=== PATIENT | male | born 1965 | race Caucasian/White ===

== ENCOUNTER → 2023-07-31 14:12 | Outpatient (REF) | payer OTHER, SELFPAY | LOC: RAD 14:12 | PROVIDERS: FAMILY PHYSICIAN General Practice | DX: N41.2 Abscess of prostate (principal) | CPT/HCPCS: 72194; Q9967 ==

== ENCOUNTER 2024-02-29 18:03 | Inpatient (IN) | payer SELFPAY ==
[2024-02-29] VITALS (47 sets, daily range): BP systolic 64–198; BP diastolic 33–128; BMI 29.8
[2024-02-29] MEDS: TYLENOL 1000 MG PO (15:15)
--- NOTE | 2024-02-29 15:15 | ED.GENMED ---
History of Present Illness
<Maribel Martinez NP - Last Filed: 03/02/24 15:33>
General
Chief Complaint: Fainting/Passed Out
Source: patient
Exam Limitations: none
Time Seen by Provider: 02/29/24 15:03
Nursing documentation reviewed up to this point in time: agreed with
History of Present Illness
History of Present Illness:
Patient to ED after syncopal event in group home. Found on floor of cell. He states he has had right ear pain and sorethroat x 2 days. Temp of 102 on arrival to ED. Hypotensive. Denies n/v/d. No abdominal pain, urinary symptoms, chest pain, cough,
SOB. Abrasion to right posterior scalp, upper back. Brought to ED accompanied by group home guards. Alert and cooperative.
Past History
<Maribel Martinez NP - Last Filed: 03/02/24 15:33>
Past History
ED Past Medical History: CAD, HTN, Hypercholesterolemia and NIDDM
Review of Systems
<Maribel Martinez NP - Last Filed: 03/02/24 15:33>
Review of Systems
Allergies reviewed?: Yes
All Other Systems: ROS reviewed and negative except as documented in HPI and ROS
Constitutional: Reports fever, fatigue and chills
EENT: Reports sore throat and other (right ear pain)
Respiratory: Reports no symptoms
Cardiac: Reports no symptoms
ABD/GI: Reports no symptoms
: Reports no symptoms
Musculoskeletal: Reports no symptoms
Skin: Reports other (abrasion right posterior scalp, upper back.)
Neurological: Reports weakness
Psychiatric: Reports no symptoms
Phy Exam
<Maribel Martinez NP - Last Filed: 03/02/24 15:33>
General Physical Exam
General Presentation: severe distress
General age: appears stated age and appears older than age
General Skin: warm and dry
General Habitus: normal
General Mental: alert
General Hydration: dry mucous membranes and poor skin turgor
ENT Exam
ENT Exam: EOMI, TM's normal, pharyngeal erythema, swallowing well and tonsillar exudate
Cardiovascular Exam
Cardiovascular Exam: regular rate/rhythm and no edema
Pulmonary Exam
Pulmonary Exam: lungs clear and no respiratory distress
Gastrointestinal Exam
Gastrointestinal Exam: normal bowel sounds, non tender, soft, no organomegaly, non distended and no cva tenderness
Neurological Exam
Neurological Exam: alert, oriented x3, CN II-XII intact, no motor deficits, no sensory deficits and speech normal
Musculoskeletal Exam
Musculoskeletal Exam: full ROM and neuro vasc intact
Skin Exam
Skin Exam: normal color, warm/dry, no rash and other (superficial abrasion right posterior scalp, upper back)
Psychiatric Exam
Psychiatric Exam: normal mood/affect
Course
<Maribel Martinez NP - Last Filed: 03/02/24 15:33>
Orders/Labs/Results
Orders:
Orders
02/29/24 14:47
Electrocardiogram (*1) Urgent
Reason for Study: Chest Pain
Cardiac Monitoring- Treatment ONCE
EKG- Treatment ONCE
IV Insert/Care/Rem.- Treatment PRN
02/29/24 15:06
Alcohol Urgent
COVID-19 Antigen Urgent
Source: Nasal Swab
Complete Blood Count/With Diff Urgent
Comprehensive Metabolic Panel Urgent
Lactic Acid Urgent
Magnesium Urgent
Comment: ADD ON
Manual Differential Urgent
Phosphorus Urgent
Comment: ADD ON
Serum Osmolality Urgent
Comment: ADD ON
TSH Reflex To Free T4 Urgent
Comment: ADD ON
Triglycerides Urgent
Comment: ADD ON
Troponin I Urgent
Blood Culture Urgent
PAM Source: Blood/Venous
Specimen Description:
Influenza A+B Rapid Molecular Urgent
PAM Source: Nasal Swab
Specimen Description:
02/29/24 15:10
Acetaminophen [Tylenol] 1,000 mg PO NOW STA
02/29/24 15:13
Acetaminophen [Tylenol] 1,000 mg .ROUTE .STK-MED ONE
02/29/24 15:15
0.9% Sodium Chloride 1000 ml [Nss] 1,000 ml IV BOLUS
Acetaminophen [Tylenol] 1,000 mg PO NOW STA
02/29/24 15:21
Blood Culture Urgent
PAM Source: Blood/Venous
Specimen Description:
Rapid Strep Group A Urgent
PAM Source: Throat/Pharynx
Specimen Description:
Date Specimen was Collected: 02/29/24
Time Specimen was Collected: 15:20
02/29/24 15:24
0.9% Sodium Chloride 1000 ml [Nss] 1,000 ml IV BOLUS
02/29/24 15:34
Piperacillin/Tazo 4.5 Gram [Zosyn] 4.5 gram in 100 ml IV NOW
02/29/24 15:47
Chest X-ray Portable [CR Chest Portable - 1 View] Urgent
Comment:
Reason For Exam: sepsis
Reason Study Needs to be Portable: Patient Unstable
02/29/24 15:56
Vancomycin [Vancocin] 1,500 mg 0.9% Sodium Chloride [Nss] 20 ml 0.9% Sodium Chloride 250 ml [Nss] 250 ml IV NOW
02/29/24 16:05
0.9% Sodium Chloride 500 ml [Nss] 1,000 ml IV BOLUS
02/29/24 16:15
Add On- LAB Urgent
Tests Added?: tsh with free t4, mag, phos
02/29/24 16:20
Lorazepam [Ativan] 2 mg .ROUTE .STK-MED ONE
02/29/24 16:42
NORepinephrine 4 MG/250 ML [Levophed] 4 mg in 250 ml .ROUTE .STK-MED
02/29/24 16:54
Magnesium Sulfate 4 Gram/100Ml [Magnesium Sulfate] 4 gram in 100 ml IV NOW
02/29/24 17:00
3% Sodium Chloride 250 ml [Sodium Chloride 3%] 250 ml IV ONCE
02/29/24 17:24
Old Records Request [Obtain Records] As Directed
Dates of Information to be Released: 2017 -
Type of Information Requested: Consults
Lab Results
H&P
Radiology Results
Entire Record
02/29/24 17:25
ABG [Arterial Blood Gas] Urgent
%Oxygen/Room Air: 6 liters
02/29/24 17:26
Levetiracetam Injectable [Keppra] 1,000 mg IV NOW STA
02/29/24 17:32
Levetiracetam Injectable [Keppra] 1,500 mg IV NOW STA
02/29/24 17:33
INFECTIOUS DISEASE CONSULT Routine
Consulting Provider: Leanna Lew
Was physician already notified: Yes
Reason for consult: septic shock , seziures , hypotensnion, marcial throat earpain
Lidocaine 2% [Lidocaine Uro-Jet 2%] 1 syringe .ROUTE .STK-MED ONE
02/29/24 17:37
NEPHROLOGY CONSULT Routine
Consulting Provider: Vikas Baird
Was physician already notified: Yes
Reason for consult: marcial, hyponatremia with seizure septic shock
02/29/24 17:38
Admit/Transfer Patient As Directed
Co-Sign Provider:
Level of Care: Inpatient admission
Assign to:: ICU
Physician / Group: roshni connor
Diagnosis: septic shock,seizure , hypoNa, marcial,nonmitrop robby
Reason for Hospitalization: septic shock,seizure , hypoNa, marcial,nonmitrop robby
Expected length of stay greater than two midnights?: Yes
ELOS- Estimated Length of Stay in days: 5
I certify the patient meets the requirements for IP care: Yes
02/29/24 17:40
Code Status As Directed
Resuscitation Status: Full Code
02/29/24 17:42
Urinalysis Reflex To Culture Urgent
Date Specimen was Collected: 02/29/24
Time Specimen was Collected: 16:51
Urine Drug Abuse Screen Urgent
Date Specimen was Collected: 02/29/24
Time Specimen was Collected: 17:41
Urine Microscopic Reflex Cult Urgent
Urine Osmolality Random [Osmolality, Random Urine] Routine
Date Specimen was Collected: 02/29/24
Time Specimen was Collected: 16:51
Urine Sodium Routine
Date Specimen was Collected: 02/29/24
Time Specimen was Collected: 16:51
Urine Culture Urgent
PAM Source: U
Specimen Description:
Date Specimen was Collected: 02/29/24
Time Specimen was Collected: 16:51
02/29/24 17:44
PRN Pain Medication Management As Directed
May give lesser potent ordered pain med per pt: Yes
preference::
Protocol:: Medication orders for pain may be administered in a
manner that supports deferring to patient preference
when the pt is:
- Requesting an ordered lesser potent pain medication.
Least to most potent pain medications are defined
as: acetaminophen < NSAID < tramadol < opioids
(morphine, oxycodone, hydromorphone).
- Requesting a lesser dose of the same medication IF
ORDERED.
- Requesting a less intrusive route of administration
if both routes are prescribed by the provider (PO <
IV).
02/29/24 17:49
Friedman Catheter [Catheter- Indwelling] As Directed
Reason for insertion: Acute Retention
Discontinue Date/Time: 03/03/24 0600
02/29/24 18:00
EKG [Electrocardiogram (*1)] Urgent
Reason for Study: Syncope
Dexamethasone Sod Phosphate [Decadron] 14 mg IV NOW STA
VANCOMYCIN Pharmacy to Dose [VANCOCIN Pharmacy to Dose] 1 each Pharmacy To Prepare [Call Pharmacy To Prepare] 0 ml IV PER PROTOCOL
02/29/24 18:01
Dextrose 50%-Water [Dextrose 50% Syringe] 12.5 grams IV [id number] PRN
Glucagon [GlucaGen] 1 mg IM PRN PRN
Bedside Glucose Monitoring As Directed
Frequency: AC&HS
Additional Instructions:: Change to q6h if pt on TPN, tube feeding or not eating
02/29/24 19:00
Acetaminophen [Tylenol/Feverall] 650 mg RECTAL Q4HPRN PRN
Acetaminophen [Tylenol] 650 mg TUBE Q4HPRN PRN
02/29/24 19:00
Activity As Directed
Activity Level: With Assistance
Intake/ Output As Directed
Frequency: Per unit guidelines
Pneumatic Compression Sleeves As Directed
Type: Knee high
Precautions As Directed
Type of Precautions: Seizure
Vital Signs As Directed
Frequency: Per unit guidelines
Weight As Directed
Frequency: Daily
Pulse Ox/spot Check [RESP] Routine
Quantity: 1
Pt Eval And Treat Routine
Activity Level: As Tolerated
DX Deep Vein Thrombosis Video Routine
02/29/24 20:00
CefTRIAXone [Rocephin] 2,000 mg IV Q12H
02/29/24 22:00
Ampicillin 2,000 mg 0.9% Sodium Chloride 100 ml [Nss] 100 ml IV Q6H
03/01/24 00:00
EKG [Electrocardiogram (*1)] Urgent
Reason for Study: Syncope
Dexamethasone Sod Phosphate [Decadron] 14 mg IV Q6H
Insulin Aspart Corrective Mod [Novolog Flexpen-Moderate Resistance] See Protocol SC Q6
09/17/24 02:36
Cardiovascular Evaluation IN AM
Complete Blood Count/With Diff IN AM
Comprehensive Metabolic Panel IN AM
Glycohemoglobin (HgbA1c) IN AM
Troponin I Q6H
03/01/24 08:00
Levetiracetam Injectable [Keppra] 500 mg IV Q12
03/02/24 04:23
Complete Blood Count/With Diff IN AM
Comprehensive Metabolic Panel IN AM
03/03/24 06:00
Complete Blood Count/With Diff IN AM
Comprehensive Metabolic Panel IN AM
03/04/24 06:00
Complete Blood Count/With Diff IN AM
Comprehensive Metabolic Panel IN AM
03/05/24 06:00
Complete Blood Count/With Diff IN AM
Comprehensive Metabolic Panel IN AM
03/06/24 06:00
Complete Blood Count/With Diff IN AM
Comprehensive Metabolic Panel IN AM
Abnormal Lab Results
02/29/24 02/29/24 02/29/24
15:06 16:27 17:25
WBC 23.1 H 10^3/uL
(4.8-10.8)
RBC 3.66 L 10^6/uL
(4.70-6.10)
Hgb 11.5 L g/dL
(13.0-18.0)
Hct 31.7 L %
(39.0-52.0)
MCH 31.4 H pg
(27.0-31.0)
MPV 10.8 H fL
(7.4-10.4)
Abs Neuts (Manual) 20.5 H 10^3/uL
(1.4-6.5)
Band Neutrophils 22 H %
(0-3)
Lymphocytes (Manual) 1 L %
(20-51)
Monocytes (Manual) 1 L %
(2-9)
pCO2 21 L mmHg
(35-48)
HCO3 11.9 L* mmol/L
(21-28)
Sodium 121 L mmol/L
(135-145)
Chloride 80 L mmol/L
(98-107)
Carbon Dioxide 14 L* mmol/L
(22-30)
BUN 33 H mg/dl
(9-20)
Creatinine 2.2 H mg/dL
(0.7-1.3)
Glucose 275 H mg/dl
(70-99)
Serum Osmolality 264 L mOsm/kg
(275-300)
Lactic Acid 10.3 H* mmol/L
(0.7-2.0)
Calcium 8.1 L mg/dl
(8.4-10.2)
Magnesium 0.9 L* mg/dl
(1.6-2.3)
AST 119 H U/L
(17-59)
ALT 81 H U/L
(0-50)
Troponin I 0.131 H* ng/ml
Urine Ketones
Ur Occult Blood Reflex
Urine Bilirubin
Urine Urobilinogen
Leukocyte Esterase Rfl
Urine RBC
Urine Bacteria (Reflex)
Urine Glucose
Urine Albumin (Reflex)
POC Glucose 246 H mg/dl
(70-99)
02/29/24
17:42
WBC
RBC
Hgb
Hct
MCH
MPV
Abs Neuts (Manual)
Band Neutrophils
Lymphocytes (Manual)
Monocytes (Manual)
pCO2
HCO3
Sodium
Chloride
Carbon Dioxide
BUN
Creatinine
Glucose
Serum Osmolality
Lactic Acid
Calcium
Magnesium
AST
ALT
Troponin I
Urine Ketones Trace A
(Negative)
Ur Occult Blood Reflex 4+ A
(Negative)
Urine Bilirubin 2+ A
(Negative)
Urine Urobilinogen 3+ A
(Neg - 1+)
Leukocyte Esterase Rfl Trace A
(Negative)
Urine RBC 3-6 A /HPF
(0-2)
Urine Bacteria (Reflex) Many A
(Negative)
Urine Glucose Trace A
(Negative)
Urine Albumin (Reflex) 1+ A
(Neg - Trace)
POC Glucose
02/29/24 15:06
02/29/24 15:06
Vital Signs
Initial and Last Documented VS:
Initial Vital Signs
Temp Pulse Resp BP Pulse Ox
102.1 F H 93 24 90/63 94
02/29/24 14:39 02/29/24 14:39 02/29/24 14:39 02/29/24 14:39 02/29/24 14:39
Last Documented Vital Signs
Temp Pulse Resp BP Pulse Ox
99.6 F 75 17 84/65 93
03/02/24 11:00 03/02/24 13:45 03/02/24 13:45 03/02/24 12:00 03/02/24 13:45
<Aldo Harris, DO - Last Filed: 02/29/24 19:07>
Orders/Labs/Results
Orders:
Orders
02/29/24 14:47
Electrocardiogram (*1) Urgent
Reason for Study: Chest Pain
Cardiac Monitoring- Treatment ONCE
EKG- Treatment ONCE
IV Insert/Care/Rem.- Treatment PRN
02/29/24 15:06
Alcohol Urgent
COVID-19 Antigen Urgent
Source: Nasal Swab
Complete Blood Count/With Diff Urgent
Comprehensive Metabolic Panel Urgent
Lactic Acid Urgent
Magnesium Urgent
Comment: ADD ON
Manual Differential Urgent
Phosphorus Urgent
Comment: ADD ON
Serum Osmolality Urgent
Comment: ADD ON
TSH Reflex To Free T4 Urgent
Comment: ADD ON
Triglycerides Urgent
Comment: ADD ON
Troponin I Urgent
Blood Culture Urgent
PAM Source: Blood/Venous
Specimen Description:
Influenza A+B Rapid Molecular Urgent
PAM Source: Nasal Swab
Specimen Description:
02/29/24 15:10
Acetaminophen [Tylenol] 1,000 mg PO NOW STA
02/29/24 15:13
Acetaminophen [Tylenol] 1,000 mg .ROUTE .STK-MED ONE
02/29/24 15:15
0.9% Sodium Chloride 1000 ml [Nss] 1,000 ml IV BOLUS
Acetaminophen [Tylenol] 1,000 mg PO NOW STA
02/29/24 15:21
Blood Culture Urgent
PAM Source: Blood/Venous
Specimen Description:
Rapid Strep Group A Urgent
PAM Source: Throat/Pharynx
Specimen Description:
Date Specimen was Collected: 02/29/24
Time Specimen was Collected: 15:20
02/29/24 15:24
0.9% Sodium Chloride 1000 ml [Nss] 1,000 ml IV BOLUS
02/29/24 15:34
Piperacillin/Tazo 4.5 Gram [Zosyn] 4.5 gram in 100 ml IV NOW
02/29/24 15:47
Chest X-ray Portable [CR Chest Portable - 1 View] Urgent
Comment:
Reason For Exam: sepsis
Reason Study Needs to be Portable: Patient Unstable
02/29/24 15:56
Vancomycin [Vancocin] 1,500 mg 0.9% Sodium Chloride [Nss] 20 ml 0.9% Sodium Chloride 250 ml [Nss] 250 ml IV NOW
02/29/24 16:05
0.9% Sodium Chloride 500 ml [Nss] 1,000 ml IV BOLUS
02/29/24 16:15
Add On- LAB Urgent
Tests Added?: tsh with free t4, mag, phos
02/29/24 16:20
Lorazepam [Ativan] 2 mg .ROUTE .STK-MED ONE
02/29/24 16:42
NORepinephrine 4 MG/250 ML [Levophed] 4 mg in 250 ml .ROUTE .STK-MED
02/29/24 16:54
Magnesium Sulfate 4 Gram/100Ml [Magnesium Sulfate] 4 gram in 100 ml IV NOW
02/29/24 17:00
3% Sodium Chloride 250 ml [Sodium Chloride 3%] 250 ml IV ONCE
02/29/24 17:24
Old Records Request [Obtain Records] As Directed
Dates of Information to be Released: 2017 - present
Type of Information Requested: Consults
Lab Results
H&P
Radiology Results
Entire Record
02/29/24 17:25
ABG [Arterial Blood Gas] Urgent
%Oxygen/Room Air: 6 liters
02/29/24 17:26
Levetiracetam Injectable [Keppra] 1,000 mg IV NOW STA
02/29/24 17:32
Levetiracetam Injectable [Keppra] 1,500 mg IV NOW STA
02/29/24 17:33
INFECTIOUS DISEASE CONSULT Routine
Consulting Provider: Leanna Lew
Was physician already notified: Yes
Reason for consult: septic shock , seziures , hypotensnion, marcial throat earpain
Lidocaine 2% [Lidocaine Uro-Jet 2%] 1 syringe .ROUTE .STK-MED ONE
02/29/24 17:37
NEPHROLOGY CONSULT Routine
Consulting Provider: Vikas Baird
Was physician already notified: Yes
Reason for consult: marcial, hyponatremia with seizure septic shock
02/29/24 17:38
Admit/Transfer Patient As Directed
Co-Sign Provider:
Level of Care: Inpatient admission
Assign to:: ICU
Physician / Group: roshni connor
Diagnosis: septic shock,seizure , hypoNa, marcial,nonmitrop robby
Reason for Hospitalization: septic shock,seizure , hypoNa, marcial,nonmitrop robby
Expected length of stay greater than two midnights?: Yes
ELOS- Estimated Length of Stay in days: 5
I certify the patient meets the requirements for IP care: Yes
02/29/24 17:40
Code Status As Directed
Resuscitation Status: Full Code
02/29/24 17:42
Urinalysis Reflex To Culture Urgent
Date Specimen was Collected: 02/29/24
Time Specimen was Collected: 16:51
Urine Drug Abuse Screen Urgent
Date Specimen was Collected: 02/29/24
Time Specimen was Collected: 17:41
Urine Microscopic Reflex Cult Urgent
Urine Osmolality Random [Osmolality, Random Urine] Routine
Date Specimen was Collected: 02/29/24
Time Specimen was Collected: 16:51
Urine Sodium Routine
Date Specimen was Collected: 02/29/24
Time Specimen was Collected: 16:51
Urine Culture Urgent
PAM Source: U
Specimen Description:
Date Specimen was Collected: 02/29/24
Time Specimen was Collected: 16:51
02/29/24 17:44
PRN Pain Medication Management As Directed
May give lesser potent ordered pain med per pt: Yes
preference::
Protocol:: Medication orders for pain may be administered in a
manner that supports deferring to patient preference
when the pt is:
- Requesting an ordered lesser potent pain medication.
Least to most potent pain medications are defined
as: acetaminophen < NSAID < tramadol < opioids
(morphine, oxycodone, hydromorphone).
- Requesting a lesser dose of the same medication IF
ORDERED.
- Requesting a less intrusive route of administration
if both routes are prescribed by the provider (PO <
IV).
02/29/24 17:49
Friedman Catheter [Catheter- Indwelling] As Directed
Reason for insertion: Acute Retention
Discontinue Date/Time: 03/03/24 0600
02/29/24 18:00
EKG [Electrocardiogram (*1)] Urgent
Reason for Study: Syncope
Dexamethasone Sod Phosphate [Decadron] 14 mg IV NOW STA
VANCOMYCIN Pharmacy to Dose [VANCOCIN Pharmacy to Dose] 1 each Pharmacy To Prepare [Call Pharmacy To Prepare] 0 ml IV PER PROTOCOL
02/29/24 18:01
Dextrose 50%-Water [Dextrose 50% Syringe] 12.5 grams IV [id number] PRN
Glucagon [GlucaGen] 1 mg IM PRN PRN
Bedside Glucose Monitoring As Directed
Frequency: AC&HS
Additional Instructions:: Change to q6h if pt on TPN, tube feeding or not eating
02/29/24 19:00
Acetaminophen [Tylenol/Feverall] 650 mg RECTAL Q4HPRN PRN
Acetaminophen [Tylenol] 650 mg TUBE Q4HPRN PRN
02/29/24 19:00
Activity As Directed
Activity Level: With Assistance
Intake/ Output As Directed
Frequency: Per unit guidelines
Pneumatic Compression Sleeves As Directed
Type: Knee high
Precautions As Directed
Type of Precautions: Seizure
Vital Signs As Directed
Frequency: Per unit guidelines
Weight As Directed
Frequency: Daily
Pulse Ox/spot Check [RESP] Routine
Quantity: 1
Pt Eval And Treat Routine
Activity Level: As Tolerated
DX Deep Vein Thrombosis Video Routine
02/29/24 20:00
CefTRIAXone [Rocephin] 2,000 mg IV Q12H
02/29/24 22:00
Ampicillin 2,000 mg 0.9% Sodium Chloride 100 ml [Nss] 100 ml IV Q6H
03/01/24 00:00
EKG [Electrocardiogram (*1)] Urgent
Reason for Study: Syncope
Dexamethasone Sod Phosphate [Decadron] 14 mg IV Q6H
Insulin Aspart Corrective Mod [Novolog Flexpen-Moderate Resistance] See Protocol SC Q6
03/01/24 02:36
Cardiovascular Evaluation IN AM
Complete Blood Count/With Diff IN AM
Comprehensive Metabolic Panel IN AM
Glycohemoglobin (HgbA1c) IN AM
Troponin I Q6H
03/01/24 08:00
Levetiracetam Injectable [Keppra] 500 mg IV Q12
03/02/24 04:23
Complete Blood Count/With Diff IN AM
Comprehensive Metabolic Panel IN AM
03/03/24 06:00
Complete Blood Count/With Diff IN AM
Comprehensive Metabolic Panel IN AM
03/04/24 06:00
Complete Blood Count/With Diff IN AM
Comprehensive Metabolic Panel IN AM
03/05/24 06:00
Complete Blood Count/With Diff IN AM
Comprehensive Metabolic Panel IN AM
03/06/24 06:00
Complete Blood Count/With Diff IN AM
Comprehensive Metabolic Panel IN AM
Abnormal Lab Results
02/29/24 02/29/24 02/29/24
15:06 16:27 17:25
WBC 23.1 H 10^3/uL
(4.8-10.8)
RBC 3.66 L 10^6/uL
(4.70-6.10)
Hgb 11.5 L g/dL
(13.0-18.0)
Hct 31.7 L %
(39.0-52.0)
MCH 31.4 H pg
(27.0-31.0)
MPV 10.8 H fL
(7.4-10.4)
Abs Neuts (Manual) 20.5 H 10^3/uL
(1.4-6.5)
Band Neutrophils 22 H %
(0-3)
Lymphocytes (Manual) 1 L %
(20-51)
Monocytes (Manual) 1 L %
(2-9)
pCO2 21 L mmHg
(35-48)
HCO3 11.9 L* mmol/L
(21-28)
Sodium 121 L mmol/L
(135-145)
Chloride 80 L mmol/L
(98-107)
Carbon Dioxide 14 L* mmol/L
(22-30)
BUN 33 H mg/dl
(9-20)
Creatinine 2.2 H mg/dL
(0.7-1.3)
Glucose 275 H mg/dl
(70-99)
Serum Osmolality 264 L mOsm/kg
(275-300)
Lactic Acid 10.3 H* mmol/L
(0.7-2.0)
Calcium 8.1 L mg/dl
(8.4-10.2)
Magnesium 0.9 L* mg/dl
(1.6-2.3)
AST 119 H U/L
(17-59)
ALT 81 H U/L
(0-50)
Troponin I 0.131 H* ng/ml
Urine Ketones
Ur Occult Blood Reflex
Urine Bilirubin
Urine Urobilinogen
Leukocyte Esterase Rfl
Urine RBC
Urine Bacteria (Reflex)
Urine Glucose
Urine Albumin (Reflex)
POC Glucose 246 H mg/dl
(70-99)
02/29/24
17:42
WBC
RBC
Hgb
Hct
MCH
MPV
Abs Neuts (Manual)
Band Neutrophils
Lymphocytes (Manual)
Monocytes (Manual)
pCO2
HCO3
Sodium
Chloride
Carbon Dioxide
BUN
Creatinine
Glucose
Serum Osmolality
Lactic Acid
Calcium
Magnesium
AST
ALT
Troponin I
Urine Ketones Trace A
(Negative)
Ur Occult Blood Reflex 4+ A
(Negative)
Urine Bilirubin 2+ A
(Negative)
Urine Urobilinogen 3+ A
(Neg - 1+)
Leukocyte Esterase Rfl Trace A
(Negative)
Urine RBC 3-6 A /HPF
(0-2)
Urine Bacteria (Reflex) Many A
(Negative)
Urine Glucose Trace A
(Negative)
Urine Albumin (Reflex) 1+ A
(Neg - Trace)
POC Glucose
02/29/24 15:06
02/29/24 15:06
Vital Signs
Initial and Last Documented VS:
Initial Vital Signs
Temp Pulse Resp BP Pulse Ox
102.1 F H 93 24 90/63 94
02/29/24 14:39 02/29/24 14:39 02/29/24 14:39 02/29/24 14:39 02/29/24 14:39
Last Documented Vital Signs
Temp Pulse Resp BP Pulse Ox
99.6 F 75 17 84/65 93
03/02/24 11:00 03/02/24 13:45 03/02/24 13:45 03/02/24 12:00 03/02/24 13:45
Procedures
<Aldo Harris DO - Last Filed: 02/29/24 19:07>
Intubations
Procedure completed by: yusuf
Method of Intubation: curved blade, orotracheal and glidescope
Tube size (cm): 8.0
Placement confirmed by: auscutation, CXR, capnography, placement corrected and direct visualization
Breath sounds after intubation: equal
Intubation complications: no complications
Central Line
Right Femoral:
Indication for procedure:: vascular assess
Procedure completed by: yusuf
Consent form signed: No
If no, reason: Emergency procedure
Central line lumen: triple
Number of attempts: 1
Central line complications: none
Sterile dressing applied?: Yes
<Maribel Martinez NP - Last Filed: 03/02/24 15:33>
*Radiology
Radiology exam reviewed: radiology read reviewed
*Pulse Oximetry
Patient hypoxic: yes
<Aldo Harris DO - Last Filed: 02/29/24 19:07>
*Critical Care Note
Total Time (30-74mins, 75-104mins- exclusive of procedures): 75 minutes
<Maribel Martinez NP - Last Filed: 03/02/24 15:33>
Update Note
Update Note:
Seizure while in CT. No prior history. Rn reportsO2 dropped suddenly and then patient started to seize. Lasted approx 1-2 minutes. Brought back to ED.Dr. Harris with pt. Fluid resuscitation continued. Levaphed started with gradually
tiration up. BP holding at low 80's/50's. Friedman catheter placed by RN. ENDER, UDS pending. Dr. Cavazos, Dr Diaz into evaluate patient. Intubation to proceed and then return to CT head imaging.
UA neg. Thick green secretions noted on intubation. Culture ordered. tTripple lumen femoral line placed by Dr. Harris.. Patient moved to CT and then ICU.
ED Attending Note
<Maribel Martinez YARD DRIVER - Last Filed: 03/02/24 15:33>
-
Portions of this chart may have been created with voice recognition software.� Occasional wrong word or��sound alike� substitutions may have occurred due to the inherent limitations of voice recognition software.
<Alod Harris DO - Last Filed: 02/29/24 19:07>
ED Attending Note
Patient seen and examined by attending physician: Yes
I performed the substantive portion of visit, reviewed & personally made and approve the management plan that is documented in note by myself or DERRICK.: Yes
ED Attending Note:
Patient is a 58-year-old diabetic male from the group home who has syncopal episode and was found to have a fever of 102. Patient is extremely dehydrated on physical exam. Patient is coherent and appropriate. Patient denies any headache, neck pain,
shortness of breath or cough. Patient did complain of right ear pain and sore throat. Patient denies any GI or symptoms. Patient's been present since February 04. Patient admits to drinking 2 beers a day. Patient denies any drug use. Patient
denies any history of seizures. Patient did pass out and strike the right side of his head. Patient on physical exam is normocephalic with small bruising on the right with abrasions on top. Ears show TMs to be intact and clear. No tenderness
with traction. No signs of otitis externa or media. Oral exam shows mild halitosis with extremely dry mucous membranes. On intubation there was green pus coming through the trachea. Patient's lungs were clear. Heart is regular with mild
tachycardia. Abdomen soft nontender. Neurologically without focality. Patient's liver enzymes are elevated with AST greater than ALT, sodium is 121, CO2 is 14, QT interval is prolonged suggesting hypomagnesemia. Certainly the sodium, head strike
and low magnesium and possible alcohol withdrawal could all contribute to seizure. Patient was given 3% sodium along with normal saline fluid resuscitation in addition to antibiotics and magnesium being infused. Patient is septic with hypotension,
tachycardia but adequate mentation. Patient was fluid resuscitated and after 4-1/2 L was switched to Levophed which was titrated upward. Patient was sent to CT and promptly ceased. Patient was brought back before CT could be done. Patient was
postictal but eventually became oriented. After discussion it was decided to intubate the patient due to his unstable critical nature. Patient was intubated with an 8.0 tube by me. Also a right femoral vein line was placed. Patient had
difficulty maintaining adequate oxygenation on the ventilator. Patient's airway pressures are actually low. PEEP was increased. Looking at the chest x-ray the ET tube was approximately 1 to 1-1/2 cm above the lucas. Decision was made to pull
back the tube which seemed to improve oxygenation. Patient's PEEP was turned back down to 5. Patient had a Friedman catheter placed. Urine looked concentrated but not infected. Patient critically ill. Critical care time 75 minutes.
Discharge Plan
Departure
Patient Disposition: Admit
Date of Disposition: 02/29/24
Time of Disposition: 15:40
Presentation/result/management discussed w/ accepting MD/DO: Hospitalist
Condition: Fair
Discharge Problem:
Sepsis
Interventions
Interventions:
*Risk Screen - Suicide Last Done: 02/29/24 14:39
*General Assessment Last Done: 02/29/24 14:39
*Neglect/Abuse Screening Last Done: 02/29/24 14:39
ED- Fall Risk Assessment Last Done: 02/29/24 14:53
*ED COVID-19 Vaccine History Last Done: 02/29/24 20:12
*Nursing Disposition Last Done: 02/29/24 20:12
ED- Cardiac Assessment Last Done: 02/29/24 15:30
ED- Neurological Assessment Last Done: 02/29/24 15:30
Discharge Date and Time
Discharge Date/Time: 02/29/24 20:13
[2024-02-29] MEDS: NSS 1000 IV ×3 (15:17→16:06)
[2024-02-29 15:33] LABS: COVID-19 Antigen Negative (Negative)
--- NOTE | 2024-02-29 15:33 | EDRN ---
Pt placed on oxygen at 2lpm for POX 86% on RA.
[2024-02-29 15:34] LABS: Albumin 3.6 g/dl (3.5-5.0); Alkaline Phosphatase 83 U/L (38-126); Blood Urea Nitrogen 33 mg/dl (9-20); Calcium 8.1 mg/dl (8.4-10.2); Carbon Dioxide 14 mmol/L (22-30); Estimated Creatinine Clearance 38 ml/min; Glucose 275 mg/dl (70-99); Lactic Acid 10.3 mmol/L (0.7-2.0); Total Bilirubin 1.3 mg/dl (0.2-1.3); Total Protein 6.3 g/dl (6.3-8.2); eGFR 34.08
[2024-02-29 15:36] LABS: AST (SGOT) 119 U/L (17-59)
[2024-02-29 15:38] LABS: ALT (SGPT) 81 U/L (0-50)
[2024-02-29 15:45] LABS: Troponin I 0.131 ng/ml
[2024-02-29] MEDS: ZOSYN 100 IV (15:46)
[2024-02-29 15:47] LABS: Chloride 80 mmol/L (98-107); Potassium 3.8 mmol/L (3.5-5.1); Sodium 121 mmol/L (135-145)
[2024-02-29 15:52] LABS: Hematocrit 31.7 % (39.0-52.0); Hemoglobin 11.5 g/dL (13.0-18.0); Mean Corp Hgb Conc. 36.3 g/dL (33.0-37.0); Mean Corpuscular Hgb 31.4 pg (27.0-31.0); Mean Corpuscular Volume 86.6 fL (80.0-94.0); Mean Platelet Volume 10.8 fL (7.4-10.4); Platelet Count 148 10^3/uL (130-400); Red Blood Cell Count 3.66 10^6/uL (4.70-6.10); White Blood Cell Count 23.1 10^3/uL (4.8-10.8)
--- NOTE | 2024-02-29 16:07 | EDRN ---
Portable CXR done at stretcher side at this time.
--- NOTE | 2024-02-29 16:17 | HPS.HSE ---
Family Physician
-
Family Physician: Facility [facility]
Chief Complaint
-
Syncope, hypotension, febrile, right ear pain, sore throat x 2 days [facility]
History of Present Illness
58-year-old male from [facility] when examined by ER physician was complaining of right ear pain with sore throat x 2 days. He had a syncopal event while in [place] [facility]. He arrived to the ER with a 102F temp hypotensive 80s over
60s. He was noted to have abrasion to right posterior scalp and upper back on arrival per emergency room record. While in CAT scan he had seizure and is postictal. He will turn your direction for name Bill but unable to answer any questions. He
mumbles. He appears to have past medical history of hypertension, HLD, CAD with 1 stent, defibrillator ,depression.
Medical History
Past Medical History
Past Medical History: Reports Other
Additional Past Medical History:
hypertension
HLD
CAD
permanent pacemaker
depression
Past Surgical History: Reports Other
Additional Past Surgical History:
Defibrillator
CAD with 1 stent greater than 4 years at [facility]
Social History
Tobacco: Non-smoker
Alcohol: Daily (Beers daily up until his arrest 02/05/2024)
Living: Detention ([facility])
Employment: Other (Currently incarcerated)
Family History
Family History: Unable to Obtain
Allergies / Home Medications
Allergies reflects when Allergies were last updated in enavu.
Home Medications with original date entered in enavu
Allergy/Medication List:
Allergies
Allergy/AdvReac Type Severity Reaction Status Date / Time
No Known Allergies Allergy Unverified 02/29/24 14:38
Home Medications
aspirin 81 mg tablet,delayed release 81 mg PO DAILY 02/29/24
atorvastatin 40 mg tablet 40 mg PO HS 02/29/24
buspirone 10 mg tablet 10 mg PO BID 02/29/24
carvedilol 3.125 mg tablet (Coreg) 3.125 mg PO DAILY 02/29/24
folic acid 1 mg tablet 1 mg PO DAILY 02/29/24
glipizide 5 mg tablet 5 mg PO DAILY 02/29/24
ibuprofen 200 mg tablet 400 mg PO BIDPRN PRN mild pain 02/29/24
lisinopril 5 mg tablet 5 mg PO DAILY 02/29/24
metformin 1,000 mg tablet 1,000 mg PO BID 02/29/24
sertraline 100 mg tablet 100 mg PO DAILY 02/29/24
therapeutic multivitamin 1 tab PO DAILY 02/29/24
thiamine HCl (vitamin B1) 100 mg tablet 100 mg PO DAILY 02/29/24
Review of Systems
-
History Source: Patient and Physician (Emergency room record)
A 12 point ROS was completed and negative except as noted: Yes
Constitutional: Reports Fever and Other (Postictal)
EENT: Reports Sore Throat and Other (Right inner ear canal pain)
Respiratory: Denies Cough or Trouble Breathing
Cardiac: Reports Syncope; Denies Chest Pain, Diaphoresis or Palpitations
Abdomen/GI: Denies Abdominal Pain, Nausea, Vomiting, Diarrhea, Constipated or Bloody Stools
: Denies Dysuria, Frequency, Flank Pain, Incontinence or Difficulty Voiding
Musculoskeletal: Denies Joint Pain or Edema
Skin: Denies Itching or Rash
Neurological: Denies Dizzy or Headache
Endocrine: Reports No Symptoms
Hematologic/Lymphatic: Reports No Symptoms
Psych: Reports Calm
Physical Exam
Vital Signs
Vital Signs
Temp Pulse Resp BP Pulse Ox
102.1 F H 89 25 80/52 83
02/29/24 14:39 02/29/24 16:00 02/29/24 16:00 02/29/24 16:00 02/29/24 15:52
Physical Exam
General: Comfortable, Conversant, Fever and Other (Witnessed seizure in CAT scan by myself at 1420 then post ictal state. Exam again at 1730 oriented to first name, Bogue but not year or some of history)
HEENT: NormoCephalic, Anicteric, PERRLA, Leota Conjunctivae, No Ptosis, Pharyngeal Erythema (No exudate, enlarged uvula), Neck Nontender and Other (Right ear appears to have otitis externa, although negative pain on tug test, no posterior mastoid
tenderness or swelling)
Respiratory: Clear; No Wheezes, Rales or Rhonchi
Cardiac: S1/S2 and Regular Rhythm; No Murmur, Rub, Gallop or Peripheral Edema
Breast: Deferred by me
GI: Soft, Non Tender, Non Distended, Normal Bowel Sounds and No Hepatosplenomegaly
Rectal: Deferred by Provider
Genito-urinary: Deferred by me
Musculoskeletal: No Clubbing, No Cyanosis and No Edema
Skin: Warm and Dry; No Rash
Neuro: Awake, Alert (45 minutes post seizure is oriented to name, Bogue but not year or most of history), No Motor Deficits (Moving all extremities in bed) and No Sensory Deficits; No Slurred Speech, Facial Droop or Tremors
Psych: Agitated
Laboratory Results
-
02/29/24 15:06
02/29/24 15:06
Laboratory Results
Lactic Acid 10.3 mmol/L (0.7-2.0) H* 02/29/24 15:06
Total Bilirubin 1.3 mg/dl (0.2-1.3) 02/29/24 15:06
AST 119 U/L (17-59) H 02/29/24 15:06
ALT 81 U/L (0-50) H 02/29/24 15:06
Alkaline Phosphatase 83 U/L (38-126) 02/29/24 15:06
Troponin I 0.131 ng/ml H* 02/29/24 15:06
Data Reviewed
-
Diagnostic Radiology: Report Reviewed by me
Lab Data: Labs Reviewed by me
Impression/Plan
-
Impression/plan:
Admit to ICU
#Seizure likely secondary to hyponatremia
NA 121
Witnessed seizure at 1620 and CAT scan
3% NA 35 mL an hour x 250
-Consult Neurology
-Consult Nephrology
-IV Keppra 1500 mg now, then 500 mg Keppra every 12 hours
-Check CT head before patient proceeds to ICU(patient was removed from CT table during active seizure in ER)
-Check urine NA, urine Osmo, serum Osmo, TSH with free T4 reflex
-Check UDS
-Patient intubated in the ER to protect airway
#Septic shock unclear etiology concern for possible Meningitis
COVID/FLU -negative
WBC 23.1 with left shift, temp 102.1, lactic acid 10.3
Anion gap 28
90/63> 80/58 post 2 L NC
-Patient given 5 L NSS in emergency department still required Levophed drip
- start Levophed gtt
Hold Coreg 3.125 mg daily, lisinopril 5 mg daily
-Tylenol 1000 mg p.o. was given at 3 PM prior to patient seizure, will continue Tylenol per rectum for fever
-IV Vancomycin, IV piperacillin given in the ER
-Continue IV vancomycin, IV Rocephin 2 g every 12 hours, IV acyclovir 10mg/kg q8h x 14 days , IV Decadron 14 mg every 6 hours x 4 days, IV ampicillin
--Consult ID
-Consult chimney sweeper
-Patient will require lumbar puncture will need to wait for CT head results
-UA WILDLIFE OFFICER, blood cultures x 2
-Follow CBC, CMP
#PIO poss meds with volume depletion vs Ckd
Creat 2.2/bun 33
-5 L NSS given above for hypotension
-Insert Friedman catheter
-Renal bladder ultrasound
follow bmp
-Consult nephrology
#Nonischemic myocardial injury
Troponin 0.131, will trend
EKG: NSR 89 bpm, QTc 513 MS
#Subjective sore throat with right ear pain x 2 days
-Group A strep negative
# Defibrillator hx
had placed at [place] greater than 4 years ago unclear reason
#Prolonged QTc
-Follow on repeat EKG
#Transaminitis likely reactive secondary to sepsis
follow cmp
#DM 2
Accu-Cheks with SSI
BS 275
-Hold metformin at 1000 mg twice daily, glipizide 5 mg daily
DVT prophylaxis
scd's
Full code
[2024-02-29 16:30] LABS: Glucose - Point of Care 246 mg/dl (70-99)
[2024-02-29] MEDS: VANCOCIN 300 MG IV (16:37)
[2024-02-29] MEDS: VANCOCIN 300 ML IV (16:37)
[2024-02-29 16:46] LABS: Absolute Neutrophils -Man Diff 20.5 10^3/uL (1.4-6.5); Band Neutrophils 22 % (0-3); Lymphocytes 1 % (20-51); Metamyelocytes 7 % (-); Monocytes 1 % (2-9); Myelocytes 2 % (-); Normal RBC Morphology Yes; Platelets Checked Yes; Segmented Neutrophils 67 % (42-75); Total Cells Counted 100
[2024-02-29 16:55] LABS: Osmolality Serum 264 mOsm/kg (275-300)
--- NOTE | 2024-02-29 17:02 | CON.INTV ---
Consultation
Consultation Request
Date/Time Consultation Requested: 02/29/2024-5 PM
Date/Time Consultation Performed: 02/29/2024-5 PM
Requesting Provider: Hospitalist
Performing Provider: Dr. Cavazos
Reason for Consultation: Seizures/ventilator dependence/critical care management
Medical History
-
Chief Complaint: Seizures/respiratory failure
History of Present Illness:
58-year-old male with a history of hypertension, hyperlipidemia, CAD who presented from [facility] complaining of right ear pain and sore throat for 2 days had a syncopal episode and arrived with temperatures, had seizure and
CAT scan requiring potential intubation-corral boss consulted for poss ventilator/sepsis/critical care management 02/29/2024. Review of systems unobtainable as patient is lethargic.
Past Medical History
Past Medical History: None (Hypertension. Hyperlipidemia. CAD. Permanent pacemaker. Depression. Diabetes)
Social History
Tobacco: Smoker (40 py)
Alcohol: Other ( unknown)
Living: [facility]
Family History
Family History: Unable to Obtain
Allergies / Home Medications
Allergies
Allergy/AdvReac Type Severity Reaction Status Date / Time
No Known Allergies Allergy Unverified 02/29/24 14:38
Home Medications
�Medication �Instructions �Recorded �Confirmed �Last Taken �Type
aspirin 81 mg tablet,delayed 81 mg PO DAILY 02/29/24 02/29/24 Unknown History
release
atorvastatin 40 mg tablet 40 mg PO HS 02/29/24 02/29/24 Unknown History
buspirone 10 mg tablet 10 mg PO BID 02/29/24 02/29/24 Unknown History
carvedilol 3.125 mg tablet (Coreg) 3.125 mg PO DAILY 02/29/24 02/29/24 Unknown History
folic acid 1 mg tablet 1 mg PO DAILY 02/29/24 02/29/24 Unknown History
glipizide 5 mg tablet 5 mg PO DAILY 02/29/24 02/29/24 Unknown History
ibuprofen 200 mg tablet 400 mg PO BIDPRN PRN mild pain 02/29/24 02/29/24 Unknown History
lisinopril 5 mg tablet 5 mg PO DAILY 02/29/24 02/29/24 Unknown History
metformin 1,000 mg tablet 1,000 mg PO BID 02/29/24 02/29/24 Unknown History
sertraline 100 mg tablet 100 mg PO DAILY 02/29/24 02/29/24 Unknown History
therapeutic multivitamin 1 tab PO DAILY 02/29/24 02/29/24 Unknown History
thiamine HCl (vitamin B1) 100 mg 100 mg PO DAILY 02/29/24 02/29/24 Unknown History
tablet
Review of Systems
-
Unable to Obtain full review of systems at this time due to: Patient Intubation
Vitals / Labs / Diagnostic Testing
Vital Signs
Temp Pulse Resp BP Pulse Ox
102.1 F H 90 20 73/57 83
02/29/24 14:39 02/29/24 16:46 02/29/24 16:46 02/29/24 16:46 02/29/24 15:52
Lab Data
02/29/24 15:06
02/29/24 15:06
Microbiology
02/29/24 15:21 Throat/Pharynx Streptococcus Rapid Screen - Final
Rapid Strep Screen (Group A) Negative
02/29/24 15:06 Nasal Swab Influenza Types A & B (CHARLENE) - Final
Negative for Influenza A & B, NAAT
Negative results must be combined with clinical observations
and patient history.
Nucleic Acid Amplification test (NAAT)performed on the
Cue platform.
Diagnostic Testing:
Physical Exam
-
Exam:
Well-nourished and well-developed in no apparent distress
HEENT-atraumatic, normocephalic,
Neck-supple, no JVD, no bruit
Heart-regular rate and rhythm-no murmurs, rubs or gallops
Chest-clear to auscultation, no wheezes, crackles
Abdomen-soft, nontender, nondistended, no hepatosplenomegaly
Extremities-no cyanosis, clubbing, edema and good peripheral pulses
Integument-intact, no rashes, lesions or ecchymosis
Neurology-not alert, not oriented moving extremities
Assessment
-
58-year-old male with a history of hypertension, hyperlipidemia, CAD who presented from [facility] complaining of right ear pain and sore throat for 2 days had a syncopal episode and arrived with temperatures, had seizure and
CAT scan requiring intubation-corral boss consulted for ventilator/sepsis/critical care management 02/29/2024.
Sepsis with shock unresponsive to fluids requiring pressors
VDRF
Seizure
Hyponatremia-serum sodium 121
PIO
Elevated troponin
Leukocytosis
Mild [id number] 11.5
Metabolic acidosis
Lactic acidosis
Hyperglycemia
Conditions present prior to admission:
Hypertension.
Hyperlipidemia.
CAD.
Permanent pacemaker.
Depression.
Diabetes
Tobacco addiction
Plan
Admit patient to medical intensive care unit for persistent hypotension despite fluid resuscitation requiring pressors
Intubate and mechanically ventilate if necessary
Follow ABG
Follow chest x-ray
Aspiration precautions
Nebulizers if needed
Obtain cultures
Empiric antibiotics
Recommend infectious disease consultation
Monitor leukocytosis
Consider lumbar puncture
Fluid resuscitation with 30 mL/kg crystalloid-preferably lactated ringer-(less PIO) with subsequent boluses as needed
Monitor lactate
Follow CVP if possible
Attempt noninvasive bedside tissue perfusion evaluation to see if fluid bolus responsive
Measure pulse pressure and stroke volume variation if patient on ventilator, passively breathing without arrhythmia and with temporary large tidal volume ventilation and if > 13% then likely fluid bolus responsive
If patient active then consider measuring bedside leg lift for 3 minutes and if cardiac output increases or if there is a rise of 2-4 on end-tidal CO2 then fluid bolus
If bedside ultrasound available then measure IVC diameter variation to evaluate for fluid bolus responsiveness
Begin pressors as needed for MAP goal of 65-Norepinephrine first, then Vasopressin and consider Angiotensin II if continues to be hypotensive
Consider methylene blue if available-specific inhibitor of induced nitric oxide synthase iNOS and its downstream enzyme soluble guanylate cyclase-noninferiority study shown to reduce time to vasopressor discontinuation, decreased ICU length of stay,
hospital stay but no change in mortality-published Critical Care 08/25/2022
If persistently hypotensive then consider checking random cortisol-hydrocortisone if random less than 3, if 3-15 then consider ACTH stimulation test
If persistently hyperthermic then correcting hyperthermia can decrease pressor requirements, increased chances of reversal of shock and decrease mortality
Monitor renal function
Nephrology evaluation
Bicarb if needed
Seizure precautions
Neurology evaluation
Consider lumbar puncture
Trend troponin
Check echocardiogram
Consider cardiology evaluation
Monitor hemoglobin
Transfuse as needed
Monitor blood sugar
Insulin supplementation as needed
Smoking cessation counseling
DVT prophylaxis
Early nutrition if possible
Early mobilization/bedside range of motion
Critical care statement: A total of 55 minutes of critical care time was provided for this patient today. This includes management of unstable vital signs, evaluation of the patient at bedside, reviewing the patient's pertinent medical records
including radiographs, ventilator management, pressor management, microbiology, laboratory evaluations, and discussion with primary team, ED doc, pharmacy, charge nurse, critical care nursing, and respiratory therapy.
Diagnostic data:
Chest x-ray 02/29/2024-NAD
Data Reviewed
-
EKG: Report reviewed by me
Radiology: Report reviewed by me
Medical Tests (Nuc Med, Echo etc): Report reviewed by me
Labs: Labs reviewed by me
Old Records: Reviewed
Critical Care Time (in minutes): 55
[2024-02-29 17:07] LABS: Magnesium 0.9 mg/dl (1.6-2.3); Phosphorus 4.1 mg/dl (2.5-4.5)
[2024-02-29] MEDS: SODIUM CHLORIDE 3% 250 IV ×2 (17:15→23:54)
--- NOTE | 2024-02-29 17:23 | CON.NEURO4 ---
Consultation - Neurology 4
-
CONSULTING PHYSICIAN: Demar Diaz MD
REFERRING PHYSICIAN: Hospitalist
DICTATED BY: Demar Diaz
DATE/TIME OF REQUEST: 02/29/2024
DATE/TIME OF CONSULTATION: 02/29/2024
Reason for Consultation: Seizure and Sepsis
History of Present Illness:
This is a 58 year old right handed male who has presented to the hospital with (chief complaint) of AMS. He gives a history of hypertension, hyperlipidemia,CAD, stent, AICD, HTN, Hypercholesterolemia and NIDDM , HX ETOH CAD who presented from
[facility] complaining of right ear pain and sore throat for 2 days who had a syncopal episode at the local correction facility. On arrival he had a temperatures of 102. He was taken to CAT scan and had a generalized tonic
clonic seizure for 30 seconds. No tongue bite-He was Hypotensive.
He was given Keppra 1500mg. He woke up within 10 minutes.
Past Medical History: As above
Surgical History: AICD
Family History: NC
Social History: Alcoholism
Allergies: NKA
Home Medications: Addendum
Review of Symptoms:
'Per the HPI. I am unable to obtain a complete review of systems�because of patient's inability to provide history.'
Vital Signs:
The patient has a .Temp 38.8 C H [id number] Resp 16 BP194/122Pulse Ox 98
Physical Exam:
The patient is afebrile, heart sounds S1 and S2 are (regular , and chest is clear to auscultation bilaterally. No neck rigidity or tenderness.
Neurologic Examination:
The patient is arousable, confused and oriented x person. He is able to follow commands and answer questions appropriately. There is no aphasia or dysarthria.
On cranial nerve assessment, pupils are 3 mm bilateral, round and reactive to light and accommodation. Visual watts are full. Extraocular movements are intact. Facial sensations are intact and bilaterally symmetrical, there is no facial asymmetry.
Hearing is intact bilaterally to normal conversation volume. Tongue palate and uvula are midline. Sternocleidomastoid strengths are full bilaterally.
Motor strengths are 4/5 bilateral upper and lower extremities. There is no drift or involuntary movement noted.
Deep tendon reflexes are 2+ bilateral upper and lower extremities and Babinski is absent bilaterally.
Sensations of pain, touch, temperature and vibration are intact and bilaterally symmetrical.. Coordination cannot be tested bilaterally. Bedbound
Lab Results: Addendum
Neuro Imaging:
There is a 12 mm low-density lesion at the right temporoparietal junction lateral to the atrium of the right lateral ventricle. This lesion is most likely ischemic in origin, however, given the patient's clinical history, follow-up imaging with
contrast-enhanced MRI is recommended to exclude more aggressive pathology/neoplasm.
Impression:
Mr. CALUDIO JONAS is a 58 year old M who has presented to the hospital with (symptoms/chief complaint) fever confusion and seizure
Differentials for the patient's presentation include:
1. Sepsis
2. Meningoencephalitis
Recommendations:
1. Serial CT head
2. MRI head with contrast
3. Keppra 1500x 1 with Keppra 500 mg BID maintenance
4. Lumbar puncture when stable
5. EEG
6. IV antibiotics
7. Consider IV steroids prior to Lumbar puncture
8. IV thiamin
Discussed patient care with:
Allergies
-
Allergies
Allergy/AdvReac Type Severity Reaction Status Date / Time
No Known Allergies Allergy Unverified 02/29/24 14:38
Vital Signs and Labs
-
Vital Signs and Labs:
Vital Signs
Temp Pulse Resp BP Pulse Ox
38.8 C H 141 16 194/122 98
02/29/24 19:00 02/29/24 18:56 02/29/24 18:56 02/29/24 18:56 02/29/24 18:31
Lab Results
02/29/24 20:33
Sodium 121 mmol/L (135-145) L 02/29/24 15:06
Potassium 3.8 mmol/L (3.5-5.1) 02/29/24 15:06
BUN 33 mg/dl (9-20) H 02/29/24 15:06
Glucose 275 mg/dl (70-99) H 02/29/24 15:06
Calcium 8.1 mg/dl (8.4-10.2) L 02/29/24 15:06
Phosphorus 4.1 mg/dl (2.5-4.5) 02/29/24 15:06
Ur Buprenorphine Negative (Negative) 02/29/24 17:42
Medications
-
Active Medications
Generic Name Dose Route Start Last Admin
Trade Name Freq PRN Reason Stop Dose Admin
Acetaminophen 650 mg 02/29/24 19:00
Acetaminophen 650 Mg Rectal Suppository RECTAL 03/28/24 18:59
Q4HPRN PRN
mild pain/HUMPHREY/temp> 100.4F
Acetaminophen 650 mg 02/29/24 19:00
Acetaminophen 325 Mg Tablet TUBE 03/28/24 18:59
Q4HPRN PRN
mild pain/HUMPHREY/temp> 100.4F
Artificial Tears 1 drops 02/29/24 18:53 02/29/24 18:55
Artificial Tears Pf (Refresh) 10 Drop Droperette OPHTH 03/28/24 18:52 1 drops
QIDPRN PRN Administration
dry eyes
Protocol
Ceftriaxone Sodium 2,000 mg 02/29/24 20:00
Ceftriaxone 2,000 Mg/20 Ml Vial IV
Q12H DELFIN
Dexamethasone Sodium Phosphate 10 mg 03/01/24 04:00
Dexamethasone 4 Mg/Ml 1 Ml Vial IV 03/05/24 03:59
Q6H DELFIN
Dextrose 12.5 grams 02/29/24 18:01
Dextrose 50% (0.5 Grams/Ml) 50 Ml Syringe IV 03/28/24 18:00
[id number] PRN
hypoglycemia
Protocol
Fentanyl Citrate 50 mcg 02/29/24 19:19
Fentanyl (50 Mcg/Ml) 100 Mcg/2 Ml Ampul IV 03/14/24 19:18
[id number] PRN
see protocol
Protocol
Glucagon 1 mg 02/29/24 18:01
Glucagon 1 Mg Vial IM 03/28/24 18:00
PRN PRN
hypoglycemia
Protocol
Sodium Chloride 250 mls @ 35 mls/hr 02/29/24 17:00 02/29/24 17:15
Sodium Chloride 3% IV 03/01/24 00:08 250 mls
ONCE ONE Administration
Vancomycin HCl 1 each/ Device 0 mls @ 0 mls/hr 02/29/24 18:00
IV
PER PROTOCOL DELFIN
As Directed
Ampicillin Sodium 2,000 mg/ 108 mls @ 108 mls/hr 02/29/24 22:00
Sodium Chloride IV
Q4H DELFIN
Norepinephrine Bitartrate 4 mg in 250 mls @ 0 mls/hr 02/29/24 18:15
Levophed IV
PER PROTOCOL DELFIN
Protocol
Per Protocol
Acyclovir Sodium 940 mg/ 268.8 mls @ 250 mls/hr 02/29/24 19:00
Sodium Chloride IV 03/14/24 18:59
Q8H DELFIN
Propofol 1,000,000 mcg in 100 mls @ 0 mls/hr 02/29/24 19:30
Diprivan IV
PER PROTOCOL DELFIN
Protocol
Per Protocol
Fentanyl Citrate 1,000 mcg in 100 mls @ 0 mls/hr 02/29/24 19:30
Sublimaze IV
PER PROTOCOL DELFIN
Protocol
Per Protocol
Acetaminophen 1,000 mg in 100 mls @ 400 mls/hr 02/29/24 20:00
Ofirmev IV 03/01/24 19:59
Q6H DELFIN
Protocol
Vancomycin HCl 100 mls @ 100 mls/hr 02/29/24 20:08
Vancocin Hcl 500 Mg IV 02/29/24 21:07
NOW STA
Protocol
Calcium Chloride 1,000 mg/ 60 mls @ 60 mls/hr 02/29/24 20:31
Sodium Chloride IV 02/29/24 21:30
NOW STA
Insulin Aspart 0 units 03/01/24 00:00
Insulin Aspart Moderate Resistance 300 Units/3 Ml Pen.Injctr SC 03/29/24 00:00
Q6 DELFIN
Protocol
Levetiracetam 500 mg 03/01/24 08:00
Levetiracetam (100 Mg/Ml) 500 Mg/5 Ml Vial IV 03/29/24 07:59
Q12 DELFIN
Polyethylene Glycol 17 grams 03/01/24 08:00
Polyethylene Glycol Powder 17 Grams Packet TUBE 03/29/24 07:59
DAILY DELFIN
Sodium Chloride 0 flush 02/29/24 20:00
Sodium Chloride 0.9% (Flush) Syringe IV 03/28/24 19:59
PER PROTOCOL DELFIN
Home Medications
�Medication �Instructions �Recorded
aspirin 81 mg tablet,delayed 81 mg PO DAILY 02/29/24
release
atorvastatin 40 mg tablet 40 mg PO HS 02/29/24
buspirone 10 mg tablet 10 mg PO BID 02/29/24
carvedilol 3.125 mg tablet (Coreg) 3.125 mg PO DAILY 02/29/24
folic acid 1 mg tablet 1 mg PO DAILY 02/29/24
glipizide 5 mg tablet 5 mg PO DAILY 02/29/24
ibuprofen 200 mg tablet 400 mg PO BIDPRN PRN mild pain 02/29/24
lisinopril 5 mg tablet 5 mg PO DAILY 02/29/24
metformin 1,000 mg tablet 1,000 mg PO BID 02/29/24
sertraline 100 mg tablet 100 mg PO DAILY 02/29/24
therapeutic multivitamin 1 tab PO DAILY 02/29/24
thiamine HCl (vitamin B1) 100 mg 100 mg PO DAILY 02/29/24
tablet
[2024-02-29] MEDS: MAGNESIUM SULFATE 100 IV (17:29)
[2024-02-29 17:30] LABS: B.E. -11.9 mmol/L; O2 Saturation % 96.4 % (94-98); PCO2 21 mmHg (35-48); PO2 104 mmHg (83-108); pH 7.36 (7.35-7.45)
[2024-02-29 17:37] LABS: HCO3 11.9 mmol/L (21-28)
--- NOTE | 2024-02-29 17:41 | W.PN.UPDATE ---
Addendum entered and electronically signed by Remigio Kumar MD 02/29/24 23:05:
Laboratory Tests
02/29/24 02/29/24 02/29/24
15:06 17:25 17:42
WBC 23.1 H
Hgb 11.5 L
Plt Count 148
pH 7.36
pCO2 21 L
HCO3 11.9 L*
Sodium 121 L
Chloride 80 L
Carbon Dioxide 14 L*
BUN 33 H
Creatinine 2.2 H
eGFR 34.08
Glucose 275 H
Lactic Acid 10.3 H*
Calcium 8.1 L
AST 119 H
ALT 81 H
Troponin I 0.131 H*
Urine Nitrite (Reflex) Negative
Leukocyte Esterase Rfl Trace A
Urine WBC (Reflex) 0-2
Urine Bacteria (Reflex) Many A
SARS-CoV-2 Antigen Negative
CXR: No active cardiopulmonary disease.
HCT
There is a 12 mm low-density lesion at the right temporoparietal junction lateral to the atrium of the right lateral ventricle. This lesion is most likely ischemic in origin, however, given the patient's clinical history, follow-up imaging with
contrast-enhanced MRI is recommended to exclude more aggressive pathology/neoplasm.
Addendum entered and electronically signed by Remigio Kumar MD 02/29/24 20:37:
Correction of typo
3% HYPERTONIC <del>hypotonic</del> saline.
Addendum entered and electronically signed by Remigio Kumar MD 02/29/24 20:19:
Summary addendum:
58M�[facility]�under police custody HX AICD, ETOH use�HX, DM, HTN,�hemodynamically unstable� and�critcally ill�a/w�septic shock�require Pressor support with�NE�gtts.�No definitive�source is able to established��upon admission due to acuity and complexity.
��Reports sore throat and Rt Ear� pain concern for Rt OM complicate� with�Meningitis and encephalitis.�Empirc Broad spectrum�ABx for meningitis protocol ( Vanco + high dose IV CFTX & IV Ampicillin including acyclovir for HSV.��Blood cultures
sent.��Pending HCT due to unstable hemodynamics state�without central line.�Finally Triple lumen Rt femoral central line placed at ER. HCT was doen and pending final report. Complex early clinical course at ER with�new onset Seizure�other
active�issues include severe�PIO,�hi gap MA,��severe hyponatremia.�Loaded��Keppra and on maintenance dose. Initiated� 3% hypotonic saline. Then he is�intubated due to unable to protect AW.�Per ER attd , colored pus poring out fron�trachea�while ET
intubation.�Pending CXR. BCx and hold off LP for now. ICU. It Service Continuity Supervisor, ID, Renal , Neuro consulted.��
Original Note:
Update Note
Progress Note Update
I could not get any information from the patient as AMS, post ictal and acuity
Information gathered by chart review and speaking with the ER staff.
This note serves as an addendum to the H&P by procurement engineer DERRICK Edilia FISCHER,
HPI
58M from [facility] HX CAD, stent, AICD, HTN, Hypercholesterolemia and NIDDM , HX ETOH use disorder , no prior HX Sz seen at ER for evalaution of syncope , found on the floor. He was complaining of right ear pain and sore throat x 2 days. Temp
of 102 on arrival to ED. Hypotensive.
ROS;
Rt ear ? OM
@ ER
patient was Sz ay HCT
T 102
Hypotensive despite 3 L NS , NE gtt
WCC 23
Na 121
Cr 2.2
LA 10
NEG Covid
NEG Flu
ROS:
Denies n/v/d. No abdominal pain, urinary symptoms, chest pain, cough, SOB. Abrasion to right posterior scalp, upper back. Brought to ED accompanied by group home guards. Alert and cooperative.
PHX as above
Allergies
Allergy/AdvReac Type Severity Reaction Status Date / Time
adhesive tape Allergy Rash Verified 02/29/24 15:50
metoprolol Allergy dizziness Verified 02/29/24 15:50
Home Medications
amlodipine 5 mg tablet 5 mg PO BID 02/29/24
cholecalciferol (vitamin D3) 50 mcg (2,000 unit) tablet (Vitamin D3) 50 mcg PO DAILY PRN PRN supplement 02/29/24
conjugated estrogens 0.625 mg/gram vaginal cream (Premarin) 0.625 mg vaginal Q WEEK 02/29/24
flecainide 100 mg tablet 150 mg PO Q12H 02/29/24
hydralazine 10 mg tablet 10 mg PO BID 02/29/24
hydralazine 10 mg tablet 10 mg PO DAILY PRN PRN hypertension 02/29/24
ibrutinib 420 mg tablet (Imbruvica) 420 mg PO DAILY@1500 02/29/24
ranibizumab-eqrn 0.5 mg/0.05 mL intravitreal solution for injection (Cimerli) 0.5 mg intravitreal Q4W 02/29/24
Vital Signs
Temp Pulse Resp BP Pulse Ox
98.5 F 70 18 183/76 97
02/29/24 15:47 02/29/24 16:45 02/29/24 16:45 02/29/24 16:09 02/29/24 16:45
PE
Gen: awake and communicative s/p post ictal
HEENT: anicteric , erythematous paharynx
Neck: supple
Lungs: CTS
Cor: ST, hypotensive
Abdomen:
HUNTER TRAPPER: disoriented
MS: no edema
Psych: limited due to acuity
Data
Abnormal Lab Results
02/29/24 02/29/24
15:58 16:01
RDW 14.8 H
MPV 12.2 H
BUN 20 H
Glucose 191 H
POC Glucose 169 H
Pending UA, Ur Osm, Ur Na
BCx sent
NEG Rapid Strep
EKG:
NORMAL SINUS RHYTHM
LOW VOLTAGE QRS
POSSIBLE INFERIOR INFARCT , AGE UNDETERMINED
CANNOT RULE OUT ANTEROSEPTAL INFARCT , AGE UNDETERMINED
PROLONGED QT
ABNORMAL ECG
NO PREVIOUS ECGS AVAILABLE
HCT ; pending
No prior hospitalist admission:
ASSESSMENT & PLAN
Septic shock
Severe sepsis unclear origin
DDX : Meningitis due to Rt ear OM ?
- Pending UA
- Need Central line
- Urgent HCT before LP
- need CSF studies
- So far 3 L IV NS septic bolus - switch to LR IVF
- Bcx sent
- Empiric ABX for presumed meningitis protocol : IV vanco and Zosyn
- Pressor: currently on NE gtt
- Held amlodipine
- Urgent consult: ICU, ID
New onset Sz at HCT
- Uregnt HCT to eval for Meningitis, Brain abscess
- IV Keppra 1500mg now ,then 500mg BID
- urgent Neuro consulted
Anuric PIO due to sepsis
Uncertain HX for CKD
Hi AG MA
- Bladder scan protocol
- s/p 3 L NS
- urgent Renal consulted
Severe hyponatremia suspect symptomatic and multifactorial origin
- 3% saline is running
- BMP q3h
- Renal evaluation
HX CAD wit stent
AICD
DVT Px: SCD
Code: Full code
ICU
Case dw It Service Continuity Supervisor, Neuro and ER practice business asst.
Total Critical Care Time___90__ minutes.
I was immediately available to the patient and staff. I personally examined, reviewed labs, diagnostic images/reports, interpretations, treatment plans, discussed patient care with other providers and family or caregivers (if patient is unable to
make decisions), entered orders as appropriate and documented the medical record.
[2024-02-29 17:50] LABS: Urine Albumin 1+ (Neg - Trace); Urine Bilirubin 2+ (Negative); Urine Character Clear (Clear); Urine Color Yellow; Urine Glucose Trace (Negative); Urine Ketone Trace (Negative); Urine Leukocyte Trace (Negative); Urine Nitrite Negative (Negative); Urine Occult Blood 4+ (Negative); Urine Urobilinogen 3+ (Neg - 1+)
[2024-02-29 17:55] LABS: Osmolality Urine 367 mOsm/kg (300-900)
[2024-02-29 18:02] LABS: Urine Squamous Cell 0-2 /LPF (Few)
[2024-02-29 18:04] LABS: Amphetamines Negative (Negative); Barbiturates Negative (Negative); Benzodiazepines Negative (Negative); Buprenorphine Negative (Negative); Cocaine Negative (Negative); Marijuana Negative (Negative); Methadone Negative (Negative); Methamphetamines Negative (Negative); Opiates Negative (Negative); Phencyclidine Negative (Negative); Tricyclic Antidepressants Negative (Negative)
[2024-02-29 18:07] LABS: Urine Bacteria Many (Negative); Urine Sperm Seen; Urine White Cell 0-2 /HPF (0-5)
[2024-02-29] MEDS: KEPPRA 1500 MG IV (18:09)
[2024-02-29 18:11] LABS: Urine Sodium 33 mmol/L (30-90)
--- NOTE | 2024-02-29 18:20 | EDRN ---
Pt was intubated w/size 8 ET orally at 22 at this time.
--- NOTE | 2024-02-29 18:25 | EDRN ---
At this time during intubation Dr. Harris assisting Brooks RAOMS w/ intubation noted large amount of green purulent thick secretions around epiglottis.
[2024-02-29] MEDS: SUBLIMAZE 75 MCG IV (18:28)
--- NOTE | 2024-02-29 18:30 | EDRN ---
Fentanyl infusion started at 10 mcg per hour via IV pump at this time, verified w/Shireen RODRIGUEZ.
--- NOTE | 2024-02-29 18:44 | EDRN ---
Pt is being assisted w/manual ambu at this time r/t not able to get adequate oxygenation post intubation though w/ ambu up to 100%. Dr. Harris is attempting a triple lumen in R groin at this time. Troponin was hemolyzed will get from R femoral
vein triple lumen.
[2024-02-29] MEDS: REFRESH EYE DROPS (PF) 1 DROPS OPHTH (18:55)
--- NOTE | 2024-02-29 18:59 | EDRN ---
Pt went to CT for CT of head and had a seizure.
--- NOTE | 2024-02-29 19:05 | EDRN ---
Pt found incontinent of stool at this time when took temp
--- NOTE | 2024-02-29 19:05 | W.PN.SEPSIS ---
Sepsis
Vital Signs
Temp Pulse Resp BP Pulse Ox
102.1 F H 141 16 194/122 98
02/29/24 14:39 02/29/24 18:56 02/29/24 18:56 02/29/24 18:56 02/29/24 18:31
Physical Exam
Physical Exam:
A focused exam was performed after fluid resuscitation.
--- NOTE | 2024-02-29 19:12 | EDRN ---
BP up to 176-198 so levophed stopped at 19:02. Pt diaphoretic, pale w/ mottling. HR 140's, POX down to 63% on vent at 100% FiO2.
[2024-02-29 19:14] LABS: Glucose - Point of Care 224 mg/dl (70-99)
--- NOTE | 2024-02-29 19:21 | W.CON.NEPH ---
Consultation
-
Date/Time Consultation Requested: 02/29/24 1800
Date/Time Consultation Performed: 02/29/240
Requesting Provider:
Performing Provider: Dr. Baird
Reason for Consultation: PIO
Medical History
-
Chief Complaint: LOC
History of Present Illness:
58-year-old male from [facility]. He reportedly had right ear pain 2 days prior to admission. He had an apparent syncopal event while in custodial and was found on the floor of his cell. He arrived to the ER febrile with a
102F temp and also hypotensive with systolic in the 80s. He was noted to have abrasion to right posterior scalp and upper back on arrival per emergency room record. While in CT scan he had seizure and is postictal. Initial CT was not completed.
Pressors were initiated and being titrated given variable blood pressures. Blood work disclosed hyponatremia, metabolic acidosis with anion gap as well as lactic acidosis, acute kidney injury with creatinine of 2.2, hypomagnesemia, elevated LFTs,
elevated troponin. He is currently critically ill and going to the ICU.
Past Medical History
Hypertension, hyperlipidemia, diabetes mellitus type 2, CAD, PCI, ICD, depression
Social History
Tobacco: Non-Smoker
Alcohol: Daily (Until arrest 02/05/2024)
Family History
Family History: Not Pertinent
Allergies / Home Medications
Allergy/AdvReac Type Severity Reaction Status Date / Time
No Known Allergies Allergy Unverified 02/29/24 14:38
�Medication �Instructions �Recorded �Confirmed �Type
aspirin 81 mg tablet,delayed 81 mg PO DAILY 02/29/24 02/29/24 History
release
atorvastatin 40 mg tablet 40 mg PO HS 02/29/24 02/29/24 History
buspirone 10 mg tablet 10 mg PO BID 02/29/24 02/29/24 History
carvedilol 3.125 mg tablet (Coreg) 3.125 mg PO DAILY 02/29/24 02/29/24 History
folic acid 1 mg tablet 1 mg PO DAILY 02/29/24 02/29/24 History
glipizide 5 mg tablet 5 mg PO DAILY 02/29/24 02/29/24 History
ibuprofen 200 mg tablet 400 mg PO BIDPRN PRN mild pain 02/29/24 02/29/24 History
lisinopril 5 mg tablet 5 mg PO DAILY 02/29/24 02/29/24 History
metformin 1,000 mg tablet 1,000 mg PO BID 02/29/24 02/29/24 History
sertraline 100 mg tablet 100 mg PO DAILY 02/29/24 02/29/24 History
therapeutic multivitamin 1 tab PO DAILY 02/29/24 02/29/24 History
thiamine HCl (vitamin B1) 100 mg 100 mg PO DAILY 02/29/24 02/29/24 History
tablet
Physical Exam
Vital Signs
Vital Signs
Temp Pulse Resp BP Pulse Ox
102.1 F H 141 16 194/122 98
02/29/24 14:39 02/29/24 18:56 02/29/24 18:56 02/29/24 18:56 02/29/24 18:31
Lab Results
WBC 23.1 10^3/uL (4.8-10.8) H 02/29/24 15:06
RBC 3.66 10^6/uL (4.70-6.10) L 02/29/24 15:06
Hgb 11.5 g/dL (13.0-18.0) L 02/29/24 15:06
Hct 31.7 % (39.0-52.0) L 02/29/24 15:06
Plt Count 148 10^3/uL (130-400) 02/29/24 15:06
eGFR 34.08 02/29/24 15:06
Phosphorus 4.1 mg/dl (2.5-4.5) 02/29/24 15:06
Albumin 3.6 g/dl (3.5-5.0) 02/29/24 15:06
Laboratory Tests
02/29/24
15:06
Serum Osmolality 264 L
Lactic Acid 10.3 H*
AST 119 H
ALT 81 H
Albumin 3.6
TSH (Reflex) 2.40
Physical Exam
Patient is sedated on the vent in no distress. Mood and affect could not be assessed, insight and judgment could not be assessed. Pupils are equal round, extraocular movements could not be assessed, sclera were anicteric. Hearing could not be
assessed, ears and nose are intact. Oropharynx was clear. Neck was supple with trachea midline and no thyromegaly. Heart was regular rate and rhythm without rubs. Lower extremities without edema. Lungs were clear to auscultation bilaterally and
with normal excursion. Abdomen was soft, nontender, with normal active bowel sounds, and no hepatosplenomegaly. Skin was without rash and with normal turgor.
Data Reviewed
-
Radiology: Image Personally Visualized and interpreted (CXR 02/29/24 by my reading shows no acute disease)
Medical Tests (Nuc Med, Echo etc): Image Personally Visualized and interpreted (EKG 02/29/24 by my reading with NSR, prolong QT, inferior Q)
Labs: Labs Reviewed by me
Assessment/Plan
-
Assessment
hypotension
PIO
hypomagnesemia
metabolic acidosis, gap
lactic acidosis
seizure
CAD
DM2
fever
Plan
all OP meds on hold
IVF volume resuscitation
follow lactate
keep MAP > 65 with pressors
empiric abx
Keppra for seizures
check EtOH level
replete Mag
follow LFTs
hold 3% until 10pm labs (after 5L NSS)
critical care time 45 minutes
[2024-02-29 19:39] LABS: Lactic Acid 4.4 mmol/L (0.7-2.0)
[2024-02-29 19:49] LABS: Troponin I 0.128 ng/ml
[2024-02-29 19:59] LABS: Alcohol None Detected; Triglycerides 132 mg/dl (10-149)
[2024-02-29] MEDS: DIPRIVAN 100 IV (20:00)
[2024-02-29 20:19] LABS: B.E. -10.8 mmol/L; HCO3 17.5 mmol/L (21-28); Ionized Calcium 0.99 mMOL/L (1.15-1.33); O2 Saturation % 95.6 % (94-98); PCO2 48 mmHg (35-48); PO2 106 mmHg (83-108); Potassium 3.7 mMOL/L (3.5-5.1)
[2024-02-29 20:23] LABS: Sodium 118 mMOL/L (136-145); pH 7.17 (7.35-7.45)
--- NOTE | 2024-02-29 20:54 | PTCARENOTE ---
Pt unstable in CT, ED staff requested ICU staff to help assist w/ pt. transfer.
This RN, ICU SHIP JOINER, and an additional ICU nurse arrived at CT to help facilitate pt. transfer up to ICU.
Arrived in CT Pt. on 10 mcg Fentanyl, 3%, 2 1000L 0.9 fluid boluses, and receiving 4g mag rider.
Pt. asynch w/ ventilator, agitated, Verbal order from ICU SHIP JOINER to increase fent to 50mcg, and start Diprivan gtt.
-Pt. now tolerating vent settings, CT complete, transfer facilitated up to ICU.
Upon arrival to ICU went into PEA on bedside monitor, Carotid pulse absent upon palpation, CPR started.
CODE NOTES
CPR immediately initiated by this RN, upon arrival of team CPR board placed.
After one round of CPR ROSC achieved w/ organized rhythm of sinus tach weak pulse on Doppler.
Bedside Arterial line placed.
Pt. Diaphoretic, Sinus tach, Febrile 102.1, weak pulses upon palpation, normotensive off norepi.
No purposeful movements on minimal sedation, Pupils 3mm sluggish, Weak corneal response, Diminished cough and gag.
Minimal urine output, see I/O flowsheet for details.
Meningitis workup to follow, started on acyclovir, steroids.
Nephrology rounded, due to pt. receiving 5L of IV fluids in ED hold 3% gtt, until 2200 labs result.
Following Gtt:
-Fentanyl 50 mcg
-Prop 20 mcg
[2024-02-29 21:00] LABS: Hemoglobin 11.2 g/dL (13.0-18.0); Mean Corp Hgb Conc. 36.1 g/dL (33.0-37.0); Mean Corpuscular Hgb 30.3 pg (27.0-31.0); Mean Corpuscular Volume 83.8 fL (80.0-94.0); Mean Platelet Volume 11.4 fL (7.4-10.4); Platelet Count 158 10^3/uL (130-400); Red Cell Dist. Width 12.2 % (11.5-14.5); White Blood Cell Count 29.2 10^3/uL (4.8-10.8)
[2024-02-29 21:05] LABS: APTT 38.8 Sec (23.4-35.0)
[2024-02-29 21:10] LABS: Blood Urea Nitrogen 38 mg/dl (9-20); Calcium 7.2 mg/dl (8.4-10.2); Carbon Dioxide 16 mmol/L (22-30); Chloride 88 mmol/L (98-107); Estimated Creatinine Clearance 40 ml/min; Glucose 255 mg/dl (70-99); Potassium 4.2 mmol/L (3.5-5.1); Sodium 123 mmol/L (135-145); eGFR 36.04
[2024-02-29 21:11] LABS: Blood Urea Nitrogen 38 mg/dl (9-20); Calcium 7.2 mg/dl (8.4-10.2); Carbon Dioxide 16 mmol/L (22-30); Chloride 87 mmol/L (98-107); Estimated Creatinine Clearance 40 ml/min; Glucose 257 mg/dl (70-99); Potassium 4.1 mmol/L (3.5-5.1); Sodium 124 mmol/L (135-145); eGFR 36.04
[2024-02-29 21:19] LABS: Troponin I 0.139 ng/ml
[2024-02-29] MEDS: OFIRMEV 100 IV (21:34)
[2024-02-29] MEDS: CALCIUM CHLORIDE 10% SYRINGE 60 MG IV (21:37)
[2024-02-29] MEDS: ZOVIRAX INJECTION 268.8 MG IV (21:38)
[2024-02-29] MEDS: ROCEPHIN 2000 MG IV (21:40)
--- NOTE | 2024-02-29 21:46 | W.PN.UPDATE ---
Update Note
Progress Note Update
Procedure Note: Arterial Line�
� Right Wrist Arrow 20 (08/16)�
Diagnosis:��Sepsis
IV Line Comments: Uneventful Procedure�
Rito's test completed pre-procedure: Yes�
A-Line Comments: Sterile technique as per standard protocol, Ultrasound guided insertion�
Functioning A-line in situ: Yes�
A-line Insertion Start Time:��2114
A-line in at:��2119
[2024-02-29] MEDS: DECADRON 14 MG IV (21:48)
--- NOTE | 2024-02-29 21:48 | W.PN.UPDATE ---
Update Note
Progress Note Update
2020 Code called. Nurse reported heart rate monitor went to 0 and was unable to feel a pulse. (PEA arrest) CPR started for 2 minutes. ROSC regained. No meds or shocks delivered.
[2024-02-29] MEDS: VANCOCIN HCL 500 MG 100 IV (21:50)
[2024-02-29] MEDS: LEVOPHED 250 IV (22:17)
[2024-02-29 22:57] LABS: Blood Urea Nitrogen 39 mg/dl (9-20); Calcium 7.7 mg/dl (8.4-10.2); Carbon Dioxide 14 mmol/L (22-30); Chloride 90 mmol/L (98-107); Estimated Creatinine Clearance 47 ml/min; Glucose 264 mg/dl (70-99); Potassium 3.9 mmol/L (3.5-5.1); Sodium 122 mmol/L (135-145); eGFR 43.36
--- NOTE | 2024-02-29 23:02 | PTCARENOTE ---
PT. now hypothermic via bladder temp of 95.4 F, Joe ruiz ordered.
[address] Baird from nephro notified, of Na 122, restart 3% gtt at 30mL/hr, recheck labs in AM.
[2024-02-29] MEDS: AMPICILLIN 108 MG IV (23:16)
[2024-02-29 23:30] LABS: B.E. -9.9 mmol/L; PCO2 29 mmHg (35-48); PO2 221 mmHg (83-108); pH 7.32 (7.35-7.45)
[2024-02-29 23:37] LABS: O2 Therapy 100
[2024-02-29 23:38] LABS: HCO3 14.9 mmol/L (21-28)
[2024-03-01 01:12] LABS: Glucose - Point of Care 281 mg/dl (70-99)
[2024-03-01] MEDS: NOVOLOG FLEXPEN-MODERATE RESISTANCE 5 UNITS SC (01:35)
[2024-03-01] MEDS: LEVOPHED 250 IV ×6 (01:37→17:17)
[2024-03-01] MEDS: PITRESSIN 100 IV ×2 (01:43→08:46)
[2024-03-01] MEDS: DIPRIVAN 100 IV ×5 (01:57→23:17)
--- NOTE | 2024-03-01 02:03 | PTCARENOTE ---
Reached max dose of Norepi, ICU DEAN OF MEN notified, orders placed to start vasopressin.
Daren ruiz remains on, see flow sheet for further details.
Pt starting to become arousable, movements towards tube, does not follow simple commands.
--- NOTE | 2024-03-01 02:29 | PTCARENOTE ---
Luis Fernando maxed, vaso running. Pt MAP still low 60s.
ICU ETCHED CIRCUIT PROCESSOR notified, new orders as follows,
-250 fluid bolus
-Send AM Labs now w/ mag and ABG.
Daren hugger on, reaching target temp of 98.9. Per provider do not give scheduled offirmiv.
[2024-03-01] MEDS: OFIRMEV IV (02:30)
[2024-03-01] MEDS: SUBLIMAZE 100 IV ×3 (02:46→23:17)
--- NOTE | 2024-03-01 02:54 | PTCARENOTE ---
Target temp. reached Daren ruiz removed.
Pt. remains very diaphoretic.
Neuro status remains unchanged refer to neuro flowsheet.
[2024-03-01 02:57] LABS: Hematocrit 30.3 % (39.0-52.0); Hemoglobin 11.2 g/dL (13.0-18.0); Mean Corpuscular Volume 81.2 fL (80.0-94.0); Mean Platelet Volume 11.3 fL (7.4-10.4); Platelet Count 192 10^3/uL (130-400); Red Blood Cell Count 3.73 10^6/uL (4.70-6.10); Red Cell Dist. Width 12.4 % (11.5-14.5); White Blood Cell Count 35.8 10^3/uL (4.8-10.8)
[2024-03-01 02:58] LABS: B.E. -10.3 mmol/L; Ionized Calcium 1.05 mMOL/L (1.15-1.33); O2 Saturation % 97.3 % (94-98); PCO2 28 mmHg (35-48); PO2 265 mmHg (83-108); Potassium 4.5 mMOL/L (3.5-5.1); pH 7.32 (7.35-7.45)
[2024-03-01 03:00] LABS: HCO3 14.4 mmol/L (21-28); O2 Therapy 100; Sodium 118 mMOL/L (136-145)
[2024-03-01 03:09] LABS: Magnesium 2.2 mg/dl (1.6-2.3)
[2024-03-01 03:15] LABS: ALT (SGPT) 71 U/L (0-50); AST (SGOT) 101 U/L (17-59); Albumin 3.2 g/dl (3.5-5.0); Alkaline Phosphatase 82 U/L (38-126); Blood Urea Nitrogen 43 mg/dl (9-20); Calcium 7.9 mg/dl (8.4-10.2); Carbon Dioxide 11 mmol/L (22-30); Chloride 92 mmol/L (98-107); Estimated Creatinine Clearance 42 ml/min; Glucose 271 mg/dl (70-99); HDL Cholesterol 22 mg/dl; LDL Cholesterol, Calculated 2 mg/dl; Potassium 4.6 mmol/L (3.5-5.1); Sodium 123 mmol/L (135-145); Total Bilirubin 1.3 mg/dl (0.2-1.3); Total Cholesterol 89 mg/dl (50-199); Triglyceride 325 mg/dl (10-149); Troponin I 0.228 ng/ml; Very Low Density Lipoprotein 65 mg/dl (0-30); eGFR 38.21
--- NOTE | 2024-03-01 03:39 | W.PN.SEPSIS ---
Sepsis
Vital Signs
Temp Pulse Resp BP Pulse Ox
99.2 F 73 0 106/86 100
03/01/24 03:23 03/01/24 01:45 03/01/24 01:30 02/29/24 21:15 03/01/24 01:45
Physical Exam
Physical Exam:
A focused exam was performed after fluid resuscitation.
Capillary Refill
Lower Extremity:
Ricardo Time: Less than 3 sec
Pulse Evaluation
Bilateral:
Pulse Evaluation: Present
[2024-03-01] MEDS: DECADRON 10 MG IV (03:46)
[2024-03-01] MEDS: AMPICILLIN 108 MG IV (03:46)
[2024-03-01] MEDS: SODIUM BICARBONATE 50 MEQ IV ×2 (03:48→07:12)
[2024-03-01] MEDS: NSS 250 IV (03:48)
--- NOTE | 2024-03-01 04:13 | PTCARENOTE ---
Critical care glycemic protocol added,
Insulin bolus 5U
Gtt started @ 4.
Bicarb push given for ABG results, Calcium repleted.
Pt. remains GCS 6T, protective reflexes intact, of note gag is weak.
Remains normal sinus, ectopy noted focal PVCs. Remains on Norepi and vaso.
[2024-03-01 04:18] LABS: Glucose - Point of Care 259 mg/dl (70-99)
[2024-03-01 04:20] LABS: Absolute Neutrophils -Man Diff 31.5 10^3/uL (1.4-6.5); Band Neutrophils 20 % (0-3); Lymphocytes 4 % (20-51); Metamyelocytes 3 % (-); Monocytes 5 % (2-9); Normal RBC Morphology Yes; Platelets Checked Yes; Segmented Neutrophils 68 % (42-75); Total Cells Counted 100
[2024-03-01] MEDS: NOVOLIN R 5 UNITS IV (04:21)
[2024-03-01] MEDS: NOVOLIN R INSULIN INFUSION 100 IV ×2 (04:22→23:39)
[2024-03-01] MEDS: CALCIUM CHLORIDE 10% SYRINGE 60 MG IV (04:29)
--- NOTE | 2024-03-01 04:38 | PTCARENOTE ---
FIO2 decreased due to P02 on gas.
[2024-03-01 05:14] LABS: Glucose - Point of Care 235 mg/dl (70-99)
[2024-03-01 05:57] VITALS: BMI 31.1
[2024-03-01 06:03] LABS: Vancomycin Random 15.6 ug/ml
[2024-03-01 06:16] LABS: Glucose - Point of Care 227 mg/dl (70-99)
--- NOTE | 2024-03-01 06:37 | PTCARENOTE ---
Lab results TT to Dr. Baird,
Order via TT as follows:
-give 2nd amp of bicarb.
Dr. Baird will be in to adjust fluids in AM.
[2024-03-01] MEDS: SODIUM CHLORIDE 3% 250 IV (06:45)
[2024-03-01 07:15] LABS: Glucose - Point of Care 211 mg/dl (70-99)
[2024-03-01 07:26] VITALS: BP 124/84
[2024-03-01] MEDS: SUBLIMAZE 50 MCG IV ×9 (07:26→22:32)
[2024-03-01] MEDS: KEPPRA 500 MG IV ×2 (07:27→19:24)
[2024-03-01] MEDS: OFIRMEV 100 IV (07:27)
[2024-03-01 07:42] VITALS: BP 127/90
--- NOTE | 2024-03-01 08:00 | PTCARENOTE ---
Received pt via handoff. Pt sedated and diaphoretic. Stimulated verbal and tactile. NSR, UE pulses present on palpation, LE pulses present with doppler. Temp 99.5, bare hugger not on. Intubated #8, 22@Lip, vent settings: AC 20/500/60%/5. Lung sounds
diminished throughout. Hypoactive bowel sounds in the lower quadrants, absent in uppers. Thermistor Friedman in place draining mariaa urine. Skin diaphoretic with scattered cuts and ecchymosis. Laceration on head from fall. Heel and elbow foams placed.
[place] zeroed and correlates with BP cuff. GTTs running through Triple Lumen see flowsheet. Patient restrained (soft limb L&R wrist/4 Rail) and also shackled with handcuff on the left ankle. 2 guards at bedside.
[2024-03-01 08:13] LABS: Glucose - Point of Care 170 mg/dl (70-99)
[2024-03-01] MEDS: ROCEPHIN 2000 MG IV ×2 (08:14→19:24)
[2024-03-01] MEDS: STERILE WATER FOR INJECTION 20 ML IV ×2 (08:14→19:24)
--- NOTE | 2024-03-01 08:40 | PHA.VAN.IN ---
Assessment
- Assessment
Renal Function: Unknown baseline
Concomitant Antimicrobials: acyclovir, ampicillin, ceftriaxone
Therapeutic Drug Monitoring
03/01/24
05:18
Random Vancomycin 15.6
Level drawn about 7H after divided 2g loading dose
Plan
- Plan
Initial / Loading Dose: 2000mg - (1500mg 02/28 16:37 PLUS 500mg 21:50)
Maintenance Regimen: dosing by level - re-dose with 1500mg (~15mg/kg)
Monitoring: random 03/02 06
Pharmacokinetics Vancomycin I
- -
Patient Age: 58
Patient Sex: Male
Vancomycin Day #: 1
Indication: Other
Requesting Provider: Nini Shultz
Pertinent Antimicrobial Allergies:
NKDA
Height / Weight:
Height 5 ft 10 in
Actual Weight 98.2 kg
Pertinent Past Medical History: BMI ~31
- Vital Signs / Lab Results
Temp Pulse Resp BP Pulse Ox
99.6 F 67 13 127/90 100
03/01/24 07:27 03/01/24 08:15 03/01/24 08:15 03/01/24 07:42 03/01/24 08:00
Lab Results - Hematology
02/29/24 02/29/24 03/01/24
15:06 20:33 02:36
WBC 23.1 H 29.2 H 35.8 H
Band Neutrophils 22 H 20 H
Lab Results - Chemistry
02/29/24 02/29/24 02/29/24
15:06 20:33 20:33
BUN 33 H 38 H 38 H
Creatinine 2.2 H 2.1 H
Estimated Creat Clear 38
Albumin 3.6
02/29/24 02/29/24 02/29/24
20:33 20:33 22:24
BUN 39 H
Creatinine 2.1 H 1.8 H
Estimated Creat Clear 40 40 47
Albumin
03/01/24
02:36
BUN 43 H
Creatinine 2.0 H
Estimated Creat Clear 42
Albumin 3.2 L
02/29/24 02/29/24 02/29/24
15:06 19:14 20:33
Lactic Acid 10.3 H* 4.4 H* 3.0 H
03/01/24
02:36
Lactic Acid 2.0
Lab Results - Urine
02/29/24
17:42
Urine Nitrite (Reflex) Negative
Leukocyte Esterase Rfl Trace A
Urine WBC (Reflex) 0-2
Ur Squamous Epith Cells 0-2
Urine Bacteria (Reflex) Many A
Microbiology Results
02/29/24 15:06 Blood Culture - Preliminary
Blood/Venous Positive culture in progress
Gram Stain - Final
02/29/24 15:21 Blood Culture - Preliminary
Blood/Venous Positive culture in progress
Gram Stain - Final
02/29/24 15:21 Streptococcus Rapid Screen - Final
Throat/Pharynx Rapid Strep Screen (Group A) Negative
02/29/24 15:06 Influenza Types A & B (CHARLENE) - Final
Nasal Swab Negative for Influenza A & B, NAAT
Negative results must be combined with clinical observations
and patient history.
Nucleic Acid Amplification test (NAAT)performed on the
[employer] platform.
--- NOTE | 2024-03-01 08:47 | W.PN.NEPH.PH ---
Today's Communication / Plan
-
follow BMP
Assessment/Plan
-
Assessment
hypotension
PIO
hypomagnesemia
metabolic acidosis, gap
lactic acidosis
seizure
CAD
DM2
fever
right temporoparietal lesion
GPC bacteremia/sepsis
Plan
net IVF currently ~150ml/hr
hold 3% and follow labs
keep MAP > 65 with pressors
empiric abx still
Keppra for seizures
follow LFTs
repeat urine studies
insulin protocol (on decadron for possibly neuro inflammation/sepsis)
will require further neuro eval (LP/MRI) but may not be stable for them at this time
critical care time 45 minutes
-
-
Date of Service: March 01, 2024
CC / HPI / ROS
-
Chief Complaint:
PIO
History of Present Illness:
critically ill in ICU on vent/pressors
PEA arrest overnight
FiO2 lower at 50%
PIO/Cr stable 2.0
Mag better
Na stable 123 on 3%
lactic acid normalized
metabolic acidosis persists
Review of Systems:
sedated
Labs
-
Labs:
WBC 35.8 10^3/uL (4.8-10.8) H 03/01/24 02:36
RBC 3.73 10^6/uL (4.70-6.10) L 03/01/24 02:36
Hgb 11.2 g/dL (13.0-18.0) L 03/01/24 02:36
Hct 30.3 % (39.0-52.0) L 03/01/24 02:36
Plt Count 192 10^3/uL (130-400) D 03/01/24 02:36
Sodium 123 mmol/L (135-145) L 03/01/24 02:36
Potassium 4.6 mmol/L (3.5-5.1) 03/01/24 02:36
Chloride 92 mmol/L (98-107) L 03/01/24 02:36
Carbon Dioxide 11 mmol/L (22-30) L* 03/01/24 02:36
BUN 43 mg/dl (9-20) H 03/01/24 02:36
Creatinine 2.0 mg/dL (0.7-1.3) H 03/01/24 02:36
eGFR 38.21 03/01/24 02:36
Glucose 271 mg/dl (70-99) H 03/01/24 02:36
Calcium 7.9 mg/dl (8.4-10.2) L 03/01/24 02:36
Phosphorus 4.1 mg/dl (2.5-4.5) 02/29/24 15:06
Albumin 3.2 g/dl (3.5-5.0) L 03/01/24 02:36
Physical Exam
-
Vital Signs:
Vital Signs
Temp Pulse Resp BP Pulse Ox
99.6 F 67 13 127/90 100
03/01/24 07:27 03/01/24 08:15 03/01/24 08:15 03/01/24 07:42 03/01/24 08:00
Cardiovascular:: Regular rate and rhythm
Respiratory:: Bilateral: Coarse
Lung Excursion:: Normal
Abdomen:: Nontender and Soft
Bowel Sounds:: Normal
Extremity Edema:: None: Bilateral:
--- NOTE | 2024-03-01 08:49 | CON.ID ---
Consultation
-
Date/Time Consultation Requested: February 29, 2024 [id number]
Date/Time Consultation Performed: March 01, 2024 0850
Requesting Provider: Dr. Pradeep Mcknight
Performing Provider: Dr. Leanna Lew
Reason for Consultation: Fever, sorethroat, ear pain, seizure
Chief Complaint / Past History
Chief Complaint
Ear pain and sore throat
History of Present Illness
History obtained from review medical records since patient is currently intubated and sedated unable to provide any history. He is a 58 year old male, currently incarcerated, with history of CAD status post stent, pacemaker/ICD placement,
hypertension who reportedly developed right ear pain and sore throat about 2 days prior to presentation. He then had a syncopal episode been present and sent to the ED February 28. Patient noted to have abrasion right posterior scalp and right
upper back. He was febrile 102.1, white count 23.1, lactic acid 10.1, hypotensive 66/44, hyponatremic, PIO. While in CAT scan, patient had seizure. Pt intubated for airway protection. He was started on
Vanco/ceftriaxone/ampicillin/acyclovir/dexamethasone for meningitidis. CAT scan showed 12 mm low-density lesion at the right temporoparietal junction most likely ischemic in origin. Admission blood cx's + GPC chains.
Past History
Additional Past Medical History:
HTN
HLD
PPM/ICD
CAD s/p stent
Depression
Allergy History:
No Known Allergies Allergy (Unverified 02/29/24 14:38)
Medications Reviewed: Yes
Current Antibiotics:
Vancomycin
ceftriaxone 2g q12
ampicillin
Acyclovir
dexamethasone
Social History
Tobacco: Former Smoker
Alcohol: Daily (beer)
Drug: None
Living: Shelter
Family History
Family History: Not Pertinent
Review of Systems
Review of Systems
Unable to obtain as patient currently intubated.
Vital Signs
Temp Pulse Resp BP Pulse Ox
99.6 F 67 13 127/90 100
03/01/24 07:27 03/01/24 08:15 03/01/24 08:15 03/01/24 07:42 03/01/24 08:00
Selected Entries
02/29/24
14:39
Temp 102.1 F H
Physical Exam
Physical Exam
Constitutional: Acutely Ill
Head: Other (Right otoscopic exam: tympanic membrane perforation with yellow exudate )
Eyes: No Conjunctival Hemorrhage and Sclera Anicteric
Pharynx: Other (unable to examine)
Cardiovascular: Regular Rate and S1/S2
Pulmonary: Clear
Gastrointestinal: Soft, Non Tender, Non Distended and Normal Bowel Sounds
Genito-Urinary: Friedman and Clear Urine; Negative CVA Tenderness
Extremities: Other (digits mottling); Negative Edema
Lab / Diagnostic Study Results
03/01/24 02:36
Total Counted 100 03/01/24 02:36
Abs Neuts (Manual) 31.5 10^3/uL (1.4-6.5) H 03/01/24 02:36
Segmented Neutrophils 68 % (42-75) 03/01/24 02:36
Band Neutrophils 20 % (0-3) H 03/01/24 02:36
Lymphocytes (Manual) 4 % (20-51) L 03/01/24 02:36
Lactic Acid 2.0 mmol/L (0.7-2.0) 03/01/24 02:36
Ur Squamous Epith Cells 0-2 /LPF (Few) 02/29/24 17:42
Microbiology Results
Micro:
02/29/24 15:06 Blood Culture - Preliminary
Blood/Venous Positive culture in progress
Gram Stain - Final
02/29/24 15:21 Blood Culture - Preliminary
Blood/Venous Positive culture in progress
Gram Stain - Final
03/01/24 05:18 MRSA Screen - Pending
Nose
02/29/24 17:42 Urine Culture - Pending
Urine
02/29/24 15:21 Streptococcus Screen (PAM) - Pending
Throat/Pharynx Streptococcus Rapid Screen - Final
Rapid Strep Screen (Group A) Negative
02/29/24 15:06 Influenza Types A & B (CHARLENE) - Final
Nasal Swab Negative for Influenza A & B, NAAT
Negative results must be combined with clinical observations
and patient history.
Nucleic Acid Amplification test (NAAT)performed on the
[employer] platform.
02/29/24 CT head: There is a 12 mm low-density lesion at the right temporoparietal junction lateral to the atrium of the right lateral ventricle. This lesion is most likely ischemic in origin, however, given the patient's clinical history, follow-up
imaging with contrast-enhanced MRI is recommended to exclude more aggressive pathology/neoplasm.
02/29/24 CXR: No active cardiopulmonary disease.
Assessment / Plan
# Septic meningitis/encephalitis - suspect Strep Pneumo
# Right otitis media with perforated TM as source
# GPC in chains bacteremia x 2sets -suspect Strep pneumo
# Septic shock due to above
# Acute seizure. Syncope
# Hyponatremia due to central etiology
# PIO due to septic shock
# Incarcerated
# hx 40 year tobacco
-CT head: 12mm lesion right tempo-parietal lobe
-For brain MRI
- Continue Vancomycin, ceftriaxone 2g IV q12, and steroid.
- DC IV acyclovir and ampicillin.
- Repeat blood cx's in am.
- No need for LP as blood cx's positive.
- Renally dose antibiotics.
- Trend temps, wbc, bandemia, vitals.
-Monitor closely
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
HTN
HLD
PPM/ICD
CAD s/p stent
Depression
Care Review
Plan reviewed with: Physician (Dr. Neha Mcknight, Dr. Cavazos)
Total Time Spent with Patient (in minutes): 60 min critical care time
[2024-03-01 09:13] LABS: Glucose - Point of Care 131 mg/dl (70-99)
[2024-03-01] MEDS: MIRALAX TUBE (09:25)
[2024-03-01 09:28] LABS: Blood Urea Nitrogen 43 mg/dl (9-20); Calcium 8.5 mg/dl (8.4-10.2); Carbon Dioxide 14 mmol/L (22-30); Chloride 94 mmol/L (98-107); Estimated Creatinine Clearance 56 ml/min; Glucose 130 mg/dl (70-99); Potassium 3.9 mmol/L (3.5-5.1); Sodium 126 mmol/L (135-145); eGFR 46.44
[2024-03-01 09:29] LABS: Glycohemoglobin (HgbA1c) 7.3 % (4.0-5.6)
--- NOTE | 2024-03-01 09:49 | W.PN.HOSP.TC ---
Today's Communication/Plan
-
see note
Assessment / Plan
Assessment / Plan
CT head
There is a 12 mm low-density lesion at the right temporoparietal junction lateral to the atrium of the right lateral ventricle. This lesion is most likely ischemic in origin, however, given the patient's clinical history, follow-up imaging with
contrast-enhanced MRI is recommended to exclude more aggressive pathology/neoplasm.

1. Septic Shock
Gram-positive bacteremia
Likely 2/2 suppurative otitis media with perforated eardrum
Rule out bacterial meningitis/encephalitis
-Patient found to be in septic shock in ER, not improved with IV hydration
-Patient was complaining right ear pain for few day and on otoscope exam have dried up purulent drainage in right ear with likely perforated eardrum
-Chest x-ray/UA is clear. Respiratory culture collected. Throat culture negative for rapid strep.
-Blood culture growing gram-positive cocci in chains, further identification and susceptibility pending
-Patient currently on vasopressors, Levophed/vasopressin, wean off as possible
-WBC has been increasing and partially due to getting high-dose of IV Decadron yesterday. Continue monitor
-Patient currently on vancomycin and Rocephin, ID help appreciated for antibiotic management
2. Ventilator dependent respiratory failure
-Patient had seizure episode in radiology department and required to be intubated for airway protection
-Discussed with laboratory asst and patient may undergo SBT
3. Seizure episode
-Unclear if patient have previous history of any seizures/epilepsy. Not on any meds
-CT head finding as above, patient will benefit with MRI brain without contrast to rule out any septic emboli(clinical less likely as solitary lesion) versus ischemic stroke vs malignancy
-EEG did not show any underlying seizure activity
-Maintaining patient on empiric IV steroids if patient have any malignancy/abscess related edema causing seizure, will discontinue based on MRI report
- Patient has been continued on IV Keppra for time being, neurology following.
4. Hyponatremia
-Presumed euvolemic in nature
-Urine sodium of 58 and urine respiratory 390
-Patient got 3% normal saline by nephro
-Further dosing of 3% NS based on nephrology recommendation
5. Cardiac arrest
-Brief PEA arrest after patient was moved in ICU
-Required 2 minutes of CPR with ROSC achieved
5. Troponin elevation
-Presumed nonischemic cardiomyopathy with ongoing septic shock
-Will get routine echocardiogram once patient clinically improved from above-mentioned problem
6. PIO
-Likely prerenal in nature with ongoing shock
-Indwelling Friedman catheter in place
-Continue monitoring renal function
7. Lactic acidosis
Metabolic acidosis
-Patient had significant lactic acidosis with LA 10, now resolved
-Have some persistent metabolic acidosis likely from PIO/need of hyperchloremic fluid
8. Type II DM
-Uncontrolled blood glucose due to need of IV steroids and levophed
-maintain on Insulin infusion
9. Hypocalcemia
-Low ionized calcium, got calcium chloride in night
-Further dosing per nephro recommendation
Full code
Heparin subq
Care plan discussed with ID/laboratory asst
Total critical care time 52 mins. Total critical care time documented does not include time spent on separately billed procedures or the services of residents, students, nurses or physician assistants. I personally saw and examined the patient. I
have reviewed all diagnostic interpretations and treatment plans as written. I was present for the navarro portions of any procedures performed and the inclusive time noted in any critical care statement. Critical care time includes patient management
by me, time spent at the patients bedside, time to review lab and imaging results, discussing patient care, documentation in the medical record, and time spent with the family or caregiver.
Anticipated Discharge: > 48 hours
Subjective/Interval History
-
Date of Service: March 01, 2024
Patient remains intubated
On Levophed/vasopressin
Febrile
Patient had brief PEA arrest requiring 2 minutes of CPR last evening
No further reported seizures episode
Objective Data
-
Labs:
Laboratory Results
02/29/24 02/29/24 03/01/24
22:24 23:21 02:36
WBC 35.8 H
Hgb 11.2 L
Hct 30.3 L
Plt Count 192 D
HCO3 14.9 L* 14.4 L*
Sodium 122 L 123 L
Potassium 3.9 4.6
Chloride 90 L 92 L
Carbon Dioxide 14 L* 11 L*
BUN 39 H 43 H
Creatinine 1.8 H 2.0 H
Glucose 264 H 271 H
Calcium 7.7 L 7.9 L
Total Bilirubin 1.3
AST 101 H
ALT 71 H
Alkaline Phosphatase 82
03/01/24 03/01/24
09:00 13:00
WBC
Hgb
Hct
Plt Count
HCO3
Sodium 126 L Pending
Potassium 3.9 Pending
Chloride 94 L Pending
Carbon Dioxide 14 L* Pending
BUN 43 H Pending
Creatinine 1.7 H Pending
Glucose 130 H Pending
Calcium 8.5 Pending
Total Bilirubin
AST
ALT
Alkaline Phosphatase
Vital Signs:
Vital Signs
Temp Pulse Resp BP Pulse Ox
99.6 F 67 0 127/90 100
03/01/24 07:27 03/01/24 09:15 03/01/24 09:15 03/01/24 07:42 03/01/24 08:00
I&O
02/29/24 03/01/24 03/02/24
06:59 06:59 06:59
Intake Total 1674.0 / 1823.0 489.0 / 489.0
Output Total 1490 / 1490 300 / 300
Balance 184.0 / 333.0 189.0 / 189.0
Review of Systems
-
Unable to obtain full review of systems at this time due to: Acuity
Physical Exam
-
General: Negative No Apparent Distress
HEENT: Oxygen (on Ventilator) and Other (Right ear - purulent drainage with possible perforated ear drum)
Respiratory: Clear to Auscultation
Cardiac: Regular Rhythm and S1/S2; Negative Murmur
GI: Soft, Nontender and Nondistended
Neuro: Negative Sedated
--- NOTE | 2024-03-01 10:07 | EEG.RPT ---
Electroencephalogram Report
Recording
Date of EE03/01/24
Type of EEG: Routine
Length of EEG recordin minutes
Done with Video Recording: Yes
Patient Status: Inpatient
Recording Conditions: Awake, Drowsy and Asleep
Hyperventilation Performed: No
Photic Stimulation Performed: Yes
Report
LESS THAN 1 HOUR REPORT
LESS THAN 1 HOUR EEG INTERPRETATION:
Mildly abnormal EEG for age due to mild diffuse bihemispheric slowing
CLINICAL CORRELATION:
This study was suggestive of mild diffuse cortical dysfunction without focal abnormality. The presence of normal sleep was suggestive of possible medication effect.
No seizures were recorded.
Clinical correlation is advised.
METHODS:
A 21 channel digitized electroencephalogram (EEG) was performed at the bedside in the ICU. The 10/20 international system of electrode placement was used with ECG and lateral/vertical eye movements recorded. Persyst quantitative EEG review was
performed.
QUALITY OF STUDY:
Good
ELECTROENCEPHALOGRAPHER IMPRESSION(S):
Background
Medium amplitude poorly organized anterior-posterior voltage gradient of beta activity
There were no significant asymmetries of background activity noted.
Sleep
Stage 1 and 2 sleep recorded
Photic Stimulation
Failed to activate the record
ECG
Normal sinus rhythm
Abnormal EEG Activity
None
[2024-03-01 10:11] LABS: Glucose - Point of Care 110 mg/dl (70-99)
[2024-03-01] MEDS: PROTONIX IV 40 MG IV (10:40)
[2024-03-01] MEDS: NSS (PRESERVATIVE FREE) 10 ML IV (10:40)
--- NOTE | 2024-03-01 10:45 | PTCARENOTE ---
Pt breath sounds and gurgling were heard coming through mouth and patient was attempting to talk so stat chest x ray was ordered which revealed ETT placement to be too high so respiratory was contacted and the tube was inserted 4 inches farther down
and placement was confirmed after and tube was secured. Will continue to monitor.
[2024-03-01 10:59] LABS: Osmolality Urine 397 mOsm/kg (300-900)
--- NOTE | 2024-03-01 11:06 | W.PN.INTV ---
Today's Communication / Plan
Recommendations
Intravenous fluids
Continue pressors-attempt to wean vasopressin and then norepinephrine
Spontaneous breathing trial once neurologically and hemodynamically stabilized
Neurology and nephrology evaluation
Antibiotics per infectious disease
Assessment
-
58-year-old male with a history of hypertension, hyperlipidemia, CAD who presented from [facility] complaining of right ear pain and sore throat for 2 days had a syncopal episode and arrived with temperatures, had seizure and
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
Sepsis with shock unresponsive to fluids requiring pressors
VDRF
Seizure
Hyponatremia-serum sodium 121
PIO
Elevated troponin
Transaminitis
Leukocytosis
Mild gaqxoc-awoxciapwn-fpfthwmxbo 11.5
Metabolic acidosis
Lactic acidosis
Hyperglycemia
Conditions present prior to admission:
Hypertension.
Hyperlipidemia.
CAD.
Permanent pacemaker.
Depression.
Diabetes
Tobacco addiction
Plan
Patient critically ill on pressors and on the ventilator sedated
Ventilator settings reviewed
Airway pressures reviewed
Adjust ventilator accordingly
ABG 03/01/2024--28/265/7 0.32
Follow chest x-ray
Aspiration precautions per protocol
VAP prevention protocol
Nebulizers if needed-currently not bronchospastic
Urine drug screen 02/29/2024-negative, no alcohol detected
Cultures reviewed
MRSA screen pending
Urine culture-pending
Blood culture 2/2 positive gram-positive cocci in chains-s Streptococcus suspected
Throat culture-rapid strep screen group A negative
Influenza AMB negative
Empiric antibiotics-vancomycin and ceftriaxone
Infectious disease following-reviewed case with them
Monitor leukocytosis-increasing to 35.8
Consider lumbar puncture
Decrease IV fluids
LR boluses if needed
Norepinephrine and vasopressin-wean vasopressin and then norepinephrine-reviewed with critical care nursing
Monitor lactate
Monitor renal function
Nephrology evaluation ongoing-correspondence reviewed
Bicarb as needed
Seizure precautions
Neurology evaluation
EEG 03/01/2024-mild diffuse bihemispheric slowing, no seizures were recorded
CT head 02/29/24-12 mm low-density lesion right temporoparietal junction lateral to the atrium of the right lateral ventricle likely ischemic in origin, however MRI contrast-enhanced recommended to exclude more aggressive pathology such as neoplasm
Eventual MRI
Consider lumbar puncture-difficult and infectious disease currently not recommending
Steroids initiated-decrease dosing
Continue to trend troponin
Check echocardiogram
Consider cardiology evaluation
Monitor hemoglobin-currently 11.2
Transfuse as needed
Monitor blood sugar
Insulin supplementation as needed
Smoking cessation counseling
DVT prophylaxis
Early nutrition if possible
Early mobilization/bedside range of motion
Critical care statement: A total of 55 minutes of critical care time was provided for this patient today. This includes management of unstable vital signs, evaluation of the patient at bedside, reviewing the patient's pertinent medical records
including radiographs, ventilator management, pressor management, microbiology, laboratory evaluations, and discussion with primary team, ED doc, pharmacy, charge nurse, critical care nursing, and respiratory therapy.
Diagnostic data:
Chest x-ray 02/29/2024-NAD
CT head 02/29/24-12 mm low-density lesion right temporoparietal junction lateral to the atrium of the right lateral ventricle likely ischemic in origin, however MRI contrast-enhanced recommended to exclude more aggressive pathology such as neoplasm
Subjective Dataa
Subjective Data
Date of Service:
Date of Service: March 01, 2024
Chief Complaint: Rn Security Follow Up, Pulmonary Follow Up and Vent Management Follow Up
Subjective:
Episode of PEA-brief, resolved without epinephrine, some chest compressions provided, moderate amount secretions, sedated on a ventilator and review of systems unobtainable
Review of Systems
General: Other (Per HPI)
Objective Data
Data Reviewed
Vital Signs / I&O / Oxygen:
Vital Signs
Temp Pulse Resp BP Pulse Ox
99.6 F 69 0 127/90 100
03/01/24 07:27 03/01/24 10:00 03/01/24 09:15 03/01/24 07:42 03/01/24 08:00
Intake and Output
02/29/24 03/01/24 03/02/24
06:59 06:59 06:59
Intake Total 1674.0 / 1823.0 680.0 / 680.0
Output Total 1490 / 1490 475 / 475
Balance 184.0 / 333.0 205.0 / 205.0
SaO2 [A/C] 100
SaO2 98
Nasal Cannula flow liters per 2
minute
Physical Exam
General: Respiratory Distress (n), Comfortable and Other (Orotracheal intubation)
HEENT: Normocephalic, Anicteric and Moist Mucous Membranes
Cardiovascular: Regular Rhythm, Murmur (n), JVD (n) and Peripheral Edema (n)
Respiratory: Clear (Diminished breath sounds), Crackles (n), Rhonchi (n), Non-Labored Respirations, Accessory Resp Muscle Use (n) and Stridor (n)
GI: Soft, Non Distended and Non Tender
Neurology: Awake, Alert and No Motor Deficits
Skin: Warm, Good Color, Cyanosis (n), Jaundice (n) and Rash (n)
Labs/Micro/Reports
Lab Data
03/01/24 02:36
Laboratory Results
02/29/24 02/29/24 02/29/24
17:25 20:11 20:37
APTT 38.8 H
pH 7.36 7.17 L*
pCO2 21 L 48
pO2 104 106
HCO3 11.9 L* 17.5 L
O2 Delivery Level
02/29/24 03/01/24
23:21 02:36
APTT
pH 7.32 L 7.32 L
pCO2 29 L 28 L
pO2 221 H 265 H
HCO3 14.9 L* 14.4 L*
O2 Delivery Level 100 100
Microbiology
02/29/24 15:21 Throat/Pharynx Streptococcus Screen (PAM) - Preliminary
Culture in Progress
02/29/24 15:21 Throat/Pharynx Streptococcus Rapid Screen - Final
Rapid Strep Screen (Group A) Negative
02/29/24 15:06 Blood/Venous Blood Culture - Preliminary
Positive culture in progress
02/29/24 15:06 Blood/Venous Gram Stain - Final
02/29/24 15:21 Blood/Venous Blood Culture - Preliminary
Positive culture in progress
02/29/24 15:21 Blood/Venous Gram Stain - Final
02/29/24 15:06 Nasal Swab Influenza Types A & B (CHARLENE) - Final
Negative for Influenza A & B, NAAT
Negative results must be combined with clinical observations
and patient history.
Nucleic Acid Amplification test (NAAT)performed on the
[employer] platform.
[2024-03-01 11:13] LABS: Glucose - Point of Care 89 mg/dl (70-99)
[2024-03-01 11:18] LABS: Troponin I 0.198 ng/ml
--- NOTE | 2024-03-01 11:29 | CM ---
CM reviewed medical records. Patient is critically ill at this time. Patient is currently incarceration. CM will continue to watch clinical outcome for discharge planning.
PLAN: [facility]
[2024-03-01 11:39] LABS: Urine Sodium 58 mmol/L (30-90)
[2024-03-01] MEDS: SODIUM BICARBONATE 1150 MEQ IV (11:54)
[2024-03-01 12:00] VITALS: BP 130/93
[2024-03-01 12:18] LABS: Glucose - Point of Care 87 mg/dl (70-99)
[2024-03-01] MEDS: DECADRON 4 MG IV ×3 (12:31→23:18)
[2024-03-01] MEDS: VANCOCIN 300 ML IV (12:45)
[2024-03-01] MEDS: VANCOCIN 300 MG IV (12:45)
[2024-03-01 14:00] LABS: Blood Urea Nitrogen 46 mg/dl (9-20); Calcium 8.1 mg/dl (8.4-10.2); Carbon Dioxide 16 mmol/L (22-30); Chloride 94 mmol/L (98-107); Estimated Creatinine Clearance 53 ml/min; Glucose 129 mg/dl (70-99); Potassium 4.1 mmol/L (3.5-5.1); Sodium 126 mmol/L (135-145); eGFR 43.36
[2024-03-01 14:14] LABS: Glucose - Point of Care 118 mg/dl (70-99)
[2024-03-01 15:44] VITALS: BMI 31.1
[2024-03-01] MEDS: NICODERM TRANSDERMAL 14 MG TRANSDERM (16:06)
[2024-03-01] MEDS: HEPARIN 5000 UNITS SC ×2 (16:07→23:18)
[2024-03-01 16:15] LABS: Glucose - Point of Care 113 mg/dl (70-99)
--- NOTE | 2024-03-01 16:18 | W.PN.NEURO.1 ---
Today's Communication / Plan
-
IV Keppra 500mg BID
IV antibiotics
EEG
Serial CT head
Neuro Assessment/Plan
Assessment
58 yr. old male with h/o sepsis hyponatremia and seizures who was intubated
Plan
Continue Ventilator support
IV fluids
IV antibiotics
IV Keppra 500 q 12
EEG
ID consult
Subjective/Objective
Subjective Data
Date of Service: March 01, 2024
Pat remains sedated intubated. Had an episode of PEA. Placed on
Objective Data
Vital Signs
Temp Pulse Resp BP Pulse Ox
38.1 C H 74 23 130/93 99
03/01/24 15:09 03/01/24 16:15 03/01/24 16:15 03/01/24 12:00 03/01/24 16:15
Lab Results
03/01/24 02:36
03/01/24 13:00
APTT 38.8 Sec (23.4-35.0) H 02/29/24 20:37
Sodium 126 mmol/L (135-145) L 03/01/24 13:00
Potassium 4.1 mmol/L (3.5-5.1) 03/01/24 13:00
BUN 46 mg/dl (9-20) H 03/01/24 13:00
Glucose 129 mg/dl (70-99) H 03/01/24 13:00
Calcium 8.1 mg/dl (8.4-10.2) L 03/01/24 13:00
Phosphorus 4.1 mg/dl (2.5-4.5) 02/29/24 15:06
LDL Cholesterol, Calc 2 mg/dl 03/01/24 02:36
Ur Buprenorphine Negative (Negative) 02/29/24 17:42
Patient Allergies
No Known Allergies Allergy (Unverified 02/29/24 14:38)
Physical Exam
-
General: Appears Chronically Ill
Eyes: Able to visualize OU
HEENT: Normocephalic, Atraumatic and Other (Intubated)
Neck: Other
Respiratory: Other (Vent dependent)
Cardiac: Regular Rhythm
GI: Normal Bowel Sounds
Extended Neurological Exam
Mood & Affect: Other (Sedated, intubated)
Attention Span & Concentration: Other (Sedated intubated)
Memory: Unable to Assess
Tremor: Hand Tremor Absent and Head Tremor Absent
Involuntary Movement: None
Speech: Other (Intubated)
Cranial Nerve II: Left Eye: Pupillary Reactivity Unremarkable, Pupillary Size Unremarkable and Unable to Assess Visual Meneses
Cranial Nerve II: Right Eye: Unable to Assess Visual Meneses
Cranial Nerves III, IV, : Extraocular Movement: Unable to Assess
Cranial Nerve V: Facial Sensation: Unable to Assess
Cranial Nerve VII: Facial Symmetry: Normal Facial Symmetry
Cranial Nerve VIII: Hearing: Unable to Assess
Cranial Nerves IX, X: Palate Movement: Unable to Assess
Cranial Nerve XI: Shoulder Shrug: Unable to Assess
Cranial Nerve XII: Tongue Protusion: Unable to Assess
Muscle Strength, Overall: Unable to Assess
Muscle Bulk & Tone: Unable to Assess
Pronator Drift: Unable to Assess
Deep Tendon Reflexes: Unable to Assess
Cold Sensation: Unable to Assess
Vibration Sensation: Unable to Assess
Touch Sensation: Unable to Assess
Coordination: Unable to Assess
Babinski Sign: Present Bilaterally
Gait & Station: Unable to Assess
[2024-03-01 16:23] LABS: Anti Streptolysin Positive (Negative)
[2024-03-01 16:24] LABS: ASO Quantitative 400 IU/ml (<200)
[2024-03-01] MEDS: MYCOSTATIN ORAL SUSPENSION 5 ML PO ×2 (17:22→17:47)
--- NOTE | 2024-03-01 17:50 | PTCARENOTE ---
Pt tube feeding started with Jevity 1.5. Holding the water flush per order of Dr. Baird. Pt prop gtt increased due to patient trying to self extubate, agitation and dyssynchrony. Guards at bedside, restraints and shackles remain in use, will continue
to monitor.
[2024-03-01 18:07] LABS: Glucose - Point of Care 100 mg/dl (70-99)
[2024-03-01 18:18] VITALS: BP 94/53
[2024-03-01 18:28] VITALS: BP 83/57
[2024-03-01 20:03] LABS: Glucose - Point of Care 85 mg/dl (70-99)
--- NOTE | 2024-03-01 20:22 | PTCARENOTE ---
pt rec'd. assessment as documented. pt becomes restless with care. prop/fent gtts infusing. b/l soft wrist restraints in place. L ankle shackled and guards x2 in room. NSR on monitor, levo gtt infusing to maintain MAP >65. #8 ETT, 24 at lip,
adjusted to center. AC 20/500/5/40%. lungs diminished. oral care and suction provided. L nare DHT with tube feeds infusing. garcia w/ thermister intact draining mariaa urine. garcia care done. arterial line leveled and zeroed. critical care glycemic
protocol continues, see flowsheet. care ongoing.
[2024-03-01 22:05] LABS: Glucose - Point of Care 152 mg/dl (70-99)
--- NOTE | 2024-03-01 23:46 | PTCARENOTE ---
pt reassessed. pt attempting to reach for tube, restless in bed, requiring increased doses of sedation. prop/fent/levo/insulin/bicarb gtts continue. pt repositioned, oral care provided. ETT salgado changed. care ongoing.
[2024-03-01 23:53] LABS: Glucose - Point of Care 153 mg/dl (70-99)
[2024-03-02] VITALS (18 sets, daily range): BP systolic 84–119; BP diastolic 57–70; BMI 30.2
[2024-03-02] MEDS: SUBLIMAZE 50 MCG IV (00:36)
[2024-03-02] MEDS: LEVOPHED 250 IV (02:20)
--- NOTE | 2024-03-02 03:04 | DOWNTIME ---
There was a [employer] [facility] Representative Downtime on 03/02/2024 from 0100 to 03/02/2024 at 0300. Downtime documentation of patient's care, including medication administrations, has been reconciled in the electronic record per guidelines. Refer to the
patient's paper chart under the miscellaneous tab to see printed paper medication records and downtime forms.
[2024-03-02 04:24] LABS: Glucose - Point of Care 137 mg/dl (70-99)
[2024-03-02 04:50] LABS: Mean Corpuscular Hgb 30.1 pg (27.0-31.0); Mean Corpuscular Volume 81.3 fL (80.0-94.0); Mean Platelet Volume 11.5 fL (7.4-10.4); Platelet Count 166 10^3/uL (130-400); Red Blood Cell Count 3.32 10^6/uL (4.70-6.10); Red Cell Dist. Width 12.4 % (11.5-14.5); White Blood Cell Count 28.8 10^3/uL (4.8-10.8)
[2024-03-02 04:51] LABS: Vancomycin Random 17.9 ug/ml
[2024-03-02 04:56] LABS: ALT (SGPT) 92 U/L (0-50); AST (SGOT) 97 U/L (17-59); Alkaline Phosphatase 86 U/L (38-126); Blood Urea Nitrogen 41 mg/dl (9-20); Calcium 7.8 mg/dl (8.4-10.2); Carbon Dioxide 20 mmol/L (22-30); Chloride 98 mmol/L (98-107); Estimated Creatinine Clearance 59 ml/min; Glucose 157 mg/dl (70-99); Potassium 3.3 mmol/L (3.5-5.1); Sodium 133 mmol/L (135-145); Total Bilirubin 0.7 mg/dl (0.2-1.3); Total Protein 5.8 g/dl (6.3-8.2); eGFR 49.94
[2024-03-02 05:03] LABS: % Basophils 0.5 % (0-2); % Immature Granulocytes 4.3 % (0-0.5); % Lymphocytes 2.5 % (20.5-51.1); % Monocytes 5.1 % (1.7-9.3); % Neutrophils 87.6 % (42.2-75.2); Absolute Basophils 0.1 10^3/uL (0-0.2); Absolute Immature Granulocytes 1.2 10^3/uL (0-0.05); Absolute Lymphocytes 0.7 10^3/uL (1.2-3.4); Absolute Monocytes 1.5 10^3/uL (0.1-0.6); Absolute Neutrophils 25.2 10^3/uL (1.4-6.5); Nucleated Red Blood Cells % 0.1 % (-)
[2024-03-02 05:10] LABS: Troponin I 0.099 ng/ml
[2024-03-02] MEDS: DECADRON 4 MG IV ×3 (05:27→17:38)
[2024-03-02] MEDS: SUBLIMAZE 100 IV (05:43)
[2024-03-02] MEDS: KCL 100 IV (05:45)
[2024-03-02 06:03] LABS: Glucose - Point of Care 183 mg/dl (70-99)
--- NOTE | 2024-03-02 06:30 | PTCARENOTE ---
AM labs sent, K repleted. weaning sedation per protocol, see flowsheets. oral care provided, ETT adjusted. TF rate increased per order. pt repositioned. care ongoing.
[2024-03-02 06:54] LABS: Glucose - Point of Care 161 mg/dl (70-99)
--- NOTE | 2024-03-02 07:35 | PTCARENOTE ---
Received intubated and sedated with bilateral soft wrist restraints intact. 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 He easily awakens to verbal and tactile stimuli. Nodding his head appropriately to simple
questions, following commands. Right femoral TL CVC with Propofol, fentanyl, and Norepinephrine via proximal port. Distal port with insulin drip per the critical care glycemic protocol. Medial port with bicarb drip. Right AC#20g IV access flushed
and patent. Right radial arterial line transduced, calibrated and monitored, all ports patent and secured. Feet and hands mottled but improved from yesterday. Doppler pedal pulses intact. Protective foam dressing to his heels and elbows intact.
Knee-hi SCD's intact. 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 Abrasion on his right upper head FISH HATCHERY LABORER, abrasion to his back FISH HATCHERY LABORER, cleansed with CHG cloth. Lungs CTA. Suctioned copious oral secretions, via ETT secretions small and
white. Oral thrush improved. +Hypoactive BSX4. Left nare DHT with Jevity 1.5@30ml/hr, no water flush. Temperature sensing Friedman catheter secured, draining yellow urine. He was informed of the plan of care to to a SBT and hopefully extubated. He
emphatically nodded his head in understanding. Safe environment maintained. Will continue to monitor.
--- NOTE | 2024-03-02 07:38 | W.PN.INTV ---
Today's Communication / Plan
Recommendations
Decrease steroids
Antibiotics
Spontaneous breathing trial-Hope to extubate
Wean pressors
Assessment
-
58-year-old male with a history of hypertension, hyperlipidemia, CAD who presented from [facility] complaining of right ear pain and sore throat for 2 days had a syncopal episode and arrived with temperatures, had seizure and
CAT scan requiring intubation-choral director consulted for ventilator/sepsis/critical care management 02/29/2024.
Sepsis with shock unresponsive to fluids requiring pressors
VDRF
Intubated 02/29/2024
Extubated 03/02/2024
Seizure
Hyponatremia-serum sodium 121
PIO
Elevated troponin
Transaminitis
Leukocytosis
Mild dwatkm-guwxqoqpxw-mjhjhyuiis 11.5
Metabolic acidosis
Lactic acidosis
Hyperglycemia
Conditions present prior to admission:
Hypertension.
Hyperlipidemia.
CAD.
Permanent pacemaker.
Depression.
Diabetes
Tobacco addiction
Plan
Patient critically ill on pressors and on the ventilator sedated
Ventilator settings reviewed
Airway pressures reviewed
Note: ABG 03/01/2024--28/265/7.32
Follow chest x-ray
Aspiration precautions per protocol
VAP prevention protocol
Nebulizers if needed-currently not bronchospastic
Spontaneous breathing trial this a.m.-Hope to extubate
Urine drug screen 02/29/2024-negative, no alcohol detected
Cultures reviewed
MRSA screen-negative
Urine culture-no growth
Sputum culture 03/01/20246110-jxfr-dcawxjjs bacilli
Blood culture 2/2 positive gram-positive cocci in chains-s Streptococcus pyogenes
Throat culture-rapid strep screen group A negative
Influenza AMB negative
Empiric antibiotics-vancomycin and ceftriaxone
Infectious disease following-reviewed case with them
Monitor leukocytosis-increasing to 35.8
Consider lumbar puncture
Decrease IV fluids
LR boluses if needed
Norepinephrine and vasopressin-vasopressin weaned-attempt to wean norepinephrine-reviewed with critical care nursing
Monitor lactate
Monitor renal function
Nephrology evaluation ongoing-correspondence reviewed
Bicarb drip per nephrology
Seizure precautions
Neurology evaluation ongoing-reviewed with them
EEG 03/01/2024-mild diffuse bihemispheric slowing, no seizures were recorded
CT head 02/29/24-12 mm low-density lesion right temporoparietal junction lateral to the atrium of the right lateral ventricle likely ischemic in origin, however MRI contrast-enhanced recommended to exclude more aggressive pathology such as neoplasm
Eventual MRI
Infectious disease not recommending lumbar puncture
Steroids initiated-decrease dosing-reviewed the need with neurology-they do recommend Solu-Medrol 80 mg IV every 12 hours
Troponin trended
Eventual echocardiogram
Monitor hemoglobin-currently 10.0
Transfuse as needed
Monitor blood sugar
Insulin supplementation as needed
Smoking cessation counseling once extubated
DVT prophylaxis
Early nutrition if possible
Early mobilization/bedside range of motion
Critical care statement: A total of 45 minutes of critical care time was provided for this patient today. This includes management of unstable vital signs, evaluation of the patient at bedside, reviewing the patient's pertinent medical records
including radiographs, ventilator management, pressor management, microbiology, laboratory evaluations, and discussion with primary team, ED doc, pharmacy, charge nurse, critical care nursing, and respiratory therapy.
Diagnostic data:
Chest x-ray 02/29/2024-NAD
CT head 02/29/24-12 mm low-density lesion right temporoparietal junction lateral to the atrium of the right lateral ventricle likely ischemic in origin, however MRI contrast-enhanced recommended to exclude more aggressive pathology such as neoplasm
Subjective Dataa
Subjective Data
Date of Service:
Date of Service: March 02, 2024
Chief Complaint: Credit Collections Manager Follow Up, Pulmonary Follow Up and Vent Management Follow Up
Subjective:
Opens eyes, no increase secretions, stable on the ventilator, hemodynamically improved, still on pressors, review of systems unobtainable
Review of Systems
General: Unobtainable - Sedation
Objective Data
Data Reviewed
Vital Signs / I&O / Oxygen:
Vital Signs
Temp Pulse Resp BP Pulse Ox
100.2 F 69 16 105/68 98
03/02/24 03:01 03/02/24 07:00 03/02/24 07:00 03/02/24 00:00 03/02/24 07:00
Intake and Output
03/01/24 03/02/24 03/03/24
06:59 06:59 06:59
Intake Total 1674.0 / 1823.0 3392.9 / 3392.9
Output Total 1490 / 1490 4300 / 4300
Balance 184.0 / 333.0 -907.1 / -907.1
SaO2 [A/C] 100
SaO2 98
Nasal Cannula flow liters per 2
minute
Physical Exam
General: Respiratory Distress (n), Comfortable and Other (Orotracheal intubation)
HEENT: Normocephalic, Anicteric and Moist Mucous Membranes
Cardiovascular: Regular Rhythm, Murmur (n), JVD (n) and Peripheral Edema (n)
Respiratory: Clear (Diminished breath sounds), Crackles (n), Rhonchi (n), Non-Labored Respirations, Accessory Resp Muscle Use (n) and Stridor (n)
GI: Soft, Non Distended and Non Tender
Neurology: Awake, Alert and No Motor Deficits
Skin: Warm, Good Color, Cyanosis (n), Jaundice (n) and Rash (n)
Labs/Micro/Reports
Lab Data
03/02/24 04:23
03/02/24 04:23
Microbiology
03/01/24 10:28 Tracheal Aspirate Gram Stain - Preliminary
02/29/24 17:42 Urine Urine Culture - Final
NO GROWTH
02/29/24 15:21 Throat/Pharynx Streptococcus Screen (PAM) - Preliminary
Culture in Progress
02/29/24 15:21 Throat/Pharynx Streptococcus Rapid Screen - Final
Rapid Strep Screen (Group A) Negative
02/29/24 15:06 Blood/Venous Blood Culture - Preliminary
Positive culture in progress
02/29/24 15:06 Blood/Venous Gram Stain - Final
02/29/24 15:21 Blood/Venous Blood Culture - Preliminary
Positive culture in progress
02/29/24 15:21 Blood/Venous Gram Stain - Final
02/29/24 15:06 Nasal Swab Influenza Types A & B (CHARLENE) - Final
Negative for Influenza A & B, NAAT
Negative results must be combined with clinical observations
and patient history.
Nucleic Acid Amplification test (NAAT)performed on the
[employer] platform.
[2024-03-02 07:48] LABS: Glucose - Point of Care 129 mg/dl (70-99)
[2024-03-02] MEDS: DIPRIVAN 100 IV (08:00)
[2024-03-02] MEDS: NSS (PRESERVATIVE FREE) 10 ML IV (08:15)
[2024-03-02] MEDS: HEPARIN 5000 UNITS SC ×2 (08:15→17:38)
[2024-03-02] MEDS: NICODERM TRANSDERMAL 14 MG TRANSDERM (08:15)
[2024-03-02] MEDS: MYCOSTATIN ORAL SUSPENSION 5 ML PO ×4 (08:15→20:38)
[2024-03-02] MEDS: PROTONIX IV 40 MG IV (08:15)
[2024-03-02 08:16] LABS: Glucose - Point of Care 153 mg/dl (70-99)
[2024-03-02] MEDS: KEPPRA 500 MG IV ×2 (08:16→20:38)
[2024-03-02] MEDS: STERILE WATER FOR INJECTION 20 ML IV ×2 (08:16→20:38)
[2024-03-02] MEDS: ROCEPHIN 2000 MG IV ×2 (08:16→20:38)
--- NOTE | 2024-03-02 09:02 | W.PN.HOSP.TC ---
Addendum entered and electronically signed by Pradeep Mcknight MD 03/02/24 17:11:
Patient pacemaker is not compatible with MRI, orders canceled
Ordered for LP/cell count/Gram stain to rule out any bacterial meningitis.
Will discuss with radiology if CT brain with IV contrast may help in this situation to better delineate lesion seen on CT head.
Original Note:
Today's Communication/Plan
-
see note
Assessment / Plan
Assessment / Plan
CT head
There is a 12 mm low-density lesion at the right temporoparietal junction lateral to the atrium of the right lateral ventricle. This lesion is most likely ischemic in origin, however, given the patient's clinical history, follow-up imaging with
contrast-enhanced MRI is recommended to exclude more aggressive pathology/neoplasm.

1. Septic Shock
Gram-positive bacteremia
Likely 2/2 suppurative otitis media with perforated eardrum
Rule out bacterial meningitis/encephalitis
-Patient found to be in septic shock in ER, not improved with IV hydration
-Patient was complaining right ear pain for few day and on otoscope exam have dried up purulent drainage in right ear with likely perforated eardrum
-Chest x-ray/UA is clear. Respiratory culture collected. Throat culture negative for rapid strep.
-Blood culture growing gram-positive cocci in chains, further identification and susceptibility pending
-Serum test positive for antistreptolysin O antibody/titer of 400 (Upper normal 200)
-Patient continues to remain febrile, WBC trending down.
-Vasopressor requirement coming down, patient off of vasopressor. Levophed on 7 mics per minute
-Patient currently on vancomycin and Rocephin, ID help appreciated for antibiotic management
2. Ventilator dependent respiratory failure
-Patient had seizure episode in radiology department and required to be intubated for airway protection
-Patient undergoing spontaneous breathing trial and may possibly be extubated today
3. Seizure episode
-Unclear if patient have previous history of any seizures/epilepsy. Not on any meds
-CT head finding as above, patient will benefit with MRI brain without contrast to rule out any septic emboli(clinical less likely as solitary lesion) versus ischemic stroke vs malignancy
-EEG did not show any underlying seizure activity
-If patient gets extubated and clinically stable > MRI brain without contrast ordered as cannot order contrast with ongoing renal dysfunction
-Maintaining patient on empiric IV steroids if patient have any malignancy/abscess related edema causing seizure, will discontinue based on MRI report
-Patient has been continued on IV Keppra for time being, neurology following.
4. Hyponatremia - resolved
-Presumed euvolemic in nature
-Urine sodium of 58 and urine respiratory 390
-Patient got 3% normal saline by nephro
-Further dosing of 3% NS based on nephrology recommendation
5. Cardiac arrest
-Brief PEA arrest after patient was moved in ICU
-Required 2 minutes of CPR with ROSC achieved
5. Troponin elevation
-Presumed nonischemic cardiomyopathy with ongoing septic shock
-Will get routine echocardiogram once patient clinically improved from above-mentioned problem
6. PIO
-Likely prerenal in nature with ongoing shock
-Indwelling Friedman catheter in place
-Cr slowly improving, 1.6 today
7. Lactic acidosis - resolved
Metabolic acidosis - resolved
-Patient had significant lactic acidosis with LA 10, now resolved
-Have some persistent metabolic acidosis likely from PIO/need of hyperchloremic fluid
8. Type II DM
-Uncontrolled blood glucose due to need of IV steroids and levophed
-maintain on Insulin infusion
9. Hypocalcemia
-Low ionized calcium, got calcium chloride in night
-Further dosing per nephro recommendation
Full code
Heparin subq
Care plan discussed with social media content manager
Total critical care time 40 mins. Total critical care time documented does not include time spent on separately billed procedures or the services of residents, students, nurses or physician assistants. I personally saw and examined the patient. I
have reviewed all diagnostic interpretations and treatment plans as written. I was present for the navarro portions of any procedures performed and the inclusive time noted in any critical care statement. Critical care time includes patient management
by me, time spent at the patients bedside, time to review lab and imaging results, discussing patient care, documentation in the medical record, and time spent with the family or caregiver.
Anticipated Discharge: > 48 hours
Subjective/Interval History
-
Date of Service: March 02, 2024
Patient remains febrile
Remains intubated
Continues to remain on Levophed,
Patient undergoing spontaneous breathing trial, waking up off sedation
No other acute issues reported
Objective Data
-
Labs:
Laboratory Results
03/02/24 03/02/24
04:23 09:00
WBC 28.8 H
Hgb 10.0 L
Hct 27.0 L
Plt Count 166
HCO3 Pending
Sodium 133 L
Potassium 3.3 L
Chloride 98
Carbon Dioxide 20 L
BUN 41 H
Creatinine 1.6 H
Glucose 157 H
Calcium 7.8 L
Total Bilirubin 0.7
AST 97 H
ALT 92 H
Alkaline Phosphatase 86
Vital Signs:
Vital Signs
Temp Pulse Resp BP Pulse Ox
100.5 F H 75 22 105/68 99
03/02/24 07:45 03/02/24 08:42 03/02/24 08:42 03/02/24 00:00 03/02/24 08:42
I&O
03/01/24 03/02/24 03/03/24
06:59 06:59 06:59
Intake Total 1674.0 / 1823.0 3392.9 / 3565.4 306.5 / 306.5
Output Total 1490 / 1490 4300 / 4425 250 / 250
Balance 184.0 / 333.0 -907.1 / -859.6 56.5 / 56.5
Review of Systems
-
Unable to obtain full review of systems at this time due to: Acuity and Patient Intubation
Physical Exam
-
General: Negative No Apparent Distress
HEENT: Oxygen (on Ventilator) and Other (Right ear - purulent drainage with possible perforated ear drum)
Respiratory: Clear to Auscultation
Cardiac: Regular Rhythm and S1/S2; Negative Murmur
GI: Soft, Nontender and Nondistended
Neuro: Awake (Currently undergoing sedation vacation, opening eyes to physical touch)
--- NOTE | 2024-03-02 09:06 | PHA.VAN.FU ---
Vancomycin Assessment / Plan
- Assessment
Renal Function: SCR Decreasing
WBC's are: Trending Down
Concomitant Antimicrobials: ceftriaxone
- Assessment - Therapeutic Drug Monitoring
Random Level: 17.9 - drawn ~15.5H after previous dose of 1500mg
- Dosing Plan
Dosing by Level: Re-dose today (Vanc 1250mg x1)
Dosing Comments: reduced dosing slightly from yesterday based on random level
- Monitoring Plan
Random Level: 03/03 600
- Follow Up
Pharmacy will continue to follow.
Vancomycin Follow UP
- -
Patient Age: 58
Patient Sex: Male
Vancomycin Day #: 2
Indication: Other
Requesting Provider: Nini Shultz
Pertinent Antimicrobial Allergies:
NKDA
Height / Weight:
Height 5 ft 10 in
Actual Weight 95.4 kg
Pertinent Past Medical History: BMI ~31
- Vital Signs / Lab Results
Temp Pulse Resp BP Pulse Ox
100.5 F H 75 22 105/68 99
03/02/24 07:45 03/02/24 08:42 03/02/24 08:42 03/02/24 00:00 03/02/24 08:42
Lab Results - Hematology
02/29/24 02/29/24 03/01/24
15:06 20:33 02:36
WBC 23.1 H 29.2 H 35.8 H
Band Neutrophils 22 H 20 H
03/02/24
04:23
WBC 28.8 H
Band Neutrophils
Lab Results - Chemistry
02/29/24 02/29/24 02/29/24
15:06 20:33 20:33
BUN 33 H 38 H 38 H
Creatinine 2.2 H 2.1 H
Estimated Creat Clear 38
Albumin 3.6
02/29/24 02/29/24 02/29/24
20:33 20:33 22:24
BUN 39 H
Creatinine 2.1 H 1.8 H
Estimated Creat Clear 40 40 47
Albumin
03/01/24 03/01/24 03/01/24
02:36 09:00 13:00
BUN 43 H 43 H 46 H
Creatinine 2.0 H 1.7 H 1.8 H
Estimated Creat Clear 42 56 53
Albumin 3.2 L
03/02/24
04:23
BUN 41 H
Creatinine 1.6 H
Estimated Creat Clear 59
Albumin 3.0 L
02/29/24 02/29/24 02/29/24
15:06 19:14 20:33
Lactic Acid 10.3 H* 4.4 H* 3.0 H
03/01/24
02:36
Lactic Acid 2.0
Microbiology Results
03/01/24 05:18 MRSA Screen - Final
Nose No Methicillin Resistant Staphylococcus aureus isolated.
03/01/24 10:28 Gram Stain - Preliminary
Tracheal Aspirate
02/29/24 17:42 Urine Culture - Final
Urine NO GROWTH
02/29/24 15:21 Streptococcus Screen (PAM) - Preliminary
Throat/Pharynx Culture in Progress
Streptococcus Rapid Screen - Final
Rapid Strep Screen (Group A) Negative
02/29/24 15:06 Blood Culture - Preliminary
Blood/Venous Positive culture in progress
Gram Stain - Final
02/29/24 15:21 Blood Culture - Preliminary
Blood/Venous Positive culture in progress
Gram Stain - Final
02/29/24 15:06 Influenza Types A & B (CHARLENE) - Final
Nasal Swab Negative for Influenza A & B, NAAT
Negative results must be combined with clinical observations
and patient history.
Nucleic Acid Amplification test (NAAT)performed on the
[employer] platform.
Therapeutic Drug Monitoring
Random Vancomycin 17.9 ug/ml 03/02/24 04:23
[2024-03-02 09:27] LABS: Glucose - Point of Care 219 mg/dl (70-99)
[2024-03-02 09:32] LABS: B.E. -0.1 mmol/L; HCO3 23.8 mmol/L (21-28); O2 Saturation % 97.3 % (94-98); PCO2 35 mmHg (35-48); PO2 166 mmHg (83-108); pH 7.44 (7.35-7.45)
--- NOTE | 2024-03-02 10:08 | W.PN.NEPH.PH ---
Addendum entered and electronically signed by Tena Collazo MD 03/02/24 10:18:
bld cx strep pyogenes, ASO titer is high, pending complements to r/o ICGN
Original Note:
Today's Communication / Plan
-
change iVF to 1/2ns with bicarb
reaplce k
Assessment/Plan
-
Assessment
hypotension
PIO
hypomagnesemia
metabolic acidosis, gap
lactic acidosis
seizure
CAD
DM2
fever
right temporoparietal lesion
GPC bacteremia/sepsis
Plan:
PIO-cr improving likely has auto diuresis
hyponatremia improved at 133
seem to have appropriate correction
met acidosis is improving too , change IVF to 12NS with bicarb
for extubation now
wean pressors as able to keep MAP>65
adjust meds for changing GFR
empiric abx per ID
Keppra for seizures
follow LFTs
CC time spent 31min
labs in am
-
-
Date of Service: March 02, 2024
CC / HPI / ROS
-
Chief Complaint:
PIO
History of Present Illness:
critically ill in ICU on vent/pressors
PEA arrest 02/28
PIO/Cr better at 1.6
na better at 133
metabolic acidosis improving, k low 3.3
wbc improving
low grade fever 100.5
Review of Systems:
awake, intubated
for extubation now
Labs
-
Labs:
WBC 28.8 10^3/uL (4.8-10.8) H 03/02/24 04:23
RBC 3.32 10^6/uL (4.70-6.10) L 03/02/24 04:23
Hgb 10.0 g/dL (13.0-18.0) L 03/02/24 04:23
Hct 27.0 % (39.0-52.0) L 03/02/24 04:23
Plt Count 166 10^3/uL (130-400) 03/02/24 04:23
Sodium 133 mmol/L (135-145) L 03/02/24 04:23
Potassium 3.3 mmol/L (3.5-5.1) L 03/02/24 04:23
Chloride 98 mmol/L (98-107) 03/02/24 04:23
Carbon Dioxide 20 mmol/L (22-30) L 03/02/24 04:23
BUN 41 mg/dl (9-20) H 03/02/24 04:23
Creatinine 1.6 mg/dL (0.7-1.3) H 03/02/24 04:23
eGFR 49.94 03/02/24 04:23
Glucose 157 mg/dl (70-99) H 03/02/24 04:23
Calcium 7.8 mg/dl (8.4-10.2) L 03/02/24 04:23
Phosphorus 4.1 mg/dl (2.5-4.5) 02/29/24 15:06
Albumin 3.0 g/dl (3.5-5.0) L 03/02/24 04:23
Physical Exam
-
Vital Signs:
Vital Signs
Temp Pulse Resp BP Pulse Ox
100.5 F H 75 22 119/70 95
03/02/24 07:45 03/02/24 09:15 03/02/24 09:15 03/02/24 08:16 03/02/24 09:52
Cardiovascular:: Regular rate and rhythm
Respiratory:: Bilateral: CTA
Lung Excursion:: Abnormal
Abdomen:: Nontender and Soft
Extremity Edema:: None: Bilateral:
Friedman Catheter: Yes
[2024-03-02 10:20] LABS: Glucose - Point of Care 168 mg/dl (70-99)
--- NOTE | 2024-03-02 10:52 | W.PN.ID1 ---
Date of Service
Date of Service: March 02, 2024
Today's Communication
- Continue ceftriaxone 2g IV q12 (d2), and steroid (to complete 4d)
-DC Vancomycin
- MRI brain when able.
Assessment / Plan
# Group A strep bacteremia x 2sets
# Septic meningitis/encephalitis - Group A strep
# Right otitis media with perforated TM and pharyngitis as source
# Septic shock due to above, improving
# Acute seizure. Syncope
# Hyponatremia
# PIO - improving
# Incarcerated
# hx 40 year tobacco
-CT head: 12mm lesion right tempo-parietal lobe
-For brain MRI
- Continue ceftriaxone 2g IV q12 (d2), and steroid (to complete 4d)
-DC Vancomycin
- Follow repeat blood cx's.
- No need for LP as blood cx's positive.
- Trend temps, wbc.
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
HTN
HLD
PPM/ICD
CAD s/p stent
Depression
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
Chief Complaint
-: Clinical Sepsis and Bacteremia
Subjective / Review of Systems
Extubated, awake. + HUMPHREY. Right ear pain better.
Vital Signs / Physical Exam
Vital Signs
Vital Signs
Temp Pulse Resp BP Pulse Ox
100.5 F H 75 22 119/70 97
03/02/24 07:45 03/02/24 09:15 03/02/24 09:15 03/02/24 08:16 03/02/24 10:08
Physical Exam
Constitutional: No Acute Distress
Head: Other
Eyes: No Conjunctival Hemorrhage and Sclera Anicteric
Cardiovascular: Regular Rate and S1/S2
Pulmonary: Clear
Gastrointestinal: Soft, Non Tender and Non Distended
Genito-Urinary: Friedman and Clear Urine
Extremities: Negative Edema
Neurological: Awake and Alert; Negative Meningeal Signs (neck supple)
Objective Data
Lab Data
Lab Results
03/02/24 04:23
APTT 38.8 Sec (23.4-35.0) H 02/29/24 20:37
Estimated Creat Clear 59 ml/min 03/02/24 04:23
Lactic Acid 2.0 mmol/L (0.7-2.0) 03/01/24 02:36
Total Bilirubin 0.7 mg/dl (0.2-1.3) 03/02/24 04:23
AST 97 U/L (17-59) H 03/02/24 04:23
ALT 92 U/L (0-50) H 03/02/24 04:23
Alkaline Phosphatase 86 U/L (38-126) 03/02/24 04:23
Most recent labs reviewed.
Micro Results:
03/01/24 10:28 Respiratory Culture - Preliminary
Tracheal Aspirate Gram negative bacilli
Gram Stain - Preliminary
02/29/24 15:21 Blood Culture - Preliminary
Blood/Venous Streptococcus pyogenes
Gram Stain - Final
02/29/24 15:06 Blood Culture - Preliminary
Blood/Venous Streptococcus pyogenes
Gram Stain - Final
03/01/24 05:18 MRSA Screen - Final
Nose No Methicillin Resistant Staphylococcus aureus isolated.
03/02/24 04:41 Blood Culture - Pending
Blood/Venous
03/02/24 04:43 Blood Culture - Pending
Blood/Venous
02/29/24 17:42 Urine Culture - Final
Urine NO GROWTH
02/29/24 15:21 Streptococcus Screen (PAM) - Preliminary
Throat/Pharynx Culture in Progress
Streptococcus Rapid Screen - Final
Rapid Strep Screen (Group A) Negative
02/29/24 15:06 Influenza Types A & B (CHARLENE) - Final
Nasal Swab Negative for Influenza A & B, NAAT
Negative results must be combined with clinical observations
and patient history.
Nucleic Acid Amplification test (NAAT)performed on the
[employer] platform.
02/29/24 CT head: There is a 12 mm low-density lesion at the right temporoparietal junction lateral to the atrium of the right lateral ventricle. This lesion is most likely ischemic in origin, however, given the patient's clinical history, follow-up
imaging with contrast-enhanced MRI is recommended to exclude more aggressive pathology/neoplasm.
02/29/24 CXR: No active cardiopulmonary disease.
Care Review
Plan reviewed with: Physician (Dr. Neha Mcknight)
[2024-03-02] MEDS: SODIUM BICARBONATE IV (10:56)
[2024-03-02] MEDS: MIRALAX TUBE (10:57)
[2024-03-02 11:13] LABS: Glucose - Point of Care 142 mg/dl (70-99)
--- NOTE | 2024-03-02 11:39 | PTCARENOTE ---
Verified with Dr. Collazo to hold potassium replacement. He already received a bag earlier.
[2024-03-02] MEDS: SODIUM BICARBONATE 1075 MEQ IV (11:42)
--- NOTE | 2024-03-02 12:15 | PTCARENOTE ---
Reviewed the plan of care with Dr. Mcknight and Dr. Cavazos regarding advancing his diet, discontinuing the Insulin drip, removing his arterial line and garcia catheter. Also clarified with neurology Dr. Diaz if he would want the pt's head MRI with
contrast. Will keep the Garcia catheter as ordered by Dr. Mcknight, but removed the arterial line, stop insulin drip, advance diet and administered long acting insulin as ordered. Pt was able to answer screening questions for MRI. Pt is aware of the
plan of care. Tolerating ice chips and clears thus far. He has no teeth but is able to select foods that are appropriate.
[2024-03-02 12:31] LABS: Glucose - Point of Care 148 mg/dl (70-99)
[2024-03-02] MEDS: LANTUS 0.15 UNITS SC (12:43)
--- NOTE | 2024-03-02 14:07 | W.PN.NEURO.1 ---
Today's Communication / Plan
-
58-year-old male with history of streptococcal sepsis.
Continue IV antibiotics
Patient may be transferred to the floor
Neuro Assessment/Plan
Assessment
58 yr. old male with h/o sepsis hyponatremia and seizures, secondary to otitis media secondary to group A streptococcal bacteremia with meningoencephalitis with CT finding of right temporoparietal ischemic focus
Plan
IV antibiotics
IV Keppra 500 q 12
IV Solu-Medrol 80 daily
Subjective/Objective
Subjective Data
Date of Service: March 02, 2024
Mr Durham is doing well. Following extubation he is awake alert and oriented. Speech is fluent with intact comprehension
Objective Data
Vital Signs
Temp Pulse Resp BP Pulse Ox
38.1 C H 75 17 84/65 93
03/02/24 07:45 03/02/24 13:45 03/02/24 13:45 03/02/24 12:00 03/02/24 13:45
Lab Results
03/02/24 04:23
APTT 38.8 Sec (23.4-35.0) H 02/29/24 20:37
Sodium 133 mmol/L (135-145) L 03/02/24 04:23
Potassium 3.3 mmol/L (3.5-5.1) L 03/02/24 04:23
BUN 41 mg/dl (9-20) H 03/02/24 04:23
Glucose 157 mg/dl (70-99) H 03/02/24 04:23
Calcium 7.8 mg/dl (8.4-10.2) L 03/02/24 04:23
Phosphorus 4.1 mg/dl (2.5-4.5) 02/29/24 15:06
LDL Cholesterol, Calc 2 mg/dl 03/01/24 02:36
Ur Buprenorphine Negative (Negative) 02/29/24 17:42
Patient Allergies
No Known Allergies Allergy (Unverified 02/29/24 14:38)
Physical Exam
-
General: Well Developed, Well Nourished, No Apparent Distress and Comfortable
Eyes: Able to visualize OU, Round OU, No Ptosis and PERRLA
HEENT: Normocephalic, Atraumatic, Anicteric and Poor Dentition
Neck: No Bruits Bilaterally and Full Range of Motion
Respiratory: Clear to Auscultation
Cardiac: Regular Rhythm
GI: Normal Bowel Sounds
Skin: Unremarkable
Extremities: No Clubbing, No Cyanosis and No Edema
Psych: Unremarkable
Extended Neurological Exam
Mood & Affect: Mood Unremarkable
Attention Span & Concentration: Awake, Alert, Interactive and No Difficulty with 2 Step Request
Memory: Able to Recall
Tremor: Hand Tremor Absent and Head Tremor Absent
Involuntary Movement: None
Speech: Quantity Unremarkable and Rate of Production Unremarkable
Cranial Nerve II: Left Eye: Pupillary Reactivity Unremarkable, Pupillary Size Unremarkable and Visual Meneses Grossly Intact
Cranial Nerve II: Right Eye: Pupillary Reactivity Unremarkable, Pupillary Size Unremarkable and Visual Meneses Grossly Intact
Cranial Nerves III, IV, : Extraocular Movement: Extraocular Movement Full in all Directions
Cranial Nerve V: Facial Sensation: Facial Sensation Unremarkable to Cold
Cranial Nerve VII: Facial Symmetry: Normal Facial Symmetry
Cranial Nerve VIII: Hearing: Unremarkable Hearing to Normal Conversational Volume
Cranial Nerves IX, X: Palate Movement: Palate Elevation Symmetric
Cranial Nerve XI: Shoulder Shrug: Unremarkable
Cranial Nerve XII: Tongue Protusion: Midline
Muscle Strength, Overall: Full Throughout
Muscle Bulk & Tone: Bulk Unremarkable and Tone Unremarkable
Pronator Drift: No Drift in Upper Extremities and No Drift in Lower Extremities
Deep Tendon Reflexes: Unremarkable Throughout
Cold Sensation: Unremarkable
Vibration Sensation: Unremarkable
Touch Sensation: Unremarkable
Coordination: Ytrcdl-leot-zjcbhr Testing Unremarkable and Reaches for Objects without Difficulty
Babinski Sign: Absent Bilaterally
Gait & Station: Unable to Assess
--- NOTE | 2024-03-02 15:45 | PTCARENOTE ---
Right femoral dressing with bloody drainage. Gauze dressing changed, vaseline gauze unchanged. Safe environment maintained.
[2024-03-02 16:18] LABS: Blood Urea Nitrogen 42 mg/dl (9-20); Calcium 7.5 mg/dl (8.4-10.2); Carbon Dioxide 22 mmol/L (22-30); Chloride 96 mmol/L (98-107); Estimated Creatinine Clearance 63 ml/min; Glucose 285 mg/dl (70-99); Potassium 4.5 mmol/L (3.5-5.1); Sodium 134 mmol/L (135-145); eGFR 53.96
[2024-03-02] MEDS: NOVOLOG FLEXPEN-LOW RESISTANCE 5 UNITS SC (17:33)
[2024-03-02] MEDS: NOVOLOG FLEXPEN 3 UNITS SC (17:33)
[2024-03-02 17:44] LABS: Glucose - Point of Care 359 mg/dl (70-99)
[2024-03-02 20:52] LABS: Glucose - Point of Care 375 mg/dl (70-99)
[2024-03-02] MEDS: NOVOLIN R INSULIN INFUSION 100 IV (21:21)
[2024-03-02] MEDS: NOVOLIN R 8 UNITS IV (21:21)
--- NOTE | 2024-03-02 21:30 | PTCARENOTE ---
rec'd patient. oriented x3. IVF infusing. SR on monitor. on RA, denies SOB. using sxn for secretions. lungs diminished. BGM upon check 275, critical care glycemic protocol ordered and initiated. garcia intact draining yellow urine. pt repositioning
self, denies pain. call ochoa within reach. care ongoing.
[2024-03-02 22:13] LABS: Glucose - Point of Care 302 mg/dl (70-99)
--- NOTE | 2024-03-02 22:28 | PTCARENOTE ---
pt with increasing amt of PVCs on monitor, in and out of vent bigeminy, ICU SPOUTER notified, BMP/mag ordered.
[2024-03-02 23:01] LABS: Glucose - Point of Care 193 mg/dl (70-99)
[2024-03-02 23:12] LABS: Blood Urea Nitrogen 45 mg/dl (9-20); Calcium 7.9 mg/dl (8.4-10.2); Carbon Dioxide 21 mmol/L (22-30); Chloride 95 mmol/L (98-107); Estimated Creatinine Clearance 63 ml/min; Glucose 166 mg/dl (70-99); Magnesium 2.3 mg/dl (1.6-2.3); Potassium 3.5 mmol/L (3.5-5.1); Sodium 133 mmol/L (135-145); eGFR 53.96
[2024-03-02 23:26] LABS: Complement C3 111 mg/dl (88-165)
[2024-03-03] VITALS (18 sets, daily range): BP systolic 94–121; BP diastolic 62–90; BMI 30.4
[2024-03-03] MEDS: DECADRON 4 MG IV ×2 (00:01→05:13)
[2024-03-03] MEDS: HEPARIN 5000 UNITS SC ×4 (00:01→23:04)
[2024-03-03 00:10] LABS: Glucose - Point of Care 98 mg/dl (70-99)
[2024-03-03] MEDS: KCL 20 MEQ PO (00:25)
[2024-03-03] MEDS: SODIUM BICARBONATE 1075 MEQ IV (00:25)
[2024-03-03 01:26] LABS: Glucose - Point of Care 84 mg/dl (70-99)
[2024-03-03 02:57] LABS: Glucose - Point of Care 148 mg/dl (70-99)
[2024-03-03 05:23] LABS: Glucose - Point of Care 103 mg/dl (70-99)
--- NOTE | 2024-03-03 05:44 | PTCARENOTE ---
AM labs sent. glycemic protocol continues. garcia removed at 0530. pt assist x2 OOB to bedside commode this morning. remains on 2L NC, SR on monitor. call ochoa within reach, care ongoing.
[2024-03-03 05:52] LABS: Hematocrit 26.3 % (39.0-52.0); Hemoglobin 9.4 g/dL (13.0-18.0); Mean Corp Hgb Conc. 35.7 g/dL (33.0-37.0); Mean Corpuscular Hgb 30.9 pg (27.0-31.0); Mean Corpuscular Volume 86.5 fL (80.0-94.0); Mean Platelet Volume 11.9 fL (7.4-10.4); Platelet Count 142 10^3/uL (130-400); Red Blood Cell Count 3.04 10^6/uL (4.70-6.10); Red Cell Dist. Width 12.4 % (11.5-14.5); White Blood Cell Count 19.5 10^3/uL (4.8-10.8)
[2024-03-03 06:11] LABS: ALT (SGPT) 86 U/L (0-50); AST (SGOT) 84 U/L (17-59); Alkaline Phosphatase 96 U/L (38-126); Blood Urea Nitrogen 47 mg/dl (9-20); Calcium 7.8 mg/dl (8.4-10.2); Carbon Dioxide 26 mmol/L (22-30); Chloride 96 mmol/L (98-107); Estimated Creatinine Clearance 68 ml/min; Glucose 90 mg/dl (70-99); Potassium 4.1 mmol/L (3.5-5.1); Sodium 137 mmol/L (135-145); Total Bilirubin 0.5 mg/dl (0.2-1.3); Triglycerides 165 mg/dl (10-149); eGFR 58.62
[2024-03-03 07:14] LABS: Glucose - Point of Care 154 mg/dl (70-99)
--- NOTE | 2024-03-03 07:35 | W.PN.INTV ---
Today's Communication / Plan
Recommendations
Insulin drip
Diabetic nurse practitioner consultation
Wean oxygen
Increase activity
Advance diet
Antibiotics
If able to be weaned off insulin drip and transfer to telemetry-call pulmonary if respiratory issues arise
Assessment
-
58-year-old male with a history of hypertension, hyperlipidemia, CAD who presented from [facility] complaining of right ear pain and sore throat for 2 days had a syncopal episode and arrived with temperatures, had seizure and
CAT scan requiring intubation-intermediate project manager consulted for ventilator/sepsis/critical care management 02/29/2024.
Sepsis with shock unresponsive to fluids requiring pressors
VDRF
Intubated 02/29/2024
Extubated 03/02/2024
Seizure
Hyponatremia-serum sodium 121
PIO
Elevated troponin
Transaminitis
Leukocytosis
Mild vtyoyr-yjywvmgfdz-uxrdxyrpmt 11.5
Metabolic acidosis
Lactic acidosis
Hyperglycemia
Conditions present prior to admission:
Hypertension.
Hyperlipidemia.
CAD.
Permanent pacemaker.
Depression.
Diabetes
Tobacco addiction
Plan
Tolerated extubation but critically ill on an insulin drip
Tolerated extubation
Supplemental oxygen as needed
Nebulizers if needed-currently not bronchospastic
Aspiration precautions
Incentive spirometry
Urine drug screen 02/29/2024-negative, no alcohol detected
Cultures reviewed
MRSA screen-negative
Urine culture-no growth
Sputum culture 03/01/20241581-qdyd-dfcrdbgl bacilli
Blood culture 2/2 positive gram-positive cocci in chains-s Streptococcus pyogenes
Repeat blood cultures 03/02/2024-no growth
Throat culture-rapid strep screen group A negative
Influenza AMB negative
Empiric antibiotics-vancomycin and ceftriaxone
Infectious disease following-correspondence reviewed
Infectious disease does not feel patient needs lumbar puncture
Monitor btgvymfjmxfa-zlmyvbkgzr-fek 19.5
Decrease IV fluids
LR boluses if needed
Pressors weaned
Lactate normalized
Monitor renal function
Nephrology evaluation ongoing-correspondence reviewed
Patient auto diuresing
Seizure precautions
Neurology evaluation ongoing-reviewed with them
EEG 03/01/2024-mild diffuse bihemispheric slowing, no seizures were recorded
CT head 02/29/24-12 mm low-density lesion right temporoparietal junction lateral to the atrium of the right lateral ventricle likely ischemic in origin, however MRI contrast-enhanced recommended to exclude more aggressive pathology such as neoplasm
Eventual MRI
Infectious disease not recommending lumbar puncture
Steroids initiated-decrease dosing-reviewed the need with neurology-they do recommend Solu-Medrol 80 mg IV every 12 hours
Monitor hemoglobin-currently 9.4
Transfuse as needed
Monitor blood sugar
Insulin supplementation as needed
Diabetic nurse practitioner consultation
Smoking cessation counseling ongoing
DVT prophylaxis
Early nutrition if possible
Early mobilization/bedside range of motion
If able to be weaned off insulin drip and transferred out of ICU-call pulmonary if respiratory issues arise
Critical care statement: A total of 40 minutes of critical care time was provided for this patient today. This includes management of unstable vital signs, evaluation of the patient at bedside, reviewing the patient's pertinent medical records
including radiographs, insulin drip management, pressor management, microbiology, laboratory evaluations, and discussion with primary team, ED doc, pharmacy, charge nurse, critical care nursing, and respiratory therapy.
Diagnostic data:
Chest x-ray 02/29/2024-NAD
CT head 02/29/24-12 mm low-density lesion right temporoparietal junction lateral to the atrium of the right lateral ventricle likely ischemic in origin, however MRI contrast-enhanced recommended to exclude more aggressive pathology such as neoplasm
Subjective Dataa
Subjective Data
Date of Service:
Date of Service: March 03, 2024
Chief Complaint: Viscosity Inspector Follow Up, Pulmonary Follow Up and Vent Management Follow Up
Subjective:
Tolerated extubation, no complaints of shortness of breath, chest congestion, productive cough, abdominal pain,
Review of Systems
General: Other (Per HPI)
Objective Data
Data Reviewed
Vital Signs / I&O / Oxygen:
Vital Signs
Temp Pulse Resp BP Pulse Ox
98.6 F 68 21 105/73 95
03/03/24 07:11 03/03/24 06:00 03/03/24 06:00 03/03/24 06:00 03/03/24 06:00
Intake and Output
03/02/24 03/03/24 03/04/24
06:59 06:59 06:59
Intake Total 3392.9 / 3565.4 4628.7 / 4712.2 83.5 / 83.5
Output Total 4300 / 4425 2700 / 2700
Balance -907.1 / -859.6 1928.7 / 2012.2 83.5 / 83.5
SaO2 [CPAP/PSV] 99
SaO2 [A/C] 100
SaO2 95
Nasal Cannula flow liters per 2
minute
Physical Exam
General: Respiratory Distress (n), Comfortable and Other (Orotracheal intubation)
HEENT: Normocephalic, Anicteric and Moist Mucous Membranes
Cardiovascular: Regular Rhythm, Murmur (n), JVD (n) and Peripheral Edema (n)
Respiratory: Clear (Diminished breath sounds), Crackles (n), Rhonchi (n), Non-Labored Respirations, Accessory Resp Muscle Use (n) and Stridor (n)
GI: Soft, Non Distended and Non Tender
Neurology: Awake, Alert and No Motor Deficits
Skin: Warm, Good Color, Cyanosis (n), Jaundice (n) and Rash (n)
Labs/Micro/Reports
Lab Data
03/03/24 05:25
03/03/24 05:25
Laboratory Results
03/02/24 03/02/24
09:13 23:51
pH 7.44 Cancelled
pCO2 35 Cancelled
pO2 166 H Cancelled
HCO3 23.8 Cancelled
O2 Delivery Level Cancelled
Microbiology
03/02/24 04:41 Blood/Venous Blood Culture - Preliminary
No Growth in 24 hours- Final report to follow
03/02/24 04:43 Blood/Venous Blood Culture - Preliminary
No Growth in 24 hours- Final report to follow
02/29/24 15:21 Throat/Pharynx Streptococcus Screen (PAM) - Final
Streptococcus pyogenes
02/29/24 15:21 Throat/Pharynx Streptococcus Rapid Screen - Final
Rapid Strep Screen (Group A) Negative
03/01/24 10:28 Tracheal Aspirate Respiratory Culture - Preliminary
Gram negative bacilli
03/01/24 10:28 Tracheal Aspirate Gram Stain - Preliminary
02/29/24 15:21 Blood/Venous Blood Culture - Preliminary
Streptococcus pyogenes
02/29/24 15:21 Blood/Venous Gram Stain - Final
02/29/24 15:06 Blood/Venous Blood Culture - Preliminary
Streptococcus pyogenes
02/29/24 15:06 Blood/Venous Gram Stain - Final
03/01/24 05:18 Nose MRSA Screen - Final
No Methicillin Resistant Staphylococcus aureus isolated.
02/29/24 17:42 Urine Urine Culture - Final
NO GROWTH
02/29/24 15:06 Nasal Swab Influenza Types A & B (CHARLENE) - Final
Negative for Influenza A & B, NAAT
Negative results must be combined with clinical observations
and patient history.
Nucleic Acid Amplification test (NAAT)performed on the
[employer] platform.
[2024-03-03] MEDS: MYCOSTATIN ORAL SUSPENSION 5 ML PO ×4 (07:58→21:26)
[2024-03-03] MEDS: MIRALAX 17 GRAMS TUBE (07:58)
[2024-03-03] MEDS: KEPPRA 500 MG IV (07:59)
[2024-03-03] MEDS: PROTONIX IV 40 MG IV (07:59)
[2024-03-03] MEDS: ROCEPHIN 2000 MG IV ×2 (07:59→20:13)
[2024-03-03] MEDS: STERILE WATER FOR INJECTION 20 ML IV ×2 (07:59→20:13)
[2024-03-03] MEDS: NSS (PRESERVATIVE FREE) 10 ML IV (07:59)
[2024-03-03] MEDS: NICODERM TRANSDERMAL 14 MG TRANSDERM (08:00)
[2024-03-03 08:12] LABS: % Basophils 0.4 % (0-2); % Eosinophils 0.1 % (0-6); % Immature Granulocytes 0.6 % (0-0.5); % Lymphocytes 4.9 % (20.5-51.1); % Monocytes 4.7 % (1.7-9.3); % Neutrophils 89.3 % (42.2-75.2); Absolute Basophils 0.1 10^3/uL (0-0.2); Absolute Immature Granulocytes 0.1 10^3/uL (0-0.05); Absolute Monocytes 0.9 10^3/uL (0.1-0.6); Absolute Neutrophils 17.5 10^3/uL (1.4-6.5); Nucleated Red Blood Cells % 0 % (-)
[2024-03-03 08:41] LABS: INR 1.08
--- NOTE | 2024-03-03 08:52 | PTCARENOTE ---
Received pt @ change of shift. Drowsy, awakens to verbal stim; oriented x3, forgetful @ x's. SB/SR w PVC's on monitor. Weaned to RA, SpO2 93% on RA; no s/s of resp distress. Excessive throat clearing; self performed mouth care and anchor in
place. Hyperactive BS, abd soft/nt. Friedman d/c'd on nightshift, awaiting void; BS/SC prn. Insulin gtt infusing via #20 MATTI- see glycemic flow sheet. #20 L FA w bicarb gtt infusing. Assisted pt. OOB to chair; gen weakness/unsteady gait. Chair alarm
active; tolerating position. NPO while on glycemic protocol. Instructed on how to report care concerns and call ochoa in reach.
[2024-03-03 09:15] LABS: Glucose - Point of Care 184 mg/dl (70-99)
[2024-03-03 10:12] LABS: Glucose - Point of Care 149 mg/dl (70-99)
--- NOTE | 2024-03-03 10:42 | PN.DE.MGMTRT ---
Insulin Management
- -
03/03/2024 Diabetes Management Consult
Patient admitted 02/28 from [facility], septic shock, questionable seizure, hyponatremia, PIO. PMHCAD, HTN, HCL, diabetes. Prior to admission since 09/05 has been receiving glipizide 5 mg daily with metformin 1000 mg BID. Prior to [facility] was taking no
medications or managing diabetes. A1C 7.3%, cr 1.4, eGFR 58.62.
Patient is awake alert and oriented able to discuss diabetes management.
Currently on glycemic protocol receiving up to 6 units of insulin per hour. Will transition from insulin infusion with 20 units lantus now then drip off in 2 hours. Will start 4 units novolog ac with moderate corrective and resume glipizide and
metformin.
Will follow glucose and reduce/eliminate insulin as able. Patient was receiving IV steroids, last dose this AM now discontinued. Expect insulin requirements to decrease.
Discussed with patient and patients nurse.
Diabetes History
- -
Type of Diabetes: 2
Pre-Admission Diabetes Regimen
03/02/24 03/02/24 03/03/24
15:22 22:43 05:25
Creatinine 1.5 H 1.5 H 1.4 H
Lab Results
Hemoglobin A1c 7.3 % (4.0-5.6) H 03/01/24 02:36
Insulin Pump Settings
IP Diabetes Regimen
03/02/24 03/02/24 03/02/24
11:02 12:20 15:22
Glucose 285 H
POC Glucose 142 H 148 H
03/02/24 03/02/24 03/02/24
17:31 20:40 22:02
Glucose
POC Glucose 359 H 375 H 302 H
03/02/24 03/02/24 03/02/24
22:43 22:49 23:59
Glucose 166 H
POC Glucose 193 H 98
03/03/24 03/03/24 03/03/24
01:15 02:46 05:11
Glucose
POC Glucose 84 148 H 103 H
03/03/24 03/03/24 03/03/24
05:25 06:59 09:02
Glucose 90
POC Glucose 154 H 184 H
03/03/24
10:01
Glucose
POC Glucose 149 H
Meal type: Dinner
Meal type: Lunch
Amount consumed: 100%
Amount consumed: 100%
Patient Education
[2024-03-03] MEDS: LANTUS 0.2 UNITS SC (11:23)
[2024-03-03] MEDS: GLUCOTROL 5 MG PO (11:31)
[2024-03-03] MEDS: LR 1000 IV ×2 (11:31→23:06)
--- NOTE | 2024-03-03 11:34 | W.PN.NEPH.PH ---
Today's Communication / Plan
-
IVF likely d/c iin next day, monitor labs
Assessment/Plan
-
Assessment
hypotension
PIO
hypomagnesemia
metabolic acidosis, gap
lactic acidosis
seizure
CAD
DM2
fever
right temporoparietal lesion
GPC bacteremia/sepsis
Plan:
PIO-cr improving slowly , non oliguric
VT in process, follow bladder scan
hyponatremia improved at 137
met acidosis resolved, changed to LR per ICU
BP stable off pressors
adjust meds for changing GFR
empiric abx per ID
Keppra for seizures
labs in am
-
-
Date of Service: March 03, 2024
CC / HPI / ROS
-
Chief Complaint:
PIO
History of Present Illness:
critically ill in ICU on vent/pressors
PEA arrest 02/28
PIO/Cr better at 1.4
na better at 137
metabolic acidosis resolved, k normal
wbc improving
no fever
Review of Systems:
awake, no cp or sob
unable to urinate off garcia, bladder scan in checking
ear pain still
Labs
-
Labs:
WBC 19.5 10^3/uL (4.8-10.8) H 03/03/24 05:25
RBC 3.04 10^6/uL (4.70-6.10) L 03/03/24 05:25
Hgb 9.4 g/dL (13.0-18.0) L 03/03/24 05:25
Hct 26.3 % (39.0-52.0) L 03/03/24 05:25
Plt Count 142 10^3/uL (130-400) 03/03/24 05:25
BUN 47 mg/dl (9-20) H 03/03/24 05:25
Creatinine 1.4 mg/dL (0.7-1.3) H 03/03/24 05:25
eGFR 58.62 03/03/24 05:25
Glucose 90 mg/dl (70-99) 03/03/24 05:25
Calcium 7.8 mg/dl (8.4-10.2) L 03/03/24 05:25
Phosphorus 4.1 mg/dl (2.5-4.5) 02/29/24 15:06
Albumin 3.0 g/dl (3.5-5.0) L 03/03/24 05:25
Physical Exam
-
Vital Signs:
Vital Signs
Temp Pulse Resp BP Pulse Ox
98.6 F 68 21 105/73 93
03/03/24 07:11 03/03/24 06:00 03/03/24 06:00 03/03/24 06:00 03/03/24 08:41
Cardiovascular:: Regular rate and rhythm
Respiratory:: Bilateral: CTA
Lung Excursion:: Normal
Abdomen:: Nontender and Soft
Extremity Edema:: None: Bilateral:
Garcia Catheter: No
--- NOTE | 2024-03-03 11:48 | W.PN.ID1 ---
Date of Service
Date of Service: March 03, 2024
Today's Communication
Continue ceftriaxone 2g IV q12 (d3 of 10) through 03/10/24.
Assessment / Plan
# Group A strep bacteremia x 2sets
# Treating as Group A strep meningitis - presented with HUMPHREY, syncope, seizure
# Right otitis media with perforated TM and pharyngitis as source
# s/p Septic shock due to above
# Hyponatremia -resolved
# PIO - improving
# Urinary retention
# Incarcerated
# hx 40 year tobacco
-CT head: 12mm lesion right tempo-parietal lobe - suspect ischemic
Unable to get brain MRI due to PPM
- Repeat blood cx's. neg
- No need for LP as blood cx's positive.
- Continue ceftriaxone 2g IV q12 (d3 of 10) through 03/10/24.
- s/p dexamethasone.
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
HTN
HLD
sinus bradycardia s/p PPM
Cardiomyopathy s/p ICD
CAD s/p stent
Depression
BPH
h/o MSSA prostate abscess s/p perc drainage (12/2022)
Chief Complaint
-: Clinical Sepsis and Bacteremia
Subjective / Review of Systems
c/o unable to void.
HUMPHREY resolved.
Vital Signs / Physical Exam
Vital Signs
Vital Signs
Temp Pulse Resp BP Pulse Ox
98.6 F 68 21 105/73 93
03/03/24 07:11 03/03/24 06:00 03/03/24 06:00 03/03/24 06:00 03/03/24 08:41
Physical Exam
Constitutional: No Acute Distress and Comfortable
Pulmonary: Clear
Gastrointestinal: Soft, Non Tender, Non Distended and Normal Bowel Sounds
Genito-Urinary: Negative CVA Tenderness
Extremities: Negative Edema
Neurological: AO x 3; Negative Meningeal Signs
Objective Data
Lab Data
Lab Results
03/03/24 05:25
PT 14.0 Sec (11.4-14.6) 03/03/24 08:15
INR 1.08 03/03/24 08:15
APTT 38.8 Sec (23.4-35.0) H 02/29/24 20:37
Estimated Creat Clear 68 ml/min 03/03/24 05:25
Lactic Acid 2.0 mmol/L (0.7-2.0) 03/01/24 02:36
Total Bilirubin 0.5 mg/dl (0.2-1.3) 03/03/24 05:25
AST 84 U/L (17-59) H 03/03/24 05:25
ALT 86 U/L (0-50) H 03/03/24 05:25
Alkaline Phosphatase 96 U/L (38-126) 03/03/24 05:25
Most recent labs reviewed.
Micro Results:
02/29/24 15:06 Blood Culture - Final
Blood/Venous Streptococcus pyogenes
Gram Stain - Final
02/29/24 15:21 Blood Culture - Final
Blood/Venous Streptococcus pyogenes
Gram Stain - Final
03/02/24 04:41 Blood Culture - Preliminary
Blood/Venous No Growth in 24 hours- Final report to follow
03/02/24 04:43 Blood Culture - Preliminary
Blood/Venous No Growth in 24 hours- Final report to follow
02/29/24 15:21 Streptococcus Screen (PAM) - Final
Throat/Pharynx Streptococcus pyogenes
Streptococcus Rapid Screen - Final
Rapid Strep Screen (Group A) Negative
03/01/24 10:28 Respiratory Culture - Preliminary
Tracheal Aspirate Gram negative bacilli
Gram Stain - Preliminary
03/01/24 05:18 MRSA Screen - Final
Nose No Methicillin Resistant Staphylococcus aureus isolated.
02/29/24 17:42 Urine Culture - Final
Urine NO GROWTH
02/29/24 15:06 Influenza Types A & B (CHARLENE) - Final
Nasal Swab Negative for Influenza A & B, NAAT
Negative results must be combined with clinical observations
and patient history.
Nucleic Acid Amplification test (NAAT)performed on the
[employer] platform.
02/29/24 CT head: There is a 12 mm low-density lesion at the right temporoparietal junction lateral to the atrium of the right lateral ventricle. This lesion is most likely ischemic in origin, however, given the patient's clinical history, follow-up
imaging with contrast-enhanced MRI is recommended to exclude more aggressive pathology/neoplasm.
02/29/24 CXR: No active cardiopulmonary disease.
Care Review
Plan reviewed with: Physician (Dr. Neha Mcknight)
--- NOTE | 2024-03-03 12:09 | PTCARENOTE ---
DM SAT TUTOR to bedside this AM and plan to transition pt. off insulin gtt. Admin Lantus- see MAR; plan to turn insulin infusion off 2H s/p Lantus admin. Pt. reported difficulty urinating; bladder scanned for 921mL and straight cath's for 900mL of
yellow urine. Pt. assisted x 1 w RW back to bed @ this time. Bed alarm active. Call ochoa in reach.
[2024-03-03 12:10] LABS: Glucose - Point of Care 139 mg/dl (70-99)
[2024-03-03] MEDS: NOVOLOG FLEXPEN-MODERATE RESISTANCE SC (13:35)
--- NOTE | 2024-03-03 13:38 | PTCARENOTE ---
Glycemic protocol d/c'd and insulin infusion off per orders @ 1330- see flow sheet/AUG.
[2024-03-03 13:45] LABS: Glucose - Point of Care 131 mg/dl (70-99)
--- NOTE | 2024-03-03 14:26 | W.PN.HOSP.TC ---
Today's Communication/Plan
-
see note
Assessment / Plan
Assessment / Plan
CT head
There is a 12 mm low-density lesion at the right temporoparietal junction lateral to the atrium of the right lateral ventricle. This lesion is most likely ischemic in origin, however, given the patient's clinical history, follow-up imaging with
contrast-enhanced MRI is recommended to exclude more aggressive pathology/neoplasm.

1. Septic Shock
Strep pyogenes bacteremia
Likely 2/2 suppurative otitis media with perforated eardrum
Rule out bacterial meningitis/encephalitis
-Patient found to be in septic shock in ER, not improved with IV hydration
-Patient was complaining right ear pain for few day and on otoscope exam have dried up purulent drainage in right ear with likely perforated eardrum
-Chest x-ray/UA is clear. Respiratory culture collected. Throat culture negative for rapid strep.
-Blood culture growing Strep pyogenes both sets.
-Serum test positive for antistreptolysin O antibody/titer of 400 (Upper normal 200)
-WBCs trended down. Patient is off of vasopressors
-Patient on Rocephin 2 g every 12 hours, ID help appreciate
2. Ventilator dependent respiratory failure - Resolved
-Patient had seizure episode in radiology department and required to be intubated for airway protection
-Patient having extubated and on room air
3. Seizure episode
-Unclear if patient have previous history of any seizures/epilepsy. Not on any meds
-CT head finding as above, patient will benefit with MRI brain without contrast to rule out any septic emboli(clinical less likely as solitary lesion) versus ischemic stroke vs malignancy
-EEG did not show any underlying seizure activity
-Patient has been continued on IV Keppra for time being, neurology following.
-Patient cannot get MRI brain as patient increasing comfortable
-Patient got 4 days of steroids, will discontinue further steroids at this point
-Discussed with radiology and will get CT head with and without IV contrast to better delineate questionable lesion identified on initial CT head.
4. Hyponatremia - resolved
-Presumed euvolemic in nature
-Urine sodium of 58 and urine respiratory 390
-Patient got 3% normal saline by nephro
-Further dosing of 3% NS based on nephrology recommendation
5. Cardiac arrest
-Brief PEA arrest after patient was moved in ICU
-Required 2 minutes of CPR with ROSC achieved
5. Troponin elevation
-Presumed nonischemic cardiomyopathy with ongoing septic shock
-Will get routine echocardiogram once patient clinically improved from above-mentioned problem
6. PIO
-Likely prerenal in nature with ongoing shock
-Indwelling Friedman catheter in place
-Cr slowly improving, 1.4 today
7. Lactic acidosis - resolved
Metabolic acidosis - resolved
-Patient had significant lactic acidosis with LA 10, now resolved
-Have some persistent metabolic acidosis likely from PIO/need of hyperchloremic fluid
8. Type II DM
-Hbga1c 7.3
-Insulin drip has been discontinued.
-Discussed with diabetic nurse practitioner and patient will be given insulin Lantus 20 units with NovoLog 5 minutes Premeal and sliding scale
-Taken off steroids today and should help better control blood glucose as well
9. Hypocalcemia
-Low ionized calcium, got calcium chloride in night
-Further dosing per nephro recommendation
Full code
Heparin subq
Care plan discussed with ID/RN
Total critical care time 38 mins. Total critical care time documented does not include time spent on separately billed procedures or the services of residents, students, nurses or physician assistants. I personally saw and examined the patient. I
have reviewed all diagnostic interpretations and treatment plans as written. I was present for the navarro portions of any procedures performed and the inclusive time noted in any critical care statement. Critical care time includes patient management
by me, time spent at the patients bedside, time to review lab and imaging results, discussing patient care, documentation in the medical record, and time spent with the family or caregiver.
Anticipated Discharge: > 48 hours
Subjective/Interval History
-
Date of Service: March 03, 2024
Patient awake and communicative
Afebrile overnight
Off of vasopressors
Blood glucose uncontrolled and required to be put back on insulin drip again
Objective Data
-
Labs:
Laboratory Results
03/03/24 03/03/24 03/03/24
05:25 08:15 15:00
WBC 19.5 H
Hgb 9.4 L
Hct 26.3 L
Plt Count 142
PT 14.0
INR 1.08
Sodium 137 Pending
Potassium 4.1 Pending
Chloride 96 L Pending
Carbon Dioxide 26 Pending
BUN 47 H
Creatinine 1.4 H
Glucose 90
Calcium 7.8 L
Total Bilirubin 0.5
AST 84 H
ALT 86 H
Alkaline Phosphatase 96
Vital Signs:
Vital Signs
Temp Pulse Resp BP Pulse Ox
98.7 F 64 22 103/81 96
03/03/24 11:53 03/03/24 11:00 03/03/24 11:00 03/03/24 11:00 03/03/24 11:00
I&O
03/02/24 03/03/24 03/04/24
06:59 06:59 06:59
Intake Total 3392.9 / 3565.4 4628.7 / 4712.2 586.0 / 586.0
Output Total 4300 / 4425 2700 / 2700 900 / 900
Balance -907.1 / -859.6 1928.7 / 2012.2 -314.0 / -314.0
Review of Systems
-
Respiratory: Reports No Symptoms
Cardiac: Reports No Symptoms
Abdomen/GI: Reports No Symptoms
Physical Exam
-
General: Negative No Apparent Distress
HEENT: Oxygen (on Ventilator) and Other (Right ear - purulent drainage with possible perforated ear drum)
Respiratory: Clear to Auscultation
Cardiac: Regular Rhythm and S1/S2; Negative Murmur
GI: Soft, Nontender and Nondistended
Neuro: Awake (Currently undergoing sedation vacation, opening eyes to physical touch)
[2024-03-03] MEDS: NOVOLOG FLEXPEN 5 UNITS SC ×2 (14:41→17:25)
[2024-03-03 15:26] LABS: Carbon Dioxide 23 mmol/L (22-30); Chloride 99 mmol/L (98-107); Potassium 3.9 mmol/L (3.5-5.1); Sodium 137 mmol/L (135-145)
--- NOTE | 2024-03-03 15:38 | PN.CDI ---
CDI
- -
CDI:
Physician Documentation Request
Admit Date: 02/29/24 18:03
Dear Doctor Juan Luis,
Please review the following and provide your response in the progress notes.
Clinical Indicators:
Pt admitted with septic shock, meningitis/encephalitis.
03/02 RN Note: ' Oral thrush improved.'
03/01 Pt started on Nystatin oral suspension (swish and swallow) QID; medication still active.
Based on the above, could you clarify in the progress notes, the appropriate diagnosis, if significant, that supports the above abnormalities and additional evaluation, monitoring and/or treatment rendered:
Oral thrush
Other
Use of terms such as suspected, likely, concern for, or probable (associated with a specific diagnosis that is being evaluated, monitored, or treated as if it exists) are acceptable and can be coded in the inpatient setting, when documented at the
time of discharge.
Thank you,
Ratna Elliott RN, BSN
CDI Specialist
Available via [facility] [employer]
Please use your independent medical judgment in providing your response.
[2024-03-03] MEDS: GLUCOPHAGE 1000 MG PO (16:12)
--- NOTE | 2024-03-03 16:45 | PTCARENOTE ---
Report given to 4W RN and pt. transferred via wheelchair on conveyor monitor w belongings. No further needs from this RN.
[2024-03-03 17:44] LABS: Glucose - Point of Care 222 mg/dl (70-99)
[2024-03-03] MEDS: NOVOLOG FLEXPEN-MODERATE RESISTANCE 3 UNITS SC (17:47)
[2024-03-03] MEDS: FLUSH (NSS) 1 FLUSH IV ×2 (20:10→20:12)
[2024-03-03] MEDS: KEPPRA 500 MG PO (20:12)
[2024-03-03] MEDS: LIPITOR 40 MG PO (21:26)
[2024-03-03 21:30] LABS: Glucose - Point of Care 276 mg/dl (70-99)
[2024-03-04 03:20] VITALS: BP 124/72
[2024-03-04 07:00] VITALS: BP 134/84
--- NOTE | 2024-03-04 07:33 | PN.DE.MGMTRT ---
Insulin Management
- -
03/04/2024 Diabetes Management F/U:
Patient admitted 02/28 from [facility], septic shock, questionable seizure, hyponatremia, PIO. PMHCAD, HTN, HCL, diabetes. Prior to admission since 09/05 has been receiving glipizide 5 mg daily with metformin 1000 mg BID. Prior to [facility] was taking no
medications or managing diabetes. A1C 7.3%, cr 1.4, eGFR 58.62.
Patient is awake alert and oriented able to discuss diabetes management.
Transitioned off glycemic protocol with 20 units Lantus and AC NovoLog 4 units with moderate corrective and resumed glipizide and metformin.
Pt awake, A/O X3, walking around in his room, pleasant, offers no complaints, able to discuss diabetes mgt
Patient was receiving IV steroids, last dose 03/03 AM. Glucose range 131 to 222 since transition off drip and dc of steroids.
Fasting glucose pending, plan to cont Glipizide and Metformin now that he is off steroids.
Will follow glucose and resume insulin if necessary.
Expect insulin requirements to decrease as steroids have now been discontinued.
Discussed with patient and patients nurse.
Diabetes History
- -
Type of Diabetes: 2
Pre-Admission Diabetes Regimen
Lab Results
Hemoglobin A1c 7.3 % (4.0-5.6) H 03/01/24 02:36
Insulin Pump Settings
IP Diabetes Regimen
03/03/24 03/03/24 03/03/24
09:02 10:01 11:59
POC Glucose 184 H 149 H 139 H
03/03/24 03/03/24 03/03/24
13:34 17:42 21:29
POC Glucose 131 H 222 H 276 H
Patient Education
[2024-03-04 07:52] LABS: Glucose - Point of Care 255 mg/dl (70-99)
[2024-03-04 08:00] LABS: % Basophils 0.2 % (0-2); % Immature Granulocytes 2.9 % (0-0.5); % Lymphocytes 9.1 % (20.5-51.1); % Monocytes 5.7 % (1.7-9.3); % Neutrophils 82.1 % (42.2-75.2); Absolute Basophils 0.1 10^3/uL (0-0.2); Absolute Immature Granulocytes 0.6 10^3/uL (0-0.05); Absolute Lymphocytes 1.9 10^3/uL (1.2-3.4); Absolute Monocytes 1.2 10^3/uL (0.1-0.6); Absolute Neutrophils 17.5 10^3/uL (1.4-6.5); Hematocrit 26.8 % (39.0-52.0); Hemoglobin 9.5 g/dL (13.0-18.0); Mean Corp Hgb Conc. 35.4 g/dL (33.0-37.0); Mean Corpuscular Hgb 31.1 pg (27.0-31.0); Mean Corpuscular Volume 87.9 fL (80.0-94.0); Mean Platelet Volume 11.9 fL (7.4-10.4); Nucleated Red Blood Cells % 0 % (-); Platelet Count 172 10^3/uL (130-400); Red Blood Cell Count 3.05 10^6/uL (4.70-6.10); Red Cell Dist. Width 12.7 % (11.5-14.5); White Blood Cell Count 21.3 10^3/uL (4.8-10.8)
[2024-03-04 08:28] LABS: ALT (SGPT) 72 U/L (0-50); AST (SGOT) 49 U/L (17-59); Alkaline Phosphatase 115 U/L (38-126); Blood Urea Nitrogen 47 mg/dl (9-20); Calcium 8.2 mg/dl (8.4-10.2); Carbon Dioxide 24 mmol/L (22-30); Chloride 97 mmol/L (98-107); Estimated Creatinine Clearance 79 ml/min; Glucose 253 mg/dl (70-99); Sodium 134 mmol/L (135-145); Total Bilirubin 0.5 mg/dl (0.2-1.3); Total Protein 5.9 g/dl (6.3-8.2); eGFR > 60.00
[2024-03-04] MEDS: NOVOLOG FLEXPEN 5 UNITS SC (09:20)
[2024-03-04] MEDS: NOVOLOG FLEXPEN-MODERATE RESISTANCE 5 UNITS SC ×2 (09:20→13:02)
[2024-03-04] MEDS: GLUCOPHAGE 1000 MG PO ×2 (09:21→17:19)
[2024-03-04] MEDS: KEPPRA 500 MG PO ×2 (09:21→19:55)
[2024-03-04] MEDS: MYCOSTATIN ORAL SUSPENSION 5 ML PO ×4 (09:21→22:14)
[2024-03-04] MEDS: MIRALAX 17 GRAMS TUBE (09:21)
[2024-03-04] MEDS: ASPIR LOW (ENTERIC COATED) 81 MG PO (09:22)
[2024-03-04] MEDS: NICODERM TRANSDERMAL 14 MG TRANSDERM (09:22)
[2024-03-04] MEDS: GLUCOTROL 5 MG PO (09:22)
[2024-03-04] MEDS: ZOLOFT 100 MG PO (09:22)
[2024-03-04] MEDS: HEPARIN 5000 UNITS SC ×3 (09:22→23:26)
[2024-03-04] MEDS: ROCEPHIN 2000 MG IV ×2 (09:23→19:56)
[2024-03-04] MEDS: STERILE WATER FOR INJECTION 20 ML IV ×2 (09:23→19:56)
[2024-03-04] MEDS: FLUSH (NSS) 1 FLUSH IV ×4 (09:26→19:56)
[2024-03-04] MEDS: LANTUS 0.25 UNITS SC (10:41)
[2024-03-04] MEDS: LR 1000 IV (10:42)
--- NOTE | 2024-03-04 10:45 | W.PN.NEPH.PH ---
Today's Communication / Plan
-
follow BMP
Assessment/Plan
-
Assessment
hypotension
PIO
hypomagnesemia
metabolic acidosis, gap
lactic acidosis
seizure
CAD
DM2
fever
right temporoparietal lesion
GPC bacteremia/sepsis
Plan:
follow bladder scan
follow BMP
Keppra for seizures
-
-
Date of Service: March 04, 2024
CC / HPI / ROS
-
Chief Complaint:
PIO
History of Present Illness:
PEA arrest 02/28
PIO/Cr better at 1.2
Na low at 134
metabolic acidosis resolved, k normal
no fever
Review of Systems:
awake, no cp or sob
requiring straight cath
Labs
-
Labs:
WBC 21.3 10^3/uL (4.8-10.8) H 03/04/24 06:51
RBC 3.05 10^6/uL (4.70-6.10) L 03/04/24 06:51
Hgb 9.5 g/dL (13.0-18.0) L 03/04/24 06:51
Hct 26.8 % (39.0-52.0) L 03/04/24 06:51
Plt Count 172 10^3/uL (130-400) D 03/04/24 06:51
Sodium 134 mmol/L (135-145) L 03/04/24 06:51
Potassium 4.0 mmol/L (3.5-5.1) 03/04/24 06:51
Chloride 97 mmol/L (98-107) L 03/04/24 06:51
Carbon Dioxide 24 mmol/L (22-30) 03/04/24 06:51
BUN 47 mg/dl (9-20) H 03/04/24 06:51
Creatinine 1.2 mg/dL (0.7-1.3) 03/04/24 06:51
eGFR > 60.00 03/04/24 06:51
Glucose 253 mg/dl (70-99) H 03/04/24 06:51
Calcium 8.2 mg/dl (8.4-10.2) L 03/04/24 06:51
Phosphorus 4.1 mg/dl (2.5-4.5) 02/29/24 15:06
Albumin 3.0 g/dl (3.5-5.0) L 03/04/24 06:51
Physical Exam
-
Vital Signs:
Vital Signs
Temp Pulse Resp BP Pulse Ox
98.0 F 55 18 134/84 97
03/04/24 07:00 03/04/24 07:00 03/04/24 07:00 03/04/24 07:00 03/04/24 07:00
Cardiovascular:: Regular rate and rhythm
Respiratory:: Bilateral: Coarse
Lung Excursion:: Normal
Abdomen:: Nontender and Soft
Bowel Sounds:: Normal
Extremity Edema:: None: Bilateral:
--- NOTE | 2024-03-04 12:11 | W.PN.NEURO.1 ---
Today's Communication / Plan
-
Continue current Keppra IV 500 mg q 12 today. Consider switching to PO
Neuro Assessment/Plan
Assessment
58 yr. old male with h/o sepsis hyponatremia and seizures, secondary to otitis media secondary to group A streptococcal bacteremia with meningoencephalitis with CT finding of right temporoparietal ischemic focus
Plan
IV antibiotics
IV Keppra 500 q 12
IV Solu-Medrol 80 daily
Subjective/Objective
Subjective Data
Date of Service: March 04, 2024
Mr Durham is awake alert and has no new complaints. No seizures reported
Objective Data
Vital Signs
Temp Pulse Resp BP Pulse Ox
36.7 C 55 18 134/84 97
03/04/24 07:00 03/04/24 07:00 03/04/24 07:00 03/04/24 07:00 03/04/24 07:00
Lab Results
03/04/24 06:51
03/04/24 06:51
PT 14.0 Sec (11.4-14.6) 03/03/24 08:15
INR 1.08 03/03/24 08:15
APTT 38.8 Sec (23.4-35.0) H 02/29/24 20:37
Sodium 134 mmol/L (135-145) L 03/04/24 06:51
Potassium 4.0 mmol/L (3.5-5.1) 03/04/24 06:51
BUN 47 mg/dl (9-20) H 03/04/24 06:51
Glucose 253 mg/dl (70-99) H 03/04/24 06:51
Calcium 8.2 mg/dl (8.4-10.2) L 03/04/24 06:51
Phosphorus 4.1 mg/dl (2.5-4.5) 02/29/24 15:06
LDL Cholesterol, Calc 2 mg/dl 03/01/24 02:36
Ur Buprenorphine Negative (Negative) 02/29/24 17:42
Patient Allergies
No Known Allergies Allergy (Unverified 02/29/24 14:38)
Physical Exam
-
General: Appears Chronically Ill
Eyes: Able to visualize OU and Unremarkable
HEENT: Normocephalic and Anicteric
Neck: Full Range of Motion
Respiratory: Clear to Auscultation
Extended Neurological Exam
Mood & Affect: Other (Subdued)
Attention Span & Concentration: Awake, Interactive and No Difficulty with 2 Step Request
Memory: Reduced
Tremor: Hand Tremor Absent and Head Tremor Absent
Involuntary Movement: None
Speech: Mildly Reduced Output
Cranial Nerve II: Left Eye: Pupillary Reactivity Unremarkable, Pupillary Size Unremarkable and Visual Meneses Grossly Intact
Cranial Nerve II: Right Eye: Pupillary Reactivity Unremarkable, Pupillary Size Unremarkable and Visual Meneses Grossly Intact
Cranial Nerves III, IV, : Extraocular Movement: Extraocular Movement Full in all Directions
Cranial Nerve V: Facial Sensation: Intact to Light Touch
Cranial Nerve VII: Facial Symmetry: Normal Facial Symmetry
Cranial Nerve VIII: Hearing: Reduced on Right
Cranial Nerves IX, X: Palate Movement: Palate Elevation Symmetric
Cranial Nerve XI: Shoulder Shrug: Unremarkable
Cranial Nerve XII: Tongue Protusion: Midline
Muscle Strength, Overall: Full Throughout
Muscle Bulk & Tone: Bulk Unremarkable and Tone Unremarkable
Pronator Drift: No Drift in Upper Extremities and No Drift in Lower Extremities
Deep Tendon Reflexes: Trace Throughout
Cold Sensation: Reduced
Vibration Sensation: Reduced
Touch Sensation: Pin Prick Reduced
Coordination: Reaches for Objects without Difficulty
Babinski Sign: Absent Bilaterally
Gait & Station: Up from Seated Without Problem and Up from Lying with Difficulty
Modified Norman Score (MRS)
-
Modified Ronnell Scale (mRS): Moderate disability. Requires some help, able to walk unassisted.
Score: 3
[2024-03-04 12:41] LABS: Glucose - Point of Care 257 mg/dl (70-99)
[2024-03-04] MEDS: NOVOLOG FLEXPEN 7 UNITS SC (13:01)
--- NOTE | 2024-03-04 13:15 | W.PN.ID1 ---
Date of Service
Date of Service: March 04, 2024
Today's Communication
Continue ceftriaxone.
Assessment / Plan
# Group A strep bacteremia x 2sets
# Treating as Group A strep meningitis - presented with HUMPHREY, syncope, seizure
# Right otitis media with perforated TM and pharyngitis as source
# s/p Septic shock due to above
# Hyponatremia -resolved
# PIO - resolved
# Urinary retention
# Incarcerated -> now released
# hx 40 year tobacco
-CT head: 12mm lesion right tempo-parietal lobe - suspect ischemic
Unable to get brain MRI due to PPM
- Repeat blood cx's. neg
- Leukocytosis due to recent steroid
- Continue ceftriaxone 2g IV q12 (d4 of 10) through 03/10/24.
# Acinetobacter in sputum =colonization
-CXR neg
-No need to treat
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
HTN
HLD
sinus bradycardia s/p PPM
Cardiomyopathy s/p ICD
CAD s/p stent
Depression
BPH
h/o MSSA prostate abscess s/p perc drainage (12/2022)
Chief Complaint
-: Clinical Sepsis and Bacteremia
Subjective / Review of Systems
Feels better.
Vital Signs / Physical Exam
Vital Signs
Vital Signs
Temp Pulse Resp BP Pulse Ox
98.0 F 55 18 134/84 97
03/04/24 07:00 03/04/24 07:00 03/04/24 07:00 03/04/24 07:00 03/04/24 07:00
Physical Exam
Constitutional: No Acute Distress and Comfortable
Pulmonary: Clear
Gastrointestinal: Soft, Non Tender and Non Distended
Genito-Urinary: Negative CVA Tenderness
Extremities: Negative Edema
Neurological: AO x 3; Negative Meningeal Signs
Objective Data
Lab Data
Lab Results
03/04/24 06:51
03/04/24 06:51
PT 14.0 Sec (11.4-14.6) 03/03/24 08:15
INR 1.08 03/03/24 08:15
APTT 38.8 Sec (23.4-35.0) H 02/29/24 20:37
Estimated Creat Clear 79 ml/min 03/04/24 06:51
Lactic Acid 2.0 mmol/L (0.7-2.0) 03/01/24 02:36
Total Bilirubin 0.5 mg/dl (0.2-1.3) 03/04/24 06:51
AST 49 U/L (17-59) 03/04/24 06:51
ALT 72 U/L (0-50) H 03/04/24 06:51
Alkaline Phosphatase 115 U/L (38-126) 03/04/24 06:51
Most recent labs reviewed.
Micro Results:
03/01/24 10:28 Respiratory Culture - Final
Tracheal Aspirate Acinet. baumannii/haemolyticus
Gram Stain - Final
03/02/24 04:43 Blood Culture - Preliminary
Blood/Venous No Growth in 48 hours- Final report to follow
03/02/24 04:41 Blood Culture - Preliminary
Blood/Venous No Growth in 48 hours- Final report to follow
02/29/24 15:06 Blood Culture - Final
Blood/Venous Streptococcus pyogenes
Gram Stain - Final
02/29/24 15:21 Blood Culture - Final
Blood/Venous Streptococcus pyogenes
Gram Stain - Final
02/29/24 15:21 Streptococcus Screen (PAM) - Final
Throat/Pharynx Streptococcus pyogenes
Streptococcus Rapid Screen - Final
Rapid Strep Screen (Group A) Negative
03/01/24 05:18 MRSA Screen - Final
Nose No Methicillin Resistant Staphylococcus aureus isolated.
02/29/24 17:42 Urine Culture - Final
Urine NO GROWTH
02/29/24 15:06 Influenza Types A & B (CHARLENE) - Final
Nasal Swab Negative for Influenza A & B, NAAT
Negative results must be combined with clinical observations
and patient history.
Nucleic Acid Amplification test (NAAT)performed on the
[employer] platform.
02/29/24 CT head: There is a 12 mm low-density lesion at the right temporoparietal junction lateral to the atrium of the right lateral ventricle. This lesion is most likely ischemic in origin, however, given the patient's clinical history, follow-up
imaging with contrast-enhanced MRI is recommended to exclude more aggressive pathology/neoplasm.
02/29/24 CXR: No active cardiopulmonary disease.
Care Review
Plan reviewed with: Physician (Dr. Neha Mcknight)
--- NOTE | 2024-03-04 13:27 | CM ---
Chart reviewed and case management rn met with patient at bedside, guards are no longer present at bedside, case management rn reached out to [facility] and they stated that patient will not be returning to snf. cancer registry manager reached out to admissions and patient
has insurance with a mental health benefit no medical insurance, per ID recommendation is for IV abx BID. Patient states he lives alone in a house in [place].
Plan; Home when stable, patient has no medical insurance only mental health benefit per admissions.
--- NOTE | 2024-03-04 14:47 | W.PN.HOSP.TC ---
Today's Communication/Plan
-
continue abx
increase insulin dose
Assessment / Plan
Assessment / Plan
CT head
There is a 12 mm low-density lesion at the right temporoparietal junction lateral to the atrium of the right lateral ventricle. This lesion is most likely ischemic in origin, however, given the patient's clinical history, follow-up imaging with
contrast-enhanced MRI is recommended to exclude more aggressive pathology/neoplasm.

1. Septic Shock
Strep pyogenes bacteremia
Likely 2/2 suppurative otitis media with perforated eardrum
Rule out bacterial meningitis/encephalitis
-Patient found to be in septic shock in ER, not improved with IV hydration
-Patient was complaining right ear pain for few day and on otoscope exam have dried up purulent drainage in right ear with likely perforated eardrum
-Chest x-ray/UA is clear. Respiratory culture collected. Throat culture negative for rapid strep.
-Blood culture growing Strep pyogenes both sets.
-Serum test positive for antistreptolysin O antibody/titer of 400 (Upper normal 200)
-WBCs trended down. Patient is off of vasopressors
-Patient on Rocephin 2 g every 12 hours, ID help appreciate
2. Ventilator dependent respiratory failure - Resolved
-Patient had seizure episode in radiology department and required to be intubated for airway protection
-Patient having extubated and on room air
3. Seizure episode
-Unclear if patient have previous history of any seizures/epilepsy. Not on any meds
-CT head finding as above, patient will benefit with MRI brain without contrast to rule out any septic emboli(clinical less likely as solitary lesion) versus ischemic stroke vs malignancy
-EEG did not show any underlying seizure activity
-Patient has been continued on IV Keppra for time being, neurology following.
-Patient cannot get MRI brain as patient increasing comfortable
-Patient got 4 days of steroids, will discontinue further steroids at this point
-CT brain with and without IV contrast did not show any new findings.
4. Hyponatremia - resolved
-Presumed euvolemic in nature
-Urine sodium of 58 and urine respiratory 390
-Patient got 3% normal saline by nephro
-Further dosing of 3% NS based on nephrology recommendation
5. Cardiac arrest
-Brief PEA arrest after patient was moved in ICU
-Required 2 minutes of CPR with ROSC achieved
5. Troponin elevation
-Presumed nonischemic cardiomyopathy with ongoing septic shock
-Will get routine echocardiogram once patient clinically improved from above-mentioned problem
6. PIO - resolved
-Likely prerenal in nature with ongoing shock
-Indwelling Friedman catheter in place
7. Lactic acidosis - resolved
Metabolic acidosis - resolved
-Patient had significant lactic acidosis with LA 10, now resolved
-Have some persistent metabolic acidosis likely from PIO/need of hyperchloremic fluid
8. Type II DM
-Hbga1c 7.3
-Insulin drip has been discontinued.
-Blood glucose uncontrolled today, increasing NovoLog to 9 units AC and Lantus to 25 units daily
9. Hypocalcemia
-Low ionized calcium, got calcium chloride in night
-Further dosing per nephro recommendation
Full code
Heparin subq
Care plan discussed with ID
Anticipated Discharge: 24 - 48 hours
Subjective/Interval History
-
Date of Service: March 04, 2024
Resting comfortably in bed
No issues overnight
Objective Data
-
Labs:
Laboratory Results
03/04/24
06:51
WBC 21.3 H
Hgb 9.5 L
Hct 26.8 L
Plt Count 172 D
Sodium 134 L
Potassium 4.0
Chloride 97 L
Carbon Dioxide 24
BUN 47 H
Creatinine 1.2
Glucose 253 H
Calcium 8.2 L
Total Bilirubin 0.5
AST 49
ALT 72 H
Alkaline Phosphatase 115
Vital Signs:
Vital Signs
Temp Pulse Resp BP Pulse Ox
98.0 F 55 18 134/84 97
03/04/24 07:00 03/04/24 07:00 03/04/24 07:00 03/04/24 07:00 03/04/24 07:00
I&O
03/03/24 03/04/24 03/05/24
06:59 06:59 06:59
Intake Total 4628.7 / 4712.2 2626.0 / 2626.0
Output Total 2700 / 2700 192 / 1924
Balance 1928.7 / 2012.2 701.0 / 701.0
Review of Systems
-
Respiratory: Reports No Symptoms
Cardiac: Reports No Symptoms
Abdomen/GI: Reports No Symptoms
Physical Exam
-
General: Negative No Apparent Distress
HEENT: Oxygen (on Ventilator) and Other (Right ear - purulent drainage with possible perforated ear drum)
Respiratory: Clear to Auscultation
Cardiac: Regular Rhythm and S1/S2; Negative Murmur
GI: Soft, Nontender and Nondistended
Neuro: Awake (Currently undergoing sedation vacation, opening eyes to physical touch)
[2024-03-04 15:00] VITALS: BP 118/59
[2024-03-04 17:13] LABS: Glucose - Point of Care 225 mg/dl (70-99)
[2024-03-04] MEDS: NOVOLOG FLEXPEN 9 UNITS SC (17:20)
[2024-03-04] MEDS: NOVOLOG FLEXPEN-MODERATE RESISTANCE 3 UNITS SC (17:21)
[2024-03-04 19:47] VITALS: BP 117/65
[2024-03-04] MEDS: TYLENOL 650 MG TUBE (19:54)
[2024-03-04 21:45] LABS: Glucose - Point of Care 94 mg/dl (70-99)
[2024-03-04] MEDS: MOTRIN 400 MG PO (22:13)
[2024-03-04] MEDS: LIPITOR 40 MG PO (22:14)
[2024-03-04 23:33] VITALS: BP 127/74
[2024-03-05] VITALS (8 sets, daily range): BP systolic 113–156; BP diastolic 62–82; PULSE 51–54; O2SAT 99
[2024-03-05 05:43] LABS: Hematocrit 27.9 % (39.0-52.0); Hemoglobin 9.9 g/dL (13.0-18.0); Mean Corp Hgb Conc. 35.5 g/dL (33.0-37.0); Mean Corpuscular Volume 87.5 fL (80.0-94.0); Mean Platelet Volume 11.3 fL (7.4-10.4); Platelet Count 226 10^3/uL (130-400); Red Blood Cell Count 3.19 10^6/uL (4.70-6.10); Red Cell Dist. Width 12.4 % (11.5-14.5); White Blood Cell Count 13.7 10^3/uL (4.8-10.8)
[2024-03-05 05:55] LABS: ALT (SGPT) 57 U/L (0-50); AST (SGOT) 36 U/L (17-59); Albumin 2.7 g/dl (3.5-5.0); Alkaline Phosphatase 99 U/L (38-126); Blood Urea Nitrogen 39 mg/dl (9-20); Calcium 8.2 mg/dl (8.4-10.2); Carbon Dioxide 27 mmol/L (22-30); Chloride 101 mmol/L (98-107); Estimated Creatinine Clearance 86 ml/min; Glucose 98 mg/dl (70-99); Potassium 3.9 mmol/L (3.5-5.1); Sodium 138 mmol/L (135-145); Total Bilirubin 0.4 mg/dl (0.2-1.3); Total Protein 5.7 g/dl (6.3-8.2); eGFR > 60.00
[2024-03-05 07:42] LABS: Glucose - Point of Care 93 mg/dl (70-99)
[2024-03-05] MEDS: NOVOLOG FLEXPEN SC (08:10)
[2024-03-05] MEDS: NOVOLOG FLEXPEN-MODERATE RESISTANCE SC ×3 (08:12→16:57)
[2024-03-05] MEDS: NICODERM TRANSDERMAL 14 MG TRANSDERM (08:13)
[2024-03-05] MEDS: MIRALAX 17 GRAMS TUBE (08:13)
[2024-03-05] MEDS: ASPIR LOW (ENTERIC COATED) 81 MG PO (08:13)
[2024-03-05] MEDS: MYCOSTATIN ORAL SUSPENSION 5 ML PO ×4 (08:14→21:16)
[2024-03-05] MEDS: ZOLOFT 100 MG PO (08:14)
[2024-03-05] MEDS: KEPPRA 500 MG PO ×2 (08:14→19:45)
[2024-03-05] MEDS: HEPARIN 5000 UNITS SC ×3 (08:14→23:17)
[2024-03-05] MEDS: GLUCOTROL 5 MG PO (08:14)
[2024-03-05] MEDS: GLUCOPHAGE 1000 MG PO ×2 (08:14→17:01)
[2024-03-05] MEDS: STERILE WATER FOR INJECTION 20 ML IV ×2 (08:15→19:45)
[2024-03-05] MEDS: ROCEPHIN 2000 MG IV ×2 (08:15→19:44)
[2024-03-05] MEDS: FLUSH (NSS) IV ×2 (08:15→08:24)
[2024-03-05 08:44] LABS: % Basophils 0.3 % (0-2); % Eosinophils 1.7 % (0-6); % Immature Granulocytes 5.3 % (0-0.5); % Lymphocytes 22.4 % (20.5-51.1); % Monocytes 8.7 % (1.7-9.3); % Neutrophils 61.6 % (42.2-75.2); Absolute Eosinophils 0.2 10^3/uL (0-0.7); Absolute Immature Granulocytes 0.7 10^3/uL (0-0.05); Absolute Lymphocytes 3.1 10^3/uL (1.2-3.4); Absolute Monocytes 1.2 10^3/uL (0.1-0.6); Absolute Neutrophils 8.5 10^3/uL (1.4-6.5); Nucleated Red Blood Cells % 0.4 % (-)
--- NOTE | 2024-03-05 08:59 | W.PN.NEPH.PH ---
Today's Communication / Plan
-
check PVR
Assessment/Plan
-
Assessment
hypotension
PIO
hypomagnesemia
metabolic acidosis, gap
lactic acidosis
seizure
CAD
DM2
fever
right temporoparietal lesion
GPC bacteremia/sepsis
Plan:
follow bladder scan today
follow BMP
Keppra for seizures
-
-
Date of Service: March 05, 2024
CC / HPI / ROS
-
Chief Complaint:
PIO
History of Present Illness:
PEA arrest 02/28
PIO/Cr better at 1.1
Na normal
metabolic acidosis resolved, k normal
no fever
Review of Systems:
awake, no cp or sob
Labs
-
Labs:
WBC 13.7 10^3/uL (4.8-10.8) H 03/05/24 05:08
RBC 3.19 10^6/uL (4.70-6.10) L 03/05/24 05:08
Hgb 9.9 g/dL (13.0-18.0) L 03/05/24 05:08
Hct 27.9 % (39.0-52.0) L 03/05/24 05:08
Plt Count 226 10^3/uL (130-400) D 03/05/24 05:08
Sodium 138 mmol/L (135-145) 03/05/24 05:08
Potassium 3.9 mmol/L (3.5-5.1) 03/05/24 05:08
Chloride 101 mmol/L (98-107) 03/05/24 05:08
Carbon Dioxide 27 mmol/L (22-30) 03/05/24 05:08
BUN 39 mg/dl (9-20) H 03/05/24 05:08
Creatinine 1.1 mg/dL (0.7-1.3) 03/05/24 05:08
eGFR > 60.00 03/05/24 05:08
Glucose 98 mg/dl (70-99) 03/05/24 05:08
Calcium 8.2 mg/dl (8.4-10.2) L 03/05/24 05:08
Phosphorus 4.1 mg/dl (2.5-4.5) 02/29/24 15:06
Albumin 2.7 g/dl (3.5-5.0) L 03/05/24 05:08
Physical Exam
-
Vital Signs:
Vital Signs
Temp Pulse Resp BP Pulse Ox
98.0 F 52 16 113/62 95
03/05/24 07:00 03/05/24 07:00 03/05/24 07:00 03/05/24 07:00 03/05/24 07:00
Cardiovascular:: Regular rate and rhythm
Respiratory:: Bilateral: Coarse
Lung Excursion:: Normal
Abdomen:: Nontender and Soft
Bowel Sounds:: Normal
Extremity Edema:: None: Bilateral:
[2024-03-05] MEDS: MOTRIN 600 MG PO ×2 (10:56→20:25)
--- NOTE | 2024-03-05 11:41 | W.PN.ID1 ---
Date of Service
Date of Service: March 05, 2024
Today's Communication
- Continue ceftriaxone 2g IV q12 (d5 of 10) through 03/10/24.
Assessment / Plan
# Group A strep bacteremia x 2sets
# Treating as Group A strep meningitis - presented with HUMPHREY, syncope, seizure
# Right otitis media with perforated TM and pharyngitis as source
# s/p Septic shock due to above
# Hyponatremia -resolved
# PIO - resolved
# Urinary retention
# Incarcerated -> now released
# hx 40 year tobacco
-CT head: 12mm lesion right tempo-parietal lobe - suspect ischemic
Unable to get brain MRI due to PPM
- Repeat blood cx's. neg
- Leukocytosis due to recent steroid, trending down
- Continue ceftriaxone 2g IV q12 (d5 of 10) through 03/10/24.
- Pt without insurance.
# Acinetobacter in sputum =colonization
-CXR neg
-No need to treat
#Conditions [employer]
HTN
HLD
sinus bradycardia s/p PPM
Cardiomyopathy s/p ICD
CAD s/p stent
Depression
BPH
h/o MSSA prostate abscess s/p perc drainage (12/2022)
Chief Complaint
-: Bacteremia
Subjective / Review of Systems
No complaints
Vital Signs / Physical Exam
Vital Signs
Vital Signs
Temp Pulse Resp BP Pulse Ox
97.7 F 53 16 136/72 96
03/05/24 11:00 03/05/24 11:00 03/05/24 11:00 03/05/24 11:00 03/05/24 11:00
Physical Exam
Constitutional: No Acute Distress
Pulmonary: Clear
Gastrointestinal: Soft and Non Tender
Neurological: Negative Meningeal Signs
Objective Data
Lab Data
Lab Results
03/05/24 05:08
03/05/24 05:08
PT 14.0 Sec (11.4-14.6) 03/03/24 08:15
INR 1.08 03/03/24 08:15
APTT 38.8 Sec (23.4-35.0) H 02/29/24 20:37
Estimated Creat Clear 86 ml/min 03/05/24 05:08
Lactic Acid 2.0 mmol/L (0.7-2.0) 03/01/24 02:36
Total Bilirubin 0.4 mg/dl (0.2-1.3) 03/05/24 05:08
AST 36 U/L (17-59) 03/05/24 05:08
ALT 57 U/L (0-50) H 03/05/24 05:08
Alkaline Phosphatase 99 U/L (38-126) 03/05/24 05:08
Most recent labs reviewed.
Micro Results:
03/02/24 04:41 Blood Culture - Preliminary
Blood/Venous No Growth in 72 hours- Final report to follow
03/02/24 04:43 Blood Culture - Preliminary
Blood/Venous No Growth in 72 hours- Final report to follow
03/01/24 10:28 Respiratory Culture - Final
Tracheal Aspirate Acinet. baumannii/haemolyticus
Gram Stain - Final
02/29/24 15:06 Blood Culture - Final
Blood/Venous Streptococcus pyogenes
Gram Stain - Final
02/29/24 15:21 Blood Culture - Final
Blood/Venous Streptococcus pyogenes
Gram Stain - Final
02/29/24 15:21 Streptococcus Screen (PAM) - Final
Throat/Pharynx Streptococcus pyogenes
Streptococcus Rapid Screen - Final
Rapid Strep Screen (Group A) Negative
03/01/24 05:18 MRSA Screen - Final
Nose No Methicillin Resistant Staphylococcus aureus isolated.
09/16/24 17:42 Urine Culture - Final
Urine NO GROWTH
02/29/24 15:06 Influenza Types A & B (CHARLENE) - Final
Nasal Swab Negative for Influenza A & B, NAAT
Negative results must be combined with clinical observations
and patient history.
Nucleic Acid Amplification test (NAAT)performed on the
[employer] platform.
02/29/24 CT head: There is a 12 mm low-density lesion at the right temporoparietal junction lateral to the atrium of the right lateral ventricle. This lesion is most likely ischemic in origin, however, given the patient's clinical history, follow-up
imaging with contrast-enhanced MRI is recommended to exclude more aggressive pathology/neoplasm.
02/29/24 CXR: No active cardiopulmonary disease.
[2024-03-05 12:06] LABS: Glucose - Point of Care 100 mg/dl (70-99)
--- NOTE | 2024-03-05 14:30 | W.PN.HOSP.TC ---
Today's Communication/Plan
-
abx till 03/10 per ID
insulin
Assessment / Plan
Assessment / Plan
CT head
There is a 12 mm low-density lesion at the right temporoparietal junction lateral to the atrium of the right lateral ventricle. This lesion is most likely ischemic in origin, however, given the patient's clinical history, follow-up imaging with
contrast-enhanced MRI is recommended to exclude more aggressive pathology/neoplasm.

1. Septic Shock
Strep pyogenes bacteremia
Likely 2/2 suppurative otitis media with perforated eardrum
Rule out bacterial meningitis/encephalitis
-Patient found to be in septic shock in ER, not improved with IV hydration
-WBCs has trended down. Patient is off of vasopressors
-Patient was complaining right ear pain for few day and on otoscope exam have dried up purulent drainage in right ear with likely perforated eardrum
-Chest x-ray/UA is clear. Respiratory culture collected. Throat culture negative for rapid strep.
-Blood culture growing Strep pyogenes both sets.
-Serum test positive for antistreptolysin O antibody/titer of 400 (Upper normal 200)
-Patient on Rocephin 2 g every 12 hours, ID help appreciate
2. Ventilator dependent respiratory failure - Resolved
Acinetobacter in respiratory culture
-Patient had seizure episode in radiology department and required to be intubated for airway protection
-Patient having extubated and on room air
-Patient have known drug-resistant Acinetobacter in sputum, no treatment required.
3. Seizure episode
-Unclear if patient have previous history of any seizures/epilepsy. Not on any meds
-CT head finding as above, patient will benefit with MRI brain without contrast to rule out any septic emboli(clinical less likely as solitary lesion) versus ischemic stroke vs malignancy
-EEG did not show any underlying seizure activity
-Patient cannot get MRI brain as patient PPM not compatible
-Patient got 4 days of steroids, discontinued further steroids
-CT brain with and without IV contrast did not show any new findings.
-Currently on oral Keppra 500 mg twice daily. Maintain at discharge per neuro recommendation.
4. Hyponatremia - resolved
-Presumed euvolemic in nature
-Urine sodium of 58 and urine respiratory 390
-Patient got 3% normal saline by nephro
5. Cardiac arrest
-Brief PEA arrest after patient was moved in ICU
-Required 2 minutes of CPR with ROSC achieved
5. Troponin elevation
-Presumed nonischemic cardiomyopathy with ongoing septic shock
-Will get routine echocardiogram once patient clinically improved from above-mentioned problem
6. IPO - resolved
-Likely prerenal in nature with ongoing shock
-Indwelling Friedman catheter in place
7. Lactic acidosis - resolved
Metabolic acidosis - resolved
-Patient had significant lactic acidosis with LA 10, now resolved
-Have some persistent metabolic acidosis likely from PIO/need of hyperchloremic fluid
8. Type II DM
Hypoglycemia
-Hbga1c 7.3
-Insulin drip has been discontinued.
-Glucose in 90s in the morning today, hold NovoLog and Lantus. Maintain on sliding scale and oral antidiabetic medication only
9. Hypocalcemia
-Low ionized calcium, got calcium chloride in night
-Further dosing per nephro recommendation
Full code
Heparin subq
Anticipated Discharge: > 48 hours
Subjective/Interval History
-
Date of Service: March 05, 2024
Patient complaining some right retro-orbital/temporal headache
No other reported problem
Objective Data
-
Labs:
Laboratory Results
03/05/24
05:08
WBC 13.7 H
Hgb 9.9 L
Hct 27.9 L
Plt Count 226 D
Sodium 138
Potassium 3.9
Chloride 101
Carbon Dioxide 27
BUN 39 H
Creatinine 1.1
Glucose 98
Calcium 8.2 L
Total Bilirubin 0.4
AST 36
ALT 57 H
Alkaline Phosphatase 99
Vital Signs:
Vital Signs
Temp Pulse Resp BP Pulse Ox
97.7 F 53 16 136/72 96
03/05/24 11:00 03/05/24 11:00 03/05/24 11:00 03/05/24 11:00 03/05/24 11:00
I&O
03/04/24 03/05/24 03/06/24
06:59 06:59 06:59
Intake Total 2626.0 / 2626.0 840 / 840
Output Total 1925 / 1925 1500 / 1500
Balance 701.0 / 701.0 -660 / -660
Review of Systems
-
Respiratory: Reports No Symptoms
Cardiac: Reports No Symptoms
Abdomen/GI: Reports No Symptoms
Physical Exam
-
General: No Apparent Distress
HEENT: Negative Oxygen
Respiratory: Clear to Auscultation
Cardiac: Regular Rhythm and S1/S2; Negative Murmur
GI: Soft, Nontender and Nondistended
Neuro: Awake, Alert, Oriented and No Motor Deficits
[2024-03-05 16:52] LABS: Glucose - Point of Care 79 mg/dl (70-99)
[2024-03-05] MEDS: TYLENOL 650 MG TUBE ×2 (17:01→21:15)
[2024-03-05] MEDS: FLUSH (NSS) 1 FLUSH IV ×2 (19:52→19:53)
[2024-03-05] MEDS: LIPITOR 40 MG PO (21:16)
[2024-03-05 21:56] LABS: Glucose - Point of Care 112 mg/dl (70-99)
[2024-03-06] VITALS (7 sets, daily range): BP systolic 123–149; BP diastolic 65–83
[2024-03-06] MEDS: TYLENOL 650 MG TUBE ×4 (04:13→18:33)
[2024-03-06 07:08] LABS: Glucose - Point of Care 89 mg/dl (70-99)
[2024-03-06] MEDS: NOVOLOG FLEXPEN-MODERATE RESISTANCE SC ×3 (08:10→16:44)
[2024-03-06] MEDS: MYCOSTATIN ORAL SUSPENSION 5 ML PO ×4 (08:11→22:13)
[2024-03-06] MEDS: MIRALAX 17 GRAMS TUBE (08:11)
[2024-03-06] MEDS: KEPPRA 500 MG PO ×2 (08:11→20:25)
[2024-03-06] MEDS: NICODERM TRANSDERMAL 14 MG TRANSDERM (08:11)
[2024-03-06] MEDS: LANTUS 0.2 UNITS SC (08:11)
[2024-03-06] MEDS: ASPIR LOW (ENTERIC COATED) 81 MG PO (08:11)
[2024-03-06] MEDS: GLUCOTROL 5 MG PO (08:11)
[2024-03-06] MEDS: GLUCOPHAGE 1000 MG PO ×2 (08:11→18:27)
[2024-03-06] MEDS: ZOLOFT 100 MG PO (08:12)
[2024-03-06] MEDS: ROCEPHIN 2000 MG IV ×2 (08:12→20:25)
[2024-03-06] MEDS: HEPARIN 5000 UNITS SC ×2 (08:12→18:27)
[2024-03-06] MEDS: STERILE WATER FOR INJECTION 20 ML IV ×2 (08:12→20:25)
[2024-03-06] MEDS: FLUSH (NSS) 1 FLUSH IV ×2 (08:16→08:42)
[2024-03-06 08:30] LABS: Hematocrit 30.9 % (39.0-52.0); Hemoglobin 10.6 g/dL (13.0-18.0); Mean Corp Hgb Conc. 34.3 g/dL (33.0-37.0); Mean Corpuscular Volume 87.5 fL (80.0-94.0); Platelet Count 338 10^3/uL (130-400); Red Blood Cell Count 3.53 10^6/uL (4.70-6.10); Red Cell Dist. Width 12.9 % (11.5-14.5); White Blood Cell Count 15.4 10^3/uL (4.8-10.8)
[2024-03-06 09:05] LABS: ALT (SGPT) 43 U/L (0-50); AST (SGOT) 29 U/L (17-59); Albumin 2.8 g/dl (3.5-5.0); Alkaline Phosphatase 82 U/L (38-126); Blood Urea Nitrogen 29 mg/dl (9-20); Calcium 8.5 mg/dl (8.4-10.2); Carbon Dioxide 27 mmol/L (22-30); Chloride 99 mmol/L (98-107); Estimated Creatinine Clearance 86 ml/min; Glucose 96 mg/dl (70-99); Potassium 4.3 mmol/L (3.5-5.1); Sodium 136 mmol/L (135-145); Total Bilirubin 0.5 mg/dl (0.2-1.3); Total Protein 5.7 g/dl (6.3-8.2); eGFR > 60.00
[2024-03-06 09:35] LABS: % Basophils 0.5 % (0-2); % Eosinophils 2.6 % (0-6); % Lymphocytes 17.1 % (20.5-51.1); % Monocytes 7.8 % (1.7-9.3); Absolute Basophils 0.1 10^3/uL (0-0.2); Absolute Eosinophils 0.4 10^3/uL (0-0.7); Absolute Immature Granulocytes 1.2 10^3/uL (0-0.05); Absolute Lymphocytes 2.6 10^3/uL (1.2-3.4); Absolute Monocytes 1.2 10^3/uL (0.1-0.6); Absolute Neutrophils 9.9 10^3/uL (1.4-6.5); Nucleated Red Blood Cells % 0 % (-)
--- NOTE | 2024-03-06 09:51 | W.PN.NEPH.PH ---
Today's Communication / Plan
-
follow BMP
Assessment/Plan
-
Assessment
hypotension
PIO
hypomagnesemia
metabolic acidosis, gap
lactic acidosis
seizure
CAD
DM2
fever
right temporoparietal lesion
GPC bacteremia/sepsis
Plan:
follow bladder scan
follow BMP
Keppra for seizures
will sign off
-
-
Date of Service: March 06, 2024
CC / HPI / ROS
-
Chief Complaint:
PIO
History of Present Illness:
PEA arrest 02/28
PIO/Cr better at 1.1
Na normal
metabolic acidosis resolved, k normal
no fever
Review of Systems:
awake, no cp or sob
c/o right headache
Labs
-
Labs:
WBC 15.4 10^3/uL (4.8-10.8) H 03/06/24 07:34
RBC 3.53 10^6/uL (4.70-6.10) L 03/06/24 07:34
Hgb 10.6 g/dL (13.0-18.0) L 03/06/24 07:34
Hct 30.9 % (39.0-52.0) L 03/06/24 07:34
Plt Count 338 10^3/uL (130-400) D 03/06/24 07:34
Sodium 136 mmol/L (135-145) 03/06/24 07:34
Potassium 4.3 mmol/L (3.5-5.1) 03/06/24 07:34
Chloride 99 mmol/L (98-107) 03/06/24 07:34
Carbon Dioxide 27 mmol/L (22-30) 03/06/24 07:34
BUN 29 mg/dl (9-20) H 03/06/24 07:34
Creatinine 1.1 mg/dL (0.7-1.3) 03/06/24 07:34
eGFR > 60.00 03/06/24 07:34
Glucose 96 mg/dl (70-99) 03/06/24 07:34
Calcium 8.5 mg/dl (8.4-10.2) 03/06/24 07:34
Phosphorus 4.1 mg/dl (2.5-4.5) 02/29/24 15:06
Albumin 2.8 g/dl (3.5-5.0) L 03/06/24 07:34
Physical Exam
-
Vital Signs:
Vital Signs
Temp Pulse Resp BP Pulse Ox
97.7 F 49 18 145/79 95
03/06/24 07:51 03/06/24 07:51 03/06/24 07:51 03/06/24 07:51 03/06/24 07:51
Cardiovascular:: Regular rate and rhythm
Respiratory:: Bilateral: CTA
Lung Excursion:: Normal
Abdomen:: Nontender and Soft
Bowel Sounds:: Normal
Extremity Edema:: None: Bilateral:
[2024-03-06 12:19] LABS: Glucose - Point of Care 98 mg/dl (70-99)
[2024-03-06] MEDS: MOTRIN 600 MG PO ×2 (13:14→20:28)
--- NOTE | 2024-03-06 13:30 | PTCARENOTE ---
Tech answering call light, finding patient seated on floor next to bed. Patient reports 'slipping'. 'I stepped on that (pointing on rolling base of tray table) and slipped'. Patient denies hitting head or any new pain post fall. He does report
hitting chin on bedside tray table as he fell. Patient stating ' I'm sorry, I rang the ochoa but had to use the bathroom'. Vitals stable post event. Patient assisted back to bed, then in to bathroom by staff. Bed alarm now in place for patient
safety. Patient is agreeable with ringing call ochoa for assistance. notified. Order for CT of head placed.
--- NOTE | 2024-03-06 14:02 | W.PN.HOSP.TC ---
Addendum entered and electronically signed by Pradeep Mcknight MD 03/06/24 15:05:
Current diagnosis/
Oral thrush -maintain on oral nystatin swish and swallow for 14-day
Original Note:
Today's Communication/Plan
-
Finish course of IV antibiotic
Motrin for headache
Assessment / Plan
Assessment / Plan
CT head
There is a 12 mm low-density lesion at the right temporoparietal junction lateral to the atrium of the right lateral ventricle. This lesion is most likely ischemic in origin, however, given the patient's clinical history, follow-up imaging with
contrast-enhanced MRI is recommended to exclude more aggressive pathology/neoplasm.

1. Septic Shock
Strep pyogenes bacteremia
Likely 2/2 suppurative otitis media with perforated eardrum
Rule out bacterial meningitis/encephalitis
-Patient found to be in septic shock in ER, not improved with IV hydration
-WBCs has trended down. Patient is off of vasopressors
-Patient was complaining right ear pain for few day and on otoscope exam have dried up purulent drainage in right ear with likely perforated eardrum
-Chest x-ray/UA is clear. Respiratory culture collected. Throat culture negative for rapid strep.
-Blood culture growing Strep pyogenes both sets.
-Serum test positive for antistreptolysin O antibody/titer of 400 (Upper normal 200)
-Patient on Rocephin 2 g every 12 hours, last dose 03.10.24
2. Ventilator dependent respiratory failure - Resolved
Acinetobacter in respiratory culture
-Patient had seizure episode in radiology department and required to be intubated for airway protection
-Patient having extubated and on room air
-Patient have known drug-resistant Acinetobacter in sputum, no treatment required.
3. Seizure episode
-Unclear if patient have previous history of any seizures/epilepsy. Not on any meds
-CT head finding as above, patient will benefit with MRI brain without contrast to rule out any septic emboli(clinical less likely as solitary lesion) versus ischemic stroke vs malignancy
-EEG did not show any underlying seizure activity
-Patient cannot get MRI brain as patient PPM not compatible
-Patient got 4 days of steroids, discontinued further steroids
-CT brain with and without IV contrast did not show any new findings.
-Currently on oral Keppra 500 mg twice daily. Maintain at discharge per neuro recommendation.
4. Hyponatremia - resolved
-Presumed euvolemic in nature
-Urine sodium of 58 and urine respiratory 390
-Patient got 3% normal saline by nephro
5. Cardiac arrest
-Brief PEA arrest after patient was moved in ICU
-Required 2 minutes of CPR with ROSC achieved
5. Troponin elevation
-Presumed nonischemic cardiomyopathy with ongoing septic shock
-Will get routine echocardiogram once patient clinically improved from above-mentioned problem
6. PIO - resolved
-Likely prerenal in nature with ongoing shock
-Indwelling Friedman catheter in place
7. Lactic acidosis - resolved
Metabolic acidosis - resolved
-Patient had significant lactic acidosis with LA 10, now resolved
-Have some persistent metabolic acidosis likely from PIO/need of hyperchloremic fluid
8. Type II DM
Hypoglycemia
-Hbga1c 7.3
-Insulin drip has been discontinued.
-Glucose in 90s in the morning today, hold NovoLog and Lantus. Maintain on sliding scale and oral antidiabetic medication only
9. Hypocalcemia
-Low ionized calcium, got calcium chloride in night
-Further dosing per nephro recommendation
10. Fall
-patient had a mechanical fall in bathroom
-no reported head trauma
Full code
Heparin subq
Anticipated Discharge: > 48 hours
Subjective/Interval History
-
Date of Service: March 06, 2024
comfortable in bed
Complaining of some right sided retro-orbital pain/headache
Objective Data
-
Labs:
Laboratory Results
03/06/24
07:34
WBC 15.4 H
Hgb 10.6 L
Hct 30.9 L
Plt Count 338 D
Sodium 136
Potassium 4.3
Chloride 99
Carbon Dioxide 27
BUN 29 H
Creatinine 1.1
Glucose 96
Calcium 8.5
Total Bilirubin 0.5
AST 29
ALT 43
Alkaline Phosphatase 82
Vital Signs:
Vital Signs
Temp Pulse Resp BP Pulse Ox
97.5 F 53 18 149/79 98
03/06/24 12:40 03/06/24 12:40 03/06/24 12:40 03/06/24 12:40 03/06/24 12:40
I&O
03/05/24 03/06/24 03/07/24
06:59 06:59 06:59
Intake Total 840 / 840 1560 / 1560 240 / 240
Output Total 1500 / 1500 600 / 600
Balance -660 / -660 1560 / 1560 -360 / -360
Review of Systems
-
Respiratory: Reports No Symptoms
Cardiac: Reports No Symptoms
Abdomen/GI: Reports No Symptoms
Physical Exam
-
General: No Apparent Distress
HEENT: Negative Oxygen
Respiratory: Clear to Auscultation
Cardiac: Regular Rhythm and S1/S2; Negative Murmur
GI: Soft, Nontender and Nondistended
Neuro: Awake, Alert, Oriented and No Motor Deficits
[2024-03-06] MEDS: ZOFRAN 4 MG IV (14:34)
[2024-03-06 16:40] LABS: Glucose - Point of Care 107 mg/dl (70-99)
--- NOTE | 2024-03-06 17:00 | PTCARENOTE ---
Patient AAOx3, and drowsy throughout shift. Reports ongoing headache, see MAR.
[2024-03-06] MEDS: FLUSH (NSS) IV ×2 (19:23)
[2024-03-06] MEDS: LIPITOR 40 MG PO (20:25)
[2024-03-06 21:28] LABS: Glucose - Point of Care 132 mg/dl (70-99)
[2024-03-07] VITALS (7 sets, daily range): BP systolic 97–146; BP diastolic 47–79
[2024-03-07] MEDS: HEPARIN 5000 UNITS SC ×4 (00:10→23:30)
--- NOTE | 2024-03-07 06:59 | PN.DE.MGMTRT ---
Insulin Management
- -
03/07/2024 Diabetes Management F/U:
Patient admitted 02/28 from [facility], septic shock, questionable seizure, hyponatremia, PIO. PMHCAD, HTN, HCL, diabetes. Prior to admission since 09/05 has been receiving glipizide 5 mg daily with metformin 1000 mg BID. Prior to [facility] was taking no
medications or managing diabetes. A1C 7.3%, cr 1.4, eGFR 58.62.
Transitioned off glycemic protocol with 20 units Lantus and AC NovoLog 4 units with moderate corrective and resumed glipizide and metformin.
Pt awake, A/O X3, sitting up on bed, offers no complaints, able to discuss diabetes mgt
Weaned off IV steroids on 03/03. Glucose range 89 to 107, fasting 100 this AM.
Will STOP Lantus and cont his outpatient regimen; Glipizide 5mg daily and Metformin 1000 mg BID.
Will follow glucose and resume insulin if necessary.
Diabetes History
- -
Type of Diabetes: 2 requiring insulin
Pre-Admission Diabetes Regimen
03/06/24
07:34
Creatinine 1.1
Lab Results
Hemoglobin A1c 7.3 % (4.0-5.6) H 03/01/24 02:36
Insulin Pump Settings
IP Diabetes Regimen
03/06/24 03/06/24 03/06/24
07:06 07:34 12:19
Glucose 96
POC Glucose 89 98
03/06/24 03/06/24
16:39 21:27
Glucose
POC Glucose 107 H 132 H
Meal type: Lunch
Amount consumed: 80%
Patient Education
[2024-03-07 08:26] LABS: Glucose - Point of Care 100 mg/dl (70-99)
[2024-03-07] MEDS: NOVOLOG FLEXPEN-MODERATE RESISTANCE SC ×3 (08:37→17:14)
[2024-03-07] MEDS: FLUSH (NSS) 1 FLUSH IV ×2 (09:58→10:17)
[2024-03-07] MEDS: ASPIR LOW (ENTERIC COATED) 81 MG PO (09:59)
[2024-03-07] MEDS: GLUCOTROL 5 MG PO (09:59)
[2024-03-07] MEDS: NICODERM TRANSDERMAL 14 MG TRANSDERM (09:59)
[2024-03-07] MEDS: MOTRIN 600 MG PO ×2 (09:59→21:03)
[2024-03-07] MEDS: ZOLOFT 100 MG PO (09:59)
[2024-03-07] MEDS: MIRALAX 17 GRAMS TUBE (09:59)
[2024-03-07] MEDS: GLUCOPHAGE 1000 MG PO ×2 (10:00→18:43)
[2024-03-07] MEDS: MYCOSTATIN ORAL SUSPENSION 5 ML PO ×4 (10:00→21:12)
[2024-03-07] MEDS: KEPPRA 500 MG PO ×2 (10:00→20:41)
[2024-03-07] MEDS: ROCEPHIN 2000 MG IV ×2 (10:00→21:11)
[2024-03-07] MEDS: STERILE WATER FOR INJECTION 20 ML IV ×2 (10:00→21:11)
--- NOTE | 2024-03-07 10:06 | CM ---
Chart reviewed and casework specialist met with patient this am and plan is for patient to finish IV ABX here. Last dose per notes are 03/10/24. Patient lives in [place] and patient to return to home when stable
Plan; Home no needs.
[2024-03-07 10:24] LABS: Hematocrit 30.2 % (39.0-52.0); Hemoglobin 10.4 g/dL (13.0-18.0); Mean Corp Hgb Conc. 34.4 g/dL (33.0-37.0); Mean Platelet Volume 10.3 fL (7.4-10.4); Platelet Count 357 10^3/uL (130-400); Red Blood Cell Count 3.47 10^6/uL (4.70-6.10); Red Cell Dist. Width 13.1 % (11.5-14.5); White Blood Cell Count 12.7 10^3/uL (4.8-10.8)
[2024-03-07 10:35] LABS: Blood Urea Nitrogen 22 mg/dl (9-20); Calcium 8.2 mg/dl (8.4-10.2); Carbon Dioxide 24 mmol/L (22-30); Chloride 99 mmol/L (98-107); Estimated Creatinine Clearance 95 ml/min; Glucose 133 mg/dl (70-99); Potassium 4.3 mmol/L (3.5-5.1); Sodium 135 mmol/L (135-145); eGFR > 60.00
[2024-03-07 10:41] LABS: % Basophils 0.3 % (0-2); % Eosinophils 2.4 % (0-6); % Immature Granulocytes 6.2 % (0-0.5); % Lymphocytes 15.6 % (20.5-51.1); % Monocytes 7.3 % (1.7-9.3); % Neutrophils 68.2 % (42.2-75.2); Absolute Eosinophils 0.3 10^3/uL (0-0.7); Absolute Immature Granulocytes 0.8 10^3/uL (0-0.05); Absolute Monocytes 0.9 10^3/uL (0.1-0.6); Absolute Neutrophils 8.7 10^3/uL (1.4-6.5); Nucleated Red Blood Cells % 0 % (-)
[2024-03-07] MEDS: TYLENOL 650 MG TUBE ×3 (11:28→23:31)
[2024-03-07 11:44] LABS: Glucose - Point of Care 118 mg/dl (70-99)
[2024-03-07 12:40] LABS: Magnesium 1.5 mg/dl (1.6-2.3)
--- NOTE | 2024-03-07 13:53 | W.PN.HOSP.TC ---
Today's Communication/Plan
-
Monitor vital signs
see plan
Echo
Continue antibiotics
Continue Keppra
pain control
Assessment / Plan
Assessment / Plan
CT head
There is a 12 mm low-density lesion at the right temporoparietal junction lateral to the atrium of the right lateral ventricle. This lesion is most likely ischemic in origin, however, given the patient's clinical history, follow-up imaging with
contrast-enhanced MRI is recommended to exclude more aggressive pathology/neoplasm.

Septic Shock
Strep pyogenes bacteremia
Likely 2/2 suppurative otitis media with perforated eardrum
Rule out bacterial meningitis/encephalitis
-Patient found to be in septic shock in ER, not improved with IV hydration
-WBCs has trended down. Patient is off of vasopressors
-Patient was complaining right ear pain for few day and on otoscope exam have dried up purulent drainage in right ear with likely perforated eardrum
-Chest x-ray/UA is clear. Respiratory culture collected. Throat culture negative for rapid strep.
-Blood culture growing Strep pyogenes both sets.
-Serum test positive for antistreptolysin O antibody/titer of 400 (Upper normal 200)
-Patient on Rocephin 2 g every 12 hours, last dose 03.10.24
Ventilator dependent respiratory failure - Resolved
Acinetobacter in respiratory culture
-Patient had seizure episode in radiology department and required to be intubated for airway protection
-Patient having extubated and on room air
-Patient have known drug-resistant Acinetobacter in sputum, no treatment required.
Seizure episode
-Unclear if patient have previous history of any seizures/epilepsy. Not on any meds
-CT head finding as above, patient will benefit with MRI brain without contrast to rule out any septic emboli(clinical less likely as solitary lesion) versus ischemic stroke vs malignancy
-EEG did not show any underlying seizure activity
-Patient cannot get MRI brain as patient PPM not compatible
-Patient got 4 days of steroids, discontinued further steroids
-CT brain with and without IV contrast did not show any new findings.
-Currently on oral Keppra 500 mg twice daily. Maintain at discharge per neuro recommendation.
Hyponatremia - resolved
-Presumed euvolemic in nature
-Urine sodium of 58 and urine respiratory 390
-Patient got 3% normal saline by nephro
Cardiac arrest
-Brief PEA arrest after patient was moved in ICU
-Required 2 minutes of CPR with ROSC achieved
Troponin elevation
-Presumed nonischemic cardiomyopathy with ongoing septic shock
echo 03/07
couple small episodes of VT; hypomagnesemia, replete
PIO - resolved
-Likely prerenal in nature with ongoing shock
-Indwelling Friedman catheter in place
Lactic acidosis - resolved
Metabolic acidosis - resolved
-Patient had significant lactic acidosis with LA 10, now resolved
-Have some persistent metabolic acidosis likely from PIO/need of hyperchloremic fluid
Type II DM
Hypoglycemia
-Hbga1c 7.3
-Insulin drip has been discontinued.
holding insulin; cw PO meds
diabetes [employer] following
Hypocalcemia
monitor
nephro following
Fall
-patient had a mechanical fall in bathroom 03/06
-no reported head trauma
CT neg
Full code
Heparin subq
General: No Apparent Distress
HEENT: Negative Oxygen
Respiratory: Clear to Auscultation
Cardiac: Regular Rhythm and S1/S2; Negative Murmur
GI: Soft, Nontender and Nondistended
Neuro: Awake, Alert, Oriented and No Motor Deficit
I spent a total of 52 minutes with the patient or on the floor. More than 50% of this time involved counseling and coordination of care.
Anticipated Discharge: > 48 hours
Subjective/Interval History
-
Date of Service: March 07, 2024
has headache
Objective Data
-
Labs:
Laboratory Results
03/07/24
09:49
WBC 12.7 H
Hgb 10.4 L
Hct 30.2 L
Plt Count 357
Sodium 135
Potassium 4.3
Chloride 99
Carbon Dioxide 24
BUN 22 H
Creatinine 1.0
Glucose 133 H
Calcium 8.2 L
Vital Signs:
Vital Signs
Temp Pulse Resp BP Pulse Ox
98.4 F 49 20 135/77 97
03/07/24 11:27 03/07/24 11:27 03/07/24 11:27 03/07/24 11:27 03/07/24 11:27
I&O
03/06/24 03/07/24 03/08/24
06:59 06:59 06:59
Intake Total 1560 / 1560 1440 / 1440
Output Total 1000 / 1000
Balance 1560 / 1560 440 / 440
--- NOTE | 2024-03-07 14:00 | CARDSERVLU ---
Echocardiogram with [facility] completed after protocol screening completed. Allergies verified.
Patent IV site: _rt arm____
IV site flushed with 0.9% NaCl pre and post administration.
Diluted bolus method utilized to enhance visualization of ventricular rivero.
Total volume given: _3.0___ mL
Patient tolerated all procedures well without complications.
[2024-03-07] MEDS: MAGNESIUM SULFATE 50 IV (15:19)
--- NOTE | 2024-03-07 16:02 | CON.CAR ---
Addendum entered and electronically signed by Breezy De Leon MD 03/07/24 17:28:
I saw and examined the patient.
The TRUMPET TEACHER's note was reviewed and I agree with the note.
Comment: 58 y/o male with hypertension, dyslipidemia, diabetes, CAD with hx stent, and defibrillator per patient who is here for evaluation after he was found on the ground in [facility]. We are consulted for heart failure reduced ejection fraction.
He has known ischemic cardiomyopathy with previous EF approximately 30 to 35%. He follows with an outside flame cutting supervisor from [place]. He has no symptoms of ischemia, heart failure, or arrhythmia at this time. We will continue with goal-directed
medical therapy.
Original Note:
Consultation
Consultation Request
Date/Time Consultation Requested: 03/07/24 1536
Date/Time Consultation Performed: 03/07/24 1600
Requesting Provider: Dr. Sun
Performing Provider: Jacey ESPAÑA for Dr. De Leon
Reason for Consultation: cardiomyopathy
Medical History
-
Chief Complaint: found on floor
History of Present Illness:
58 y/o male with hypertension, dyslipidemia, diabetes, CAD with hx stent, and defibrillator per patient who is here for evaluation after he was found on the ground in [facility]. He had been having right ear pain. On arrival to ER, he was hypotensive
and febrile. He had a seizure. He required pressor support and intubation. He had PEA arrest in ICU. Blood cultures revealed group A strep bacteremia. He is being treated with IV abx for suspected Group A strep meningitis with source being right
otitis media with perforated TM and pharyngitis. We are consulted since echo revealed cardiomyopathy. This is not new based on an echo from [place] last year and also my discussion with patient. He does have a flame cutting supervisor- Dr. Bush. Patient
denies any CP or SOB.
Past Medical History
Past Medical History: CAD, HTN, Hypercholesterolemia and NIDDM
Social History
Living: Retirement (just released)
Allergies / Home Medications
Allergy/AdvReac Type Severity Reaction Status Date / Time
No Known Allergies Allergy Unverified 02/29/24 14:38
�Medication �Instructions �Recorded �Confirmed �Type
aspirin 81 mg tablet,delayed 81 mg PO DAILY Blood Clot 02/29/24 02/29/24 History
release Prevention/Tx
atorvastatin 40 mg tablet 40 mg PO HS High Cholesterol 02/29/24 02/29/24 History
buspirone 10 mg tablet 10 mg PO BID Mental Health/Anxiety 02/29/24 02/29/24 History
carvedilol 3.125 mg tablet (Coreg) 3.125 mg PO DAILY Blood Pressure 02/29/24 02/29/24 History
folic acid 1 mg tablet 1 mg PO DAILY Supplement 02/29/24 02/29/24 History
glipizide 5 mg tablet 5 mg PO DAILY Diabetes 02/29/24 02/29/24 History
ibuprofen 200 mg tablet 400 mg PO BIDPRN PRN mild pain 02/29/24 02/29/24 History
lisinopril 5 mg tablet 5 mg PO DAILY Blood Pressure 02/29/24 02/29/24 History
metformin 1,000 mg tablet 1,000 mg PO BID Diabetes 02/29/24 02/29/24 History
sertraline 100 mg tablet 100 mg PO DAILY Mental 02/29/24 02/29/24 History
Health/Anxiety
therapeutic multivitamin 1 tab PO DAILY Supplement 02/29/24 02/29/24 History
thiamine HCl (vitamin B1) 100 mg 100 mg PO DAILY Supplement 02/29/24 02/29/24 History
tablet
Review of Systems
-
History Source: Patient
Constitutional: Fever and Other (ear pain, LOC)
Physical Exam
Vital Signs
Temp Pulse Resp BP Pulse Ox
98.8 F 51 19 127/70 99
03/07/24 15:46 03/07/24 15:46 03/07/24 15:46 03/07/24 15:46 03/07/24 15:46
Lab Results
03/07/24 09:49
03/07/24 09:49
Troponin I 0.099 ng/ml H* 03/02/24 04:23
Physical Exam
General: Well Developed, Well Nourished and No Apparent Distress
HEENT: Normocephalic and Anicteric
Respiratory: Clear and Non Labored Respirations
Cardiac: Regular Rhythm
Skin: Warm and Dry
Neuro: AO x 3
Psych: Calm
Impression / Plan
-
Strep bacteremia, strep meningitis:
-ID following, on abx
ICM: not new
-Echo this admit as below
-Echo from records in chart ([facility]) - Echo 12/31/2022: EF 30-35%, global hypokinesis with regional variation, moderately severe septal hypokinesis
-will add back on Coreg (but appropriate BID dosing), add low dose valsartan and adjust as able (rather than OP lisinopril). Browning SGLT2 and Entresto.
-per patient, defib in place. He thinks it is Medtronic. Can request records for more details (Dr. Bush).
-does not appear to be volume overloade
CAD with history of stenting:
-continue ASA, statin
-denies CP
Abnormal troponin: 0.228
-acute non-ischemic myocardial injury in setting of acute illness, septic shock, PIO
-no CP or SOB
DM:
-per primary
Data Reviewed
-
EKG: Tracing Personally Visualized and interpreted (SR with PVC's)
Medical Tests (Nuc Med, Echo etc): Report Reviewed by me (Echo 03/07/24: EF 35-40%, LAD territory hypokinesis, mild MR, TR, PAP 29 mmhg)
Labs: Labs Reviewed by me
[2024-03-07 16:52] LABS: Glucose - Point of Care 107 mg/dl (70-99)
[2024-03-07] MEDS: PROTONIX 40 MG PO (18:43)
[2024-03-07] MEDS: FLUSH (NSS) IV ×2 (20:41)
[2024-03-07] MEDS: DIOVAN 20 MG PO (20:41)
[2024-03-07] MEDS: LIPITOR 40 MG PO (20:42)
[2024-03-07] MEDS: COREG 3.125 MG PO (20:42)
[2024-03-07 22:08] LABS: Glucose - Point of Care 114 mg/dl (70-99)
[2024-03-08] VITALS (7 sets, daily range): BP systolic 123–150; BP diastolic 67–93
[2024-03-08 07:29] LABS: Glucose - Point of Care 105 mg/dl (70-99)
--- NOTE | 2024-03-08 07:46 | PN.DE.MGMTRT ---
Insulin Management
- -
03/08/2024 Diabetes Management Follow up:
Patient admitted 02/28 from [facility], septic shock, questionable seizure, hyponatremia, PIO. PMHCAD, HTN, HCL, diabetes. Prior to admission since 09/05 has been receiving glipizide 5 mg daily with metformin 1000 mg BID. Prior to [facility] was taking no
medications or managing diabetes. A1C 7.3%, cr 1.4, eGFR 58.62.
Transitioned off glycemic protocol with 20 units Lantus and AC NovoLog 4 units with moderate corrective and resumed glipizide and metformin.
Pt awake, A/O X3, sitting up on bed, offers no complaints, able to discuss diabetes mgt
Weaned off IV steroids on 03/03. Insulin stopped 03/07 Glucose range 107 to 118, fasting 105 this AM.
Will continue Glipizide 5mg daily and Metformin 1000 mg BID. Patient is NPO for procedure today.
Will follow for further needed adjustments.
Diabetes History
- -
Type of Diabetes: 2
Pre-Admission Diabetes Regimen
03/07/24
09:49
Creatinine 1.0
Lab Results
Hemoglobin A1c 7.3 % (4.0-5.6) H 03/01/24 02:36
Insulin Pump Settings
IP Diabetes Regimen
03/07/24 03/07/24 03/07/24
08:24 09:49 11:42
Glucose 133 H
POC Glucose 100 H 118 H
03/07/24 03/07/24 03/08/24
16:50 22:06 07:27
Glucose
POC Glucose 107 H 114 H 105 H
Meal type: Lunch
Meal type: Breakfast
Amount consumed: 100%
Amount consumed: 100%
Patient Education
[2024-03-08] MEDS: NOVOLOG FLEXPEN-MODERATE RESISTANCE SC ×3 (08:19→16:33)
[2024-03-08] MEDS: ZOLOFT 100 MG PO (08:28)
[2024-03-08] MEDS: NICODERM TRANSDERMAL 14 MG TRANSDERM (08:28)
[2024-03-08] MEDS: GLUCOPHAGE 1000 MG PO ×2 (08:28→16:59)
[2024-03-08] MEDS: KEPPRA 500 MG PO ×2 (08:28→19:17)
[2024-03-08] MEDS: MIRALAX 17 GRAMS TUBE (08:29)
[2024-03-08] MEDS: PROTONIX 40 MG PO (08:29)
[2024-03-08] MEDS: MYCOSTATIN ORAL SUSPENSION 5 ML PO ×3 (08:29→21:35)
[2024-03-08] MEDS: GLUCOTROL 5 MG PO (08:29)
[2024-03-08] MEDS: ROCEPHIN 2000 MG IV ×2 (08:30→19:18)
[2024-03-08] MEDS: ASPIR LOW (ENTERIC COATED) 81 MG PO (08:30)
[2024-03-08] MEDS: DIOVAN 20 MG PO ×2 (08:30→19:17)
[2024-03-08 08:31] LABS: Hematocrit 31.1 % (39.0-52.0); Hemoglobin 10.8 g/dL (13.0-18.0); Mean Corp Hgb Conc. 34.7 g/dL (33.0-37.0); Mean Corpuscular Volume 89.4 fL (80.0-94.0); Mean Platelet Volume 10.8 fL (7.4-10.4); Platelet Count 349 10^3/uL (130-400); Red Blood Cell Count 3.48 10^6/uL (4.70-6.10); White Blood Cell Count 9.9 10^3/uL (4.8-10.8)
[2024-03-08] MEDS: STERILE WATER FOR INJECTION 20 ML IV ×2 (08:31→19:18)
[2024-03-08] MEDS: HEPARIN 5000 UNITS SC ×3 (08:31→23:44)
[2024-03-08] MEDS: FLUSH (NSS) IV ×4 (08:42→19:18)
[2024-03-08] MEDS: COREG PO (08:57)
[2024-03-08 09:13] LABS: Blood Urea Nitrogen 19 mg/dl (9-20); Calcium 8.1 mg/dl (8.4-10.2); Carbon Dioxide 24 mmol/L (22-30); Chloride 100 mmol/L (98-107); Estimated Creatinine Clearance 95 ml/min; Glucose 100 mg/dl (70-99); Potassium 4.5 mmol/L (3.5-5.1); Sodium 138 mmol/L (135-145); eGFR > 60.00
--- NOTE | 2024-03-08 09:17 | CM ---
manager medical writing reviewed patient's chart and met with patient this morning to review coverage for medications, patient reports he uses [facility] pharmacy in [place] however when case advocate contacted they have a profile only. Patient does not have a medical
benefit through his insurance and he does not have prescription coverage. Patient needs to complete course of IV ABX at [facility].
Plan; Home when stable, patient does not have medical insurance or prescription plan.
--- NOTE | 2024-03-08 09:56 | W.PN.CD ---
Today's Communication / Plan
-
Continue treatment of bacteremia as directed by ID.
ICD interrogation today to assess ICD function and assess for arrhythmia and patient who was reported to be found on ground prior to admit
Bradycardia sinus bradycardia with heart rate of 46 patient appears to have a dual-chamber ICD based on chest x-ray. Will check ICD function and settings.
Impression / Plan
-
.
Strep bacteremia, treating as group A strep meningitis presented with headache syncope and seizures right otitis media with perforated TM and pharyngitis suspected source based on ID consult.
-ID following, on abx
-Note patient has ICD.
ICM: not new
-Echo from records in chart ([place]) - Echo 12/31/2022: EF 30-35%, global hypokinesis with regional variation, moderately severe septal hypokinesis
-will add back on Coreg (but appropriate BID dosing), add low dose valsartan and adjust as able (rather than OP lisinopril). Browning SGLT2 and Entresto.
-per patient, defib in place. He thinks it is Medtronic. Can request records for more details (Dr. Bush).
-does not appear to be volume overloade
CAD with history of stenting:
-continue ASA, statin
-denies CP
Bradycardia. Heart rate 46. Patient on low-dose Coreg. Patient has an ICD appears to be a biventricular device will interrogate and review function and settings.
.
ICD. Medtronic device. Interrogation later today
.
NSVT. 8 beats. Without symptoms. Continue low-dose beta-han.
Abnormal troponin: 0.228
-acute non-ischemic myocardial injury in setting of acute illness, septic shock, PIO
-no CP or SOB
DM:
-per primary
Physical Exam
Vital Signs/Labs
Vital Signs
Temp Pulse Resp BP Pulse Ox
98.6 F 47 19 150/93 100
09/24/24 08:04 03/08/24 08:57 03/08/24 08:04 03/08/24 08:04 03/08/24 08:04
03/08/24 07:13
03/08/24 07:13
PT 14.0 Sec (11.4-14.6) 03/03/24 08:15
INR 1.08 03/03/24 08:15
APTT 38.8 Sec (23.4-35.0) H 02/29/24 20:37
Magnesium 1.5 mg/dl (1.6-2.3) L 03/07/24 09:49
Triglycerides 165 mg/dl (10-149) H 03/03/24 05:25
LDL Cholesterol, Calc 2 mg/dl 03/01/24 02:36
VLDL Cholesterol, Calc 65 mg/dl (0-30) H 03/01/24 02:36
HDL Cholesterol 22 mg/dl 03/01/24 02:36
Physical Exam
Constitutional: No acute distress
Cardiovascular: Rhythm & rate is regular
Respiratory: Respiratory effort normal
GI: Soft, Non tender and Normal bowel sounds
Neuro/Psych: Alert
Data Reviewed
-
Date of Service: March 08, 2024
Medical Decision Making: Reviewed Test Results
Echo: Report Reviewed by me
Medical Tests (PFT, Pathology etc): Report Reviewed by me
Labs: Labs Reviewed by me
[2024-03-08 10:51] LABS: % Basophils 0.3 % (0-2); % Eosinophils 2.4 % (0-6); % Neutrophils 63.3 % (42.2-75.2); Absolute Eosinophils 0.2 10^3/uL (0-0.7); Absolute Immature Granulocytes 0.6 10^3/uL (0-0.05); Absolute Lymphocytes 2.1 10^3/uL (1.2-3.4); Absolute Monocytes 0.7 10^3/uL (0.1-0.6); Absolute Neutrophils 6.2 10^3/uL (1.4-6.5); Nucleated Red Blood Cells % 0 % (-)
--- NOTE | 2024-03-08 11:03 | W.PN.ID1 ---
Date of Service
Date of Service: March 08, 2024
Today's Communication
Continue ceftriaxone 2g IV q12 x 10 days through 03/10/24.
From ID standpoint, he is cleared for ICD battery change.
Assessment / Plan
# Group A strep bacteremia x 2sets
# Treating as Group A strep meningitis - presented with HUMPHREY, syncope, seizure
# Right otitis media with perforated TM and pharyngitis as source
# s/p Septic shock due to above
# Incarcerated -> now released
# hx 40 year tobacco
-CT head: 12mm lesion right tempo-parietal lobe - suspect ischemic
Unable to get brain MRI due to PPM
- Repeat blood cx's. neg
- Leukocytosis resolved
- Continue ceftriaxone 2g IV q12 x 10 days through 03/10/24.
- Pt without insurance.
# Bradycardia
- Cardiology recommend ICD battery change.
-From ID standpoint, he is cleared for procedure.
# Acinetobacter in sputum =colonization
-CXR neg
-No need to treat
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
HTN
HLD
sinus bradycardia s/p PPM
Cardiomyopathy s/p ICD
CAD s/p stent
Depression
BPH
h/o MSSA prostate abscess s/p perc drainage (12/2022)
Chief Complaint
-: Bacteremia
Subjective / Review of Systems
no acute change
Vital Signs / Physical Exam
Vital Signs
Vital Signs
Temp Pulse Resp BP Pulse Ox
98.6 F 47 19 150/93 100
03/08/24 08:04 03/08/24 08:57 03/08/24 08:04 03/08/24 08:04 03/08/24 08:04
Physical Exam
Constitutional: Comfortable
Cardiovascular: Other
Pulmonary: Clear (anteriorly)
Gastrointestinal: Soft, Non Tender and Non Distended
Extremities: Negative Edema
Wound: Other (right hand dorsum between 3rd/4th finger with ~1 cm wound granulating tissue without erythema)
Neurological: AO x 3
Objective Data
Lab Data
Lab Results
03/08/24 07:13
03/08/24 07:13
PT 14.0 Sec (11.4-14.6) 03/03/24 08:15
INR 1.08 03/03/24 08:15
APTT 38.8 Sec (23.4-35.0) H 02/29/24 20:37
Estimated Creat Clear 95 ml/min 03/08/24 07:13
Lactic Acid 2.0 mmol/L (0.7-2.0) 03/01/24 02:36
Total Bilirubin 0.5 mg/dl (0.2-1.3) 03/06/24 07:34
AST 29 U/L (17-59) 03/06/24 07:34
ALT 43 U/L (0-50) 03/06/24 07:34
Alkaline Phosphatase 82 U/L (38-126) 03/06/24 07:34
Most recent labs reviewed.
Micro Results:
03/02/24 04:41 Blood Culture - Final
Blood/Venous No Growth - Final Report
03/02/24 04:43 Blood Culture - Final
Blood/Venous No Growth - Final Report
03/01/24 10:28 Respiratory Culture - Final
Tracheal Aspirate Acinet. baumannii/haemolyticus
Gram Stain - Final
02/29/24 15:06 Blood Culture - Final
Blood/Venous Streptococcus pyogenes
Gram Stain - Final
02/29/24 15:21 Blood Culture - Final
Blood/Venous Streptococcus pyogenes
Gram Stain - Final
02/29/24 15:21 Streptococcus Screen (PAM) - Final
Throat/Pharynx Streptococcus pyogenes
Streptococcus Rapid Screen - Final
Rapid Strep Screen (Group A) Negative
03/01/24 05:18 MRSA Screen - Final
Nose No Methicillin Resistant Staphylococcus aureus isolated.
02/29/24 17:42 Urine Culture - Final
Urine NO GROWTH
02/29/24 15:06 Influenza Types A & B (CHARLENE) - Final
Nasal Swab Negative for Influenza A & B, NAAT
Negative results must be combined with clinical observations
and patient history.
Nucleic Acid Amplification test (NAAT)performed on the
[employer] platform.
02/29/24 CT head: There is a 12 mm low-density lesion at the right temporoparietal junction lateral to the atrium of the right lateral ventricle. This lesion is most likely ischemic in origin, however, given the patient's clinical history, follow-up
imaging with contrast-enhanced MRI is recommended to exclude more aggressive pathology/neoplasm.
02/29/24 CXR: No active cardiopulmonary disease.
Care Review
Plan reviewed with: Physician (Dr. Taylor)
--- NOTE | 2024-03-08 11:06 | W.ICD.CONTRA ---
Post ICD/SPACE CONTROLLER-D
-
History of NC?: Yes (AMS pt so not exactly sure, pt has prior stents)
LV Function
Left ventricular function study result?: Ejection Fraction </= 35%
ACEI/ARB/ARNI
Patient already on ACEI/ARB/ARNI: Yes
Beta-Elvia
Patient already on Beta Elvia: Yes
[2024-03-08 11:26] LABS: Glucose - Point of Care 113 mg/dl (70-99)
[2024-03-08] MEDS: MYCOSTATIN ORAL SUSPENSION PO (11:32)
[2024-03-08] MEDS: TYLENOL 650 MG TUBE ×2 (11:45→19:27)
[2024-03-08] MEDS: ZOFRAN 4 MG IV (12:42)
--- NOTE | 2024-03-08 13:13 | W.PN.HOSP.TC ---
Today's Communication/Plan
-
Monitor vital signs see plan
Plan for ICD generator change today
cw abx
Assessment / Plan
Assessment / Plan
CT head
There is a 12 mm low-density lesion at the right temporoparietal junction lateral to the atrium of the right lateral ventricle. This lesion is most likely ischemic in origin, however, given the patient's clinical history, follow-up imaging with
contrast-enhanced MRI is recommended to exclude more aggressive pathology/neoplasm.

Septic Shock
Strep pyogenes bacteremia
Likely 2/2 suppurative otitis media with perforated eardrum
Rule out bacterial meningitis/encephalitis
-Patient found to be in septic shock in ER, not improved with IV hydration
-WBCs has trended down. Patient is off of vasopressors
-Patient was complaining right ear pain for few day and on otoscope exam have dried up purulent drainage in right ear with likely perforated eardrum
-Chest x-ray/UA is clear. Respiratory culture collected. Throat culture negative for rapid strep.
-Blood culture growing Strep pyogenes both sets. recent bcx NGTD
-Serum test positive for antistreptolysin O antibody/titer of 400 (Upper normal 200)
-Patient on Rocephin 2 g every 12 hours, last dose 03.10.24
Ventilator dependent respiratory failure - Resolved
Acinetobacter in respiratory culture
-Patient had seizure episode in radiology department and required to be intubated for airway protection
-Patient having extubated and on room air
-Patient have known drug-resistant Acinetobacter in sputum, no treatment required.
Seizure episode
-Unclear if patient have previous history of any seizures/epilepsy. Not on any meds
-CT head finding as above, patient will benefit with MRI brain without contrast to rule out any septic emboli(clinical less likely as solitary lesion) versus ischemic stroke vs malignancy
-EEG did not show any underlying seizure activity
-Patient cannot get MRI brain as patient PPM not compatible
-Patient got 4 days of steroids, discontinued further steroids
-CT brain with and without IV contrast did not show any new findings.
-Currently on oral Keppra 500 mg twice daily. Maintain at discharge per neuro recommendation.
Hyponatremia - resolved
-Presumed euvolemic in nature
-Urine sodium of 58 and urine respiratory 390
-Patient got 3% normal saline by nephro
Cardiac arrest
-Brief PEA arrest after patient was moved in ICU
-Required 2 minutes of CPR with ROSC achieved
Troponin elevation
-Presumed nonischemic cardiomyopathy with ongoing septic shock
echo 03/07 with EF 35%; appears to have ICM with similar EF. not compliant with follow up with [facility]. Does have ICD thats very old. Plan for change today
couple small episodes of VT; hypomagnesemia, replete
PIO - resolved
-Likely prerenal in nature with ongoing shock
-Indwelling Friedman catheter in place
Lactic acidosis - resolved
Metabolic acidosis - resolved
-Patient had significant lactic acidosis with LA 10, now resolved
-Have some persistent metabolic acidosis likely from PIO/need of hyperchloremic fluid
Type II DM
Hypoglycemia
-Hbga1c 7.3
-Insulin drip has been discontinued.
holding insulin; cw PO meds
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
Hypocalcemia
monitor
nephro following
Fall
-patient had a mechanical fall in bathroom 03/06
-no reported head trauma
CT neg
Full code
Heparin subq
General: No Apparent Distress
HEENT: Negative Oxygen
Respiratory: Clear to Auscultation
Cardiac: Regular Rhythm and S1/S2; Negative Murmur
GI: Soft, Nontender and Nondistended
Neuro: Awake, Alert, Oriented and No Motor Deficit
I spent a total of 51 minutes with the patient or on the floor. More than 50% of this time involved counseling and coordination of care.
Anticipated Discharge: > 48 hours
Subjective/Interval History
-
Date of Service: March 08, 2024
denies pain
Objective Data
-
Labs:
Laboratory Results
03/08/24
07:13
WBC 9.9
Hgb 10.8 L
Hct 31.1 L
Plt Count 349
Sodium 138
Potassium 4.5
Chloride 100
Carbon Dioxide 24
BUN 19
Creatinine 1.0
Glucose 100 H
Calcium 8.1 L
Vital Signs:
Vital Signs
Temp Pulse Resp BP Pulse Ox
97.6 F 53 16 131/73 99
03/08/24 11:00 03/08/24 11:00 03/08/24 11:00 03/08/24 11:00 03/08/24 11:00
I&O
03/07/24 03/08/24 03/09/24
06:59 06:59 06:59
Intake Total 1440 / 1440 1655 / 1655
Output Total 1000 / 1000 1050 / 1050
Balance 440 / 440 605 / 605
--- NOTE | 2024-03-08 15:47 | ITS.CL.ICD ---
Mat Machine Tender - ICD
Implantable Cardioverter Defibrillator
Procedure Report:
Dual Chamber Implantable Cardioverter Defibrillator Generator Change:
Mr. Durham is a very pleasant 58 years old gentleman with ischemic cardiomyopathy with chronic systolic heart failure with severe baseline bradycardia s/p a dual chamber Medtronic ICD who had lost to follow up and the ICD is completely depleted of
battery is here for generator change.
Indications: Severe systolic dysfunction s/p dual chamber ICD now with completely depleted of battery with severe bradycardia.
Date of the Procedure: 03/08/2024
Pre-Operative Diagnosis: Ischemic cardiomyopathy
Post-Operative Diagnosis: Ischemic cardiomyopathy
Procedure Performed: DUAL CHAMBER IMPLANTABLE CARDIOVERTER DEFIBRILLATOR GENERATOR CHANGE
Performing Physician:
Nelia Sloan MD
Assistants:
EP staff
Anesthesia:
See anesthesia records
Detailed Description of the Procedure:
The patient was identified using hospital identification and informed consent obtained for the procedure. The risks were explained including, but not limited to: Bleeding, infection, arrhythmia, stroke, vascular/cardiac/lung puncture, surgery,
pacemaker dependency/device malfunction. All questions were answered.
The patient was brought to the electrophysiology laboratory in stable condition in fasting state. Continuous electrocardiographic and hemodynamic monitoring was initiated.
The initial rhythm was sinus bradycardia. The device was with no ability to test the leads or the generator history.
�
The procedure site was meticulously prepared with surgical scrub and allowed to dry with no pooling. Sterile draping was applied to cover the procedure site. The image intensifier was draped with sterile bag and positioned over the patient.
The left infraclavicular region was prepped and draped in the usual sterile fashion. Local anesthesia was administered subcutaneously using 1% lidocaine / bupivacaine. The incision was made on the previous scar. The old ICD generator was accessed
and the adhesions were removed with care to avoid damage to the leads. The ICD capsule was cut to access the generator. The old device was removed from the body. The Weitlaner retractor was placed in the incision and used as access to skin for
unipolar pacing.
The leads were gradually removed and placed in the respective locations in the newer generator.
The leads were tested. The atrial lead is working well and started pacing the heart immediately. The RV ICD lead was tested and it has normal functioning pacing electrodes but the ICD coil is fractured and had defib impedance of > 3000 ohm.
Patient was not consented for additional lead placement or extraction. Hence the lead was not replaced. The lead is functioning normally as a pacing lead but cannot function as a shock lead.
The tachy therapies were turned off. Decision was made to discuss with patient regarding further plan of action before placing a new lead or keeping the fractured lead.
�
The old pocket and capsule was modified and the excessive scar was removed. A TYRX absorbable antibacterial envelope was used and the device was placed in the pouch with leads and placed in the modified pocket. There was excellent sensing, pacing,
and impedance from the leads.�Bovie cautery, and antibiotics were used.
The wound was irrigated thoroughly with antibiotic solution and closed in 3 layers using 2-0, Vloc sutures followed by two layers of 4-0 V loc sutures. Steri-Strips and a bandage were applied externally.�
Procedure End:
The procedure was tolerated well. A bandage was applied to the incision area.
Estimated Blood loss:
1 cc
Fluoro time:
0 min
Specimens Removed:
No cultures and no specimens were obtained. No intraoperative pathology was identified.
Urine output:
None
Packs / Drains/ Tubes:
None
Instrument / Sponge Count Correct:
Yes
Complications of the Procedure:
None
Condition of Patient at Time of Transfer:
Hemodynamically stable with no neurological or vascular compromise.
Explanted device:
ICD device generator: Model: [id number]; serial number: [id number]
Implanted on 04/21/2013; explanted on 03/08/2024
Device information:�
Generator: Medtronic; Model: [id number]; Serial # [id number]�
Atrial Lead: Medtronic; Model: 4076-52; Serial # [id number] �
Measured data in the right atrium was sensing of 2.5 mV of AF waves, impedance of 342 ohms and threshold of 0.5 V at 0.4ms�
RV Lead: Medtronic; Model: [id number]-[id number]; Serial # [id number]
Measured data in the RV lead was sensing of 8.1 mV, impedance of 323ohms and threshold of 0.5 V at 0.4ms�
Shock impedance is more than 3000 ohms
PROGRAMMING PARAMETERS:�
Hi parameter settings were AAIR <=>DDDR 50-130 bpm. �
����������� Mode switch: On
����������� Paced AV delay: 130 ms
����������� Sensed AV delay: 100 ms
����������� Rate Adaptive A-V Interval: Off
Output parameters:
����������������������� Amplitude (V)������������� Pulse Width (ms)������� Sensitivity (mV)
����������� RA: ����� 3.5 ����������������� 0.4������������������ 0.3
����������� RV:������ 3.5������������������ 0.4������������������ 0.3
Tachy parameter settings:
����������� Tachy therapies are off due to ICD lead fracture.
�����������
Summary:
Successful generator change of dual chamber Medtronic ICD pacemaker. ICD lead fracture noted involving the ICD coil with normal functioning pacing electrodes
Results/Recommendations:
1. Please provide patient with adequate pain control�
Instructions to be given to patient:�
- Please follow up with [facility] at [address] [place] [address] ([phone]) to get your wound checked within 7 days of your discharge.
- Do not wet incision site until after it is evaluated at cardiology clinic. No showers until then. Sponge baths are OK.�
- Allow 'steri strips' to fall off on their own�
- Do not lift left elbow above shoulder, particularly with sudden jerking movements, for 1 month�
- Do not lift anything weighing more than 5 pounds with the left arm for 1 month�
- If you notice any fevers, shortness of breath, lightheadedness, chest pain, or worsening swelling in the wound site, please contact the arrhythmia clinic, contact your pattern wheel maker, or present to the hospital for evaluation.�
Nelia Sloan MD
Electrophysiology
[2024-03-08 16:26] LABS: Glucose - Point of Care 77 mg/dl (70-99)
[2024-03-08] MEDS: COREG 3.125 MG PO (19:18)
[2024-03-08] MEDS: MELATONIN 3 MG PO (20:05)
[2024-03-08 21:32] LABS: Glucose - Point of Care 125 mg/dl (70-99)
[2024-03-08] MEDS: MOTRIN 600 MG PO (21:35)
[2024-03-08] MEDS: LIPITOR 40 MG PO (21:35)
[2024-03-09] VITALS (7 sets, daily range): BP systolic 129–148; BP diastolic 64–89; BMI 29.2
[2024-03-09 07:20] LABS: % Basophils 0.2 % (0-2); % Immature Granulocytes 3.1 % (0-0.5); % Lymphocytes 21.7 % (20.5-51.1); % Monocytes 8.7 % (1.7-9.3); % Neutrophils 64.3 % (42.2-75.2); Absolute Eosinophils 0.2 10^3/uL (0-0.7); Absolute Immature Granulocytes 0.3 10^3/uL (0-0.05); Absolute Lymphocytes 1.7 10^3/uL (1.2-3.4); Absolute Monocytes 0.7 10^3/uL (0.1-0.6); Absolute Neutrophils 5.2 10^3/uL (1.4-6.5); Hematocrit 30.3 % (39.0-52.0); Hemoglobin 10.2 g/dL (13.0-18.0); Mean Corp Hgb Conc. 33.7 g/dL (33.0-37.0); Mean Corpuscular Hgb 29.3 pg (27.0-31.0); Mean Corpuscular Volume 87.1 fL (80.0-94.0); Mean Platelet Volume 10.1 fL (7.4-10.4); Nucleated Red Blood Cells % 0 % (-); Platelet Count 394 10^3/uL (130-400); Red Blood Cell Count 3.48 10^6/uL (4.70-6.10)
[2024-03-09 07:50] LABS: Blood Urea Nitrogen 15 mg/dl (9-20); Calcium 8.5 mg/dl (8.4-10.2); Carbon Dioxide 22 mmol/L (22-30); Chloride 102 mmol/L (98-107); Estimated Creatinine Clearance 84 ml/min; Glucose 89 mg/dl (70-99); Potassium 4.6 mmol/L (3.5-5.1); Sodium 137 mmol/L (135-145); eGFR > 60.00
--- NOTE | 2024-03-09 07:59 | W.PN.CD ---
Today's Communication / Plan
-
-Uptitrate Coreg to 6.25mg BID
-Continue low dose [id number] mg BID.
-Browning SGLT2 and Entresto
Impression / Plan
-
.
Strep bacteremia, treating as group A strep meningitis presented with headache syncope and seizures right otitis media with perforated TM and pharyngitis suspected source based on ID consult.
-ID following, on abx
-Bacteremia and fractured ICD lead
-Indications fro extraction. Explained to the patient. Not interested at this time and wants a conservative approach for now.
ICD in place:
-s/p dual chamber ICD -04/21/2013 - s/p Gen change on 03/08/24 after complete depletion of the battery. Possible inappropriate shocks given fractured ICD lead and complete depletion in 10 years.
- now Gen changed but ICD lead is non functional. Pacer electrodes are working and can be used as DDD pacemaker. Currently atrially paced
-Options were discussed with the patient in detail.
- Conservative approach with antibiotics and keep pacemaker function without defibrillator function. He understands if he goes into a dangerous rhythm that this deice cannot treat him for that.
- Placement of a second ICD lead on the left or the right side if venous occlusion then tunneled to left side and cap the fractured ICD lead
- Third option is the remove the ICD system and replace with a new ICD richelle with infection, fractured and possible venous occlusion.
- Patient is not interested in dangerous options at this time and wants to pursue conservative approach
ICM:
-diagnosed in 2012 with primary prevention ICD in place.
-ECHO 03/07/24: LVEF 35%. global hypokinesis.
-Echo from records in chart ([place]) - Echo 12/31/2022: EF 30-35%, global hypokinesis with regional variation, moderately severe septal hypokinesis
-Now ICD pacing, can restart Coreg at appropriate BID dosing
-Continue low dose valsartan and adjust as able (rather than OP lisinopril). Browning SGLT2 and Entresto.
CAD with history of stenting:
-continue ASA, statin
-denies CP
Bradycardia.
- Now atrially paced
- atrially paced with MVP mode.
.
NSVT. 8 beats. Without symptoms. Continue low-dose beta-han.
Abnormal troponin: 0.228
-acute non-ischemic myocardial injury in setting of acute illness, septic shock, PIO
-no CP or SOB
DM:
-per primary
Physical Exam
Vital Signs/Labs
Vital Signs
Temp Pulse Resp BP Pulse Ox
98.6 F 63 19 135/80 97
03/09/24 07:41 03/09/24 07:41 03/09/24 07:41 03/09/24 07:41 03/09/24 07:41
03/08/24 03/09/24 03/10/24
06:59 06:59 06:59
Actual Weight 92.193 kg
03/09/24 06:45
03/09/24 06:45
PT 14.0 Sec (11.4-14.6) 03/03/24 08:15
INR 1.08 03/03/24 08:15
APTT 38.8 Sec (23.4-35.0) H 02/29/24 20:37
Magnesium 1.5 mg/dl (1.6-2.3) L 03/07/24 09:49
Triglycerides 165 mg/dl (10-149) H 03/03/24 05:25
LDL Cholesterol, Calc 2 mg/dl 03/01/24 02:36
VLDL Cholesterol, Calc 65 mg/dl (0-30) H 03/01/24 02:36
HDL Cholesterol 22 mg/dl 03/01/24 02:36
Physical Exam
Constitutional: No acute distress and Comfortable
EENT: Anicteric and Moist mucous membranes
Cardiovascular: Rhythm & rate is regular, Pedal edema is absent and JVD pressure is normal
Respiratory: Respiratory effort normal, Wheeze Absent and Crackles Absent
GI: Soft, Flat, Non tender and Normal bowel sounds
Neuro/Psych: Alert, Oriented and AO x 3
Other: Cardiac Device Site
Data Reviewed
-
Date of Service: March 09, 2024
Medical Decision Making: Reviewed Test Results, Test Interpretation and Review of Case with other Provider
EKG: Tracing Personally Visualized and interpreted
Echo: Report Reviewed by me
X-Ray/CT/US/MRI/NUC/PET: Image Personally Visualized and interpreted
Labs: Labs Reviewed by me
Old Records: Reviewed
[2024-03-09 08:00] LABS: Glucose - Point of Care 168 mg/dl (70-99)
[2024-03-09] MEDS: ROCEPHIN 2000 MG IV ×2 (08:49→20:39)
[2024-03-09] MEDS: STERILE WATER FOR INJECTION 20 ML IV ×2 (08:49→20:39)
--- NOTE | 2024-03-09 08:49 | PN.DE.MGMTRT ---
Insulin Management
- -
03/09/2024 Diabetes Management Follow up:
Patient admitted 02/28 from [facility], septic shock, questionable seizure, hyponatremia, PIO. PMHCAD, HTN, HCL, diabetes. Prior to admission since 09/05 has been receiving glipizide 5 mg daily with metformin 1000 mg BID. Prior to [facility] was taking no
medications or managing diabetes. A1C 7.3%, cr 1.4, eGFR 58.62.
Transitioned off glycemic protocol with 20 units Lantus and AC NovoLog 4 units with moderate corrective and resumed glipizide and metformin.
Pt awake, A/O X3, sitting up on bed, offers no complaints, able to discuss diabetes mgt
Weaned off IV steroids on 03/03. Insulin stopped 03/07 Glucose range 77 to 125, fasting 89 this AM.
Will continue Glipizide 5mg daily and Metformin 1000 mg BID.
Will follow for further needed adjustments.
Diabetes History
- -
Type of Diabetes: 2
Pre-Admission Diabetes Regimen
03/08/24 03/09/24
07:13 06:45
Creatinine 1.0 1.0
Lab Results
Hemoglobin A1c 7.3 % (4.0-5.6) H 03/01/24 02:36
Insulin Pump Settings
IP Diabetes Regimen
03/08/24 03/08/24 03/08/24
07:13 11:24 16:25
Glucose 100 H
POC Glucose 113 H 77
03/08/24 03/09/24 03/09/24
21:31 06:45 07:58
Glucose 89
POC Glucose 125 H 168 H
Patient Education
[2024-03-09] MEDS: DIOVAN 20 MG PO ×2 (08:53→20:37)
[2024-03-09] MEDS: ASPIR LOW (ENTERIC COATED) 81 MG PO (08:54)
[2024-03-09] MEDS: GLUCOPHAGE 1000 MG PO ×2 (08:55→16:57)
[2024-03-09] MEDS: KEPPRA 500 MG PO ×2 (08:56→20:38)
[2024-03-09] MEDS: PROTONIX 40 MG PO (08:56)
[2024-03-09] MEDS: NOVOLOG FLEXPEN-MODERATE RESISTANCE 1 UNITS SC (08:58)
[2024-03-09] MEDS: COREG 3.125 MG PO ×2 (08:58→20:38)
[2024-03-09] MEDS: NICODERM TRANSDERMAL 14 MG TRANSDERM (09:01)
[2024-03-09] MEDS: ZOLOFT 100 MG PO (09:01)
[2024-03-09] MEDS: MYCOSTATIN ORAL SUSPENSION 5 ML PO ×4 (09:02→20:38)
[2024-03-09] MEDS: GLUCOTROL 5 MG PO (09:04)
[2024-03-09] MEDS: TYLENOL 650 MG TUBE ×2 (09:04→20:37)
[2024-03-09] MEDS: HEPARIN 5000 UNITS SC ×3 (09:06→23:29)
[2024-03-09] MEDS: FLUSH (NSS) IV ×2 (09:06)
[2024-03-09] MEDS: MIRALAX 17 GRAMS TUBE (09:08)
--- NOTE | 2024-03-09 10:03 | CM ---
Addendum entered by Jeny Doss 03/09/24 10:07:
[facility]
Original Note:
Chart reviewed and patient has been released by [facility], plan will be to confirm that patient has no medical insurance. Per notes patient will need medications at discharge.
Plan; To confirm that patient does not have any insurance prior to his admission to [facility].
[2024-03-09 11:43] LABS: Glucose - Point of Care 145 mg/dl (70-99)
[2024-03-09] MEDS: NOVOLOG FLEXPEN-MODERATE RESISTANCE SC ×2 (11:46→16:55)
--- NOTE | 2024-03-09 12:53 | W.PN.HOSP.TC ---
Today's Communication/Plan
-
Monitor vital signs see plan
Patient will need medication assistance upon discharge
Continue with current medications
Continue abx
Assessment / Plan
Assessment / Plan
CT head
There is a 12 mm low-density lesion at the right temporoparietal junction lateral to the atrium of the right lateral ventricle. This lesion is most likely ischemic in origin, however, given the patient's clinical history, follow-up imaging with
contrast-enhanced MRI is recommended to exclude more aggressive pathology/neoplasm.

Septic Shock
Strep pyogenes bacteremia
Likely 2/2 suppurative otitis media with perforated eardrum
Rule out bacterial meningitis/encephalitis
-Patient found to be in septic shock in ER, not improved with IV hydration
-WBCs has trended down. Patient is off of vasopressors
-Patient was complaining right ear pain for few day and on otoscope exam have dried up purulent drainage in right ear with likely perforated eardrum
-Chest x-ray/UA is clear. Respiratory culture collected. Throat culture negative for rapid strep.
-Blood culture growing Strep pyogenes both sets. recent bcx NGTD
-Serum test positive for antistreptolysin O antibody/titer of 400 (Upper normal 200)
-Patient on Rocephin 2 g every 12 hours, last dose 03.10.24
Ventilator dependent respiratory failure - Resolved
Acinetobacter in respiratory culture
-Patient had seizure episode in radiology department and required to be intubated for airway protection
-Patient having extubated and on room air
-Patient have known drug-resistant Acinetobacter in sputum, no treatment required.
Seizure episode
-Unclear if patient have previous history of any seizures/epilepsy. Not on any meds
-CT head finding as above, patient will benefit with MRI brain without contrast to rule out any septic emboli(clinical less likely as solitary lesion) versus ischemic stroke vs malignancy
-EEG did not show any underlying seizure activity
-Patient cannot get MRI brain as patient PPM not compatible
-Patient got 4 days of steroids, discontinued further steroids
-CT brain with and without IV contrast did not show any new findings.
-Currently on oral Keppra 500 mg twice daily. Maintain at discharge per neuro recommendation.
Hyponatremia - resolved
-Presumed euvolemic in nature
-Urine sodium of 58 and urine respiratory 390
-Patient got 3% normal saline by nephro
Cardiac arrest
-Brief PEA arrest after patient was moved in ICU
-Required 2 minutes of CPR with ROSC achieved
Troponin elevation
-Presumed nonischemic cardiomyopathy with ongoing septic shock
echo 03/07 with EF 35%; appears to have ICM with similar EF. not compliant with follow up with [facility]. Does have ICD thats very old. s/p ICD generator change 03/08; per EP his ICD lead is fractured without defibrillator function. He is
aware that his ICD will not fire if he needs it. Currently he is ICD pacing. Coreg restarted. Also started on low-dose valsartan. Electrophysiology discussed with patient regarding options with new ICD however he currently wants to pursue
conservative measures knowing
couple small episodes of VT; hypomagnesemia, replete
PIO - resolved
-Likely prerenal in nature with ongoing shock
-Indwelling Friedman catheter in place
Lactic acidosis - resolved
Metabolic acidosis - resolved
-Patient had significant lactic acidosis with LA 10, now resolved
-Have some persistent metabolic acidosis likely from PIO/need of hyperchloremic fluid
Type II DM
Hypoglycemia
-Hbga1c 7.3
-Insulin drip has been discontinued.
holding insulin; cw PO meds
diabetes JOB PLACEMENT SPECIALIST following
Hypocalcemia
monitor
nephro following
Fall
-patient had a mechanical fall in bathroom 03/06
-no reported head trauma
CT neg
Full code
Heparin subq
General: No Apparent Distress
HEENT: Negative Oxygen
Respiratory: Clear to Auscultation
Cardiac: Regular Rhythm and S1/S2; Negative Murmur
GI: Soft, Nontender and Nondistended
Neuro: Awake, Alert, Oriented and No Motor Deficit
I spent a total of 52 minutes with the patient or on the floor. More than 50% of this time involved counseling and coordination of care.
Anticipated Discharge: 24 - 48 hours
Subjective/Interval History
-
Date of Service: March 09, 2024
denies nausea
Objective Data
-
Labs:
Laboratory Results
03/09/24
06:45
WBC 8.0
Hgb 10.2 L
Hct 30.3 L
Plt Count 394
Sodium 137
Potassium 4.6
Chloride 102
Carbon Dioxide 22
BUN 15
Creatinine 1.0
Glucose 89
Calcium 8.5
Vital Signs:
Vital Signs
Temp Pulse Resp BP Pulse Ox
97.4 F 61 19 132/71 97
03/09/24 11:17 03/09/24 11:17 03/09/24 11:17 03/09/24 11:17 03/09/24 11:17
I&O
03/08/24 03/09/24 03/10/24
06:59 06:59 06:59
Intake Total 1655 / 1655 1680 / 1680
Output Total 1050 / 1050 240 / 240
Balance 605 / 605 1440 / 1440
[2024-03-09 16:54] LABS: Glucose - Point of Care 93 mg/dl (70-99)
[2024-03-09] MEDS: MOTRIN 600 MG PO (18:12)
[2024-03-09] MEDS: LIPITOR 40 MG PO (20:37)
[2024-03-09] MEDS: FLUSH (NSS) 1 FLUSH IV ×2 (20:38→20:39)
[2024-03-09 21:29] LABS: Glucose - Point of Care 124 mg/dl (70-99)
[2024-03-10 03:00] VITALS: BP 145/87
[2024-03-10 03:40] VITALS: BP 124/67
[2024-03-10 06:00] VITALS: BMI 28.7
[2024-03-10 07:12] LABS: % Basophils 0.4 % (0-2); % Eosinophils 2.1 % (0-6); % Immature Granulocytes 2.1 % (0-0.5); % Monocytes 8.8 % (1.7-9.3); % Neutrophils 62.6 % (42.2-75.2); Absolute Eosinophils 0.2 10^3/uL (0-0.7); Absolute Immature Granulocytes 0.2 10^3/uL (0-0.05); Absolute Lymphocytes 1.7 10^3/uL (1.2-3.4); Absolute Monocytes 0.6 10^3/uL (0.1-0.6); Absolute Neutrophils 4.4 10^3/uL (1.4-6.5); Hemoglobin 10.9 g/dL (13.0-18.0); Mean Corp Hgb Conc. 34.1 g/dL (33.0-37.0); Mean Corpuscular Hgb 30.4 pg (27.0-31.0); Mean Corpuscular Volume 89.4 fL (80.0-94.0); Mean Platelet Volume 9.8 fL (7.4-10.4); Nucleated Red Blood Cells % 0 % (-); Platelet Count 339 10^3/uL (130-400); Red Blood Cell Count 3.58 10^6/uL (4.70-6.10); White Blood Cell Count 7.1 10^3/uL (4.8-10.8)
[2024-03-10 07:35] VITALS: BP 112/71
[2024-03-10 07:48] LABS: Glucose - Point of Care 117 mg/dl (70-99)
--- NOTE | 2024-03-10 07:59 | PN.DE.MGMTRT ---
Insulin Management
- -
03/10/2024 Diabetes Management Follow up:
Patient admitted 02/28 from [facility], septic shock, questionable seizure, hyponatremia, PIO. PMHCAD, HTN, HCL, diabetes. Prior to admission since 09/05 has been receiving glipizide 5 mg daily with metformin 1000 mg BID. Prior to [facility] was taking no
medications or managing diabetes. A1C 7.3%, cr 1.4, eGFR 58.62.
Transitioned off glycemic protocol with 20 units Lantus and AC NovoLog 4 units with moderate corrective and resumed glipizide and metformin.
Pt awake, A/O X3, sitting up on bed, offers no complaints, able to discuss diabetes mgt
Weaned off IV steroids on 03/03. Insulin stopped 03/07 Glucose range 93 to 145, fasting 117 this AM.
Will continue Glipizide 5mg daily and Metformin 1000 mg BID.
Will follow for further needed adjustments.
Diabetes History
- -
Type of Diabetes: 2
Pre-Admission Diabetes Regimen
Lab Results
Hemoglobin A1c 7.3 % (4.0-5.6) H 03/01/24 02:36
Insulin Pump Settings
IP Diabetes Regimen
03/09/24 03/09/24 03/09/24
07:58 11:41 16:53
POC Glucose 168 H 145 H 93
03/09/24 03/10/24
21:28 07:47
POC Glucose 124 H 117 H
Meal type: Breakfast
Amount consumed: 100%
Patient Education
[2024-03-10 08:28] LABS: Blood Urea Nitrogen 16 mg/dl (9-20); Calcium 8.7 mg/dl (8.4-10.2); Carbon Dioxide 23 mmol/L (22-30); Chloride 102 mmol/L (98-107); Estimated Creatinine Clearance 84 ml/min; Glucose 118 mg/dl (70-99); Magnesium 1.6 mg/dl (1.6-2.3); Potassium 4.7 mmol/L (3.5-5.1); Sodium 136 mmol/L (135-145); eGFR > 60.00
--- NOTE | 2024-03-10 10:02 | CM ---
Addendum entered by Marzena Zoey 03/10/24 15:44:
[facility] contacted by to inquire about patient clothing.
[facility] was on a Medical Furlough and he will be returning to custody.
[facility] will come to pick him up and return him to [facility].
Nursing and MD updated.
Patient unaware of return to [facility] at the request of [facility].
Addendum entered by Marzena Greer 03/10/24 14:31:
TC to [place] medicaid, they do not have patient as having Medicaid.
Spoke with Erika from [facility], she spoke with patient and per patient disclosures, his income is too high.
Informations for [employer] given to patient to contact for insurance choices.
Information for the [facility] provided.
Information re medications costs and comparisons between [facility] and [facility] provided to patient.
Discussed [facility].
Patient chose [facility] for his scripts to be sent to, MD updated.
Patient requested $1 for [employer].
Patient was also provide with [facility] [employer] times and $1 to take the [facility] to [facility] where he will connect with [facility].
Per patient he lives [place] and power/water i s turned on.
Patient with no further requests or questions.
Original Note:
Patient seen bedside.
Patient stated he lives alone in a house in [place].
Does not work, collects SS/Disability.
patient stated he does have medicaid, card is at home.
Patient stated he gets his medications at [facility].
$4 prescriptions list from [facility] presented to patient if needed.
Patient stated he would need $1 to get home via bus.
[facility]
TC to [facility]/admissions to research if patient has medicaid.
Plan: home when stable.
[2024-03-10] MEDS: MOTRIN 600 MG PO (11:26)
[2024-03-10] MEDS: ZOLOFT 100 MG PO (11:37)
[2024-03-10] MEDS: GLUCOTROL 5 MG PO (11:37)
[2024-03-10] MEDS: KEPPRA 500 MG PO (11:37)
[2024-03-10] MEDS: NOVOLOG FLEXPEN-MODERATE RESISTANCE SC (11:38)
[2024-03-10] MEDS: DIOVAN 20 MG PO (11:39)
[2024-03-10] MEDS: PROTONIX 40 MG PO (11:39)
[2024-03-10] MEDS: ASPIR LOW (ENTERIC COATED) 81 MG PO (11:39)
[2024-03-10] MEDS: NICODERM TRANSDERMAL 14 MG TRANSDERM (11:40)
[2024-03-10] MEDS: MYCOSTATIN ORAL SUSPENSION PO ×3 (11:41→13:15)
[2024-03-10] MEDS: COREG 3.125 MG PO (11:41)
[2024-03-10] MEDS: HEPARIN 5000 UNITS SC (11:42)
[2024-03-10] MEDS: MIRALAX TUBE ×2 (11:42→11:50)
[2024-03-10 11:44] LABS: Glucose - Point of Care 156 mg/dl (70-99)
[2024-03-10] MEDS: GLUCOPHAGE 1000 MG PO (11:44)
[2024-03-10 11:53] VITALS: BP 153/89
[2024-03-10] MEDS: NOVOLOG FLEXPEN-MODERATE RESISTANCE 1 UNITS SC (11:53)
[2024-03-10] MEDS: STERILE WATER FOR INJECTION 20 ML IV (12:05)
[2024-03-10] MEDS: ROCEPHIN IV ×2 (12:05→12:27)
[2024-03-10] MEDS: FLUSH (NSS) IV ×4 (12:08→12:28)
--- NOTE | 2024-03-10 12:27 | W.PN.HOSP.TC ---
Today's Communication/Plan
-
Monitor vital signs see plan
Discharge today
Discussed with ID, 1 dose Levaquin oral before discharge as he did not get his ceftriaxone today
Patient will follow with cardiology outpatient
Discussed with ID, no need for further antibiotics
Time of discharge 38 minutes
Assessment / Plan
Assessment / Plan
CT head
There is a 12 mm low-density lesion at the right temporoparietal junction lateral to the atrium of the right lateral ventricle. This lesion is most likely ischemic in origin, however, given the patient's clinical history, follow-up imaging with
contrast-enhanced MRI is recommended to exclude more aggressive pathology/neoplasm.

Septic Shock
Strep pyogenes bacteremia
Likely 2/2 suppurative otitis media with perforated eardrum
Suspected meningitis/encephalitis
-Patient found to be in septic shock in ER, not improved with IV hydration
-WBCs has trended down. Patient is off of vasopressors
-Patient was complaining right ear pain for few day and on otoscope exam have dried up purulent drainage in right ear with likely perforated eardrum
-Chest x-ray/UA is clear. Respiratory culture collected. Throat culture negative for rapid strep.
-Blood culture growing Strep pyogenes both sets. recent bcx NGTD
-Serum test positive for antistreptolysin O antibody/titer of 400 (Upper normal 200)
-Patient on Rocephin 2 g every 12 hours, last dose 03.10.24
Ventilator dependent respiratory failure - Resolved
Acinetobacter in respiratory culture
-Patient had seizure episode in radiology department and required to be intubated for airway protection
-Patient having extubated and on room air
-Patient have known drug-resistant Acinetobacter in sputum, no treatment required.
Seizure episode
-Unclear if patient have previous history of any seizures/epilepsy. Not on any meds
-CT head finding as above, patient will benefit with MRI brain without contrast to rule out any septic emboli(clinical less likely as solitary lesion) versus ischemic stroke vs malignancy
-EEG did not show any underlying seizure activity
-Patient cannot get MRI brain as patient PPM not compatible
-Patient got 4 days of steroids, discontinued further steroids
-CT brain with and without IV contrast did not show any new findings.
-Currently on oral Keppra 500 mg twice daily. Maintain at discharge per neuro recommendation.
Hyponatremia - resolved
-Presumed euvolemic in nature
-Urine sodium of 58 and urine respiratory 390
-Patient got 3% normal saline by nephro
Cardiac arrest
-Brief PEA arrest after patient was moved in ICU
-Required 2 minutes of CPR with ROSC achieved
Troponin elevation
-Presumed nonischemic cardiomyopathy with ongoing septic shock
echo 03/07 with EF 35%; appears to have ICM with similar EF. not compliant with follow up with [facility]. Does have ICD thats very old. s/p ICD generator change 03/08; per EP his ICD lead is fractured without defibrillator function. He is
aware that his ICD will not fire if he needs it. Currently he is ICD pacing. Coreg restarted. Also started on low-dose valsartan. Electrophysiology discussed with patient regarding options with new ICD however he currently wants to pursue
conservative measures knowing
couple small episodes of VT; hypomagnesemia, replete
PIO - resolved
-Likely prerenal in nature with ongoing shock
-Indwelling Friedman catheter in place
Lactic acidosis - resolved
Metabolic acidosis - resolved
-Patient had significant lactic acidosis with LA 10, now resolved
-Have some persistent metabolic acidosis likely from PIO/need of hyperchloremic fluid
Type II DM
Hypoglycemia
-Hbga1c 7.3
-Insulin drip has been discontinued.
holding insulin; cw PO meds
diabetes CARDIOLOGY NURSE following
Hypocalcemia
monitor
nephro following
Fall
-patient had a mechanical fall in bathroom 03/06
-no reported head trauma
CT neg
Full code
Heparin subq
General: No Apparent Distress
HEENT: Negative Oxygen
Respiratory: Clear to Auscultation
Cardiac: Regular Rhythm and S1/S2; Negative Murmur
GI: Soft, Nontender and Nondistended
Neuro: Awake, Alert, Oriented and No Motor Deficit
Anticipated Discharge: Today
Subjective/Interval History
-
Date of Service: March 10, 2024
denies pain
Objective Data
-
Labs:
Laboratory Results
03/10/24
06:58
WBC 7.1
Hgb 10.9 L
Hct 32.0 L
Plt Count 339
Sodium 136
Potassium 4.7
Chloride 102
Carbon Dioxide 23
BUN 16
Creatinine 1.0
Glucose 118 H
Calcium 8.7
Vital Signs:
Vital Signs
Temp Pulse Resp BP Pulse Ox
98.8 F 62 18 153/89 98
03/10/24 11:53 03/10/24 11:53 03/10/24 11:53 03/10/24 11:53 03/10/24 11:53
I&O
03/09/24 03/10/24 03/11/24
06:59 06:59 06:59
Intake Total 1680 / 1680 1320 / 1320
Output Total 240 / 240
Balance 1440 / 1440 1320 / 1320
[2024-03-10] MEDS: LEVAQUIN 750 MG PO (13:22)
--- NOTE | 2024-03-10 13:23 | W.DCSUMMARY ---
Discharge Summary
Discharge Data
Date of Admission: 02/29/24
Date of Discharge: 03/10/24
-
Pending Results: No
Hospital Course
58-year-old male with past medical history of cardiomyopathy status post AICD, diabetes mellitus type 2 came to the hospital from senior care after syncopal episode with right ear pain and sore throat. Admission patient was found to be in septic shock.
While he was in CT scan, he developed seizure. Patient was then admitted to ICU and was intubated for airway protection. Patient continued to be on IV antibiotics. While he was hospitalized, he was followed by air carrier operations inspector, infectious disease,
neurology and cardiology. Over time his sepsis continue to improve and he was able to be extubated. His blood cultures were positive for Streptococcus pyogenes. Patient was treated for suspected meningitis/encephalitis with IV antibiotics.
Patient finished the course of antibiotics prior to discharge. While he was hospitalized, in ICU he also went into brief episode of PEA arrest. He achieved ROSC after 2 minutes of CPR. He also had mild troponin elevation and had an echocardiogram
which showed EF of 35%. Cardiology was then involved and it appeared that patient has history of cardiomyopathy and his EF has not been changed much compared to previous echocardiogram. However he was bradycardic and through his ICD interrogation
it was determined that he needs a generator change. Electrophysiology was then involved who took him to the OR for ICD generator change on 03/08/2024. There it appeared that his ICD lead was also fractured and electrophysiology recommended ICD
change however patient wanted conservative approach and refused the procedure. Patient hospital course was also complicated due to him not being compliant and does not have insurance. On discharge he was instructed clearly to continue to take all
his medications. He was also instructed to follow-up with all his physicians outpatient. Since his symptoms continue to improve after finishing his antibiotics, he was then discharged back to senior care with instructions to follow-up with all his
physicians outpatient.
Discharge Plan
-
Patient Disposition: Correction
Discharge Diagnosis/Procedures: Septic shock secondary to streptococcus pyogenes bacteremia
Otitis media with perforated eardrum
Suspected meningitis/encephalitis
Seizure
suspected ischemic CVA
History of cardiomyopathy with ICD status post ICD generator
Diet: As tolerated
Activity: As tolerated
Driving Restrictions: No driving
Bathing Restrictions: OK to Shower
Stand Alone Forms: [facility] - Implanted Device
Referrals:
[facility]- [facility] [Provider Group] - 03/16/24 10:40 am (Incision check appointment)
[facility] [Active Community] - in less than 1 week
Demar Diaz MD [Active] - in less than 1 week
Mika Dietrich MD [Active] - in less than 1 week
Zacarias Cavazos MD [Active] - in one to two weeks
Leanna Lew MD [Active] -
Prescriptions:
New
nystatin 100,000 unit/mL Suspension
5 ml PO QID Qty: 473 0RF
levetiracetam 500 mg Tablet
500 mg PO BID Qty: 60 0RF
valsartan 40 mg Tablet
20 mg PO BID Qty: 30 0RF
nicotine 14 mg/24 hr Patch 24 Hour
14 mg transdermal DAILY Qty: 30 0RF
pantoprazole 40 mg Tablet,Delayed Release (Dr/Ec)
40 mg PO DAILY Qty: 30 0RF
Continued
thiamine HCl (vitamin B1) 100 mg Tablet
100 mg PO DAILY
therapeutic multivitamin Tablet
1 tab PO DAILY
ibuprofen 200 mg Tablet
400 mg PO BIDPRN PRN (Reason: mild pain)
folic acid 1 mg Tablet
1 mg PO DAILY
atorvastatin 40 mg Tablet
40 mg PO HS Qty: 30 0RF
sertraline 100 mg Tablet
100 mg PO DAILY Qty: 30 0RF
aspirin 81 mg Tablet,Delayed Release (Dr/Ec)
81 mg PO DAILY Qty: 30 0RF
carvedilol [Coreg] 3.125 mg Tablet
3.125 mg PO DAILY Qty: 60 0RF
metformin 1,000 mg Tablet
1,000 mg PO BID Qty: 60 0RF
glipizide 5 mg Tablet
5 mg PO DAILY Qty: 30 0RF
Discontinued
buspirone 10 mg Tablet
10 mg PO BID
lisinopril 5 mg Tablet
5 mg PO DAILY
Discharge Orders:
Discharge Patient (As Directed); Ordered 03/10/24
Ordered By: Mark Sun
Discharge Date and Time
Discharge Date/Time: 03/10/24 16:34
Print Language: CROATIAN
--- NOTE | 2024-03-10 13:43 | W.PN.ID1 ---
Date of Service
Date of Service: March 10, 2024
Today's Communication
Give Levofloxacin 750mg po x 1 then dc home.
Assessment / Plan
# Group A strep bacteremia x 2sets
# Treating as Group A strep meningitis - presented with HUMPHREY, syncope, seizure
# Right otitis media with perforated TM and pharyngitis as source
# s/p Septic shock due to above
# Incarcerated -> now released
# hx 40 year tobacco
-CT head: 12mm lesion right tempo-parietal lobe - suspect ischemic
Unable to get brain MRI due to PPM
- Repeat blood cx's. neg
- Leukocytosis resolved
- Supposed to complete ceftriaxone 2g IV q12 x 10 days through today.
However, IV not patent and removed. He has not received the ceftriaxone this am.
-Can finish with Levofloxacin 750mg po x 1.
-OK to dc home today.
# Bradycardia resolved after ICD battery change on 03/08.
# Acinetobacter in sputum =colonization
-CXR neg
-No need to treat
#Conditions [employer]
HTN
HLD
sinus bradycardia s/p PPM
Cardiomyopathy s/p ICD
CAD s/p stent
Depression
BPH
h/o MSSA prostate abscess s/p perc drainage (12/2022)
Chief Complaint
-: Bacteremia
Subjective / Review of Systems
Eager to be discharged.
Vital Signs / Physical Exam
Vital Signs
Vital Signs
Temp Pulse Resp BP Pulse Ox
98.8 F 62 18 153/89 98
03/10/24 11:53 03/10/24 11:53 03/10/24 11:53 03/10/24 11:53 03/10/24 11:53
Physical Exam
Constitutional: No Acute Distress and Comfortable
Cardiovascular: Other
Pulmonary: Clear (anteriorly)
Gastrointestinal: Soft, Non Tender and Non Distended
Extremities: Negative Edema
Wound: Other (right hand dorsum between 3rd/4th finger with ~1 cm wound granulating tissue without erythema)
Neurological: AO x 3
Objective Data
Lab Data
Lab Results
03/10/24 06:58
03/10/24 06:58
PT 14.0 Sec (11.4-14.6) 03/03/24 08:15
INR 1.08 03/03/24 08:15
APTT 38.8 Sec (23.4-35.0) H 02/29/24 20:37
Estimated Creat Clear 84 ml/min 03/10/24 06:58
Lactic Acid 2.0 mmol/L (0.7-2.0) 03/01/24 02:36
Total Bilirubin 0.5 mg/dl (0.2-1.3) 03/06/24 07:34
AST 29 U/L (17-59) 03/06/24 07:34
ALT 43 U/L (0-50) 03/06/24 07:34
Alkaline Phosphatase 82 U/L (38-126) 03/06/24 07:34
Most recent labs reviewed.
Micro Results:
03/02/24 04:41 Blood Culture - Final
Blood/Venous No Growth - Final Report
03/02/24 04:43 Blood Culture - Final
Blood/Venous No Growth - Final Report
03/01/24 10:28 Respiratory Culture - Final
Tracheal Aspirate Acinet. baumannii/haemolyticus
Gram Stain - Final
02/29/24 15:06 Blood Culture - Final
Blood/Venous Streptococcus pyogenes
Gram Stain - Final
02/29/24 15:21 Blood Culture - Final
Blood/Venous Streptococcus pyogenes
Gram Stain - Final
02/29/24 15:21 Streptococcus Screen (PAM) - Final
Throat/Pharynx Streptococcus pyogenes
Streptococcus Rapid Screen - Final
Rapid Strep Screen (Group A) Negative
03/01/24 05:18 MRSA Screen - Final
Nose No Methicillin Resistant Staphylococcus aureus isolated.
02/29/24 17:42 Urine Culture - Final
Urine NO GROWTH
02/29/24 15:06 Influenza Types A & B (CHARLENE) - Final
Nasal Swab Negative for Influenza A & B, NAAT
Negative results must be combined with clinical observations
and patient history.
Nucleic Acid Amplification test (NAAT)performed on the
[employer] platform.
02/29/24 CT head: There is a 12 mm low-density lesion at the right temporoparietal junction lateral to the atrium of the right lateral ventricle. This lesion is most likely ischemic in origin, however, given the patient's clinical history, follow-up
imaging with contrast-enhanced MRI is recommended to exclude more aggressive pathology/neoplasm.
02/29/24 CXR: No active cardiopulmonary disease.
Care Review
Plan reviewed with: Physician (Dr. Sun)
[2024-03-10 15:00] VITALS: BP 145/87
== END 2024-03-10 16:34 | DRG 853 ==
LOC: 4 WEST ACU 18:03
PROVIDERS: Clinical Nurse Specialist Family Health; Emergency Medicine; Hospitalist; Internal Medicine; Internal Medicine Cardiovascular Disease; Nurse Practitioner; Nurse Practitioner Primary Care; Radiology Vascular & Interventional Radiology; ADMITTING PHYSICIAN Internal Medicine; ATTENDING PHYSICIAN Internal Medicine; CONSULT PHYSICIAN Internal Medicine Cardiovascular Disease; CONSULT PHYSICIAN Internal Medicine Critical Care Medicine; CONSULT PHYSICIAN Internal Medicine Infectious Disease; CONSULT PHYSICIAN Psychiatry & Neurology Neurology; CONSULT PHYSICIAN Specialist; EMERGENCY PHYSICIAN Emergency Medicine
PROC: 5A1945Z Respiratory Ventilation, 24-96 Consecutive Hours (ICD-10-PCS; 2024-02-29)
PROC: 0BH17EZ Insertion of Endotracheal Airway into Trachea, Via Natural or Artificial Opening (ICD-10-PCS; 2024-02-29)
PROC: 5A12012 Performance of Cardiac Output, Single, Manual (ICD-10-PCS; 2024-02-29)
PROC: 0JPT0PZ Removal of Cardiac Rhythm Related Device from Trunk Subcutaneous Tissue and Fascia, Open Approach (ICD-10-PCS; 2024-03-08)
PROC: 0JH608Z Insertion of Defibrillator Generator into Chest Subcutaneous Tissue and Fascia, Open Approach (ICD-10-PCS; 2024-03-08)
DX: A40.0 Sepsis due to streptococcus, group A (principal); G04.90 Encephalitis and encephalomyelitis, unspecified; I46.9 Cardiac arrest, cause unspecified; R65.21 Severe sepsis with septic shock; J96.90 Respiratory failure, unspecified, unspecified whether with hypoxia or hypercapnia; I63.9 Cerebral infarction, unspecified; E87.1 Hypo-osmolality and hyponatremia; E87.20 Acidosis, unspecified; I50.22 Chronic systolic (congestive) heart failure; I5A Non-ischemic myocardial injury (non-traumatic); N17.9 Acute kidney failure, unspecified; T82.190A Other mechanical complication of cardiac electrode, initial encounter; B37.0 Candidal stomatitis; R56.9 Unspecified convulsions; I11.0 Hypertensive heart disease with heart failure; D64.9 Anemia, unspecified; E11.65 Type 2 diabetes mellitus with hyperglycemia; F10.20 Alcohol dependence, uncomplicated; F32.A Depression, unspecified; E83.51 Hypocalcemia; J02.9 Acute pharyngitis, unspecified; Y71.2 Prosthetic and other implants, materials and accessory cardiovascular devices associated with adverse incidents; H72.91 Unspecified perforation of tympanic membrane, right ear; H66.91 Otitis media, unspecified, right ear; H92.01 Otalgia, right ear; E83.42 Hypomagnesemia; E86.0 Dehydration; E78.00 Pure hypercholesterolemia, unspecified; F41.9 Anxiety disorder, unspecified; I25.5 Ischemic cardiomyopathy; I25.10 Atherosclerotic heart disease of native coronary artery without angina pectoris; Z95.5 Presence of coronary angioplasty implant and graft; F17.200 Nicotine dependence, unspecified, uncomplicated; R55 Syncope and collapse; R00.1 Bradycardia, unspecified; S00.01XA Abrasion of scalp, initial encounter; S20.419A Abrasion of unspecified back wall of thorax, initial encounter; W18.30XA Fall on same level, unspecified, initial encounter; Y92.231 Patient bathroom in hospital as the place of occurrence of the external cause; Z79.82 Long term (current) use of aspirin; Z79.84 Long term (current) use of oral hypoglycemic drugs; Z79.899 Other long term (current) drug therapy; Z95.810 Presence of automatic (implantable) cardiac defibrillator; Z45.010 Encounter for checking and testing of cardiac pacemaker pulse generator [battery]
CPT/HCPCS: 31500; 33263; 36556; 36600; 70450; 70470; 71045; 74018; 80048; 80051; 80053; 80061; 80202; 80306; 81003; 81015; 82077; 82330; 82570; 82805; 82962; 83036; 83605; 83735; 83930; 83935; 84100; 84132; 84300; 84302; 84443; 84478; 84484; 85025; 85027; 85610; 85730; 86060; 86063; 86160; 87040; 87070; 87077; 87086; 87147; 87186; 87205; 87502; 87811; 87880; 93005; 93306; 94002; 94003; 95816; 96365; 96366; 96367; 97116; 97163; 97165; 97167; 99291; 99292; C1721; J7030; Q9950; Q9967

== ENCOUNTER 2024-03-11 10:06 | Observation (INO) | payer OTHER, SELFPAY ==
[2024-03-11] VITALS (15 sets, daily range): BP systolic 126–162; BP diastolic 53–98; BMI 29.7; BMI 28.8
--- NOTE | 2024-03-11 05:20 | ED.GENMED ---
History of Present Illness
<DESI Linn - Last Filed: 03/11/24 22:03>
General
Chief Complaint: Chest Pain
Source: patient
Time Seen by Provider: 03/11/24 05:18
Nursing documentation reviewed up to this point in time: agreed with
History of Present Illness
History of Present Illness:
Patient with a history of CAD HTN and a previous MD presents to the ED with complaints of chest pain x 1 hour. The pain is rated a 10/10 and described as a tightness and someone sitting on his chest. This has happened before a week ago and he said
the pain feels the same. The pain is worse with exertion and laying down and nothing has made it better. He had mild sob and dizziness during onset of symptoms but denies them while taking history. He had a mild tonic seizure lasting about 30
seconds. Patient denies palpitations fever headache.
Patient currently is on a baby aspirin for clot prevention. He has a history of CAD DM HTN and MD. He has a history of seizures which he is on Keppra for.
Past History
<DESI Linn - Last Filed: 03/11/24 22:03>
Past History
ED Past Medical History: CAD, HTN, Hypercholesterolemia and NIDDM
Review of Systems
<DESI Linn - Last Filed: 03/11/24 22:03>
Review of Systems
Allergies reviewed?: Yes
Constitutional: Reports no symptoms
Respiratory: Reports trouble breathing
Cardiac: Reports chest pain
ABD/GI: Reports no symptoms
Neurological: Reports dizzy
Phy Exam
<DESI Linn - Last Filed: 03/11/24 22:03>
General Physical Exam
General Presentation: mild distress
General age: appears stated age
General Habitus: normal
General Mental: alert
Cardiovascular Exam
Cardiovascular Exam: regular rate/rhythm, no edema, no gallop, no JVD and no murmur
Pulmonary Exam
Pulmonary Exam: lungs clear, no respiratory distress, no rales, chest non tender, no crackles, no rhonchi, no stridor, no wheezing and no cough
Scores
<DESI Linn - Last Filed: 03/11/24 22:03>
Heart Score for Chest Pain Patients
STEMI patient?: No
History: Highly Suspicious
ECG: Normal
Age: >45 - <65 years
Risk Factors: >/= 3 Risk Factors or History of CAD
Troponin: </= Normal Limit
Heart Score for Chest Pain Patients: 5
Heart Score Risk: 20.3% MACE over next 6 weeks
Course
<DESI Linn - Last Filed: 03/11/24 22:03>
Orders/Labs/Results
Orders:
Orders
03/11/24 05:05
Electrocardiogram (*1) Urgent
Reason for Study: Chest Pain
Cardiac Monitoring- Treatment ONCE
EKG- Treatment ONCE
IV Insert/Care/Rem.- Treatment PRN
O2 Therapy [RESP] Urgent
Titrate/Wean O2 to maintain O2 sat greater than (%): 90
Special Instructions: Maintain sats >/=90%
Pulse Ox/spot Check [RESP] Urgent
Quantity: 1
Special Instructions: ON ROOM AIR
03/11/24 05:16
Complete Blood Count/With Diff Urgent
Comprehensive Metabolic Panel Urgent
Troponin I Urgent
03/11/24 05:24
Lorazepam [Ativan] 2 mg .ROUTE .STK-MED ONE
03/11/24 Breakfast
Cholesterol Lowering
At Your Request: Limited Participation
Cholesterol Lowering: Sodium, 2 Gram
1800 jeanna/15 CHO Diabetic
03/11/24 06:09
Echo 2D MMode Color/Doppler Urgent
Reason for Study: chest pain
03/11/24 06:16
CT Chest Pe Study Urgent
Comment:
Reason For Exam: cp
03/11/24 06:27
CR Chest Portable - 1 View Urgent
Comment:
Reason For Exam: cp
Reason Study Needs to be Portable: Patient Unstable
03/11/24 08:36
CARDIOLOGY CONSULT Routine
Consulting Provider: Brendan Camp
Was physician already notified: Yes
03/11/24 09:54
Admit/Transfer Patient As Directed
Co-Sign Provider:
Level of Care: Observation services
Assign to:: Telemetry
Physician / Group: chavez vincent
Diagnosis: chest pain
Reason for Telemetry: Arrhythmia
Date to Stop Telemetry: 03/14/24
Time to Stop Telemetry: 11:00
03/11/24 09:[address] Non Medication Order As Directed
Physician Order: Please fix the med rec; notify attending when med rec done
Above order entered?: Yes
PRN Pain Medication Management As Directed
May give lesser potent ordered pain med per pt: Yes
preference::
Protocol:: Medication orders for pain may be administered in a
manner that supports deferring to patient preference
when the pt is:
- Requesting an ordered lesser potent pain medication.
Least to most potent pain medications are defined
as: acetaminophen < NSAID < tramadol < opioids
(morphine, oxycodone, hydromorphone).
- Requesting a lesser dose of the same medication IF
ORDERED.
- Requesting a less intrusive route of administration
if both routes are prescribed by the provider (PO <
IV).
03/11/24 09:57
Code Status As Directed
Resuscitation Status: Full Code
03/11/24 11:08
Acetaminophen [Tylenol] 650 mg PO Q6HPRN PRN
Bisacodyl [Dulcolax] 10 mg RECTAL [id number] PRN
Dextrose 50%-Water [Dextrose 50% Syringe] 12.5 grams IV [id number] PRN
Docusate W/Senna [Senokot-S] 1 tablet PO BIDPRN PRN
Glucagon [GlucaGen] 1 mg IM PRN PRN
Polyethylene Glycol Powder [Miralax] 17 grams PO DAILYPRN PRN
03/11/24 11:08
Activity As Directed
Activity Level: As Tolerated
Bedside Glucose Monitoring As Directed
Frequency: AC&HS
Additional Instructions:: Change to q6h if pt on TPN, tube feeding or not eating
Intake/ Output As Directed
Frequency: Per unit guidelines
Vital Signs As Directed
Frequency: Per unit guidelines
Weight As Directed
Frequency: Daily
Pulse Ox/spot Check [RESP] Routine
Quantity: 1
DX Deep Vein Thrombosis Video Routine
03/11/24 13:00
Aspirin Low Dose EC [Aspir Low (Enteric Coated)] 81 mg PO DAILY
Carvedilol [Coreg] 3.125 mg PO BID
GlipiZIDE [Glucotrol] 5 mg PO DAILY
Levetiracetam [Keppra] 500 mg PO BID
Lidocaine [Lidocaine 4% Patch] 1 patch TOPICAL DAILY
Apply Lidocaine patch(s) to:: apply to left lower rib cage
METFORMIN HCl [Glucophage] 1,000 mg PO BID@0800,1700
Nystatin Suspension [Mycostatin Oral Suspension] 5 ml PO QID
Sertraline HCl [Zoloft] 100 mg PO DAILY
Valsartan [Diovan] 20 mg PO BID
03/11/24 15:53
Troponin I Q6H
03/11/24 16:30
Insulin Aspart Corrective Low [Novolog Flexpen-Low Resistance] See Protocol SC AC
03/11/24 18:00
Enoxaparin Sodium [Lovenox] 40 mg SC QPM
03/11/24 22:00
Atorvastatin [Lipitor] 40 mg PO HS
03/12/24 06:00
Basic Metabolic Panel IN AM
Complete Blood Count/With Diff IN AM
03/12/24 08:00
Nicotine [Nicoderm Transdermal] 14 mg TRANSDERM DAILY
03/13/24 06:00
Basic Metabolic Panel IN AM
Complete Blood Count/With Diff IN AM
03/14/24 06:00
Basic Metabolic Panel IN AM
Complete Blood Count/With Diff IN AM
03/14/24 11:00
DC Protocol for Telemetry ONCE
Abnormal Lab Results
03/11/24 03/11/24
05:16 10:05
RBC 3.55 L 10^6/uL
(4.70-6.10)
Hgb 10.7 L g/dL
(13.0-18.0)
Hct 31.1 L %
(39.0-52.0)
Plt Count 407 H D 10^3/uL
(130-400)
Abs Immat Gran (auto) 0.1 H 10^3/uL
(0-0.05)
Immature Gran % 1.2 H %
(0-0.5)
Lymphocytes % 19.2 L %
(20.5-51.1)
Sodium 134 L mmol/L
(135-145)
Chloride 97 L mmol/L
(98-107)
Glucose 150 H mg/dl
(70-99)
POC Glucose 123 H mg/dl
(70-99)
03/11/24 05:16
03/11/24 05:16
Vital Signs
Initial and Last Documented VS:
Initial Vital Signs
Pulse Resp BP Pulse Ox
61 17 138/85 99
03/11/24 05:10 03/11/24 05:10 03/11/24 05:10 03/11/24 05:10
Last Documented Vital Signs
Temp Pulse Resp BP Pulse Ox
99.1 F 63 18 142/80 95
03/11/24 19:35 03/11/24 20:50 03/11/24 19:35 03/11/24 20:50 03/11/24 19:35
<Virgil Aguilar, - Last Filed: 03/11/24 06:17>
Orders/Labs/Results
Orders:
Orders
03/11/24 05:05
Electrocardiogram (*1) Urgent
Reason for Study: Chest Pain
Cardiac Monitoring- Treatment ONCE
EKG- Treatment ONCE
IV Insert/Care/Rem.- Treatment PRN
O2 Therapy [RESP] Urgent
Titrate/Wean O2 to maintain O2 sat greater than (%): 90
Special Instructions: Maintain sats >/=90%
Pulse Ox/spot Check [RESP] Urgent
Quantity: 1
Special Instructions: ON ROOM AIR
03/11/24 05:16
Complete Blood Count/With Diff Urgent
Comprehensive Metabolic Panel Urgent
Troponin I Urgent
03/11/24 05:24
Lorazepam [Ativan] 2 mg .ROUTE .STK-MED ONE
03/11/24 Breakfast
Cholesterol Lowering
At Your Request: Limited Participation
Cholesterol Lowering: Sodium, 2 Gram
1800 jeanna/15 CHO Diabetic
03/11/24 06:09
Echo 2D MMode Color/Doppler Urgent
Reason for Study: chest pain
03/11/24 06:16
CT Chest Pe Study Urgent
Comment:
Reason For Exam: cp
03/11/24 06:27
CR Chest Portable - 1 View Urgent
Comment:
Reason For Exam: cp
Reason Study Needs to be Portable: Patient Unstable
03/11/24 08:36
CARDIOLOGY CONSULT Routine
Consulting Provider: Brendan Camp
Was physician already notified: Yes
03/11/24 09:54
Admit/Transfer Patient As Directed
Co-Sign Provider:
Level of Care: Observation services
Assign to:: Telemetry
Physician / Group: chavez vincent
Diagnosis: chest pain
Reason for Telemetry: Arrhythmia
Date to Stop Telemetry: 03/14/24
Time to Stop Telemetry: 11:00
03/11/24 09:[address] Non Medication Order As Directed
Physician Order: Please fix the med rec; notify attending when med rec done
Above order entered?: Yes
PRN Pain Medication Management As Directed
May give lesser potent ordered pain med per pt: Yes
preference::
Protocol:: Medication orders for pain may be administered in a
manner that supports deferring to patient preference
when the pt is:
- Requesting an ordered lesser potent pain medication.
Least to most potent pain medications are defined
as: acetaminophen < NSAID < tramadol < opioids
(morphine, oxycodone, hydromorphone).
- Requesting a lesser dose of the same medication IF
ORDERED.
- Requesting a less intrusive route of administration
if both routes are prescribed by the provider (PO <
IV).
03/11/24 09:57
Code Status As Directed
Resuscitation Status: Full Code
03/11/24 11:08
Acetaminophen [Tylenol] 650 mg PO Q6HPRN PRN
Bisacodyl [Dulcolax] 10 mg RECTAL [id number] PRN
Dextrose 50%-Water [Dextrose 50% Syringe] 12.5 grams IV [id number] PRN
Docusate W/Senna [Senokot-S] 1 tablet PO BIDPRN PRN
Glucagon [GlucaGen] 1 mg IM PRN PRN
Polyethylene Glycol Powder [Miralax] 17 grams PO DAILYPRN PRN
03/11/24 11:08
Activity As Directed
Activity Level: As Tolerated
Bedside Glucose Monitoring As Directed
Frequency: AC&HS
Additional Instructions:: Change to q6h if pt on TPN, tube feeding or not eating
Intake/ Output As Directed
Frequency: Per unit guidelines
Vital Signs As Directed
Frequency: Per unit guidelines
Weight As Directed
Frequency: Daily
Pulse Ox/spot Check [RESP] Routine
Quantity: 1
DX Deep Vein Thrombosis Video Routine
03/11/24 13:00
Aspirin Low Dose EC [Aspir Low (Enteric Coated)] 81 mg PO DAILY
Carvedilol [Coreg] 3.125 mg PO BID
GlipiZIDE [Glucotrol] 5 mg PO DAILY
Levetiracetam [Keppra] 500 mg PO BID
Lidocaine [Lidocaine 4% Patch] 1 patch TOPICAL DAILY
Apply Lidocaine patch(s) to:: apply to left lower rib cage
METFORMIN HCl [Glucophage] 1,000 mg PO BID@0800,1700
Nystatin Suspension [Mycostatin Oral Suspension] 5 ml PO QID
Sertraline HCl [Zoloft] 100 mg PO DAILY
Valsartan [Diovan] 20 mg PO BID
03/11/24 15:53
Troponin I Q6H
03/11/24 16:30
Insulin Aspart Corrective Low [Novolog Flexpen-Low Resistance] See Protocol SC AC
03/11/24 18:00
Enoxaparin Sodium [Lovenox] 40 mg SC QPM
03/11/24 22:00
Atorvastatin [Lipitor] 40 mg PO HS
03/12/24 06:00
Basic Metabolic Panel IN AM
Complete Blood Count/With Diff IN AM
03/12/24 08:00
Nicotine [Nicoderm Transdermal] 14 mg TRANSDERM DAILY
03/13/24 06:00
Basic Metabolic Panel IN AM
Complete Blood Count/With Diff IN AM
03/14/24 06:00
Basic Metabolic Panel IN AM
Complete Blood Count/With Diff IN AM
03/14/24 11:00
DC Protocol for Telemetry ONCE
Abnormal Lab Results
03/11/24 03/11/24
05:16 10:05
RBC 3.55 L 10^6/uL
(4.70-6.10)
Hgb 10.7 L g/dL
(13.0-18.0)
Hct 31.1 L %
(39.0-52.0)
Plt Count 407 H D 10^3/uL
(130-400)
Abs Immat Gran (auto) 0.1 H 10^3/uL
(0-0.05)
Immature Gran % 1.2 H %
(0-0.5)
Lymphocytes % 19.2 L %
(20.5-51.1)
Sodium 134 L mmol/L
(135-145)
Chloride 97 L mmol/L
(98-107)
Glucose 150 H mg/dl
(70-99)
POC Glucose 123 H mg/dl
(70-99)
03/11/24 05:16
03/11/24 05:16
Vital Signs
Initial and Last Documented VS:
Initial Vital Signs
Pulse Resp BP Pulse Ox
61 17 138/85 99
03/11/24 05:10 03/11/24 05:10 03/11/24 05:10 03/11/24 05:10
Last Documented Vital Signs
Temp Pulse Resp BP Pulse Ox
99.1 F 63 18 142/80 95
03/11/24 19:35 03/11/24 20:50 03/11/24 19:35 03/11/24 20:50 03/11/24 19:35
<DESI Linn - Last Filed: 03/11/24 22:03>
MDM/Problems Addressed
Differential Diagnosis Includes:
unstable angina, MD, cardiac arrest
MDM/Problems Addressed:
order labs ekg and cardiac enzymes, monitor
<DESI Linn - Last Filed: 03/11/24 22:03>
*Critical Care Note
Total Time (30-74mins, 75-104mins- exclusive of procedures): Not Applicable
<Virgil Aguilar DO - Last Filed: 03/11/24 06:17>
Update Note
Update Note:
03/11/2024 0615 AM: Spoke with [employer] rep Gordillo. Patient has a dual-chamber ICD. She notes a recent generator change. The ventricular leads are out of range regarding impedance. For the last 2 days the defibrillator coil has been offline. No
arrhythmias were detected but most were programmed off. She does not feel that this would respond to ventricular arrhythmias. Other leads are within the expected range.
ED Attending Note
<DESI Linn - Last Filed: 03/11/24 22:03>
-
Portions of this chart may have been created with voice recognition software.� Occasional wrong word or��sound alike� substitutions may have occurred due to the inherent limitations of voice recognition software.
<Virgil Aguilar DO - Last Filed: 03/11/24 06:17>
ED Attending Note
Patient seen and examined by attending physician: Yes
I performed the substantive portion of visit, reviewed & personally made and approve the management plan that is documented in note by myself or DERRICK.: Yes
Discharge Plan
Departure
Patient Disposition: Admit
Presentation/result/management discussed w/ accepting MD/DO: Hospitalist
Discharge Problem:
Cardiomyopathy
Interventions
Interventions:
*Risk Screen - Suicide Last Done: 03/11/24 05:10
*General Assessment Last Done: 03/11/24 05:10
*Neglect/Abuse Screening Last Done: 03/11/24 05:42
ED- Fall Risk Assessment Last Done: 03/11/24 11:13
*ED COVID-19 Vaccine History Last Done: 03/11/24 05:42
*Nursing Disposition Last Done: 03/11/24 11:11
ED- Cardiac Assessment Last Done: 03/11/24 06:14
Discharge Date and Time
Discharge Date/Time: 03/11/24 11:16
[2024-03-11 05:24] LABS: % Basophils 0.1 % (0-2); % Eosinophils 1.3 % (0-6); % Immature Granulocytes 1.2 % (0-0.5); % Lymphocytes 19.2 % (20.5-51.1); % Monocytes 6.1 % (1.7-9.3); % Neutrophils 72.1 % (42.2-75.2); Absolute Eosinophils 0.1 10^3/uL (0-0.7); Absolute Immature Granulocytes 0.1 10^3/uL (0-0.05); Absolute Lymphocytes 1.5 10^3/uL (1.2-3.4); Absolute Monocytes 0.5 10^3/uL (0.1-0.6); Absolute Neutrophils 5.5 10^3/uL (1.4-6.5); Hematocrit 31.1 % (39.0-52.0); Hemoglobin 10.7 g/dL (13.0-18.0); Mean Corp Hgb Conc. 34.4 g/dL (33.0-37.0); Mean Corpuscular Hgb 30.1 pg (27.0-31.0); Mean Corpuscular Volume 87.6 fL (80.0-94.0); Mean Platelet Volume 9.4 fL (7.4-10.4); Nucleated Red Blood Cells % 0 % (-); Platelet Count 407 10^3/uL (130-400); Red Blood Cell Count 3.55 10^6/uL (4.70-6.10); Red Cell Dist. Width 13.1 % (11.5-14.5); White Blood Cell Count 7.7 10^3/uL (4.8-10.8)
[2024-03-11 05:36] LABS: ALT (SGPT) 33 U/L (0-50); AST (SGOT) 40 U/L (17-59); Albumin 3.5 g/dl (3.5-5.0); Alkaline Phosphatase 90 U/L (38-126); Blood Urea Nitrogen 14 mg/dl (9-20); Carbon Dioxide 25 mmol/L (22-30); Chloride 97 mmol/L (98-107); Glucose 150 mg/dl (70-99); Sodium 134 mmol/L (135-145); Total Bilirubin 0.5 mg/dl (0.2-1.3); Total Protein 7.1 g/dl (6.3-8.2); eGFR > 60.00
[2024-03-11 05:47] LABS: Troponin I 0.013 ng/ml
--- NOTE | 2024-03-11 08:31 | CON.CAR ---
Addendum entered and electronically signed by Virgil Shultz MD 03/11/24 10:33:
Patient seen and examined in collaboration with [employer]; agree with below.
-58-year-old incarcerated male with known chronic HFrEF/ICM (EF 35-40%) status-post ICD (with recent generator change on 03/04/2024) presenting with left-sided chest pain at his incision site.
-The patient is currently laying on his left side and has been laying on his left side since undergoing ICD generator change.
-The patient's device interrogation was unremarkable.
-The patient's echocardiogram today was unchanged from previous, and there was no pericardial effusion.
-The patient's chest pain appears to be secondary to his recent procedure; patient was instructed to stop laying on his left side and to reposition himself to the right side to reduce the pain and irritation at the incisional site, but the patient
only repositioned himself partly.
-Discussed the above recommendations with the primary Hospitalist team; analgesia recommended (Tylenol, lidocaine--NSAIDs should be avoided given his low EF).
-No further cardiac recommendations at this time.
Original Note:
Consultation
Consultation Request
Date/Time Consultation Requested: 03/11/2024 6 AM
Date/Time Consultation Performed: 03/11/2024 8 AM
Requesting Provider: MANDY WEEKS/Dr. Aguilar
Performing Provider: PATRIA Kamara for Dr. Shultz
Reason for Consultation: Chest pain
Medical History
-
Chief Complaint: Chest pain
History of Present Illness:
Mr. Durham is a 58-year-old male (currently in custody at [facility] with 2 guards at his bedside) with ischemic cardiomyopathy from 2013 EF 35%, with dual-chamber Medtronic ICD, CAD with prior stenting, diabetes,
hypertension, dyslipidemia, seizures, and recent hospitalization at [facility] (discharged 03/10/2024) with strep bacteremia from right OM with perforated TM/pharyngitis treated with antibiotics, who complains of chest pain at his left upper chest
ICD site. Hospitalization was complicated by a seizure requiring intubation for airway protection, blood cultures positive for Streptococcus pyrogens treated with IV antibiotics, episode of PEA arrest achieved ROSC after 2 minutes of CPR. During
his recent admission he underwent successful generator change of dual chamber Medtronic ICD 03/08/24 (he was lost to follow up and battery was completed depleted when interrogated) and ICD lead fracture noted involving the ICD coil with normal
functioning pacing electrodes. Treatment options for ICD lead fracture were discussed with the patient by Dr. Sloan and patient wanted to pursue conservative approach. His device was interrogated today and is functioning appropriately, he is A
paced on telemetry. He describes having left upper chest pain at his ICD incision site that woke him from sleeping this morning. He sleeps on his left side with his left arm down. The pain is constant, nothing makes it better or worse. There are
no associated symptoms. EKG showed a paced rhythm 60 bpm, no ischemia and initial troponin 0.013. An echo was ordered and was completed in the ER this a.m.
Past Medical History
Past Medical History: Other (As above)
Past Surgical History: Other (As above)
Allergies / Home Medications
Allergy/AdvReac Type Severity Reaction Status Date / Time
No Known Allergies Allergy Unverified 02/29/24 14:38
�Medication �Instructions �Recorded �Confirmed �Type
folic acid 1 mg tablet 1 mg PO DAILY Supplement 02/29/24 03/11/24 History
ibuprofen 200 mg tablet 400 mg PO BIDPRN PRN mild pain 02/29/24 03/11/24 History
therapeutic multivitamin 1 tab PO DAILY Supplement 02/29/24 03/11/24 History
thiamine HCl (vitamin B1) 100 mg 100 mg PO DAILY Supplement 02/29/24 03/11/24 History
tablet
aspirin 81 mg tablet,delayed 81 mg PO DAILY Blood Clot 03/10/24 03/11/24 Rx
release Prevention/Tx #30 tabs
atorvastatin 40 mg tablet 40 mg PO HS High Cholesterol #30 03/10/24 03/11/24 Rx
tabs
carvedilol 3.125 mg tablet (Coreg) 3.125 mg PO DAILY Blood Pressure 03/10/24 03/11/24 Rx
#60 tabs
glipizide 5 mg tablet 5 mg PO DAILY Diabetes #30 tabs 03/10/24 03/11/24 Rx
levetiracetam 500 mg tablet 500 mg PO BID #60 tabs 03/10/24 03/11/24 Rx
metformin 1,000 mg tablet 1,000 mg PO BID Diabetes #60 tabs 03/10/24 03/11/24 Rx
nicotine 14 mg/24 hr daily 14 mg transdermal DAILY #30 ea 03/10/24 03/11/24 Rx
transdermal patch
nystatin 100,000 unit/mL oral 5 ml PO QID #473 mL 03/10/24 03/11/24 Rx
suspension
sertraline 100 mg tablet 100 mg PO DAILY Mental 03/10/24 03/11/24 Rx
Health/Anxiety #30 tabs
valsartan 40 mg tablet 20 mg (1/2 x 40 mg) PO BID #30 tabs 03/10/24 03/11/24 Rx
buspirone 10 mg tablet 10 mg PO BID 03/11/24 03/11/24 History
losartan 25 mg tablet (Cozaar) 25 mg PO BID 03/11/24 03/11/24 History
Review of Systems
-
History Source: Patient
All other systems: Negative unless noted
Physical Exam
Vital Signs
Temp Pulse Resp BP Pulse Ox
98.2 F 60 11 139/53 99
03/11/24 05:55 03/11/24 07:04 03/11/24 07:00 03/11/24 07:04 03/11/24 06:15
Lab Results
03/11/24 05:16
03/11/24 05:16
Troponin I 0.013 ng/ml 03/11/24 05:16
Physical Exam
General: Well Developed, No Apparent Distress and Other (Unkempt)
HEENT: Normocephalic, Anicteric and Moist Mucous Membranes
Respiratory: Clear and Non Labored Respirations
Cardiac: S1/S2 and Regular Rhythm
Breast: Deferred by me
GI: Soft, Non Tender, Non Distended and Normal Bowel Sounds
Rectal: Deferred by Provider
Musculoskeletal: No Cyanosis and No Edema
Skin: Warm, Dry and Other (Left upper chest ICD site with intact Aquacel dressing, no hematoma or bleeding)
Neuro: AO x 3
Psych: Calm
Impression / Plan
-
Chest pain - left upper chest pain at ICD incision site.
-No ACS, initial troponin 0.013 and EKG without ischemia.
-Echo 03/11/2024 without acute abnormality.
-Likely from ICD generator change 03/08/2024 and pain from laying on his left side, encouraged him to not lay on his left side.
ICM -EF 35%, global hypokinesis.
-No acute heart failure on exam.
-Continue GDMT with Coreg and valsartan.
-Can consider SGLT2 and Entresto as an outpatient at follow-up. He will need to look into pricing of meds as he he does not have insurance.
-Dual-chamber Medtronic ICD/pacemaker in place with recent generator change 03/08/2024.
ICD -status post dual-chamber ICD implanted 04/21/2013 with battery depletion upon interrogation during recent hospitalization.
-He is now status post generator change from Medtronic dual-chamber ICD on 03/08/2024.
-ICD lead is nonfunctional, fractured ICD lead, pacer electrodes are working and can be used as DDD pacemaker, currently atrially paced.
-Dr. Sloan discussed treatment options with the patient and he chose conservative approach with appropriate pacemaker function without defibrillator function, he understands the risk.
-Device interrogated in the ER with normal function and atrially paced currently on telemetry.
CAD -stable without anginal symptoms.
-Prior stenting.
-Continue aspirin, Coreg, Lipitor.
Stable chronic medical issues:
Diabetes
Recent strep bacteremia treated with IV antibiotics
Seizures
He is scheduled for incision check follow-up in our office, 03/16/2024 at 10:40 AM with PATRIA Walker.
Data Reviewed
-
EKG: Tracing Personally Visualized and interpreted
Radiology: Report Reviewed by me
Labs: Labs Reviewed by me
Old Records: Reviewed
--- NOTE | 2024-03-11 10:00 | HPS.HSE ---
Family Physician
-
Family Physician: Facility [facility]
Chief Complaint
-
Chest pain
History of Present Illness
58-year-old male with past medical history of recent septic shock secondary to strep pyogenes bacteremia, otitis media with perforated eardrum, seizure disorder, type 2 diabetes mellitus, nonischemic cardiomyopathy, ICD came to the hospital from
group home with new onset of chest pain. Patient was recently here in the hospital with septic shock. Patient does have an old ICD and had generator change last admission. He does have fractured defibrillator lead which she preferred to be managed
conservatively. He is aware of not having shock if he ever needs it. Currently he describes his pain pleuritic in nature. Denies any shortness of breath. Denies any nausea, vomiting, diarrhea, constipation.
Medical History
Past Medical History
Past Medical History: Reports HTN, Hypercholesterolemia, NIDDM, Seizures and Psychiatric
Past Surgical History: Reports Cardiac
Social History
Tobacco: Smoker
Alcohol: None
Family History
Family History: Not pertinent
Allergies / Home Medications
Allergies reflects when Allergies were last updated in [facility].
Home Medications with original date entered in [facility]
Allergy/Medication List:
Allergies
Allergy/AdvReac Type Severity Reaction Status Date / Time
No Known Allergies Allergy Unverified 02/29/24 14:38
Home Medications
folic acid 1 mg tablet 1 mg PO DAILY Supplement 02/29/24
ibuprofen 200 mg tablet 400 mg PO BIDPRN PRN mild pain 02/29/24
therapeutic multivitamin 1 tab PO DAILY Supplement 02/29/24
thiamine HCl (vitamin B1) 100 mg tablet 100 mg PO DAILY Supplement 02/29/24
aspirin 81 mg tablet,delayed release 81 mg PO DAILY Blood Clot Prevention/Tx #30 tabs 03/10/24
atorvastatin 40 mg tablet 40 mg PO HS High Cholesterol #30 tabs 03/10/24
carvedilol 3.125 mg tablet (Coreg) 3.125 mg PO DAILY Blood Pressure #60 tabs 03/10/24
glipizide 5 mg tablet 5 mg PO DAILY Diabetes #30 tabs 03/10/24
levetiracetam 500 mg tablet 500 mg PO BID #60 tabs 03/10/24
metformin 1,000 mg tablet 1,000 mg PO BID Diabetes #60 tabs 03/10/24
nicotine 14 mg/24 hr daily transdermal patch 14 mg transdermal DAILY #30 ea 03/10/24
nystatin 100,000 unit/mL oral suspension 5 ml PO QID #473 mL 03/10/24
sertraline 100 mg tablet 100 mg PO DAILY Mental Health/Anxiety #30 tabs 03/10/24
valsartan 40 mg tablet 20 mg (1/2 x 40 mg) PO BID #30 tabs 03/10/24
buspirone 10 mg tablet 10 mg PO BID 03/11/24
losartan 25 mg tablet (Cozaar) 25 mg PO BID 03/11/24
Review of Systems
-
History Source: Patient
A 12 point ROS was completed and negative except as noted: Yes
Cardiac: Reports Chest Pain
Physical Exam
Vital Signs
Vital Signs
Temp Pulse Resp BP Pulse Ox
98.2 F 61 13 137/78 98
03/11/24 05:55 03/11/24 09:15 03/11/24 09:15 03/11/24 09:00 03/11/24 08:30
Physical Exam
General: Well Nourished and No Apparent Distress
HEENT: Anicteric and Moist mucous membranes
Respiratory: Clear; No Wheezes
Cardiac: S1/S2
Breast: Deferred by me
GI: Soft, Non Tender and Non Distended
Rectal: Deferred by Provider
Genito-urinary: No Friedman
Musculoskeletal: No Edema
Neuro: Awake, Alert, Oriented and AO x 3
Psych: Calm
Laboratory Results
-
03/11/24 05:16
03/11/24 05:16
Laboratory Results
Total Bilirubin 0.5 mg/dl (0.2-1.3) 03/11/24 05:16
AST 40 U/L (17-59) 03/11/24 05:16
ALT 33 U/L (0-50) 03/11/24 05:16
Alkaline Phosphatase 90 U/L (38-126) 03/11/24 05:16
Troponin I 0.013 ng/ml 03/11/24 05:16
Data Reviewed
-
Lab Data: Labs Reviewed by me and Discussed with Patient
Impression/Plan
-
Chest pain, rule out ACS
Suspect likely secondary to recent ICD generator change as patient was laying on his left side. Lidocaine patch. Tylenol for pain
Trend troponin
Monitor for observation
Cardiology following
Echocardiogram unchanged from previous
s/p ICD generator change 03/08; per EP his ICD lead is fractured without defibrillator function. He is aware that his ICD will not fire if he needs it. Currently he is ICD pacing. Coreg. Also started on low-dose valsartan. Electrophysiology
discussed with patient regarding options with new ICD however he currently wants to pursue conservative measures knowing that his ICD lead is not working and it wont shock him.
Hyponatremia
Monitor
History of recent septic shock secondary to Streptococcus pyogenes bacteremia
Otitis media with perforated eardrum
Patient will follow-up with ENT outpatient
finished abx
History of seizure
Continue with Keppra
Neurology follow-up outpatient
Type 2 diabetes mellitus
Continue with metformin, glipizide
Accu-Cheks
DVT prophylaxis
Lovenox
Full code
[2024-03-11 10:07] LABS: Glucose - Point of Care 123 mg/dl (70-99)
[2024-03-11 13:05] LABS: Glucose - Point of Care 172 mg/dl (70-99)
[2024-03-11] MEDS: ASPIR LOW (ENTERIC COATED) 81 MG PO (13:06)
[2024-03-11] MEDS: GLUCOPHAGE 1000 MG PO ×2 (13:06→16:55)
[2024-03-11] MEDS: DIOVAN 20 MG PO ×2 (13:06→20:50)
[2024-03-11] MEDS: GLUCOTROL 5 MG PO (13:06)
[2024-03-11] MEDS: COREG 3.125 MG PO ×2 (13:07→20:50)
[2024-03-11] MEDS: LIDOCAINE 4% PATCH 1 PATCH TOPICAL (13:07)
[2024-03-11] MEDS: KEPPRA 500 MG PO ×2 (13:07→20:50)
[2024-03-11] MEDS: ZOLOFT 100 MG PO (13:07)
[2024-03-11] MEDS: MYCOSTATIN ORAL SUSPENSION 5 ML PO ×3 (13:13→20:51)
[2024-03-11 16:54] LABS: Glucose - Point of Care 128 mg/dl (70-99)
[2024-03-11] MEDS: TYLENOL 650 MG PO (16:55)
[2024-03-11] MEDS: LOVENOX 40 MG SC (17:00)
[2024-03-11] MEDS: NOVOLOG FLEXPEN-LOW RESISTANCE SC (17:03)
[2024-03-11] MEDS: LIPITOR 40 MG PO (20:50)
[2024-03-11 20:56] LABS: Glucose - Point of Care 100 mg/dl (70-99)
[2024-03-11 22:38] LABS: Troponin I 0.026 ng/ml
[2024-03-12] MEDS: TYLENOL 650 MG PO (00:01)
[2024-03-12 03:08] VITALS: BP 130/75
[2024-03-12 06:00] VITALS: BMI 27.8
[2024-03-12 07:00] VITALS: BP 135/85
[2024-03-12 07:40] LABS: Glucose - Point of Care 141 mg/dl (70-99)
[2024-03-12] MEDS: NOVOLOG FLEXPEN-LOW RESISTANCE SC (09:27)
[2024-03-12] MEDS: ASPIR LOW (ENTERIC COATED) 81 MG PO (09:34)
[2024-03-12] MEDS: KEPPRA 500 MG PO (09:34)
[2024-03-12] MEDS: GLUCOPHAGE 1000 MG PO (09:34)
[2024-03-12 09:36] LABS: % Basophils 0.4 % (0-2); % Eosinophils 0.7 % (0-6); % Immature Granulocytes 0.9 % (0-0.5); % Lymphocytes 23.8 % (20.5-51.1); % Monocytes 8.1 % (1.7-9.3); % Neutrophils 66.1 % (42.2-75.2); Absolute Eosinophils 0.1 10^3/uL (0-0.7); Absolute Immature Granulocytes 0.1 10^3/uL (0-0.05); Absolute Lymphocytes 1.8 10^3/uL (1.2-3.4); Absolute Monocytes 0.6 10^3/uL (0.1-0.6); Hematocrit 31.5 % (39.0-52.0); Hemoglobin 11.2 g/dL (13.0-18.0); Mean Corp Hgb Conc. 35.6 g/dL (33.0-37.0); Mean Corpuscular Hgb 30.8 pg (27.0-31.0); Mean Corpuscular Volume 86.5 fL (80.0-94.0); Mean Platelet Volume 11.1 fL (7.4-10.4); Nucleated Red Blood Cells % 0 % (-); Platelet Count 314 10^3/uL (130-400); Red Blood Cell Count 3.64 10^6/uL (4.70-6.10); Red Cell Dist. Width 12.8 % (11.5-14.5); White Blood Cell Count 7.6 10^3/uL (4.8-10.8)
[2024-03-12] MEDS: COREG 3.125 MG PO (09:42)
[2024-03-12] MEDS: MYCOSTATIN ORAL SUSPENSION 5 ML PO (09:42)
[2024-03-12] MEDS: DIOVAN 20 MG PO (09:42)
[2024-03-12] MEDS: ZOLOFT 100 MG PO (09:43)
[2024-03-12] MEDS: NICODERM TRANSDERMAL 14 MG TRANSDERM (09:43)
[2024-03-12] MEDS: LIDOCAINE 4% PATCH 1 PATCH TOPICAL (09:44)
[2024-03-12] MEDS: GLUCOTROL 5 MG PO (09:48)
--- NOTE | 2024-03-12 10:26 | CM ---
Pt is from [facility].
Guards with pt
Spoke jeyson Rosales [phone] at [facility]. She said she does not see that pt has an adaptive devices he uses.
PhArmacy CPS
PCP Dr Arriaga
PLAN Reurn to [facility] at [email or web address] [phone]
--- NOTE | 2024-03-12 10:40 | W.PN.HOSP.TC ---
Today's Communication/Plan
-
monitor vitals
see plan
bmp pending
denies any more pain
dc today pending bmp
Assessment / Plan
Assessment / Plan
General: Well Nourished and No Apparent Distress
HEENT: Anicteric and Moist mucous membranes
Respiratory: Clear; No Wheezes
Cardiac: S1/S2
Breast: Deferred by me
GI: Soft, Non Tender and Non Distended
Genito-urinary: No Friedman
Musculoskeletal: No Edema
Neuro: Awake, Alert, Oriented and AO x 3
Psych: Calm
Chest pain, ruled out ACS
Suspect likely secondary to recent ICD generator change as patient was laying on his left side. Lidocaine patch. Tylenol for pain
Trend troponin; benign
Cardiology following
Echocardiogram unchanged from previous
s/p ICD generator change 03/08; per EP his ICD lead is fractured without defibrillator function. He is aware that his ICD will not fire if he needs it. Currently he is ICD pacing. Coreg. Also started on low-dose valsartan. Electrophysiology
discussed with patient regarding options with new ICD however he currently wants to pursue conservative measures knowing that his ICD lead is not working and it wont shock him.
Hyponatremia
Monitor
History of recent septic shock secondary to Streptococcus pyogenes bacteremia
Otitis media with perforated eardrum
Patient will follow-up with ENT outpatient
finished abx
History of seizure
Continue with Keppra
Neurology follow-up outpatient
Type 2 diabetes mellitus
Continue with metformin, glipizide
Accu-Cheks
DVT prophylaxis
Lovenox
Full code
Anticipated Discharge: Today
Subjective/Interval History
-
Date of Service: March 12, 2024
denies pain
Objective Data
-
Labs:
Laboratory Results
03/12/24 03/12/24
06:41 10:34
WBC 7.6
Hgb 11.2 L
Hct 31.5 L
Plt Count 314 D
Sodium Cancelled Pending
Potassium Cancelled Pending
Chloride Cancelled Pending
Carbon Dioxide Cancelled Pending
BUN Cancelled Pending
Creatinine Cancelled Pending
Glucose Cancelled Pending
Calcium Cancelled Pending
Vital Signs:
Vital Signs
Temp Pulse Resp BP Pulse Ox
97.5 F 84 16 135/85 99
03/12/24 07:00 03/12/24 07:00 03/12/24 07:00 03/12/24 07:00 03/12/24 07:00
I&O
03/11/24 03/12/24 03/13/24
06:59 06:59 06:59
Intake Total 480 / 480
Output Total 600 / 600
Balance -120 / -120
[2024-03-12 11:00] VITALS: BP 142/74
[2024-03-12 11:49] LABS: Blood Urea Nitrogen 10 mg/dl (9-20); Calcium 8.6 mg/dl (8.4-10.2); Carbon Dioxide 24 mmol/L (22-30); Chloride 95 mmol/L (98-107); Estimated Creatinine Clearance 96 ml/min; Glucose 197 mg/dl (70-99); Potassium 4.6 mmol/L (3.5-5.1); Sodium 131 mmol/L (135-145); eGFR > 60.00
--- NOTE | 2024-03-12 12:00 | W.DCSUMMARY ---
Discharge Summary
Discharge Data
Date of Admission: 03/11/24
Date of Discharge: 03/12/24
-
Pending Results: No
Hospital Course
58-year-old male with recent admission with septic shock secondary to Streptococcus pyogenes bacteremia, otitis media with perforated eardrum, seizure, type 2 diabetes mellitus, cardiomyopathy with ICD came to the hospital from care home with chest
pain. CT scan was done which was negative for pulmonary embolism. Patient troponin was not significant on this hospitalization. Echocardiogram was also unchanged from previous echocardiogram. Patient was seen by cardiology on this
hospitalization. It was determined that patient chest pain is likely secondary to him laying on left side and him having new ICD generator change. Patient symptoms continue to improve with lidocaine and Tylenol. Once his symptoms improved, he was
then discharged back to care home with instructions to follow-up with all his physicians outpatient.
Discharge Plan
-
Patient Disposition: Home (Routine Discharge)
Discharge Diagnosis/Procedures: Pleuritic chest pain 2/2 recent AICD generator change
Hyponatremia
Diet: As tolerated
Activity: As tolerated
Driving Restrictions: No driving
Activity Restrictions/Additional Instructions:
[facility] [Provider Group] - 03/16/24 10:40 am (Incision check appointment)
[facility] [Active Community] - in less than 1 week
Demar Diaz MD [Active] - in less than 1 week
Mika Dietrich MD [Active] - in less than 1 week
Zacarias Cavazos MD [Active] - in one to two weeks
Leanna Lew MD [Active] -
DO NOT LAY ON YOUR LEFT SIDE
Referrals:
[facility] [Family Provider] - in less than 1 week
Demar Diaz MD [Active] - in less than 1 week
Mika Dietrich MD [Active] - in less than 1 week
Zacarias Cavazos MD [Active] -
Leanna Lew MD [Active] -
Prescriptions:
New
acetaminophen 325 mg Tablet
650 mg PO Q6HPRN PRN (Reason: mild pain/ fever>100.5F) Qty: 0 0RF
lidocaine 4 % Adhesive Patch,Medicated
1 patch topical DAILY Qty: 0 0RF
Continued
thiamine HCl (vitamin B1) 100 mg Tablet
100 mg PO DAILY
therapeutic multivitamin Tablet
1 tab PO DAILY
folic acid 1 mg Tablet
1 mg PO DAILY
nystatin 100,000 unit/mL Suspension
5 ml PO QID Qty: 473 0RF
levetiracetam 500 mg Tablet
500 mg PO BID Qty: 60 0RF
valsartan 40 mg Tablet
20 mg PO BID Qty: 30 0RF
nicotine 14 mg/24 hr Patch 24 Hour
14 mg transdermal DAILY Qty: 30 0RF
atorvastatin 40 mg Tablet
40 mg PO HS Qty: 30 0RF
sertraline 100 mg Tablet
100 mg PO DAILY Qty: 30 0RF
aspirin 81 mg Tablet,Delayed Release (Dr/Ec)
81 mg PO DAILY Qty: 30 0RF
metformin 1,000 mg Tablet
1,000 mg PO BID Qty: 60 0RF
glipizide 5 mg Tablet
5 mg PO DAILY Qty: 30 0RF
buspirone 10 mg Tablet
10 mg PO BID
Changed
carvedilol [Coreg] 3.125 mg Tablet
3.125 mg PO BID Qty: 60 0RF
Discontinued
ibuprofen 200 mg Tablet
400 mg PO BIDPRN PRN (Reason: mild pain)
losartan [Cozaar] 25 mg Tablet
25 mg PO BID
Discharge Orders:
Discharge Patient (As Directed); Ordered 03/12/24
Ordered By: Mark Sun
Discharge Date and Time
Discharge Date/Time: 03/12/24 13:36
Print Language: UGANDAN
[2024-03-12] MEDS: MYCOSTATIN ORAL SUSPENSION PO (12:16)
[2024-03-12] MEDS: AFLURIA (36 mos+) 2024-2025 FORMULA 0.5 ML IM (12:17)
[2024-03-12 12:22] LABS: Glucose - Point of Care 388 mg/dl (70-99)
[2024-03-12] MEDS: NOVOLOG FLEXPEN-LOW RESISTANCE 5 UNITS SC (12:29)
== END 2024-03-12 13:36 ==
LOC: 3 WEST ACU 10:06
PROVIDERS: Family Medicine; ADMITTING PHYSICIAN Internal Medicine; EMERGENCY PHYSICIAN Student in an Organized Health Care Education/Training Program; OTHER PHYSICIAN Internal Medicine
DX: R07.81 Pleurodynia (principal); R07.9 Chest pain, unspecified; E87.1 Hypo-osmolality and hyponatremia; R06.02 Shortness of breath; R42 Dizziness and giddiness; J90 Pleural effusion, not elsewhere classified; J98.11 Atelectasis; N62 Hypertrophy of breast; I42.8 Other cardiomyopathies; I25.10 Atherosclerotic heart disease of native coronary artery without angina pectoris; I10 Essential (primary) hypertension; I25.5 Ischemic cardiomyopathy; E11.9 Type 2 diabetes mellitus without complications; G40.909 Epilepsy, unspecified, not intractable, without status epilepticus; F17.200 Nicotine dependence, unspecified, uncomplicated; E78.00 Pure hypercholesterolemia, unspecified; I25.2 Old myocardial infarction; Z95.810 Presence of automatic (implantable) cardiac defibrillator; Z95.5 Presence of coronary angioplasty implant and graft; Z86.74 Personal history of sudden cardiac arrest; Z79.84 Long term (current) use of oral hypoglycemic drugs; Z23 Encounter for immunization
CPT/HCPCS: 93283; 71045; 71275; 80048; 80053; 82962; 84484; 85025; 87070; 90686; 93005; 93306; 94760; 99285; 99406; G0008; G0378; Q9967

== ENCOUNTER 2024-03-13 23:57 | Inpatient (IN) | payer OTHER, SELFPAY ==
[2024-03-13 19:58] VITALS: BP 144/73
[2024-03-13 19:59] VITALS: BP 144/73; BMI 28.7
[2024-03-13 20:04] VITALS: BP 150/90
--- NOTE | 2024-03-13 20:07 | ED.GENMED ---
History of Present Illness
<Mila De La Torre PA-C - Last Filed: 03/14/24 02:54>
General
Chief Complaint: Chest Pain
Source: patient
Exam Limitations: none
Time Seen by Provider: 03/13/24 19:55
Nursing documentation reviewed up to this point in time: agreed with
History of Present Illness
History of Present Illness:
pt is a 58 y/o M prisoner
h/o cardiomyopathy s/p AICD, DM
[facility] for septic shock secdonary to strep bacteremia; course complicated by a PEA arrest with ROSC after 2 min CPR
EF 35-40% which apparently was baseline
ICD was iterrotagted and determined to require a generator change, which he had on 03/08
it was also seen that an ICD lead was fractured and recommended a change but pt refused;
[facility] and came back 03/11-03/12 for chest pain
he had ct scan which was neg for PE; trop was not significant; it was felt that his cp is likely from having ICD generator change an dlying on his left sidde; they recommended tylenol and lidocaine
he returns tonight for chest pain
apparently he went to [facility] at 7pm saying he had cp
he says it feels like burning in his L upper chest like it did 2 days ago when he was here
he has not had tylenol while back at [facility]; infact he says he has not had any of his meds
i called the RN [facility] the [facility]iary who confirmed that pt got no meds today but she says it was documented that he refused
he has not had any sob, fever, chills, cough, vomiting, diaphoresis, weakness, syncoe
Past History
<Mila De La Torre PA-C - Last Filed: 03/14/24 02:54>
Past History
ED Past Medical History: CAD, HTN, Hypercholesterolemia and NIDDM
ED Past Surgical History: Cardiac (AICD)
Social History
Tobacco: Non-smoker
Alcohol: None
Drug: None
Living: penitentiary
Review of Systems
<MARIA E Phan Last Filed: 03/14/24 02:54>
Review of Systems
Allergies reviewed?: Yes
All Other Systems: Not applicable
Phy Exam
<MARIA E Phan Last Filed: 03/14/24 02:54>
Physical Exam
Physical Exam:
GENERAL: drowsy, arousable
EYE: pupils equal and reactive
NECK: Supple
ENT: o/p clr, mmm.
CARDIAC: Regular rate and rhythm .no obvious murmur; no edema
L upper chest wall dresing in place;
LUNGS: Clear breath sounds bilaterally, no acute respiratory distress, no wheezes/rales/rhonchi
ABDOMEN: Soft, without focal tenderness, no r/g, no cvat, normal bowel sounds
NEUROLOGICAL: slightly drowsy; oriented; no deficits; , no focal neuro deficits
SKIN: Warm and dry, skin intact.
MUSCULOSKELETAL: No edema, well perfused. neg sravani's sign
PSYCH: drowsy, arousable, orientered
Scores
<MARIA E Phan Last Filed: 03/14/24 02:54>
Heart Score for Chest Pain Patients
STEMI patient?: No
History: Slightly or Non-Suspicious
ECG: Nonspecific Repolarization
Age: >45 - <65 years
Risk Factors: >/= 3 Risk Factors or History of CAD
Troponin: </= Normal Limit
Heart Score for Chest Pain Patients: 4
Heart Score Risk: 20.3% MACE over next 6 weeks
Course
<MARIA E Phan Last Filed: 03/14/24 02:54>
Orders/Labs/Results
Orders:
Orders
03/13/24 20:01
Electrocardiogram (*1) Urgent
Reason for Study: Chest Pain
Cardiac Monitoring- Treatment ONCE
EKG- Treatment ONCE
IV Insert/Care/Rem.- Treatment PRN
O2 Therapy [RESP] Urgent
Titrate/Wean O2 to maintain O2 sat greater than (%): 90
Special Instructions: Maintain sats >/=90%
Pulse Ox/spot Check [RESP] Urgent
Quantity: 1
Special Instructions: ON ROOM AIR
03/13/24 20:07
Complete Blood Count/With Diff Urgent
Comprehensive Metabolic Panel Urgent
NT-proBNP Urgent
Troponin I Urgent
Acetaminophen [Tylenol] 650 mg PO NOW STA
03/13/24 20:18
pacemaker [Interrogate Pacemaker- Treatment] ONCE
03/13/24 20:49
CR Chest - 2 Views Urgent
Comment:
Reason For Exam: chest pain
03/13/24 22:19
Urine Drug Abuse Screen Urgent
03/13/24 23:00
Flush (0.9% Sodium Chloride) [Flush (Nss)] See Dose Instructions IV PER PROTOCOL
03/13/24 23:50
Admit/Transfer Patient As Directed
Co-Sign Provider:
Level of Care: Inpatient admission
Assign to:: IVU
Physician / Group: Andrea
Diagnosis: NSVT
Reason for Hospitalization: NSVT, Chest Pain
Expected length of stay greater than two midnights?: Yes
ELOS- Estimated Length of Stay in days: 2
I certify the patient meets the requirements for IP care: Yes
Code Status As Directed
Resuscitation Status: Full Code
PRN Pain Medication Management As Directed
May give lesser potent ordered pain med per pt: Yes
preference::
Protocol:: Medication orders for pain may be administered in a
manner that supports deferring to patient preference
when the pt is:
- Requesting an ordered lesser potent pain medication.
Least to most potent pain medications are defined
as: acetaminophen < NSAID < tramadol < opioids
(morphine, oxycodone, hydromorphone).
- Requesting a lesser dose of the same medication IF
ORDERED.
- Requesting a less intrusive route of administration
if both routes are prescribed by the provider (PO <
IV).
03/13/24 23:51
Troponin I Urgent
03/14/24 00:34
Dextrose 50%-Water [Dextrose 50% Syringe] 12.5 grams IV [id number] PRN
Glucagon [GlucaGen] 1 mg IM PRN PRN
Morphine Sulfate 2 mg IV Q4HPRN PRN
03/14/24 00:34
CARDIOLOGY CONSULT Routine
Consulting Provider: Nelia Whitney
Was physician already notified: Yes
Reason for consult: NSVT
TSH Reflex To Free T4 Routine
Activity As Directed
Activity Level: Ambulate
With Assistance
Bedside Glucose Monitoring As Directed
Frequency: AC&HS
Additional Instructions:: Change to q6h if pt on TPN, tube feeding or not eating
EKG with chest pain [ECG as needed] As Directed
ECG as needed for:: Chest Pain
I/O [Intake/ Output] As Directed
Frequency: Per unit guidelines
Orthostatic Vital Signs As Directed
Orthostatic VS Frequency: BID
Pneumatic Compression Sleeves As Directed
Type: Knee high
Vital Signs As Directed
Frequency: Per unit guidelines
Oxygen Therapy [O2 Therapy] [RESP] Routine
Titrate/Wean O2 to maintain O2 sat greater than (%): 94
DX Deep Vein Thrombosis Video Routine
03/14/24 00:43
Troponin I Q6H
03/14/24 06:00
EKG [Electrocardiogram (*1)] IN AM
Reason for Study: Chest Pain
NPO
Allow oral meds: Yes
Allow clear liquids: Sips of Clears
Basic Metabolic Panel IN AM
Complete Blood Count/No Diff IN AM
Magnesium IN AM
03/14/24 06:34
Troponin I Q6H
03/14/24 07:30
Insulin Aspart Corrective Low [Novolog Flexpen-Low Resistance] See Protocol SC AC
03/14/24 08:00
Acetaminophen [Tylenol] 1,000 mg PO TID
Aspirin Low Dose EC [Aspir Low (Enteric Coated)] 81 mg PO DAILY
Carvedilol [Coreg] 3.125 mg PO BID
FOLic ACID [Folvite] 1 mg PO DAILY
Levetiracetam [Keppra] 500 mg PO BID
Nicotine [Nicoderm Transdermal] 14 mg TRANSDERM DAILY
Sertraline HCl [Zoloft] 100 mg PO DAILY
Thiamine HCl [Vitamin B1] 100 mg PO DAILY
Valsartan [Diovan] 20 mg PO BID
03/14/24 12:34
Troponin I Q6H
03/14/24 22:00
Atorvastatin [Lipitor] 40 mg PO HS
Abnormal Lab Results
03/13/24
20:07
RBC 3.75 L 10^6/uL
(4.70-6.10)
Hgb 11.1 L g/dL
(13.0-18.0)
Hct 32.0 L %
(39.0-52.0)
Abs Immat Gran (auto) 0.1 H 10^3/uL
(0-0.05)
Absolute Monos (auto) 0.9 H 10^3/uL
(0.1-0.6)
Immature Gran % 0.6 H %
(0-0.5)
Lymphocytes % 18.5 L %
(20.5-51.1)
Monocytes % 9.4 H %
(1.7-9.3)
Sodium 131 L mmol/L
(135-145)
Chloride 92 L mmol/L
(98-107)
Glucose 252 H mg/dl
(70-99)
03/13/24 20:07
03/13/24 20:07
Vital Signs
Initial and Last Documented VS:
Initial Vital Signs
Pulse Resp BP
62 11 144/73
03/13/24 19:58 03/13/24 19:58 03/13/24 19:58
Last Documented Vital Signs
Temp Pulse Resp BP Pulse Ox
98.5 F 61 18 117/84 99
03/14/24 00:40 03/14/24 02:30 03/14/24 00:40 03/14/24 02:29 03/14/24 00:40
<Johnny Driscoll MD - Last Filed: 03/13/24 23:15>
Orders/Labs/Results
Orders:
Orders
03/13/24 20:01
Electrocardiogram (*1) Urgent
Reason for Study: Chest Pain
Cardiac Monitoring- Treatment ONCE
EKG- Treatment ONCE
IV Insert/Care/Rem.- Treatment PRN
O2 Therapy [RESP] Urgent
Titrate/Wean O2 to maintain O2 sat greater than (%): 90
Special Instructions: Maintain sats >/=90%
Pulse Ox/spot Check [RESP] Urgent
Quantity: 1
Special Instructions: ON ROOM AIR
03/13/24 20:07
Complete Blood Count/With Diff Urgent
Comprehensive Metabolic Panel Urgent
NT-proBNP Urgent
Troponin I Urgent
Acetaminophen [Tylenol] 650 mg PO NOW STA
03/13/24 20:18
pacemaker [Interrogate Pacemaker- Treatment] ONCE
09/29/24 20:49
CR Chest - 2 Views Urgent
Comment:
Reason For Exam: chest pain
03/13/24 22:19
Urine Drug Abuse Screen Urgent
03/13/24 23:00
Flush (0.9% Sodium Chloride) [Flush (Nss)] See Dose Instructions IV PER PROTOCOL
03/13/24 23:50
Admit/Transfer Patient As Directed
Co-Sign Provider:
Level of Care: Inpatient admission
Assign to:: IVU
Physician / Group: Andrea
Diagnosis: NSVT
Reason for Hospitalization: NSVT, Chest Pain
Expected length of stay greater than two midnights?: Yes
ELOS- Estimated Length of Stay in days: 2
I certify the patient meets the requirements for IP care: Yes
Code Status As Directed
Resuscitation Status: Full Code
PRN Pain Medication Management As Directed
May give lesser potent ordered pain med per pt: Yes
preference::
Protocol:: Medication orders for pain may be administered in a
manner that supports deferring to patient preference
when the pt is:
- Requesting an ordered lesser potent pain medication.
Least to most potent pain medications are defined
as: acetaminophen < NSAID < tramadol < opioids
(morphine, oxycodone, hydromorphone).
- Requesting a lesser dose of the same medication IF
ORDERED.
- Requesting a less intrusive route of administration
if both routes are prescribed by the provider (PO <
IV).
03/13/24 23:51
Troponin I Urgent
03/14/24 00:34
Dextrose 50%-Water [Dextrose 50% Syringe] 12.5 grams IV [id number] PRN
Glucagon [GlucaGen] 1 mg IM PRN PRN
Morphine Sulfate 2 mg IV Q4HPRN PRN
03/14/24 00:34
CARDIOLOGY CONSULT Routine
Consulting Provider: Nelia Whitney
Was physician already notified: Yes
Reason for consult: NSVT
TSH Reflex To Free T4 Routine
Activity As Directed
Activity Level: Ambulate
With Assistance
Bedside Glucose Monitoring As Directed
Frequency: AC&HS
Additional Instructions:: Change to q6h if pt on TPN, tube feeding or not eating
EKG with chest pain [ECG as needed] As Directed
ECG as needed for:: Chest Pain
I/O [Intake/ Output] As Directed
Frequency: Per unit guidelines
Orthostatic Vital Signs As Directed
Orthostatic VS Frequency: BID
Pneumatic Compression Sleeves As Directed
Type: Knee high
Vital Signs As Directed
Frequency: Per unit guidelines
Oxygen Therapy [O2 Therapy] [RESP] Routine
Titrate/Wean O2 to maintain O2 sat greater than (%): 94
DX Deep Vein Thrombosis Video Routine
03/14/24 00:43
Troponin I Q6H
03/14/24 06:00
EKG [Electrocardiogram (*1)] IN AM
Reason for Study: Chest Pain
NPO
Allow oral meds: Yes
Allow clear liquids: Sips of Clears
Basic Metabolic Panel IN AM
Complete Blood Count/No Diff IN AM
Magnesium IN AM
03/14/24 06:34
Troponin I Q6H
03/14/24 07:30
Insulin Aspart Corrective Low [Novolog Flexpen-Low Resistance] See Protocol SC AC
03/14/24 08:00
Acetaminophen [Tylenol] 1,000 mg PO TID
Aspirin Low Dose EC [Aspir Low (Enteric Coated)] 81 mg PO DAILY
Carvedilol [Coreg] 3.125 mg PO BID
FOLic ACID [Folvite] 1 mg PO DAILY
Levetiracetam [Keppra] 500 mg PO BID
Nicotine [Nicoderm Transdermal] 14 mg TRANSDERM DAILY
Sertraline HCl [Zoloft] 100 mg PO DAILY
Thiamine HCl [Vitamin B1] 100 mg PO DAILY
Valsartan [Diovan] 20 mg PO BID
03/14/24 12:34
Troponin I Q6H
03/14/24 22:00
Atorvastatin [Lipitor] 40 mg PO HS
Abnormal Lab Results
03/13/24
20:07
RBC 3.75 L 10^6/uL
(4.70-6.10)
Hgb 11.1 L g/dL
(13.0-18.0)
Hct 32.0 L %
(39.0-52.0)
Abs Immat Gran (auto) 0.1 H 10^3/uL
(0-0.05)
Absolute Monos (auto) 0.9 H 10^3/uL
(0.1-0.6)
Immature Gran % 0.6 H %
(0-0.5)
Lymphocytes % 18.5 L %
(20.5-51.1)
Monocytes % 9.4 H %
(1.7-9.3)
Sodium 131 L mmol/L
(135-145)
Chloride 92 L mmol/L
(98-107)
Glucose 252 H mg/dl
(70-99)
03/13/24 20:07
03/13/24 20:07
Vital Signs
Initial and Last Documented VS:
Initial Vital Signs
Pulse Resp BP
62 11 144/73
03/13/24 19:58 03/13/24 19:58 03/13/24 19:58
Last Documented Vital Signs
Temp Pulse Resp BP Pulse Ox
98.5 F 61 18 117/84 99
03/14/24 00:40 03/14/24 02:30 03/14/24 00:40 03/14/24 02:29 03/14/24 00:40
<Mila De La Torre PA-C - Last Filed: 03/14/24 02:54>
MDM/Problems Addressed
Differential Diagnosis Includes:
inciional chest wall pain, ams, side effects from meds, seizure
MDM/Problems Addressed:
58 y/o M
[facility]
has been hospitalized 3 times in the past efw weeks here
had signidiant hospitalization with setpic shock from bacteremia secondary to strep with PEA arrest
he has h/o cardiomyopathy
has a fractured ICD wire
declined replacement
so now has an atrial pacer but no defibrillator
has had chest wall pain that feels like burning
was seen here yesterday for same; felt to just be chest wall in nature, recommended tylenol
he didn't get tylenol or any meds today; ? refusal vs. not given
here pt is drosy but arousable and oritented
he doesn't have any other complaints
no sob, fever chills
afebrile, normotensive, normal wbc
trop neg, ekg sinus 60s intiailly
planw as for repeat trop in 3 horus and d/c back to [facility]
but he had episode of bradycardia 30s and pacer then kicked on, pacing in 60s and then had run of NSVT lasting a few min
d/w dr. whitney
recommend tele obs
aware of pt and his deciison to decline replacement of the ICD;
<Mila De La Torre PA-C - Last Filed: 03/14/24 02:54>
*Critical Care Note
Total Time (30-74mins, 75-104mins- exclusive of procedures): Not Applicable
ED Attending Note
<Mila De La Torre PA-C - Last Filed: 03/14/24 02:54>
-
Portions of this chart may have been created with voice recognition software.� Occasional wrong word or��sound alike� substitutions may have occurred due to the inherent limitations of voice recognition software.
<Johnny Driscoll MD - Last Filed: 03/13/24 23:15>
ED Attending Note
Patient seen and examined by attending physician: Yes
I performed the substantive portion of visit, reviewed & personally made and approve the management plan that is documented in note by myself or DERRICK.: Yes
ED Attending Note:
Patient is a 58-year-old male with history of cardiomyopathy status post AICD, pacemaker presenting to the emergency department with chest pain. Patient states that the burning sensation in the left side of his chest. Is similar to when he was
here recently. Per chart review patient was seen here yesterday and discharged for chest pain. Patient does feel more groggy. He did not take any medications for his pain today. At this time patient is having some chest pain and some grogginess.
No difficulty breathing. No nausea no vomiting. No diarrhea. Per the monitor patient did have episodes of bradycardia for a few moments until the pacemaker kicked in. He is currently at a paced rhythm in the 60s. Per nursing he did have a
short episode of nonsustained V. tach. On exam at this time he is in a paced rhythm in the 60s. He is resting comfortably. He is slightly drowsy and slow to respond. Site of the ICD is clean and dry. No signs of infection. At this time given
the ongoing drowsiness, nonsustained VT, chest pain and after discussion with cardiology will admit for further workup. Please see the PAs note above for further details
Discharge Plan
Departure
Patient Disposition: Admit
Date of Disposition: 03/13/24
Time of Disposition: 22:20
Admit to: Telemetry
Presentation/result/management discussed w/ accepting MD/DO: Hospitalist
Condition: Fair
Covid-19: Not Applicable
Discharge Problem:
Chest pain, Non-sustained ventricular tachycardia, Altered mental status
Interventions
Interventions:
*Risk Screen - Suicide Last Done: 03/14/24 00:49
*General Assessment Last Done: 03/13/24 19:59
*Neglect/Abuse Screening Last Done: 03/13/24 19:59
ED- Fall Risk Assessment Last Done: 03/13/24 19:59
*ED COVID-19 Vaccine History Last Done: 03/14/24 00:49
*Nursing Disposition Last Done: 03/14/24 00:46
ED- Cardiac Assessment Last Done: 03/13/24 19:59
Discharge Date and Time
Discharge Date/Time: 03/14/24 00:46
[2024-03-13] MEDS: TYLENOL 650 MG PO (20:12)
[2024-03-13 20:18] LABS: % Basophils 0.9 % (0-2); % Immature Granulocytes 0.6 % (0-0.5); % Lymphocytes 18.5 % (20.5-51.1); % Monocytes 9.4 % (1.7-9.3); % Neutrophils 69.6 % (42.2-75.2); Absolute Basophils 0.1 10^3/uL (0-0.2); Absolute Eosinophils 0.1 10^3/uL (0-0.7); Absolute Immature Granulocytes 0.1 10^3/uL (0-0.05); Absolute Lymphocytes 1.7 10^3/uL (1.2-3.4); Absolute Monocytes 0.9 10^3/uL (0.1-0.6); Absolute Neutrophils 6.5 10^3/uL (1.4-6.5); Hemoglobin 11.1 g/dL (13.0-18.0); Mean Corp Hgb Conc. 34.7 g/dL (33.0-37.0); Mean Corpuscular Hgb 29.6 pg (27.0-31.0); Mean Corpuscular Volume 85.3 fL (80.0-94.0); Mean Platelet Volume 10.1 fL (7.4-10.4); Nucleated Red Blood Cells % 0 % (-); Platelet Count 392 10^3/uL (130-400); Red Blood Cell Count 3.75 10^6/uL (4.70-6.10); White Blood Cell Count 9.3 10^3/uL (4.8-10.8)
[2024-03-13 20:31] LABS: ALT (SGPT) 37 U/L (0-50); AST (SGOT) 44 U/L (17-59); Alkaline Phosphatase 85 U/L (38-126); Blood Urea Nitrogen 13 mg/dl (9-20); Calcium 9.3 mg/dl (8.4-10.2); Carbon Dioxide 23 mmol/L (22-30); Chloride 92 mmol/L (98-107); Estimated Creatinine Clearance 94 ml/min; Glucose 252 mg/dl (70-99); Potassium 4.9 mmol/L (3.5-5.1); Sodium 131 mmol/L (135-145); Total Bilirubin 0.6 mg/dl (0.2-1.3); Total Protein 7.7 g/dl (6.3-8.2); eGFR > 60.00
[2024-03-13 20:42] LABS: NT-proBNP 6800 pg/ml; Troponin I 0.015 ng/ml
[2024-03-13 21:00] VITALS: BP 135/83
[2024-03-13 22:00] VITALS: BP 130/77
[2024-03-13 23:00] VITALS: BP 131/78
--- NOTE | 2024-03-13 23:31 | HPS.HSE ---
Addendum entered and electronically signed by Valdo Mendez DO 03/14/24 00:03:
Patient seen and examined independently. Agree with findings and plan as set forth by PATRIA Castellon.
Patient is a 58y M with PMH significant for cardiomyopathy s/p AICD with recent hospitalization for Strep pyogenes bacteremia / sepsis, seizure, intubation, PEA arrest, etc. He underwent ICD generator change during that visit and was newly started
on AEDs. He was also noted to have a fractured defibrillator lead; however, he declined to have this replaced. Patient was discharged on 03/10 but returned to the ED on 03/11 with chest pain at his incision site. He was observed overnight and his
medications adjusted for pain control. Cardiac evaluation (EKGs and troponin) were unremarkable.
Patient was again discharged back to senior living and returns again this evening with the same complaints of L chest discomfort at the lateral aspect of his ICD incision.
He denies any associated dyspnea, palpitations, fevers / chills, etc.
Patient is somewhat somnolent and with slurred speech and senior living staff notes that he has not been himself since his initial hospitalization.
While in the ED, patient was noted to have a brief run of NSVT.
Ass:
Non-Sustained Ventricular Tachycardia
Chest Pain - Likely due to incision
Altered Mental Status - ? med effect
Seizure Disorder
ASCVD
Cardiomyopathy
DM-II
Hypertension
Anxiety / Depression
Plan:
Admit for further evaluation and treatment.
Monitor on telemetry for any recurrent NSVT.
Cardiology / EP evaluation for additional recommendations.
Continue to follow troponin - though pain continues to seem incisional in nature.
Supportive care / symptom control.
Hold buspirone given somnolence. Was originally discontinued after first hospital stay / initiation of Keppra.
Follow for any new / recurrent seizure activity.
Consider Neurology evaluation if somnolence does not improve - ? med changes would be beneficial.
Follow glucose and cover with SSI as needed.
Original Note:
Family Physician
-
Family Physician: Facility [facility]
Chief Complaint
-
incision pain
History of Present Illness
58 y/o M prisoner h/o cardiomyopathy s/p AICD, DM from senior living originally 02/28-03/10 for septic shock secondary to strep bacteremia; course complicated by a PEA arrest with ROSC after 2 min CPR EF 35-40% which apparently was baseline. his ICD
generator change was done on 03/08. he is complaining of pain at the site. patient stated pain is non radiating, non exertional. denied sob. denied HUMPHREY, dizzy or syncopal episode. denied abdominal pain,n,v,d. denied dysuria or hematuria.
his ICD lead was fractured and recommended a change but pt refused. patient was admitted here 03/12-03/13 with the [address] pain[address] his CT was negative for PE, trop was negative. it was determined that his pain was from laying on his left side since the ICD
generator change.
patient very drowsy as per financial aids officer since the discharge.
In the ER, he was noted to have nonsustained V tach. admitting for further management.
have patient received Tylenol in ER. admitting for further management.
Medical History
Past Medical History
Past Medical History: Reports Other
Additional Past Medical History:
CAD
cardiomyopathy s/p AICD
strep bacteremia
CAD
HTn
HLD
NIDDM
Past Surgical History: Reports None
Social History
Tobacco: Smoker
Alcohol: Occasional
Drug: None
Living: Jail
Family History
Family History: Not pertinent
Allergies / Home Medications
Allergies reflects when Allergies were last updated in [facility].
Home Medications with original date entered in [facility]
Allergy/Medication List:
Allergies
Allergy/AdvReac Type Severity Reaction Status Date / Time
No Known Allergies Allergy Verified 03/13/24 19:58
Home Medications
folic acid 1 mg tablet 1 mg PO DAILY Supplement 02/29/24
therapeutic multivitamin 1 tab PO DAILY Supplement 02/29/24
thiamine HCl (vitamin B1) 100 mg tablet 100 mg PO DAILY Supplement 02/29/24
aspirin 81 mg tablet,delayed release 81 mg PO DAILY Blood Clot Prevention/Tx #30 tabs 03/10/24
atorvastatin 40 mg tablet 40 mg PO HS High Cholesterol #30 tabs 03/10/24
glipizide 5 mg tablet 5 mg PO DAILY Diabetes #30 tabs 03/10/24
levetiracetam 500 mg tablet 500 mg PO BID #60 tabs 03/10/24
metformin 1,000 mg tablet 1,000 mg PO BID Diabetes #60 tabs 03/10/24
nicotine 14 mg/24 hr daily transdermal patch 14 mg transdermal DAILY #30 ea 03/10/24
nystatin 100,000 unit/mL oral suspension 5 ml PO QID #473 mL 03/10/24
sertraline 100 mg tablet 100 mg PO DAILY Mental Health/Anxiety #30 tabs 03/10/24
valsartan 40 mg tablet 20 mg (1/2 x 40 mg) PO BID #30 tabs 03/10/24
buspirone 10 mg tablet 10 mg PO BID 03/11/24
acetaminophen 325 mg tablet 650 mg (2 x 325 mg) PO Q6HPRN PRN mild pain/ fever>100.5F #0 tabs 03/12/24
carvedilol 3.125 mg tablet (Coreg) 3.125 mg PO BID Blood Pressure #60 tabs 03/12/24
lidocaine 4 % topical patch 1 patch topical DAILY #0 ea 03/12/24
Review of Systems
-
Constitutional: Reports No Symptoms
EENT: Reports No Symptoms
Respiratory: Reports No Symptoms
Cardiac: Reports Chest Pain
Abdomen/GI: Reports No Symptoms
: Reports No Symptoms
Musculoskeletal: Reports No Symptoms
Skin: Reports No Symptoms
Neurological: Reports No Symptoms
Endocrine: Reports No Symptoms
Hematologic/Lymphatic: Reports No Symptoms
Psych: Reports No Symptoms
Physical Exam
Vital Signs
Vital Signs
Temp Pulse Resp BP Pulse Ox
97.6 F 60 15 130/77 97
03/13/24 19:59 03/13/24 22:15 03/13/24 22:15 03/13/24 22:00 03/13/24 22:15
Physical Exam
General: Well Developed, Well Nourished and No Apparent Distress
HEENT: NormoCephalic, Moist mucous membranes and Atraumatic
Respiratory: Clear
Cardiac: S1/S2 and Regular Rhythm; No Murmur or Rub
GI: Soft, Non Tender, Non Distended and Normal Bowel Sounds; No Organomegaly
Rectal: Deferred by Provider
Musculoskeletal: No Clubbing, No Cyanosis and No Edema
Skin: Rash and Other (lleft sided incision site)
Neuro: AO x 3 and Nonfocal/grossly intact
Psych: Calm
Laboratory Results
-
03/13/24 20:07
03/13/24 20:07
Laboratory Results
Total Bilirubin 0.6 mg/dl (0.2-1.3) 03/13/24 20:07
AST 44 U/L (17-59) 03/13/24 20:07
ALT 37 U/L (0-50) 03/13/24 20:07
Alkaline Phosphatase 85 U/L (38-126) 03/13/24 20:07
Troponin I 0.015 ng/ml 03/13/24 20:07
Data Reviewed
-
Lab Data: Labs Reviewed by me
Impression/Plan
-
#left sided chest pain/incision pain
#non sustained SVT
-Tylenol continued for pain
-trend trop
-s/p ICD generator change 03/08; per EP his ICD lead is fractured without defibrillator function. He is aware that his ICD will not fire if he needs it. Currently he is ICD pacing. Coreg. Also started on low-dose valsartan. Electrophysiology
discussed with patient regarding options with new ICD however he currently wants to pursue conservative measures knowing that his ICD lead is not working and it wont shock him.
-cardiology consulted
#drowsiness likely from Keppra
-if continued to drowsy, consider neurology consult
#Hyponatremia
Monitor
#History of recent septic shock secondary to Streptococcus pyogenes bacteremia
Otitis media with perforated eardrum
Patient will follow-up with ENT outpatient
finished abx
#History of seizure
-Continue with Keppra
#Type 2 diabetes mellitus
-Continue with metformin, glipizide
-Accu-Cheks
#depression/anxiety
-hold BuSpar
-sertraline continued
#essential HTN
-Coreg,valsartan continued with hold parameter
#HLD
-statin continued
#DVT prophylaxis
-Lovenox
[2024-03-14] VITALS (10 sets, daily range): BP systolic 109–141; BP diastolic 69–87; BMI 28.0
[2024-03-14 00:25] LABS: Troponin I 0.016 ng/ml
[2024-03-14 01:05] LABS: Glucose - Point of Care 225 mg/dl (70-99)
[2024-03-14 01:16] LABS: Troponin I 0.016 ng/ml
--- NOTE | 2024-03-14 01:30 | PTCARENOTE ---
Pt. received from ED with 2 correctional officers present. Pt. AOx3, complaining of a slight headache. RN was told in report pt. had received tylenol in ED. RN also told in report pt w hx of seizures. Seizure precautions in place in room. VS WNL.
Tele reading A Paced, tele strip in chart. Admission assessment completed. Pt. oriented to room. Call ochoa within reach. Plan of care explained to patient, patient verbalizes understanding. Continuing to monitor at this time.
--- NOTE | 2024-03-14 02:29 | PTCARENOTE ---
Addendum entered by Jeny Mohan RN 03/14/24 03:00:
Stat dose of Keppra administered per order. PRN ativan also available.
Original Note:
This RN notified of seizure like activity being exhibited by patient. Pt. found lying on right side VS WNL. This RN suctioned the pt with little residue. House provider notified, awaiting orders. Continuing to monitor the patient at this time.
[2024-03-14] MEDS: KEPPRA 1000 MG IV (02:48)
--- NOTE | 2024-03-14 03:03 | W.PN.UPDATE ---
Update Note
Progress Note Update
RNs on unit report pt having seizure. Noted pt did not receive his keppra last evening. Takes 500mg po bid. 100mg keppra iv ordered x1 for now and added ativan prn seizure.
On eval, pt aaox3. Do not appear in a post ictal state. Spoke with primary nurse and she did not witness seizure activity as she was in another room. Currently, pt only complaint is that he is hungry. Currently he is NPO be admitting physician
(unknown why.)
Will consult neuro.
[2024-03-14 05:05] LABS: Hematocrit 27.8 % (39.0-52.0); Hemoglobin 9.8 g/dL (13.0-18.0); Mean Corp Hgb Conc. 35.3 g/dL (33.0-37.0); Mean Corpuscular Hgb 30.1 pg (27.0-31.0); Mean Corpuscular Volume 85.3 fL (80.0-94.0); Mean Platelet Volume 10.4 fL (7.4-10.4); Platelet Count 343 10^3/uL (130-400); Red Blood Cell Count 3.26 10^6/uL (4.70-6.10); Red Cell Dist. Width 13.2 % (11.5-14.5); White Blood Cell Count 7.1 10^3/uL (4.8-10.8)
[2024-03-14] MEDS: MORPHINE SULFATE 2 MG IV (05:26)
[2024-03-14 06:35] LABS: Blood Urea Nitrogen 14 mg/dl (9-20); Calcium 8.7 mg/dl (8.4-10.2); Carbon Dioxide 24 mmol/L (22-30); Chloride 96 mmol/L (98-107); Estimated Creatinine Clearance 105 ml/min; Glucose 130 mg/dl (70-99); Magnesium 1.3 mg/dl (1.6-2.3); Potassium 4.9 mmol/L (3.5-5.1); Sodium 131 mmol/L (135-145); eGFR > 60.00
[2024-03-14 06:46] LABS: Troponin I 0.015 ng/ml
[2024-03-14] MEDS: MAGNESIUM SULFATE 100 IV (06:53)
--- NOTE | 2024-03-14 07:02 | PTCARENOTE ---
AM labs resulted, pt's magnesium level resulting at 1.3. House provider notified, 4gram mag rider order placed by PATRIA. Mg rider now hanging. Reassess mg level after medication has infused.
[2024-03-14 07:16] LABS: Glucose - Point of Care 155 mg/dl (70-99)
--- NOTE | 2024-03-14 08:00 | PTCARENOTE ---
Assumed care of pt from prev nsg shift; Pt droawsy but easily arousable to voice, AAOX3; Pt w/no c/o CP or SOB. Pt reports 'some pain' rating a 3/10 at his L chest wall ERNESTO site. Sched topical Lidoderm patch placed to L chest wall & PO Tylenol
administered as ordered for pain. Pt's VS stable w/HR 60 & BP this AM 127/76. Pt w/Aquacell dressing in place s/p gen change to ICD recently. Sm amount of old drainage on dressing. Pt w/no signs of seizure activity at this time. 2 guards at bedside.
Pt w/no addtl needs at this time; call ochoa within reach.
[2024-03-14 08:22] LABS: Glucose - Point of Care 148 mg/dl (70-99)
[2024-03-14] MEDS: ASPIR LOW (ENTERIC COATED) 81 MG PO (08:25)
[2024-03-14] MEDS: DIOVAN 20 MG PO ×2 (08:25→20:49)
[2024-03-14] MEDS: VITAMIN B1 100 MG PO (08:25)
[2024-03-14] MEDS: ZOLOFT 100 MG PO (08:25)
[2024-03-14] MEDS: FOLVITE 1 MG PO (08:26)
[2024-03-14] MEDS: KEPPRA 500 MG PO ×2 (08:26→20:48)
[2024-03-14] MEDS: LIDOCAINE 4% PATCH 1 PATCH TOPICAL (08:26)
[2024-03-14] MEDS: NOVOLOG FLEXPEN-LOW RESISTANCE SC (08:26)
[2024-03-14] MEDS: COREG 3.125 MG PO ×2 (08:26→11:25)
[2024-03-14] MEDS: NICODERM TRANSDERMAL 14 MG TRANSDERM (08:27)
[2024-03-14] MEDS: TYLENOL 1000 MG PO ×2 (08:27→16:14)
--- NOTE | 2024-03-14 09:49 | CON.CAR ---
Addendum entered and electronically signed by Breezy De Leon MD 03/14/24 11:52:
I saw and examined the patient.
The SERVICE DIRECTOR's note was reviewed and I agree with the note.
Comment: 58 y/o male with hypertension, dyslipidemia, DM, CAD with hx stent, cardiomyopathy EF 35%, and pacemaker (former defibrillator but fractured lead so not functional). He was recently hospitalized with group A strep bacteremia (suspected
meningitis with source right otitis media with perforated TM and pharyngitis). Dr. Bush is reported as patient's senior project accountant. On 03/08/24, Dr. Sloan did a gent change of cardiac device. Patient declined extraction/reimplantation of ICD or
placement of second ICD lead.
- CP most consistent related to device pain
- NSVT replacing Mag and increase Metop, asymptomatic
No other CV recommendations, we will sign off.
Original Note:
Consultation
Consultation Request
Date/Time Consultation Requested: 03/14/24 0004
Date/Time Consultation Performed: 03/14/24914
Requesting Provider: Dr. Mendez
Performing Provider: Jacey ESPAÑA for Dr. De Leon
Reason for Consultation: NSVT
Medical History
-
Chief Complaint: chest pain
History of Present Illness:
58 y/o male with hypertension, dyslipidemia, DM, CAD with hx stent, cardiomyopathy EF 35%, and pacemaker (former defibrillator but fractured lead so not functional). He was recently hospitalized with group A strep bacteremia (suspected meningitis
with source right otitis media with perforated TM and pharyngitis). Dr. Bush is reported as patient's senior project accountant. On 03/08/24, Dr. Sloan did a gent change of cardiac device. Patient declined extraction/reimplantation of ICD or placement of
second ICD lead. He was recently here with chest pain that was felt to be related to recent device placement. He is back with that same discomfort. It comes and goes. It is worse to palpation and worse in certain positions. Better with Tylenol. He
is in no distress at the time of my assessment. We are consulted for NSVT on the monitor last night. He reportedly had seizure activity overnight. He got morphine this AM and wakes up and follows commands, but is lethargic.
Past Medical History
Past Medical History: CAD, CHF, HTN, Hypercholesterolemia and NIDDM
Social History
Living: Long-Term
Allergies / Home Medications
Allergy/AdvReac Type Severity Reaction Status Date / Time
No Known Allergies Allergy Verified 03/13/24 19:58
�Medication �Instructions �Recorded �Confirmed �Type
folic acid 1 mg tablet 1 mg PO DAILY Supplement 02/29/24 03/13/24 History
therapeutic multivitamin 1 tab PO DAILY Supplement 02/29/24 03/13/24 History
thiamine HCl (vitamin B1) 100 mg 100 mg PO DAILY Supplement 02/29/24 03/13/24 History
tablet
aspirin 81 mg tablet,delayed 81 mg PO DAILY Blood Clot 03/10/24 03/13/24 Rx
release Prevention/Tx #30 tabs
atorvastatin 40 mg tablet 40 mg PO HS High Cholesterol #30 03/10/24 03/13/24 Rx
tabs
glipizide 5 mg tablet 5 mg PO DAILY Diabetes #30 tabs 03/10/24 03/13/24 Rx
levetiracetam 500 mg tablet 500 mg PO BID #60 tabs 03/10/24 03/13/24 Rx
metformin 1,000 mg tablet 1,000 mg PO BID Diabetes #60 tabs 03/10/24 03/13/24 Rx
nicotine 14 mg/24 hr daily 14 mg transdermal DAILY #30 ea 03/10/24 03/13/24 Rx
transdermal patch
nystatin 100,000 unit/mL oral 5 ml PO QID #473 mL 03/10/24 03/13/24 Rx
suspension
sertraline 100 mg tablet 100 mg PO DAILY Mental 03/10/24 03/13/24 Rx
Health/Anxiety #30 tabs
valsartan 40 mg tablet 20 mg (1/2 x 40 mg) PO BID #30 tabs 03/10/24 03/13/24 Rx
buspirone 10 mg tablet 10 mg PO BID 03/11/24 03/13/24 History
acetaminophen 325 mg tablet 650 mg (2 x 325 mg) PO Q6HPRN PRN 03/12/24 03/13/24 Rx
mild pain/ fever>100.5F #0 tabs
carvedilol 3.125 mg tablet (Coreg) 3.125 mg PO BID Blood Pressure #60 03/12/24 03/13/24 Rx
tabs
lidocaine 4 % topical patch 1 patch topical DAILY #0 ea 03/12/24 03/13/24 Rx
Review of Systems
-
History Source: Patient and Other (and chart)
Cardiac: Chest Pain
Physical Exam
Vital Signs
Temp Pulse Resp BP Pulse Ox
97.8 F 60 18 127/76 98
03/14/24 07:09 03/14/24 07:45 03/14/24 07:09 03/14/24 07:12 03/14/24 07:09
Lab Results
03/14/24 04:56
03/14/24 05:58
Troponin I 0.015 ng/ml 03/14/24 05:58
Lks-M-Pyebnsgcsuu Pept 6800 pg/ml 03/13/24 20:07
Physical Exam
General: Well Developed, Well Nourished and No Apparent Distress
HEENT: Normocephalic and Anicteric
Respiratory: Clear and Non Labored Respirations
Cardiac: Regular Rhythm
Musculoskeletal: No Edema
Skin: Warm and Dry
Neuro: Awake, Alert and Other (lethargic, but answers questions and follows command)
Psych: Calm
Impression / Plan
-
Chest pain:
-at device site. Worse to palpation and in certain positions. Tylenol helps per patient. There is no hematoma and dressing is intact.
-trops normal does not sounds to be cardiac chest pain and rather sounds to be post-procedural pain
NSVT:
-about 21 seconds at 140 BPM last night in ER
-potassium is normal, magnesium is low and being replaced
-increase BB
-of note, patient with non-functioning ICD lead and declined intervention for this (see detailed note by Dr. Sloan on recent admit)
-device interrogated- awaiting results
CAD with hx stenting:
-continue ASA, statin, and BB
-trop unremarkable, pain does not sound anginal
Seizures:
-on meds
-neuro consulted
ICM EF 35%:
-continue GDMT as tolerated
-ICD no longer functioning, only pacemaker capabilities at this time
Data Reviewed
-
EKG: Tracing Personally Visualized and interpreted (a-paced rhythm)
Radiology: Report Reviewed by me (CXR: Extremely low lung volumes. Likely small bilateral pleural effusions and bilateral lower lobe subsegmental atelectasis. No findings to suggest pneumothorax.)
Medical Tests (Nuc Med, Echo etc): Report Reviewed by me (edcho 03/11/24: EF 35-40% basal to mid anterooseptal hypokinesis, apical septal/ apical akinesis)
Labs: Labs Reviewed by me
[2024-03-14 11:24] LABS: Glucose - Point of Care 167 mg/dl (70-99)
[2024-03-14] MEDS: NOVOLOG FLEXPEN-LOW RESISTANCE 1 UNITS SC (12:59)
[2024-03-14] MEDS: KEPPRA 250 MG PO ×2 (13:02→20:49)
[2024-03-14 14:07] LABS: TSH Reflex To Free T4 3.06 uIU/ml (0.47-4.68)
--- NOTE | 2024-03-14 14:52 | W.PN.HOSP.TC ---
Today's Communication/Plan
-
Monitor for recurrent seizure.
Continue telemetry for the next 24 hours.
Replete magnesium per
Monitor hemodynamics on adjusted antihypertensive/ASCVD regimen.
Assessment / Plan
Assessment / Plan
Impression:
Chest pain at the device site.
Nonsustained ventricular tachycardia
Hypomagnesemia
Breakthrough generalized seizure.
Conditions prior to admission:
Recent hospitalization with group A streptococcal bacteremia/pharyngitis and otitis media as a source treated as meningitis and completed course of antibiotics
Cardiomyopathy.
AICD with recently changed battery and malfunctioning lead
ASCVD.
Diabetes type 2.
Hypertension.
Anxiety/depression.
Plan:*
Noncardiac chest pain and device site reproducible on exam.
No evidence for site infection
Continue current analgesic regimen and monitor closely.
NSVT.
Asymptomatic.
Monitor and replete electrolytes including magnesium.
Cardiology input appreciated.
Patient has malfunctioning lead and declined exchange
AICD in place with recent battery exchange
Beta-han dose increased to Coreg 6.25 mg twice daily
ASCVD
Continue current regimen including Coreg, valsartan aspirin
Seizure disorder
With breakthrough generalized seizure while in the hospital.
Neurology input appreciated
? If missed dose of Keppra prior to admission
Status post 1 g of Keppra reloads
Keppra dose increased to 750 mg twice daily
Mental status remains stable at the baseline
Anticipated Discharge: Within 24 hours
Subjective/Interval History
-
Date of Service: March 14, 2024
Objective Data
-
Labs:
Laboratory Results
03/14/24 03/14/24
04:56 05:58
WBC 7.1
Hgb 9.8 L
Hct 27.8 L
Plt Count 343
Sodium Cancelled 131 L
Potassium Cancelled 4.9
Chloride Cancelled 96 L
Carbon Dioxide Cancelled 24
BUN Cancelled 14
Creatinine Cancelled 0.8
Glucose Cancelled 130 H
Calcium Cancelled 8.7
Vital Signs:
Vital Signs
Temp Pulse Resp BP Pulse Ox
97.6 F 60 18 109/77 94
03/14/24 11:34 03/14/24 13:30 03/14/24 11:34 03/14/24 11:03 03/14/24 11:41
I&O
03/13/24 03/14/24 03/15/24
06:59 06:59 06:59
Intake Total 240 / 240
Balance 240 / 240
Physical Exam
-
General: No Apparent Distress
HEENT: Negative Oxygen
Respiratory: Clear to Auscultation
Cardiac: Regular Rhythm and S1/S2; Negative Murmur
GI: Soft, Nontender and Nondistended
Neuro: Awake, Alert, Oriented and No Motor Deficits
--- NOTE | 2024-03-14 15:10 | CM ---
Reviewed chart. Prior to admission Mr. Adamson was a resident of [facility]. Medical work-up in progress. The discharge plan is to return to [facility] when medically stable. .
--- NOTE | 2024-03-14 15:17 | CON.NEURO4 ---
Consultation - Neurology 4
-
CONSULTING PHYSICIAN: Demar Diaz MD neurology
REFERRING PHYSICIAN: Hospitalist
DICTATED BY: Demar Diaz MD
DATE/TIME OF REQUEST: March 14, 2024
DATE/TIME OF CONSULTATION: March 14 2024
Reason for Consultation: Altered mental status
History of Present Illness:
This is a 58 year old right) handed (male/ who has presented to the hospital with (chief complaint) altered mental status with slurred speech and chest pain
He gives a PMH significant for cardiomyopathy s/p AICD who was recently hospitalized with sepsis secondary to Strep pyogenes bacteremia / sepsis, seizure, intubation, PEA arrest, etc. He underwent ICD generator change during that visit and was
newly started on AEDs. He was also noted to have a fractured defibrillator lead; however, he declined to have this replaced. Patient was discharged on 03/10 but returned to the ED on 03/11 with chest pain at his incision site. He was observed
overnight and his medications adjusted for pain control. Cardiac evaluation (EKGs and troponin) were unremarkable.
Patient was again discharged back to [facility] and returns again this evening with the same complaints of L chest discomfort at the lateral aspect of his ICD incision.
He denies any associated dyspnea, palpitations, fevers / chills, etc.
Patient is somewhat somnolent and with slurred speech and [facility] staff notes that he has not been himself since his initial hospitalization.
While in the ED, patient was noted to have a brief run of NSVT.
Past Medical History: As above
Surgical History: As above
Family History: Noncontributory
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
Allergies: No known drug allergies
Home Medications: See addendum
Review of Symptoms:
Patient denies any fever, headache, chest pain, shortness of breath, GI or symptoms.
Vital Signs:
The patient has a .
Temp Pulse Resp BP Pulse Ox
97.6 F 60 18 109/77 94
Physical Exam:
The patient is afebrile, heart sounds S1 and S2 are (regular / irregular), and chest is clear to auscultation bilaterally.
Neurologic Examination:
The patient is arousable, confused but oriented x 3. (He is able to follow commands and answer questions appropriately. There is no aphasia or dysarthria.
On cranial nerve assessment, pupils are 3 mm bilateral, round and reactive to light and accommodation. Visual watts are full. Extraocular movements are intact. Facial sensations are intact and bilaterally symmetrical, there is no facial asymmetry.
Hearing is intact bilaterally to normal conversation volume. Tongue palate and uvula are midline. Sternocleidomastoid strengths are full bilaterally. Motor strengths are 5/5 bilateral upper and lower extremities on medical research [place] scale.
There is no drift or involuntary movement noted.
Deep tendon reflexes are + bilateral upper and lower extremities and Babinski is absent bilaterally. Sensations of pain, touch, temperature and vibration are intact and bilaterally symmetrical. There was no extinction noted on double simultaneous
stimulation. Coordination is intact by finger to nose bilaterally.
Lab Results: See addendum
Neuro Imaging: CT head revealed small focus of encephalomalacia on the right there is stable due to previous infarct or periventricular small vessel ischemic disease.
Impression:
(Mr. CLAUDIO JONAS is a 58 year old M who has presented to the hospital with (symptoms/chief complaint). Altered mental status and seizures
Differentials for the patient's presentation include:
1. Seizure disorder
Recommendations:
1. Keppra 750 mg twice a day
2. Cardiology evaluation
3. Aspirin seizure disorder
4. Continue Coreg and valsartan
5. Aspirin 81 mg daily
Discussed patient care with:
Allergies
-
Allergies
Allergy/AdvReac Type Severity Reaction Status Date / Time
No Known Allergies Allergy Verified 03/13/24 19:58
Vital Signs and Labs
-
Vital Signs and Labs:
Vital Signs
Temp Pulse Resp BP Pulse Ox
36.4 C 60 18 109/77 94
03/14/24 11:34 03/14/24 13:30 03/14/24 11:34 03/14/24 11:03 03/14/24 11:41
Lab Results
03/14/24 04:56
03/14/24 05:58
Sodium 131 mmol/L (135-145) L 03/14/24 05:58
Potassium 4.9 mmol/L (3.5-5.1) 03/14/24 05:58
BUN 14 mg/dl (9-20) 03/14/24 05:58
Glucose 130 mg/dl (70-99) H 03/14/24 05:58
Calcium 8.7 mg/dl (8.4-10.2) 03/14/24 05:58
Wif-S-Vgcwtjagnhk Pept 6800 pg/ml 03/13/24 20:07
Medications
-
Active Medications
Generic Name Dose Route Start Last Admin
Trade Name Freq PRN Reason Stop Dose Admin
Acetaminophen 1,000 mg 03/14/24 08:00 03/14/24 08:27
Acetaminophen 500 Mg Tablet PO 04/11/24 07:59 1,000 mg
TID DELFIN Administration
Aspirin 81 mg 03/14/24 08:00 03/14/24 08:25
Aspirin 81 Mg (Enteric Coated) Tablet PO 04/11/24 07:59 81 mg
DAILY DELFIN Administration
Atorvastatin Calcium 40 mg 03/14/24 22:00
Atorvastatin (Lipitor) 40 Mg Tablet PO 04/11/24 21:59
HS DELFIN
Carvedilol 6.25 mg 03/14/24 20:00
Carvedilol 6.25 Mg Tablet PO 04/11/24 19:59
BID DELFIN
Dextrose 12.5 grams 03/14/24 00:34
Dextrose 50% (0.5 Grams/Ml) 50 Ml Syringe IV 04/11/24 00:33
[id number] PRN
hypoglycemia
Protocol
Folic Acid 1 mg 03/14/24 08:00 03/14/24 08:26
Folic Acid 1 Mg Tablet PO 04/11/24 07:59 1 mg
DAILY DELFIN Administration
Glucagon 1 mg 03/14/24 00:34
Glucagon 1 Mg Vial IM 04/11/24 00:33
PRN PRN
hypoglycemia
Protocol
Insulin Aspart 0 units 03/14/24 07:30 03/14/24 12:59
Insulin Aspart Low Resistance 300 Units/3 Ml Pen.Injctr SC 04/11/24 07:29 1 units
AC DELFIN Administration
Protocol
Levetiracetam 500 mg 03/14/24 08:00 03/14/24 08:26
Levetiracetam 500 Mg Regular Release Tablet PO 04/11/24 07:59 500 mg
BID DELFIN Administration
Levetiracetam 250 mg 03/14/24 13:00 03/14/24 13:02
Levetiracetam 250 Mg Regular Release Tablet PO 04/11/24 12:59 250 mg
BID DELFIN Administration
Lidocaine 1 patch 03/14/24 08:00 03/14/24 08:26
Lidocaine 4% Topical Patch TOPICAL 04/11/24 07:59 1 patch
DAILY DELFIN Administration
Protocol
Lorazepam 1 mg 03/14/24 02:30
Lorazepam 2 Mg/Ml Vial IV 04/11/24 02:29
Q4HPRN PRN
seizure >2 min
Nicotine 14 mg 03/14/24 08:00 03/14/24 08:27
Nicotine 14 Mg Patch TRANSDERM 04/11/24 07:59 14 mg
DAILY DELFIN Administration
Patch Removal 1 patch 03/14/24 20:00
Remove Lidocaine Patch REMOVE 04/11/24 19:59
DAILY@2000 DELFIN
Sertraline HCl 100 mg 03/14/24 08:00 03/14/24 08:25
Sertraline 100 Mg Tablet PO 04/11/24 07:59 100 mg
DAILY DELFIN Administration
Sodium Chloride 0 flush 03/13/24 23:00
Sodium Chloride 0.9% (Flush) Syringe IV 04/10/24 22:59
PER PROTOCOL DELFIN
Sodium Chloride 0.5 ml 03/14/24 02:39
Nss (Pf) 10 Ml Vial For Ativan 1 Mg Dose IV 04/11/24 02:38
Q4HPRN PRN
IV LORAZEPAM DILUTION
Thiamine HCl 100 mg 03/14/24 08:00 03/14/24 08:25
Thiamine 100 Mg Tablet PO 04/11/24 07:59 100 mg
DAILY DELFIN Administration
Valsartan 20 mg 03/14/24 08:00 03/14/24 08:25
Valsartan 40 Mg Tablet PO 04/11/24 07:59 20 mg
BID DELFIN Administration
Home Medications
�Medication �Instructions �Recorded
folic acid 1 mg tablet 1 mg PO DAILY Supplement 02/29/24
therapeutic multivitamin 1 tab PO DAILY Supplement 02/29/24
thiamine HCl (vitamin B1) 100 mg 100 mg PO DAILY Supplement 02/29/24
tablet
aspirin 81 mg tablet,delayed 81 mg PO DAILY Blood Clot 03/10/24
release Prevention/Tx #30 tabs
atorvastatin 40 mg tablet 40 mg PO HS High Cholesterol #30 03/10/24
tabs
glipizide 5 mg tablet 5 mg PO DAILY Diabetes #30 tabs 03/10/24
levetiracetam 500 mg tablet 500 mg PO BID #60 tabs 03/10/24
metformin 1,000 mg tablet 1,000 mg PO BID Diabetes #60 tabs 03/10/24
nicotine 14 mg/24 hr daily 14 mg transdermal DAILY #30 ea 03/10/24
transdermal patch
nystatin 100,000 unit/mL oral 5 ml PO QID #473 mL 03/10/24
suspension
sertraline 100 mg tablet 100 mg PO DAILY Mental 03/10/24
Health/Anxiety #30 tabs
valsartan 40 mg tablet 20 mg (1/2 x 40 mg) PO BID #30 tabs 03/10/24
buspirone 10 mg tablet 10 mg PO BID 03/11/24
acetaminophen 325 mg tablet 650 mg (2 x 325 mg) PO Q6HPRN PRN 03/12/24
mild pain/ fever>100.5F #0 tabs
carvedilol 3.125 mg tablet (Coreg) 3.125 mg PO BID Blood Pressure #60 03/12/24
tabs
lidocaine 4 % topical patch 1 patch topical DAILY #0 ea 03/12/24
[2024-03-14 16:11] LABS: Glucose - Point of Care 224 mg/dl (70-99)
[2024-03-14] MEDS: NOVOLOG FLEXPEN-LOW RESISTANCE 300 UNITS SC (16:12)
[2024-03-14] MEDS: COREG 6.25 MG PO (20:49)
[2024-03-14] MEDS: LIPITOR 40 MG PO (20:49)
[2024-03-14 22:09] LABS: Glucose - Point of Care 146 mg/dl (70-99)
[2024-03-15] MEDS: TYLENOL PO (00:23)
[2024-03-15] MEDS: TYLENOL 1000 MG PO ×2 (00:32→08:49)
[2024-03-15 00:51] LABS: Amphetamines Negative (Negative); Barbiturates Negative (Negative); Benzodiazepines Negative (Negative); Buprenorphine Negative (Negative); Cocaine Negative (Negative); Marijuana Negative (Negative); Methadone Negative (Negative); Methamphetamines Negative (Negative); Opiates Positive (Negative); Phencyclidine Negative (Negative); Tricyclic Antidepressants Negative (Negative)
--- NOTE | 2024-03-15 01:00 | PTCARENOTE ---
Pt received at change of shift. Pt from correctional facility and 2 guards present at bedside. VSS, Apaced with HR 60 on tele. Pt AAOx3 but confused at times with flat affect. Compliant with care and can follow commands. Attempted to get pt to
bathroom with rolling walker, pt with unsteady gait dragging left toes on floor when walking. When strength assessed, pt was able to hold leg up against gravity with no drift and could push against resistance, but not pull toes forward against
resistance. BRISTLE MACHINE OPERATOR made aware. Neuro already following pt. and head CT completed during day shift yesterday. No new concerns or orders at this time. No complaints of pain at left chest wall incisional site, dressing intact with small amount of old
drainage noted. Pt with complaints of a headache. Scheduled Tylenol administered per order. Call ochoa within reach.
[2024-03-15 01:02] LABS: Fentanyl, Urine Negative (Negative)
[2024-03-15 03:23] VITALS: BP 128/87
[2024-03-15] MEDS: MOTRIN 400 MG PO (03:30)
[2024-03-15 04:20] LABS: Blood Urea Nitrogen 17 mg/dl (9-20); Calcium 9.1 mg/dl (8.4-10.2); Carbon Dioxide 24 mmol/L (22-30); Chloride 95 mmol/L (98-107); Estimated Creatinine Clearance 105 ml/min; Glucose 179 mg/dl (70-99); Sodium 132 mmol/L (135-145); eGFR > 60.00
--- NOTE | 2024-03-15 04:23 | PTCARENOTE ---
Upon waking to use the bathroom, pt states headache is still present. When asked to rate pain, pt states 'it is a 15/10.' Pt does not appear to be in acute distress and states that headaches are common for him and it is nothing new. BATTERY STACKER made aware
and one time dose of Ibuprofen ordered and administered.
[2024-03-15 07:28] VITALS: BP 121/73
[2024-03-15 07:31] LABS: Glucose - Point of Care 149 mg/dl (70-99)
[2024-03-15] MEDS: NOVOLOG FLEXPEN-LOW RESISTANCE SC (08:47)
[2024-03-15] MEDS: DIOVAN 20 MG PO (08:48)
[2024-03-15] MEDS: COREG 6.25 MG PO (08:48)
[2024-03-15] MEDS: ASPIR LOW (ENTERIC COATED) 81 MG PO (08:49)
[2024-03-15] MEDS: FOLVITE 1 MG PO (08:50)
[2024-03-15] MEDS: KEPPRA 500 MG PO (08:50)
[2024-03-15] MEDS: KEPPRA 250 MG PO (08:50)
[2024-03-15] MEDS: LIDOCAINE 4% PATCH 1 PATCH TOPICAL (08:51)
[2024-03-15] MEDS: ZOLOFT 100 MG PO (08:51)
[2024-03-15] MEDS: NICODERM TRANSDERMAL 14 MG TRANSDERM (08:51)
[2024-03-15] MEDS: VITAMIN B1 100 MG PO (08:53)
[2024-03-15 11:05] VITALS: BP 120/80
[2024-03-15 11:46] LABS: Glucose - Point of Care 226 mg/dl (70-99)
[2024-03-15] MEDS: NOVOLOG FLEXPEN-LOW RESISTANCE 2 UNITS SC (11:49)
--- NOTE | 2024-03-15 14:11 | W.DS.TRANS ---
DC Summary - Food Production Machine Operator
-
Discharge Instructions:
Discharge Diagnosis/Procedures Atypical chest pain
Seizure
Diet Regular
Instructions:
Stand-Alone Forms:
Changes to Home Medications: Yes
Discharge Medications:
DC Medications w/original date entered in [facility]
folic acid 1 mg tablet 1 mg PO DAILY Supplement 02/29/24
therapeutic multivitamin 1 tab PO DAILY Supplement 02/29/24
thiamine HCl (vitamin B1) 100 mg tablet 100 mg PO DAILY Supplement 02/29/24
aspirin 81 mg tablet,delayed release 81 mg PO DAILY Blood Clot Prevention/Tx #30 tabs 03/10/24
atorvastatin 40 mg tablet 40 mg PO HS High Cholesterol #30 tabs 03/10/24
glipizide 5 mg tablet 5 mg PO DAILY Diabetes #30 tabs 03/10/24
metformin 1,000 mg tablet 1,000 mg PO BID Diabetes #60 tabs 03/10/24
nicotine 14 mg/24 hr daily transdermal patch 14 mg transdermal DAILY #30 ea 03/10/24
nystatin 100,000 unit/mL oral suspension 5 ml PO QID #473 mL 03/10/24
sertraline 100 mg tablet 100 mg PO DAILY Mental Health/Anxiety #30 tabs 03/10/24
valsartan 40 mg tablet 20 mg (1/2 x 40 mg) PO BID #30 tabs 03/10/24
buspirone 10 mg tablet 10 mg PO BID 03/11/24
acetaminophen 325 mg tablet 650 mg (2 x 325 mg) PO Q6HPRN PRN mild pain/ fever>100.5F #0 tabs 03/12/24
lidocaine 4 % topical patch 1 patch topical DAILY #0 ea 03/12/24
carvedilol 6.25 mg tablet 6.25 mg PO BID #60 tabs 03/15/24
levetiracetam 500 mg tablet 750 mg (1.5 x 500 mg) PO BID #60 tabs 03/15/24
Home Medication Changes
Keppra and Coreg increaased
Pending Results: No
--- NOTE | 2024-03-15 14:22 | CM ---
Reviewed chart. Telephone call to [facility] to inform them of discharge. Medical work-up in progress. The discharge plan is to return to [facility] when medically stable.
--- NOTE | 2024-03-15 14:32 | PTCARENOTE ---
Pt got himself to with supervision of longterm guards. HE was assisted back to bed with 2 assist of nursing staff and rolling walker. He is unsteady on his feet.
[2024-03-15 15:11] VITALS: BP 96/63
== END 2024-03-15 17:19 | DRG 309 ==
LOC: IVU 23:57
PROVIDERS: Nurse Practitioner Family; Physician Assistant; ADMITTING PHYSICIAN Hospitalist; ATTENDING PHYSICIAN Internal Medicine; EMERGENCY PHYSICIAN Student in an Organized Health Care Education/Training Program; OTHER PHYSICIAN Internal Medicine Cardiovascular Disease; OTHER PHYSICIAN Psychiatry & Neurology Neurology
DX: I47.10 Supraventricular tachycardia, unspecified (principal); E87.1 Hypo-osmolality and hyponatremia; I42.9 Cardiomyopathy, unspecified; I11.0 Hypertensive heart disease with heart failure; I50.9 Heart failure, unspecified; E11.9 Type 2 diabetes mellitus without complications; F32.A Depression, unspecified; G40.909 Epilepsy, unspecified, not intractable, without status epilepticus; I47.20 Ventricular tachycardia, unspecified; E78.00 Pure hypercholesterolemia, unspecified; E83.42 Hypomagnesemia; R07.89 Other chest pain; F17.200 Nicotine dependence, unspecified, uncomplicated; F41.9 Anxiety disorder, unspecified; I25.10 Atherosclerotic heart disease of native coronary artery without angina pectoris; R41.82 Altered mental status, unspecified; R47.81 Slurred speech; Z79.82 Long term (current) use of aspirin; Z79.84 Long term (current) use of oral hypoglycemic drugs; Z79.899 Other long term (current) drug therapy; Z86.61 Personal history of infections of the central nervous system; Z86.74 Personal history of sudden cardiac arrest; Z86.19 Personal history of other infectious and parasitic diseases; Z95.0 Presence of cardiac pacemaker
CPT/HCPCS: 70450; 71046; 80048; 80053; 80306; 80307; 82962; 83735; 83880; 84443; 84484; 85025; 85027; 93005; 99285; 99406

== ENCOUNTER 2024-03-15 23:01 | Observation (INO) | payer OTHER, SELFPAY ==
[2024-03-15 19:52] VITALS: BP 137/77
[2024-03-15 19:54] VITALS: BP 137/77
[2024-03-15 20:00] VITALS: BP 123/89
[2024-03-15 20:12] LABS: % Basophils 1.1 % (0-2); % Eosinophils 1.5 % (0-6); % Immature Granulocytes 0.4 % (0-0.5); % Lymphocytes 20.6 % (20.5-51.1); % Monocytes 8.2 % (1.7-9.3); % Neutrophils 68.2 % (42.2-75.2); Absolute Basophils 0.1 10^3/uL (0-0.2); Absolute Eosinophils 0.1 10^3/uL (0-0.7); Absolute Lymphocytes 1.7 10^3/uL (1.2-3.4); Absolute Monocytes 0.7 10^3/uL (0.1-0.6); Absolute Neutrophils 5.5 10^3/uL (1.4-6.5); Hematocrit 31.1 % (39.0-52.0); Hemoglobin 10.6 g/dL (13.0-18.0); Mean Corp Hgb Conc. 34.1 g/dL (33.0-37.0); Mean Corpuscular Hgb 29.7 pg (27.0-31.0); Mean Corpuscular Volume 87.1 fL (80.0-94.0); Mean Platelet Volume 10.1 fL (7.4-10.4); Nucleated Red Blood Cells % 0 % (-); Platelet Count 393 10^3/uL (130-400); Red Blood Cell Count 3.57 10^6/uL (4.70-6.10)
[2024-03-15 20:27] LABS: ALT (SGPT) 47 U/L (0-50); AST (SGOT) 45 U/L (17-59); Albumin 4.1 g/dl (3.5-5.0); Alkaline Phosphatase 104 U/L (38-126); Blood Urea Nitrogen 26 mg/dl (9-20); Calcium 9.4 mg/dl (8.4-10.2); Carbon Dioxide 25 mmol/L (22-30); Chloride 91 mmol/L (98-107); Glucose 210 mg/dl (70-99); Potassium 5.3 mmol/L (3.5-5.1); Sodium 132 mmol/L (135-145); Total Bilirubin 0.4 mg/dl (0.2-1.3); Total Protein 7.9 g/dl (6.3-8.2); eGFR > 60.00
--- NOTE | 2024-03-15 20:42 | ED.GENMED ---
History of Present Illness
General
Chief Complaint: Dizziness
Time Seen by Provider: 03/15/24 20:42
History of Present Illness
History of Present Illness:
HPI: The patient was recently here in the hospital from 929 through earlier today with atypical chest pain, breakthrough seizure and was hypomagnesemic. He was also recently here hospitalized for group A strep bacteremia. He has a history of
cardiomyopathy and AICD. He comes back in from senior living today.
EXAM:
GENERAL: The patient appears generally weak and debilitated, his left lower extremity is cuffed to the stretcher but he does have some decreased strength overall with moving the left lower extremity, he is laying on his right side
HEENT: Moist oral mucosa
CARDIOVASCULAR: No murmurs, normal heart rate, regular rhythm, No chest wall tenderness
PULMONARY: No respiratory distress, breath sounds are clear and equal
ABDOMEN: Soft with no peritoneal signs, no tenderness
NEUROLOGIC: Good strength all extremities however he appears to have some weakness in the left lower extremity, he does seem to have left-sided coordination deficits
PSYCHIATRIC: Appropriate mental status, fair insight and judgement
EXTREMITIES: Nontender, no edema, moves all extremities equally
SKIN: No rash, no lesions
TIME OF INITIAL ENCOUNTER: 8:40 PM
NUMBER AND COMPLEXITY OF PROBLEMS ADDRESSED AT THE ENCOUNTER
� Chronic conditions affecting care: High blood pressure, hyperlipidemia, has defibrillator, IDDM
� Acute Exacerbation and/or Progression of Chronic Illness: This is an acute to subacute problem
� Differential Diagnosis includes: Subacute CVA, malingering, seizure
AMOUNT AND/OR COMPLEXITY OF DATA TO BE REVIEWED AND ANALYZED
� I performed an independent evaluation of and my interpretation is:
EKG:
CT: CT brain shows no acute hemorrhage, stable area of decreased attenuation in the right parietal lobe with questionable new small peripheral areas of hypodensity in the posterior right parietal lobe
X-rays:
Laboratory Studies: Hemoglobin 10.6, white count normal I reviewed the discharge summary from earlier today
Other:
� Review of other/old records: I reviewed the discharge summary from earlier today.
� Clinical information was obtained by an independent historian: I called the Medical area of the [facility] to speak to provider there - 'weakness in LLE, L eye gaze pref,, couldn't follow commands well, and seemed to have some
dysarthria, he was able to at least walk with a cane earlier but now cannot walk'
� Prescriptions/Medications Considered but not given:
� Further testing considered but not performed:
RISK OF COMPLICATIONS AND/OR MORBIDITY OR MORTALITY OF PATIENT MANAGEMENT
� Social determinants of health affecting care:
� Discussion with other providers: Notified Dr. Demar Diaz of the patient's return to the hospital.
� Escalation of care including admission/observation vs risk of discharge considered: The timing of the symptoms is somewhat unclear. The nurse practitioner they spoke with the senior living could not clearly tell me when the symptoms
started but was under the impression that he was able to walk earlier and had more difficulty walking now. Since the patient does report a rather significant headache, another CT was obtained today. I reviewed the CT findings with Dr. Demar Diaz.
We initially considered discharge back to senior living and his initial recommendations were to increase the Keppra to 1000 mg twice daily and add aspirin 160 mg and Plavix 75 mg. However the senior living guards are telling me that he normally had been able to
walk and now is unable to walk. They do not feel that he can be safely discharged back to the senior living at this time. Dr. Demar Diaz now recommends to have him kept in the hospital for further management.
Past History
Past History
ED Past Medical History: CAD, HTN, Hypercholesterolemia and NIDDM
ED Past Surgical History: Cardiac (AICD)
Social History
Tobacco: Non-smoker
Alcohol: None
Drug: None
Living: senior living
Phy Exam
Physical Exam
Physical Exam:
See HPI
Course
Orders/Labs/Results
Orders:
Orders
03/15/24 19:53
EKG [Electrocardiogram (*1)] Urgent
Reason for Study: Vertigo / Dizzy
EKG- Treatment ONCE
03/15/24 20:06
CMP [Comprehensive Metabolic Panel] Urgent
Complete Blood Count/With Diff Urgent
Magnesium Urgent
Comment: ADD ON
03/15/24 20:45
Add On- LAB Urgent
Tests Added?: magnesium
03/15/24 20:49
CT Head W/o Iv Contrast Urgent
Comment:
Reason For Exam: severe HUMPHREY ongoing L weakness
Abnormal Lab Results
03/15/24
20:06
RBC 3.57 L 10^6/uL
(4.70-6.10)
Hgb 10.6 L g/dL
(13.0-18.0)
Hct 31.1 L %
(39.0-52.0)
Absolute Monos (auto) 0.7 H 10^3/uL
(0.1-0.6)
Sodium 132 L mmol/L
(135-145)
Potassium 5.3 H mmol/L
(3.5-5.1)
Chloride 91 L mmol/L
(98-107)
BUN 26 H mg/dl
(9-20)
Glucose 210 H mg/dl
(70-99)
03/15/24 20:06
03/15/24 20:06
Vital Signs
Initial and Last Documented VS:
Initial Vital Signs
Temp
97.5 F
03/15/24 19:50
Last Documented Vital Signs
Temp Pulse Resp BP Pulse Ox
97.5 F 62 12 113/88 97
03/15/24 19:50 03/15/24 22:00 03/15/24 22:00 03/15/24 21:00 03/15/24 22:03
*Critical Care Note
Total Time (30-74mins, 75-104mins- exclusive of procedures): Not Applicable
ED Attending Note
-
Portions of this chart may have been created with voice recognition software.� Occasional wrong word or��sound alike� substitutions may have occurred due to the inherent limitations of voice recognition software.
Discharge Plan
Departure
Patient Disposition: Admit
Date of Disposition: 03/15/24
Time of Disposition: 22:28
Presentation/result/management discussed w/ accepting MD/DO: Hospitalist
Discharge Problem:
Seizure as late effect of cerebrovascular accident (CVA)
Prescriptions:
No Action
thiamine HCl (vitamin B1) 100 mg Tablet
100 mg PO DAILY
therapeutic multivitamin Tablet
1 tab PO DAILY
folic acid 1 mg Tablet
1 mg PO DAILY
nystatin 100,000 unit/mL Suspension
5 ml PO QID Qty: 473 0RF
valsartan 40 mg Tablet
20 mg PO BID Qty: 30 0RF
nicotine 14 mg/24 hr Patch 24 Hour
14 mg transdermal DAILY Qty: 30 0RF
atorvastatin 40 mg Tablet
40 mg PO HS Qty: 30 0RF
sertraline 100 mg Tablet
100 mg PO DAILY Qty: 30 0RF
aspirin 81 mg Tablet,Delayed Release (Dr/Ec)
81 mg PO DAILY Qty: 30 0RF
metformin 1,000 mg Tablet
1,000 mg PO BID Qty: 60 0RF
glipizide 5 mg Tablet
5 mg PO DAILY Qty: 30 0RF
buspirone 10 mg Tablet
10 mg PO BID
acetaminophen 325 mg Tablet
650 mg PO Q6HPRN PRN (Reason: mild pain/ fever>100.5F) Qty: 0 0RF
lidocaine 4 % Adhesive Patch,Medicated
1 patch topical DAILY Qty: 0 0RF
carvedilol 6.25 mg Tablet
6.25 mg PO BID Qty: 60 0RF
levetiracetam 500 mg Tablet
750 mg PO BID Qty: 60 0RF
Referrals:
[facility] [Family Provider] -
Interventions
Interventions:
*Risk Screen - Suicide Last Done: 03/15/24 19:50
*General Assessment Last Done: 03/15/24 19:50
*Neglect/Abuse Screening Last Done: 03/15/24 19:50
ED- Fall Risk Assessment Last Done: 03/15/24 22:03
*ED COVID-19 Vaccine History Last Done: 03/15/24 19:54
ED- Neurological Assessment Last Done: 03/15/24 22:03
Discharge Date and Time
Print Language: CITIZEN OF [place]
[2024-03-15 21:00] VITALS: BP 113/88
[2024-03-15 21:15] LABS: Magnesium 1.8 mg/dl (1.6-2.3)
[2024-03-15 22:01] VITALS: BP 134/102
--- NOTE | 2024-03-15 22:52 | HPS.HSE ---
Family Physician
-
Family Physician: [facility]
Chief Complaint
-
Retuned to ER from [facility] with LLEx weakness, unable to walk
DC'd today
History of Present Illness
58M from [facility] hospitalized from 03/13/2024 to 03/15/2024 with atypical chest pain, breakthrough seizure and was hypomagnesemic. He was also recently here hospitalized for group A strep bacteremia. HX cardiomyopathy and AICD. He comes back in
from assisted today reported weakness LLE, L eye gaze pref, some dysarthria, but the [facility] has not seen him in the past. Reportedly couldn't walk earlier. and reports severe HUMPHREY and repeat HCT upon admission:
HCT: No findings to suggest recent intracranial hemorrhage. Stable small area of decreased attenuation in the right parietal lobe deep white matter questionable new small peripheral areas of hypodensity in the posterior right parietal lobe.
Intracranial infection or atypical ischemic process cannot be excluded. Recommend MRI of the Brain without and with contrast for more complete evaluation.
Currently on ASA
Medical History
Past Medical History
Past Medical History: Reports Other
Additional Past Medical History:
CAD
cardiomyopathy s/p AICD
strep bacteremia
CAD
HTn
HLD
NIDDM
Past Surgical History: Reports None
Social History
Tobacco: Smoker
Alcohol: Occasional
Drug: None
Living: Intermediate
Family History
Family History: Not pertinent
Allergies / Home Medications
Allergies reflects when Allergies were last updated in [employer].
Home Medications with original date entered in [employer]
Allergy/Medication List:
Allergies
Allergy/AdvReac Type Severity Reaction Status Date / Time
No Known Allergies Allergy Verified 03/13/24 19:58
Home Medications
folic acid 1 mg tablet 1 mg PO DAILY Supplement 02/29/24
therapeutic multivitamin 1 tab PO DAILY Supplement 02/29/24
thiamine HCl (vitamin B1) 100 mg tablet 100 mg PO DAILY Supplement 02/29/24
aspirin 81 mg tablet,delayed release 81 mg PO DAILY Blood Clot Prevention/Tx #30 tabs 03/10/24
atorvastatin 40 mg tablet 40 mg PO HS High Cholesterol #30 tabs 03/10/24
glipizide 5 mg tablet 5 mg PO DAILY Diabetes #30 tabs 03/10/24
levetiracetam 500 mg tablet 500 mg PO BID #60 tabs 03/10/24
metformin 1,000 mg tablet 1,000 mg PO BID Diabetes #60 tabs 03/10/24
nicotine 14 mg/24 hr daily transdermal patch 14 mg transdermal DAILY #30 ea 03/10/24
nystatin 100,000 unit/mL oral suspension 5 ml PO QID #473 mL 03/10/24
sertraline 100 mg tablet 100 mg PO DAILY Mental Health/Anxiety #30 tabs 03/10/24
valsartan 40 mg tablet 20 mg (1/2 x 40 mg) PO BID #30 tabs 03/10/24
buspirone 10 mg tablet 10 mg PO BID 03/11/24
acetaminophen 325 mg tablet 650 mg (2 x 325 mg) PO Q6HPRN PRN mild pain/ fever>100.5F #0 tabs 03/12/24
carvedilol 3.125 mg tablet (Coreg) 3.125 mg PO BID Blood Pressure #60 tabs 03/12/24
lidocaine 4 % topical patch 1 patch topical DAILY #0 ea 03/12/24
Review of Systems
-
Constitutional: Reports No Symptoms
EENT: Reports No Symptoms
Respiratory: Reports No Symptoms
Cardiac: Reports No Symptoms
Abdomen/GI: Reports No Symptoms
: Reports No Symptoms
Musculoskeletal: Reports No Symptoms
Skin: Reports No Symptoms
Neurological: Reports See HPI and Weakness (LLEx )
Endocrine: Reports No Symptoms
Hematologic/Lymphatic: Reports No Symptoms
Psych: Reports No Symptoms
Physical Exam
Vital Signs
Vital Signs
Temp Pulse Resp BP Pulse Ox
97.5 F 62 12 113/88 97
03/15/24 19:50 03/15/24 22:00 03/15/24 22:00 03/15/24 21:00 03/15/24 22:03
Physical Exam
General: Well Developed, Well Nourished, No Apparent Distress and Conversant
HEENT: NormoCephalic, Moist mucous membranes and Atraumatic
Respiratory: Clear
Cardiac: S1/S2 and Regular Rhythm; No Murmur or Rub
GI: Soft, Non Tender, Non Distended and Normal Bowel Sounds; No Organomegaly
Rectal: Deferred by Provider
Musculoskeletal: No Clubbing, No Cyanosis and No Edema
Skin: No Rash
Neuro: Awake, Alert, AO x 3 and No Motor Deficits (Lt LLEx weakness )
Psych: Calm; No Confused or Agitated
Laboratory Results
-
03/15/24 20:06
03/15/24 20:06
Laboratory Results
Total Bilirubin 0.4 mg/dl (0.2-1.3) 03/15/24 20:06
AST 45 U/L (17-59) 03/15/24 20:06
ALT 47 U/L (0-50) 03/15/24 20:06
Alkaline Phosphatase 104 U/L (38-126) 03/15/24 20:06
Data Reviewed
-
CT Scan: Report Reviewed by me
Lab Data: Labs Reviewed by me
Old Records: Reviewed
Impression/Plan
-
Vital Signs
Temp Pulse Resp BP Pulse Ox
97.5 F 62 12 113/88 97
03/15/24 19:50 03/15/24 22:00 03/15/24 22:00 03/15/24 21:00 03/15/24 22:03
Abnormal Lab Results
03/15/24
20:06
RBC 3.57 L
Hgb 10.6 L
Hct 31.1 L
Absolute Monos (auto) 0.7 H
Sodium 132 L
Potassium 5.3 H
Chloride 91 L
BUN 26 H
Glucose 210 H
HCT
No findings to suggest recent intracranial hemorrhage. Stable small area of decreased attenuation in the right parietal lobe deep white matter questionable new small peripheral areas of hypodensity in the posterior right parietal lobe. Intracranial
infection or atypical ischemic process cannot be excluded. Recommend MRI of the Brain without and with contrast for more complete evaluation.
EKG
Atrial-paced rhythm
LOW VOLTAGE QRS
CANNOT RULE OUT ANTEROSEPTAL INFARCT (CITED ON OR BEFORE 29-FEB-2024)
ABNORMAL ECG
WHEN COMPARED WITH ECG OF 14-MAR-2024 04:42,
SERIAL CHANGES OF ANTEROSEPTAL INFARCT PRESENT
Last hospitalist admission:
DATE OF ADMISSION: 03/13/2024 - DATE OF DISCHARGE: 03/15/2024
DISCHARGE DIAGNOSES:
1. Atypical chest pain, noncardiac.
2. Breakthrough seizure.
3. Hypomagnesemia.
ASSESSMENT & PLAN
Pending Rx reconciliation
LLEx weakness
Acute ambulatory dysfunction
HCT suggest questionable new small peripheral areas of hypodensity in the posterior right parietal lobe
No acute ICH
Recent placement of automated implantable cardioverter-defibrillator
- ER d/w Neuro; suggest ASA and Plavix and brain MRI in AM
- CBC card consult for MRI compatibility of AICD - if clear Brain MRI in AM
HLD
-cont Statin
HX Chronic HFrEF/ICM (EF 35-40%)
status-post ICD (with recent generator change on 03/04/2024)
- CBC card consult for MRI compatibility of AICD - if clear Brain MRI in AM
HX seizure
- recently increased Keppra [id number] BID by Neuro on last admission Keppra
T21DM
- cont. metformin, glipizide
- add ISS low
Depression/anxiety
- cont. sertraline and BuSpar
Essential HTN
Mild hyperkalemia
- on [employer] Coreg and Valsartan
- Observe K in AM
HX recent septic shock secondary to Streptococcus pyogenes bacteremia
Otitis media with perforated eardrum
completed ABx
DVT Px: LMWH
Code: Full code
Obs TLM
[2024-03-15 23:00] VITALS: BP 138/121
[2024-03-15] MEDS: TYLENOL 650 MG PO (23:38)
[2024-03-16] VITALS (10 sets, daily range): BP systolic 141–173; BP diastolic 79–93; PULSE 61; O2SAT 100; BMI 28.3
--- NOTE | 2024-03-16 04:59 | W.PN.UPDATE ---
Update Note
Progress Note Update
RN states patient passed swallow eval, will order diet for NPO
[2024-03-16 07:59] LABS: Glucose - Point of Care 213 mg/dl (70-99)
--- NOTE | 2024-03-16 08:51 | W.PN.HOSP.TC ---
Documented by User: Liborio Rai MD, Resident 03/16/24 12:10
Today's Communication/Plan
-
Repeat CT this evening
Monitor K level
Hold valsartan if potassium continues to rise
Assessment / Plan
Assessment / Plan
Impression:
Headache with left lower extremity weakness
Acute ambulatory dysfunction
Mild hyperkalemia
Conditions prior to admission:
Recent hospitalization for chest pain at the device site
Recent hospitalization with group A streptococcal bacteremia/pharyngitis and otitis media as a source treated as meningitis and completed course of antibiotics
Cardiomyopathy.
AICD with recently changed battery and malfunctioning lead
ASCVD.
Diabetes type 2.
Hypertension.
Anxiety/depression
Seizure disorder
Chronic HFrEF
Plan
#Headache with left lower extremity weakness
#Acute ambulatory dysfunction
#Concern for CVA/TIA
-Head CT 03/15/2024 No findings to suggest recent intracranial hemorrhage. Stable small area of decreased attenuation in the right parietal lobe deep white matter questionable new small peripheral areas of hypodensity in the posterior right parietal
lobe. Intracranial infection or atypical ischemic process cannot be excluded. Compared to previous CT, CVA is enlarging
-Neurology input appreciated
-Continue aspirin plus Plavix, statin
-Cannot get an MRI done due to recent ICD placement
-Repeat CT scan this evening to evaluate.
#Mild hyperkalemia
-Potassium elevated upon presentation, on valsartan, Coreg
-Repeat K level pending.
# Hypertension
-Continue Coreg, valsartan
#ASCVD
-Continue current regimen including Coreg, valsartan aspirin
#Seizure disorder
-Continue Keppra at current dosage
# T2DM
-Continue glipizide
-Sliding scale insulin
# Anxiety/depression-continue sertraline, buspirone
DVT prophylaxis-Lovenox
CODE STATUS-full code
Anticipated Discharge: > 48 hours
Subjective/Interval History
-
Date of Service: March 16, 2024
Objective Data
-
Labs:
Laboratory Results
03/16/24 03/16/24
00:23 06:00
WBC Pending
Hgb Pending
Hct Pending
Plt Count Pending
Sodium Cancelled Pending
Potassium Cancelled Pending
Chloride Cancelled Pending
Carbon Dioxide Cancelled Pending
BUN Cancelled Pending
Creatinine Cancelled Pending
Glucose Cancelled Pending
Calcium Cancelled Pending
Total Bilirubin Cancelled Pending
AST Cancelled Pending
ALT Cancelled Pending
Alkaline Phosphatase Cancelled Pending
Vital Signs:
Vital Signs
Temp Pulse Resp BP Pulse Ox
98.7 F 61 18 156/86 96
03/16/24 03:00 03/16/24 03:00 03/16/24 03:00 03/16/24 03:00 03/16/24 03:00
I&O
03/15/24 03/16/24 03/17/24
06:59 06:59 06:59
Output Total 550 / 550
Balance -550 / -550
Review of Systems
-
All other systems: Reviewed and negative (except as documented)
Physical Exam
-
General: No Apparent Distress
HEENT: Normocephalic and Atraumatic
Respiratory: Clear to Auscultation
Cardiac: S1/S2
GI: Soft, Nontender and Nondistended
Musculoskeletal: Other
Skin: Other (LLE purpuric discoloration)
Neuro: Nonfocal/Grossly Intact and Other (LLE weakness)

Documented by User: Petr Almendarez DO 03/16/24 13:00
Subjective/Interval History
-
Date of Service: March 16, 2024
Seen and examined at the bedside. No acute events overnight. AFVSS
Denies any acute complaints.
[2024-03-16] MEDS: COREG 6.25 MG PO ×2 (09:02→23:33)
[2024-03-16] MEDS: NOVOLOG FLEXPEN-LOW RESISTANCE 2 UNITS SC ×2 (09:02→13:10)
[2024-03-16] MEDS: BUSPAR 10 MG PO ×2 (09:03→23:35)
[2024-03-16] MEDS: KEPPRA 750 MG PO ×2 (09:03→23:34)
[2024-03-16] MEDS: ASPIR LOW (ENTERIC COATED) 81 MG PO (09:03)
[2024-03-16] MEDS: DIOVAN 20 MG PO ×2 (09:04→23:38)
[2024-03-16] MEDS: PLAVIX 75 MG PO (09:04)
[2024-03-16] MEDS: GLUCOTROL 5 MG PO (09:04)
[2024-03-16] MEDS: ZOLOFT 100 MG PO (09:05)
--- NOTE | 2024-03-16 09:42 | CM ---
Patient seen at bedside with guards present. Patient to return to [facility]. CM called to [facility] nurse who asked ' what was the phone call for' ' Patient keeps getting sent back to '. Please call report to [phone]. Patient is OBS. CM will
continue to follow for discharge planning needs.
Plan; return to [facility] when medically appropriate.
phone; [phone]/fax [phone]
--- NOTE | 2024-03-16 11:20 | CON.NEURO4 ---
Consultation - Neurology 4
-
CONSULTING PHYSICIAN: Demar Diaz MD neurology
REFERRING PHYSICIAN: Hospitalist
DICTATED BY: Demar Diaz MD
DATE/TIME OF REQUEST: March 15, 2024
DATE/TIME OF CONSULTATION: March 16, 2024
Reason for Consultation: Weakness
History of Present Illness:
This is a 58year old right) handed (male who was admitted to the hospital with (chief complaint) of weakness. He gives a history of group A streptococcal sepsis pharyngitis otitis and meningitis who was on a prolonged course of antibiotics, right
frontoparietal infarction, cardiomyopathy with HFrEF/ICM (EF 35-40%) AICD placement coronary disease diabetes hypertension recently hospitalized for pacemaker replacement. At that visit he had a breakthrough seizure and his Keppra dose was
increased to 750 twice a day. [facility]
Yesterday evening patient complained of severe headache with slurred speech and left-sided weakness and eye deviation with difficulty standing and walking. No breakthrough seizure.
At the time of admission he was afebrile with a blood pressure of 113/88 and a pulse of 62. He was started on Plavix, and aspirin was maintained
Following admission, he remains lethargic has slurred speech with left-sided weakness and is bedbound. He is able to swallow.
Past Medical History: As above
Surgical History: Pacemaker placement
Family History: Noncontributory
Social History: Single smokes half a pack a day currently incarcerated
Allergies: No known drug allergies
Home Medications: Addendum
Review of Symptoms:
Patient denies any fever, chest pain, shortness of breath, GI or symptoms.
�Per the HPI.�All systems are reviewed negative except above.
�-
Vital Signs:
The patient has a Temp 37.0 C Pulse 64 Resp 17, BP143/79, Pulse Ox 94
Physical Exam:
The patient is afebrile, heart sounds S1 and S2 are (regular / irregular), and chest is clear to auscultation bilaterally.
- If not clear, describe.
NIH Stroke Scale (if applicable):
I performed the NIH stroke scale on the patient. The patient scored (8 ) points on the NIHSS:
Neurologic Examination:
The patient is awake, confused and oriented x person and place. (He is able to follow commands and answer questions appropriately. Speech is fluent there is dysarthria.
On cranial nerve assessment, pupils are 3 mm bilateral, round and reactive to light and accommodation. Visual watts are full. Extraocular movements are intact. Facial sensations are intact and bilaterally symmetrical,
there is LEFT facial asymmetry. Hearing is intact bilaterally to normal conversation volume. Tongue palate and uvula are midline. Sternocleidomastoid strengths are full bilaterally.
Motor strengths are 4/5 LEFT upper and lower extremities on [facility] [employer] [place] scale. There is pronator drift(L)
Deep tendon reflexes are + bilateral upper and lower extremities and (L)Babinski+. Sensations of pain, touch, temperature and vibration are impaired (L). There is extinction noted on double simultaneous stimulation. Coordination is impaired by
finger to nose(L). Romberg's and gait cannot be tested as the patient is bedbound
Lab Results: Addendum
Neuro Imaging: CT head shows enlarging right frontoparietal infarct with new foci
Impression:
(Mr. CLAUDIO JONAS is a 58 year old M who has presented to the hospital with (symptoms/chief complaint) worsening left-sided weakness slurred speech and gait impairment secondary to enlarging right frontoparietal infarct.
Differentials for the patient's presentation include:
1. Right frontoparietal infarction
2. Keith's paralysis following seizures
Patient has the following risk factors for their symptoms: Hypertension smoking
Recommendations:
1. Continue aspirin 81 mg daily
2. Start Plavix 75 mg daily
3. Permissive hypertension
4. Continue Lipitor 40 mg
5. PT/OT
6. Keppra 750 twice a day
Discussed patient care with: Hospitalist
Allergies
-
Allergies
Allergy/AdvReac Type Severity Reaction Status Date / Time
No Known Allergies Allergy Verified 03/15/24 19:49
Vital Signs and Labs
-
Vital Signs and Labs:
Vital Signs
Temp Pulse Resp BP Pulse Ox
37.0 C 64 17 143/79 94
03/16/24 07:00 03/16/24 09:04 03/16/24 07:00 03/16/24 09:04 03/16/24 07:00
Sodium Cancelled 03/16/24 00:23
Potassium Cancelled 03/16/24 00:23
BUN Cancelled 03/16/24 00:23
Glucose Cancelled 03/16/24 00:23
Calcium Cancelled 03/16/24 00:23
Medications
-
Active Medications
Generic Name Dose Route Start Last Admin
Trade Name Freq PRN Reason Stop Dose Admin
Acetaminophen 650 mg 03/15/24 23:26
Acetaminophen 325 Mg Tablet PO 04/12/24 23:25
Q6HPRN PRN
mild pain/ fever>100.5F
Acetaminophen 650 mg 03/16/24 00:23
Acetaminophen 650 Mg Rectal Suppository RECTAL 04/13/24 00:22
Q4HPRN PRN
HUMPHREY, mild pain, or temp >100.4F
Acetaminophen 650 mg 03/16/24 00:23
Acetaminophen 325 Mg Tablet PO 04/13/24 00:22
Q4HPRN PRN
HUMPHREY, mild pain, or temp >100.4F
Aspirin 81 mg 03/16/24 08:00 03/16/24 09:03
Aspirin 81 Mg (Enteric Coated) Tablet PO 04/13/24 07:59 81 mg
DAILY DELFIN Administration
Atorvastatin Calcium 40 mg 03/16/24 22:00
Atorvastatin (Lipitor) 40 Mg Tablet PO 04/13/24 21:59
HS DELFIN
Buspirone HCl 10 mg 03/16/24 08:00 03/16/24 09:03
Buspirone 10 Mg Tablet PO 04/13/24 07:59 10 mg
BID DELFIN Administration
Carvedilol 6.25 mg 03/16/24 08:00 03/16/24 09:02
Carvedilol 6.25 Mg Tablet PO 04/13/24 07:59 6.25 mg
BID DELFIN Administration
Clopidogrel Bisulfate 75 mg 03/16/24 08:00 03/16/24 09:04
Clopidogrel 75 Mg Tablet PO 04/13/24 07:59 75 mg
DAILY DELFIN Administration
Dextrose 12.5 grams 03/16/24 00:23
Dextrose 50% (0.5 Grams/Ml) 50 Ml Syringe IV 04/13/24 00:22
[id number] PRN
hypoglycemia
Protocol
Enoxaparin Sodium 40 mg 03/16/24 18:00
Enoxaparin Sodium 40 Mg/0.4 Ml Syringe SC 04/13/24 17:59
QPM DELFIN
Glipizide 5 mg 03/16/24 08:00 03/16/24 09:04
Glipizide 5 Mg Regular Release Tablet PO 04/13/24 07:59 5 mg
DAILY DELFIN Administration
Glucagon 1 mg 03/16/24 00:23
Glucagon 1 Mg Vial IM 04/13/24 00:22
PRN PRN
hypoglycemia
Protocol
Insulin Aspart 0 units 03/16/24 07:30 03/16/24 09:02
Insulin Aspart Low Resistance 300 Units/3 Ml Pen.Injctr SC 04/13/24 07:29 2 units
AC DELFIN Administration
Protocol
Levetiracetam 750 mg 03/16/24 08:00 03/16/24 09:03
Levetiracetam 500 Mg Regular Release Tablet PO 04/13/24 07:59 750 mg
BID DELFIN Administration
Sertraline HCl 100 mg 03/16/24 08:00 03/16/24 09:05
Sertraline 100 Mg Tablet PO 04/13/24 07:59 100 mg
DAILY DELFIN Administration
Sodium Chloride 0 flush 03/15/24 23:00
Sodium Chloride 0.9% (Flush) Syringe IV 04/12/24 22:59
PER PROTOCOL DELFIN
Valsartan 20 mg 03/16/24 08:00 03/16/24 09:04
Valsartan 40 Mg Tablet PO 04/13/24 07:59 20 mg
BID DELFIN Administration
Home Medications
�Medication �Instructions �Recorded
folic acid 1 mg tablet 1 mg PO DAILY Supplement 02/29/24
therapeutic multivitamin 1 tab PO DAILY Supplement 02/29/24
thiamine HCl (vitamin B1) 100 mg 100 mg PO DAILY Supplement 02/29/24
tablet
aspirin 81 mg tablet,delayed 81 mg PO DAILY Blood Clot 03/10/24
release Prevention/Tx #30 tabs
atorvastatin 40 mg tablet 40 mg PO HS High Cholesterol #30 03/10/24
tabs
glipizide 5 mg tablet 5 mg PO DAILY Diabetes #30 tabs 03/10/24
metformin 1,000 mg tablet 1,000 mg PO BID Diabetes #60 tabs 03/10/24
nicotine 14 mg/24 hr daily 14 mg transdermal DAILY #30 ea 03/10/24
transdermal patch
nystatin 100,000 unit/mL oral 5 ml PO QID #473 mL 03/10/24
suspension
sertraline 100 mg tablet 100 mg PO DAILY Mental 03/10/24
Health/Anxiety #30 tabs
valsartan 40 mg tablet 20 mg (1/2 x 40 mg) PO BID #30 tabs 03/10/24
buspirone 10 mg tablet 10 mg PO BID 03/11/24
acetaminophen 325 mg tablet 650 mg (2 x 325 mg) PO Q6HPRN PRN 03/12/24
mild pain/ fever>100.5F #0 tabs
lidocaine 4 % topical patch 1 patch topical DAILY #0 ea 03/12/24
carvedilol 6.25 mg tablet 6.25 mg PO BID #60 tabs 03/15/24
levetiracetam 500 mg tablet 750 mg (1.5 x 500 mg) PO BID #60 03/15/24
tabs
[2024-03-16 11:35] LABS: Glucose - Point of Care 230 mg/dl (70-99)
[2024-03-16 14:23] LABS: Hematocrit 30.9 % (39.0-52.0); Hemoglobin 10.6 g/dL (13.0-18.0); Mean Corp Hgb Conc. 34.3 g/dL (33.0-37.0); Mean Corpuscular Hgb 29.3 pg (27.0-31.0); Mean Corpuscular Volume 85.4 fL (80.0-94.0); Mean Platelet Volume 10.7 fL (7.4-10.4); Platelet Count 364 10^3/uL (130-400); Red Blood Cell Count 3.62 10^6/uL (4.70-6.10); Red Cell Dist. Width 12.7 % (11.5-14.5); White Blood Cell Count 7.3 10^3/uL (4.8-10.8)
[2024-03-16 14:48] LABS: ALT (SGPT) 39 U/L (0-50); AST (SGOT) 37 U/L (17-59); Albumin 3.9 g/dl (3.5-5.0); Alkaline Phosphatase 114 U/L (38-126); Blood Urea Nitrogen 18 mg/dl (9-20); Calcium 9.6 mg/dl (8.4-10.2); Carbon Dioxide 24 mmol/L (22-30); Chloride 92 mmol/L (98-107); Estimated Creatinine Clearance 120 ml/min; Glucose 162 mg/dl (70-99); HDL Cholesterol 47 mg/dl; LDL Cholesterol, Calculated 64 mg/dl; Potassium 4.9 mmol/L (3.5-5.1); Sodium 128 mmol/L (135-145); Total Bilirubin 0.6 mg/dl (0.2-1.3); Total Cholesterol 128 mg/dl (50-199); Total Protein 7.5 g/dl (6.3-8.2); Triglyceride 85 mg/dl (10-149); Very Low Density Lipoprotein 17 mg/dl (0-30); eGFR > 60.00
[2024-03-16] MEDS: NSS 1000 IV (16:49)
[2024-03-16 17:09] LABS: Glucose - Point of Care 151 mg/dl (70-99)
[2024-03-16] MEDS: NOVOLOG FLEXPEN-LOW RESISTANCE SC (19:41)
[2024-03-16] MEDS: LOVENOX SC (19:42)
[2024-03-16 21:51] LABS: Glucose - Point of Care 220 mg/dl (70-99)
[2024-03-16] MEDS: LIPITOR 40 MG PO (23:20)
[2024-03-17 03:39] VITALS: BP 143/80
[2024-03-17] MEDS: NSS 1000 IV ×2 (05:01→16:12)
[2024-03-17 06:00] VITALS: BMI 28.6
[2024-03-17 08:03] VITALS: BP 165/99
[2024-03-17 08:25] LABS: Hematocrit 30.8 % (39.0-52.0); Hemoglobin 10.9 g/dL (13.0-18.0); Mean Corp Hgb Conc. 35.4 g/dL (33.0-37.0); Mean Corpuscular Hgb 29.6 pg (27.0-31.0); Mean Corpuscular Volume 83.7 fL (80.0-94.0); Mean Platelet Volume 10.2 fL (7.4-10.4); Platelet Count 303 10^3/uL (130-400); Red Blood Cell Count 3.68 10^6/uL (4.70-6.10); Red Cell Dist. Width 12.6 % (11.5-14.5); White Blood Cell Count 5.8 10^3/uL (4.8-10.8)
[2024-03-17 08:38] LABS: Blood Urea Nitrogen 17 mg/dl (9-20); Calcium 9.3 mg/dl (8.4-10.2); Carbon Dioxide 20 mmol/L (22-30); Chloride 95 mmol/L (98-107); Estimated Creatinine Clearance 105 ml/min; Glucose 194 mg/dl (70-99); Potassium 5.5 mmol/L (3.5-5.1); Sodium 129 mmol/L (135-145); eGFR > 60.00
[2024-03-17] MEDS: KEPPRA 750 MG PO ×2 (09:08→20:12)
[2024-03-17] MEDS: ASPIR LOW (ENTERIC COATED) 81 MG PO (09:09)
[2024-03-17] MEDS: BUSPAR 10 MG PO ×2 (09:09→20:13)
[2024-03-17] MEDS: COREG 6.25 MG PO ×2 (09:10→20:14)
[2024-03-17 09:11] LABS: Glucose - Point of Care 198 mg/dl (70-99)
[2024-03-17] MEDS: GLUCOTROL 5 MG PO (09:11)
[2024-03-17] MEDS: DIOVAN 20 MG PO ×2 (09:11→20:14)
[2024-03-17] MEDS: ZOLOFT 100 MG PO (09:11)
[2024-03-17] MEDS: NOVOLOG FLEXPEN-LOW RESISTANCE 1 UNITS SC ×2 (09:13→13:01)
[2024-03-17] MEDS: TYLENOL 650 MG PO (09:19)
--- NOTE | 2024-03-17 10:13 | W.PN.HOSP.TC ---
Today's Communication/Plan
-
Awaiting Neuro input
D/C Plavix.
iv FLUIDS
Repeat BMP in the PM.
Monitor K level.
Assessment / Plan
Assessment / Plan
Impression:
Headache with left lower extremity weakness
Acute ambulatory dysfunction
Mild hyperkalemia
Conditions prior to admission:
Recent hospitalization for chest pain at the device site
Recent hospitalization with group A streptococcal bacteremia/pharyngitis and otitis media as a source treated as meningitis and completed course of antibiotics
Cardiomyopathy.
AICD with recently changed battery and malfunctioning lead
ASCVD.
Diabetes type 2.
Hypertension.
Anxiety/depression
Seizure disorder
Chronic HFrEF
Plan
#Headache with left lower extremity weakness
#Acute ambulatory dysfunction
#Concern for CVA/TIA
-Repeat Head CT 03/16 -Findings suspicious for tiny right-sided acute subdural hematoma superimposed upon small subacute subdural hematoma without significant mass effect and without midline shift.
Predominantly stable low-attenuation focus in the subcortical white matter of the right parietal region
-Head CT 03/15/2024 No findings to suggest recent intracranial hemorrhage. Stable small area of decreased attenuation in the right parietal lobe deep white matter questionable new small peripheral areas of hypodensity in the posterior right parietal
lobe. Intracranial infection or atypical ischemic process cannot be excluded. Compared to previous CT, CVA is enlarging
-Awaiting neurology input on information from repeat CT.
-Discontinued Plavix .
-Continue aspirin, statin
-Cannot get an MRI done due to recent ICD placement
#Hyponatremia
#hyperkalemia
-start IV FLUIDS.
-Will repeat BMP in the afternoon
-If still elevated, hold Losartan. Administer Lokelma.
# Hypertension
-Continue Coreg, valsartan
#ASCVD
-Continue current regimen including Coreg, valsartan aspirin
#Seizure disorder
-Continue Keppra at current dosage
# T2DM
-Continue glipizide
-Sliding scale insulin
# Anxiety/depression-continue sertraline, buspirone
DVT prophylaxis-Lovenox
CODE STATUS-full code
Anticipated Discharge: 24 - 48 hours
Subjective/Interval History
-
Patient seen at bedside. Afebrile with vital signs stable.
Objective Data
-
Labs:
Laboratory Results
03/17/24
07:54
WBC 5.8
Hgb 10.9 L
Hct 30.8 L
Plt Count 303
Sodium 129 L
Potassium 5.5 H
Chloride 95 L
Carbon Dioxide 20 L
BUN 17
Creatinine 0.8
Glucose 194 H
Calcium 9.3
Vital Signs:
Vital Signs
Temp Pulse Resp BP Pulse Ox
97.8 F 64 18 165/99 94
03/17/24 08:03 03/17/24 08:03 03/17/24 08:03 03/17/24 08:03 03/17/24 08:03
I&O
03/16/24 03/17/24 03/18/24
06:59 06:59 06:59
Intake Total 240 / 240
Output Total 550 / 550 1300 / 1300
Balance -550 / -550 -1060 / -1060
Review of Systems
-
All other systems: Reviewed and negative (except as documented. )
Physical Exam
-
General: No Apparent Distress
Cardiac: S1/S2
GI: Soft, Nontender and Nondistended
--- NOTE | 2024-03-17 11:47 | CM ---
Patient remains with guards at bedside. Patient plan is to return to [facility] when medically appropriate. CM will continue to follow for discharge planning needs.
Plan; return to [facility] when medically [facility]; report to [facility] when medically appropriate;
phone; [phone]/fax [phone]
[2024-03-17 12:08] LABS: Glucose - Point of Care 162 mg/dl (70-99)
[2024-03-17 12:19] VITALS: BP 120/70
--- NOTE | 2024-03-17 13:26 | W.PN.NEURO.1 ---
Today's Communication / Plan
-
Hold Plavix
Repeat CT
Physical therapy
Continue aspirin
Neuro Assessment/Plan
Assessment
58year old right) handed (male who was admitted to the hospital with (chief complaint) of left sided weakness. He gives a history of group A streptococcal sepsis pharyngitis otitis and meningitis who was on a prolonged course of antibiotics, right
frontoparietal infarction, cardiomyopathy with HFrEF/ICM (EF 35-40%) AICD placement coronary disease diabetes hypertension recently hospitalized for pacemaker replacement. At that visit he had a breakthrough seizure and his Keppra dose was
increased to 750 twice a day. Folowing discharge he became hemiparetic. Repeat CT head revealed a small petechiae
Plan
Will hold Plavix.
Continue aspirin
Strict blood pressure management
PT/OT
Subjective/Objective
Subjective Data
Date of Service: March 17, 2024
Mr. Durham continues to be mildly weak on the left side. Able to move his arm and leg and able to form a fist and wiggle his toes
Objective Data
Vital Signs
Temp Pulse Resp BP Pulse Ox
37.2 C 60 18 120/70 97
03/17/24 12:19 03/17/24 12:19 03/17/24 12:19 03/17/24 12:19 03/17/24 12:19
Lab Results
03/17/24 07:54
Sodium 129 mmol/L (135-145) L 03/17/24 07:54
Potassium 5.5 mmol/L (3.5-5.1) H 03/17/24 07:54
BUN 17 mg/dl (9-20) 03/17/24 07:54
Glucose 194 mg/dl (70-99) H 03/17/24 07:54
Calcium 9.3 mg/dl (8.4-10.2) 03/17/24 07:54
LDL Cholesterol, Calc 64 mg/dl 03/16/24 13:51
Patient Allergies
No Known Allergies Allergy (Verified 03/15/24 19:49)
Physical Exam
-
General: Well Developed, Well Nourished and Comfortable
Eyes: Able to visualize OU, Unremarkable, Round OU, [place] Conjunctivae, No Ptosis and PERRLA
HEENT: Normocephalic, Atraumatic and Anicteric
Neck: Full Range of Motion
Respiratory: Clear to Auscultation
Cardiac: Regular Rhythm and No Murmur
Psych: Intact Judgement/Insight
Extended Neurological Exam
Mood & Affect: Mood Unremarkable and Affect Unremarkable
Attention Span & Concentration: Awake, Lethargic and No Difficulty with 2 Step Request
Memory: Able to Recall
Tremor: Hand Tremor Absent and Head Tremor Absent
Involuntary Movement: None
Speech: Quality Unremarkable and Quantity Unremarkable
Cranial Nerve II: Left Eye: Pupillary Reactivity Unremarkable, Pupillary Size Unremarkable and Visual Meneses Grossly Intact
Cranial Nerve II: Right Eye: Pupillary Reactivity Unremarkable, Pupillary Size Unremarkable and Visual Meneses Grossly Intact
Cranial Nerves III, IV, : Extraocular Movement: Extraocular Movement Full in all Directions
Cranial Nerve V: Facial Sensation: Intact to Light Touch
Cranial Nerve VIII: Hearing: Unremarkable Hearing to Normal Conversational Volume
Cranial Nerves IX, X: Palate Movement: Palate Elevation Symmetric
Cranial Nerve XI: Shoulder Shrug: Unremarkable
Cranial Nerve XII: Tongue Protusion: Midline
Muscle Strength, Overall: Reduced on Left
Muscle Bulk & Tone: Bulk Unremarkable and Tone Unremarkable
Pronator Drift: Drift in Left Upper Extremity and Drift in Left Lower Extremity
Deep Tendon Reflexes: Trace Throughout
Cold Sensation: Unremarkable
Vibration Sensation: Unremarkable
Touch Sensation: Unremarkable
Coordination: Reaches for Objects without Difficulty
Babinski Sign: Present on Left
Gait & Station: Up from Lying with Difficulty
Modified Faulk Score (MRS)
-
Modified Ronnell Scale (mRS): Moderately severe disability. Unable to attend to bodily needs/walk.
Score: 4
[2024-03-17 16:47] VITALS: BP 108/66
[2024-03-17 17:24] LABS: Glucose - Point of Care 260 mg/dl (70-99)
[2024-03-17 17:41] LABS: Blood Urea Nitrogen 17 mg/dl (9-20); Calcium 8.7 mg/dl (8.4-10.2); Carbon Dioxide 22 mmol/L (22-30); Chloride 94 mmol/L (98-107); Estimated Creatinine Clearance 105 ml/min; Glucose 236 mg/dl (70-99); Potassium 4.7 mmol/L (3.5-5.1); Sodium 129 mmol/L (135-145); eGFR > 60.00
[2024-03-17] MEDS: LOVENOX 40 MG SC (18:03)
[2024-03-17] MEDS: NOVOLOG FLEXPEN-LOW RESISTANCE 3 UNITS SC (18:04)
--- NOTE | 2024-03-17 18:51 | PTCARENOTE ---
This am, patient with left arm drift 4/5 that was not verbalized or documented on in any previous shift assessment. patient is inconsistent with following commands. at times, does not want to participate in commands and refused to ambulate with
therapy. During therapy, physical therapist noted that patient may have left field deficit, left side inattention and left foot drop. Dr. Benz was made aware of this, no new orders obtained.
[2024-03-17 19:28] VITALS: BP 103/52
[2024-03-17 20:44] LABS: Glucose - Point of Care 182 mg/dl (70-99)
[2024-03-17] MEDS: LIPITOR 40 MG PO (22:18)
[2024-03-17 23:29] VITALS: BP 118/77
[2024-03-18] VITALS (7 sets, daily range): BP systolic 106–149; BP diastolic 51–84; PULSE 61; BMI 28.6
[2024-03-18] MEDS: NSS 1000 IV ×2 (02:25→15:30)
[2024-03-18 07:43] LABS: Hemoglobin 10.6 g/dL (13.0-18.0); Mean Corp Hgb Conc. 35.3 g/dL (33.0-37.0); Mean Corpuscular Hgb 30.5 pg (27.0-31.0); Mean Corpuscular Volume 86.5 fL (80.0-94.0); Mean Platelet Volume 10.3 fL (7.4-10.4); Platelet Count 286 10^3/uL (130-400); Red Blood Cell Count 3.47 10^6/uL (4.70-6.10); Red Cell Dist. Width 12.6 % (11.5-14.5); White Blood Cell Count 5.7 10^3/uL (4.8-10.8)
--- NOTE | 2024-03-18 08:03 | W.PN.HOSP.TC ---
Today's Communication/Plan
-
.
Assessment / Plan
Assessment / Plan
Impression:
Headache with left lower extremity weakness
Acute ambulatory dysfunction
Mild hyperkalemia
Conditions prior to admission:
Recent hospitalization for chest pain at the device site
Recent hospitalization with group A streptococcal bacteremia/pharyngitis and otitis media as a source treated as meningitis and completed course of antibiotics
Cardiomyopathy.
AICD with recently changed battery and malfunctioning lead
ASCVD.
Diabetes type 2.
Hypertension.
Anxiety/depression
Seizure disorder
Chronic HFrEF
Plan
#Headache with left lower extremity weakness
#Acute ambulatory dysfunction
#Concern for CVA/TIA
-Repeat Head CT 03/16 -Findings suspicious for tiny right-sided acute subdural hematoma superimposed upon small subacute subdural hematoma without significant mass effect and without midline shift.
Predominantly stable low-attenuation focus in the subcortical white matter of the right parietal region
-Head CT 03/15/2024 No findings to suggest recent intracranial hemorrhage. Stable small area of decreased attenuation in the right parietal lobe deep white matter questionable new small peripheral areas of hypodensity in the posterior right parietal
lobe. Intracranial infection or atypical ischemic process cannot be excluded. Compared to previous CT, CVA is enlarging
-Discontinued Plavix .
-Continue aspirin, statin
-Cannot get an MRI done due to recent ICD placement
-Repeat Head CT today 03/18/2024 No significant change compared to the prior CT from 03/16/2024. Unchanged area of hypoattenuation within the right frontal lobe and larger lesion within the right parietal lobe with some peripheral areas of increased
attenuation suspicious for subarachnoid blood or petechial hemorrhage. Findings suspicious for subacute infarction. No new lesions appreciated.
-Awaiting neurology input on information from repeat CT, and optimization of meds.
#Hyponatremia
#hyperkalemia
-Resolved With IV fluids 100 mL normal saline per hour yesterday
-Continue to monitor BMP
# Hypertension
-Continue Coreg, valsartan
-If BP elevated today, will consider increase of Losartan dosage to 50mg.
#ASCVD
-Continue current regimen including Coreg, valsartan aspirin
#Seizure disorder
-Continue Keppra at current dosage
# T2DM
-Continue glipizide
-Sliding scale insulin
# Anxiety/depression-continue sertraline, buspirone
DVT prophylaxis-Lovenox
CODE STATUS-full code
Anticipated Discharge: Within 24 hours
Subjective/Interval History
-
Date of Service: March 18, 2024
Objective Data
-
Labs:
Laboratory Results
03/18/24
07:18
WBC 5.7
Hgb 10.6 L
Hct 30.0 L
Plt Count 286
Sodium Pending
Potassium Pending
Chloride Pending
Carbon Dioxide Pending
BUN Pending
Creatinine Pending
Glucose Pending
Calcium Pending
Vital Signs:
Vital Signs
Temp Pulse Resp BP Pulse Ox
98.3 F 61 14 149/84 93
03/18/24 02:36 03/18/24 02:36 03/18/24 02:36 03/18/24 02:36 03/18/24 02:36
I&O
03/17/24 03/18/24 03/19/24
06:59 06:59 06:59
Intake Total 240 / 240 875 / 875
Output Total 1300 / 1300 750 / 750
Balance -1060 / -1060 125 / 125
Review of Systems
-
All other systems: Reviewed and negative (Except as documented)
Physical Exam
-
General: No Apparent Distress
Cardiac: S1/S2
GI: Soft, Nontender and Nondistended
[2024-03-18] MEDS: NSS IV (08:09)
[2024-03-18 08:12] LABS: Blood Urea Nitrogen 22 mg/dl (9-20); Carbon Dioxide 20 mmol/L (22-30); Chloride 101 mmol/L (98-107); Estimated Creatinine Clearance 105 ml/min; Glucose 185 mg/dl (70-99); Potassium 4.7 mmol/L (3.5-5.1); Sodium 134 mmol/L (135-145); eGFR > 60.00
[2024-03-18 08:24] LABS: Glucose - Point of Care 161 mg/dl (70-99)
[2024-03-18] MEDS: NOVOLOG FLEXPEN-LOW RESISTANCE 1 UNITS SC ×2 (09:28→17:06)
[2024-03-18] MEDS: COREG 6.25 MG PO ×2 (09:28→21:12)
[2024-03-18] MEDS: BUSPAR 10 MG PO ×2 (09:29→21:12)
[2024-03-18] MEDS: DIOVAN 20 MG PO ×2 (09:29→21:12)
[2024-03-18] MEDS: GLUCOTROL 5 MG PO (09:29)
[2024-03-18] MEDS: ASPIR LOW (ENTERIC COATED) 81 MG PO (09:29)
[2024-03-18] MEDS: KEPPRA 750 MG PO (09:29)
[2024-03-18] MEDS: ZOLOFT 100 MG PO (09:30)
--- NOTE | 2024-03-18 10:00 | PTCARENOTE ---
Pt oriented to self and place, agitated w/ stroke scale questions and uncooperative at times. MANCIA w/ L sided weakness noted. No aphasia, vision complaints or slurred speech. Garbled speech noted at times. NIHSS difficult to assess as pt is not
cooperative w/ assessment. VSS. Pt sent for repeat head CT.
[2024-03-18 11:23] LABS: Glucose - Point of Care 266 mg/dl (70-99)
[2024-03-18] MEDS: NOVOLOG FLEXPEN-LOW RESISTANCE 3 UNITS SC (11:46)
--- NOTE | 2024-03-18 11:59 | CM ---
Addendum entered by Cathryn Bell 03/18/24 12:47:
Will not be discharged today per Attending
Original Note:
Plan: per Attending, patient may be discharged to [facility] today.
[facility] @ facility notified and clinical information faxed to # [phone]
[2024-03-18] MEDS: KEPPRA 1000 MG IV (12:38)
--- NOTE | 2024-03-18 15:00 | EEG.RPT ---
Electroencephalogram Report
Recording
Date of EE03/18/24
Type of EEG: Routine
Length of EEG recordin mins
Done with Video Recording: Yes
Patient Status: Inpatient
Recording Conditions: Awake
Hyperventilation Performed: No
Photic Stimulation Performed: Yes
Report
METHODS
A 21 channel digitized electroencephalogram was performed at [facility]. The 10/20 international system of electrode placement was used. In addition to EEG, the patient was monitored for EKG. The duration of the recording was 26 minutes.
BACKGROUND
During the awake state, with the eyes closed, the background consisted of a normal amplitude, 9 Hertz posterior reactive rhythm that attenuated appropriately with eye opening. Beta activity was distributed diffusely with an anterior predominance.
There was a normal anterior-posterior voltage gradient. With eye opening the background activity changed to a low voltage mixture of alpha, beta, and occasional theta range frequencies. There were no significant asymmetries of background activity
noted.
PHOTIC STIMULATION
Photic stimulation using a step-gonzalez increase in photic frequency varying from 1-31 Hertz resulted in no driving responses but no appearance of abnormal activity.
ABNORMAL EEG ACTIVITY
None
CLINICAL EVENTS
None
INTERPRETATION AND CLINICAL CORRELATION
This EEG is normal during the awake state. No seizures were noted during the recording. A normal EEG, in itself, does not rule out a diagnosis of epilepsy. If clinical suspicion for seizure persists, a sleep-deprived and/or prolonged recording may
be warranted.
--- NOTE | 2024-03-18 15:23 | W.PN.NEURO.1 ---
Today's Communication / Plan
-
58-year-old male with history of sepsis meningoencephalitis seizures right MCA infarction left hemiplegia post cognition continues to decline possibly secondary to subclinical seizures. He was given additional dose of Keppra 1000 mg. Daily dosage
of Keppra was increased to 1000mg every 12
He will be discharged once medically stable
Neuro Assessment/Plan
Assessment
58year old right) handed (male who was admitted to the hospital with (chief complaint) of left sided weakness. He gives a history of group A streptococcal sepsis pharyngitis otitis and meningitis who was on a prolonged course of antibiotics, right
frontoparietal infarction, cardiomyopathy with HFrEF/ICM (EF 35-40%) AICD placement coronary disease diabetes hypertension recently hospitalized for pacemaker replacement. At that visit he had a breakthrough seizure and his Keppra dose was
increased to 750 twice a day. Following discharge he became hemiparetic. Repeat CT head revealed a small petechiae. His mental status is fairly stable and he was able to attend to his daily needs with minimal assist. This afternoon he spilled his
lunch and is unaware
Plan
Keppra 1000 mg IVx1.
Continue aspirin
Strict blood pressure management
PT/OT
Subjective/Objective
Subjective Data
Date of Service: March 18, 2024
Mr. Durham is confused disoriented with eye deviation. Speech is incoherent. Previously he was independent enough to feed himself now he is unable to do so. Left-sided
Objective Data
Vital Signs
Temp Pulse Resp BP Pulse Ox
36.5 C 72 17 106/51 97
03/18/24 11:00 03/18/24 11:00 03/18/24 11:00 03/18/24 11:00 03/18/24 11:00
Lab Results
03/18/24 07:18
03/18/24 07:18
Sodium 134 mmol/L (135-145) L 03/18/24 07:18
Potassium 4.7 mmol/L (3.5-5.1) 03/18/24 07:18
BUN 22 mg/dl (9-20) H 03/18/24 07:18
Glucose 185 mg/dl (70-99) H 03/18/24 07:18
Calcium 9.0 mg/dl (8.4-10.2) 03/18/24 07:18
LDL Cholesterol, Calc 64 mg/dl 03/16/24 13:51
Patient Allergies
No Known Allergies Allergy (Verified 03/15/24 19:49)
Physical Exam
-
General: Well Developed, Well Nourished and Appears Chronically Ill
Eyes: Able to visualize OU, Unremarkable, Round OU and PERRLA
HEENT: Normocephalic
Neck: Full Range of Motion
Respiratory: Clear to Auscultation
Cardiac: Regular Rhythm
GI: Normal Bowel Sounds
Skin: Unremarkable
Extremities: No Clubbing and No Cyanosis
Psych: Confused
Extended Neurological Exam
Mood & Affect: Unable to Assess
Attention Span & Concentration: Awake and Interactive
Memory: Unable to Recall
Tremor: Hand Tremor Absent and Head Tremor Absent
Involuntary Movement: None
Speech: Mildly Reduced Output and Other (Incoherent occasionally appropriate)
Cranial Nerve II: Left Eye: Pupillary Size Unremarkable and Visual Meneses Grossly Intact
Cranial Nerve II: Right Eye: Pupillary Size Unremarkable and Visual Meneses Grossly Intact
Cranial Nerves III, IV, : Extraocular Movement: Reduced
Cranial Nerve V: Facial Sensation: Facial Sensation Unremarkable to Cold
Cranial Nerve VII: Facial Symmetry: Reduced
Cranial Nerve VIII: Hearing: Unremarkable Hearing to Normal Conversational Volume
Cranial Nerves IX, X: Palate Movement: Palate Elevation Symmetric
Cranial Nerve XI: Shoulder Shrug: Unremarkable
Cranial Nerve XII: Tongue Protusion: Midline
Muscle Strength, Overall: Reduced on Left
Muscle Bulk & Tone: Bulk Unremarkable and Tone Unremarkable
Pronator Drift: Drift in Left Upper Extremity and Drift in Left Lower Extremity
Deep Tendon Reflexes: Trace Throughout
Cold Sensation: Unremarkable
Vibration Sensation: Unremarkable
Touch Sensation: Unremarkable
Coordination: Other ([id number] dysmetria with the left hand)
Babinski Sign: Present on Left
Gait & Station: Up from Lying with Difficulty
Modified Ronnell Score (MRS)
-
Modified [place] Scale (mRS): Moderately severe disability. Unable to attend to bodily needs/walk.
Score: 4
Data Reviewed
-
CT Head: Image Reviewed ( right posterior frontoparietal infarct with petechiae)
EEG: Report Reviewed
[2024-03-18 16:41] LABS: Glucose - Point of Care 177 mg/dl (70-99)
[2024-03-18] MEDS: LOVENOX 40 MG SC (17:06)
[2024-03-18 21:11] LABS: Glucose - Point of Care 131 mg/dl (70-99)
[2024-03-18] MEDS: KEPPRA 1000 MG PO (21:12)
[2024-03-18] MEDS: LIPITOR 40 MG PO (21:12)
--- NOTE | 2024-03-19 02:20 | PTCARENOTE ---
Patient becoming increasingly agitated, yelling at [facility] guards, attempting to get OOB and pull off all medical equipment. Informed by guard in room that patient had pulled out his IV. Upon assessment, patient states 'I don't want it. I took it out.'
IV removed by patient, bleeding controlled and gauze placed. Patient refusing to have new IV placed at this time, despite being on front desk monitor. Currently, patient is not receiving any scheduled or PRN medication by IV. Patient unable to calm
down and continues to yell in the room at [facility] and hospital staff. Notified PATRIA Mcnally -- one time IM Ativan ordered and given to patient, see MAR. Good relief with Ativan, patient now appears to be asleep and calm. Will continue to monitor.
[2024-03-19] MEDS: ATIVAN 1 MG IM (02:52)
[2024-03-19 08:00] VITALS: BP 150/84
[2024-03-19 08:51] LABS: Glucose - Point of Care 175 mg/dl (70-99)
[2024-03-19] MEDS: ASPIR LOW (ENTERIC COATED) PO (09:33)
[2024-03-19] MEDS: COREG PO (09:33)
[2024-03-19] MEDS: BUSPAR PO (09:33)
[2024-03-19] MEDS: NOVOLOG FLEXPEN-LOW RESISTANCE SC ×2 (09:33→11:57)
[2024-03-19] MEDS: ZOLOFT PO (09:34)
[2024-03-19] MEDS: DIOVAN PO (09:34)
[2024-03-19] MEDS: GLUCOTROL PO (09:34)
[2024-03-19] MEDS: KEPPRA PO (09:34)
[2024-03-19 11:45] VITALS: BP 148/90
[2024-03-19 11:53] LABS: Glucose - Point of Care 180 mg/dl (70-99)
--- NOTE | 2024-03-19 12:23 | W.PN.NEURO.1 ---
Today's Communication / Plan
-
Mr. Durham continues to be confused with left hemiparesis and poor cognition.
He will continue aspirin 81 mg daily Keppra 1000 mg twice a day.
He will return to care home but will need therapy
Neuro Assessment/Plan
Assessment
58year old right) handed (male who was admitted to the hospital with (chief complaint) of left sided weakness. He gives a history of group A streptococcal sepsis pharyngitis otitis and meningitis who was on a prolonged course of antibiotics, right
frontoparietal infarction, cardiomyopathy with HFrEF/ICM (EF 35-40%) AICD placement coronary disease diabetes hypertension recently hospitalized for pacemaker replacement. At that visit he had a breakthrough seizure and his Keppra dose was
increased to 1000 twice a day. Following discharge he became hemiparetic. Repeat CT head revealed a small petechiae. His mental status was fairly stable and he was able to attend to his daily needs with minimal assist. Over the last 2 days
patient has become increasingly confused with cognitive impairment. Keppra dose was increased with no improvement in cognition
Plan
Keppra 1000 mg BID.
Continue aspirin
Strict blood pressure management
PT/OT
Subjective/Objective
Subjective Data
Date of Service: March 19, 2024
Mr. Durham continues to be confused and lethargic. Oriented to person place and year. Speech is limited. With poor attention and concentration. Denies pain and headaches
Objective Data
Vital Signs
Temp Pulse Resp BP Pulse Ox
36.3 C 61 16 150/84 100
03/19/24 08:00 03/19/24 08:00 03/19/24 08:00 03/19/24 08:00 03/19/24 08:00
Sodium 134 mmol/L (135-145) L 03/18/24 07:18
Potassium 4.7 mmol/L (3.5-5.1) 03/18/24 07:18
BUN 22 mg/dl (9-20) H 10/04/24 07:18
Glucose 185 mg/dl (70-99) H 03/18/24 07:18
Calcium 9.0 mg/dl (8.4-10.2) 03/18/24 07:18
LDL Cholesterol, Calc 64 mg/dl 03/16/24 13:51
Patient Allergies
No Known Allergies Allergy (Verified 03/15/24 19:49)
Physical Exam
-
General: Well Developed and Well Nourished
Eyes: Able to visualize OU, Unremarkable and Round OU
HEENT: Normocephalic and Atraumatic
Neck: Full Range of Motion
Extremities: No Clubbing, No Cyanosis and No Edema
Psych: Confused
Extended Neurological Exam
Mood & Affect: Mood Unremarkable and Affect Unremarkable
Attention Span & Concentration: Awake, Lethargic, Closes Eyes after Stimulation and Mild Difficulty with 2 Step Request
Memory: Reduced
Tremor: Hand Tremor Absent and Head Tremor Absent
Involuntary Movement: None
Speech: Mildly Reduced Output
Cranial Nerve II: Left Eye: Pupillary Reactivity Unremarkable and Pupillary Size Unremarkable
Cranial Nerve II: Right Eye: Pupillary Reactivity Unremarkable and Pupillary Size Unremarkable
Cranial Nerves III, IV, : Extraocular Movement: Extraocular Movement Full in all Directions
Cranial Nerve V: Facial Sensation: Reduced and Intact to Light Touch
Cranial Nerve VIII: Hearing: Unremarkable Hearing to Normal Conversational Volume
Cranial Nerves IX, X: Palate Movement: Palate Elevation Symmetric
Cranial Nerve XI: Shoulder Shrug: Unremarkable
Cranial Nerve XII: Tongue Protusion: Midline
Muscle Strength, Overall: Reduced on Left
Muscle Bulk & Tone: Bulk Unremarkable and Tone Unremarkable
Pronator Drift: No Drift in Upper Extremities and No Drift in Lower Extremities
Deep Tendon Reflexes: Trace Throughout
Cold Sensation: Unremarkable
Vibration Sensation: Unable to Assess
Touch Sensation: Unable to Assess
Coordination: [id number]-tcbemp Testing Unremarkable
Babinski Sign: Present on Left
Gait & Station: Up from Lying with Difficulty
Modified Ronnell Score (MRS)
-
Modified Thayer Scale (mRS): Moderately severe disability. Unable to attend to bodily needs/walk.
Score: 4
--- NOTE | 2024-03-19 12:30 | W.PN.HOSP.TC ---
Today's Communication/Plan
-
Discharge back to [facility]
Assessment / Plan
Assessment / Plan
#Headache with left lower extremity weakness
#Acute ambulatory dysfunction
#Concern for CVA/TIA
-Repeat Head CT 03/16 -Findings suspicious for tiny right-sided acute subdural hematoma superimposed upon small subacute subdural hematoma without significant mass effect and without midline shift.
Predominantly stable low-attenuation focus in the subcortical white matter of the right parietal region
-Head CT 03/15/2024 No findings to suggest recent intracranial hemorrhage. Stable small area of decreased attenuation in the right parietal lobe deep white matter questionable new small peripheral areas of hypodensity in the posterior right parietal
lobe. Intracranial infection or atypical ischemic process cannot be excluded. Compared to previous CT, CVA is enlarging
-Discontinued Plavix .
-Continue aspirin, statin
-Cannot get an MRI done due to recent ICD placement
-Repeat Head CT today 03/18/2024 No significant change compared to the prior CT from 03/16/2024. Unchanged area of hypoattenuation within the right frontal lobe and larger lesion within the right parietal lobe with some peripheral areas of increased
attenuation suspicious for subarachnoid blood or petechial hemorrhage. Findings suspicious for subacute infarction. No new lesions appreciated.
-Will discharge today on aspirin, high intensity statin with physical therapy coordinated by present
#Concern for complex partial seizures
-EEG was negative, remains on Keppra regimen
# Hypertension
-Continue Coreg, valsartan
-If BP elevated today, will consider increase of Losartan dosage to 50mg.
#ASCVD
-Continue current regimen including Coreg, valsartan aspirin
#Seizure disorder
-Continue Keppra at current dosage
# T2DM
-Continue glipizide
-Sliding scale insulin
# Anxiety/depression-continue sertraline, buspirone
DVT prophylaxis-Lovenox
CODE STATUS-full code
Anticipated Discharge: Today
Subjective/Interval History
-
Date of Service: March 19, 2024
Seen and examined at bedside. No acute events overnight. AFVSS this morning.
He has started to get agitated. Giving 1 dose of IM Haldol. EEG was negative for any signs of seizure events
Unable to obtain full history/ROS due to agitation
Objective Data
-
Labs:
Laboratory Results
03/19/24
12:21
WBC Pending
Hgb Pending
Hct Pending
Plt Count Pending
Sodium Pending
Potassium Pending
Chloride Pending
Carbon Dioxide Pending
BUN Pending
Creatinine Pending
Glucose Pending
Calcium Pending
Vital Signs:
Vital Signs
Temp Pulse Resp BP Pulse Ox
97.4 F 61 16 150/84 100
03/19/24 08:00 03/19/24 08:00 03/19/24 08:00 03/19/24 08:00 03/19/24 08:00
I&O
03/18/24 03/19/24 03/20/24
06:59 06:59 06:59
Intake Total 875 / 875 240 / 240
Output Total 750 / 750
Balance 125 / 125 240 / 240
Review of Systems
-
Unable to obtain full review of systems at this time due to: Acuity
Physical Exam
-
General: Well Nourished and No Apparent Distress
HEENT: Normocephalic, Atraumatic and Moist Mucous Membranes
Respiratory: Clear to Auscultation and Non Labored Respirations; Negative Wheezes, Rales or Rhonchi
Cardiac: Regular Rhythm and S1/S2; Negative Murmur, Rub or Gallop
GI: Soft, Nontender, Nondistended and Normal Bowel Sounds
Musculoskeletal: No Clubbing, No Cyanosis and No Edema
Skin: Warm and Dry; Negative Rash
Neuro: AO x 3, No Motor Deficits (4/5 MMS to LLE), Central Nerve's Intact and No Sensory Deficits
Psych: Agitated
[2024-03-19 12:32] LABS: Hematocrit 29.3 % (39.0-52.0); Hemoglobin 10.2 g/dL (13.0-18.0); Mean Corp Hgb Conc. 34.8 g/dL (33.0-37.0); Mean Corpuscular Hgb 29.7 pg (27.0-31.0); Mean Corpuscular Volume 85.2 fL (80.0-94.0); Platelet Count 317 10^3/uL (130-400); Red Blood Cell Count 3.44 10^6/uL (4.70-6.10); Red Cell Dist. Width 12.7 % (11.5-14.5); White Blood Cell Count 6.2 10^3/uL (4.8-10.8)
[2024-03-19 13:17] LABS: Blood Urea Nitrogen 19 mg/dl (9-20); Calcium 9.4 mg/dl (8.4-10.2); Carbon Dioxide 22 mmol/L (22-30); Chloride 97 mmol/L (98-107); Estimated Creatinine Clearance 120 ml/min; Glucose 207 mg/dl (70-99); Potassium 4.4 mmol/L (3.5-5.1); Sodium 135 mmol/L (135-145); eGFR > 60.00
[2024-03-19 14:00] VITALS: BP 142/80
--- NOTE | 2024-03-19 14:15 | CM ---
Plan: discharge to [facility] today
[facility] notified of patient's return via phone
== END 2024-03-19 14:46 ==
LOC: 3 WEST ACU 23:01
PROVIDERS: Student in an Organized Health Care Education/Training Program; ADMITTING PHYSICIAN Internal Medicine; ATTENDING PHYSICIAN Internal Medicine; CONSULT PHYSICIAN Psychiatry & Neurology Neurology; EMERGENCY PHYSICIAN Emergency Medicine
DX: R41.0 Disorientation, unspecified (principal); R42 Dizziness and giddiness; R07.89 Other chest pain; R53.1 Weakness; E86.1 Hypovolemia; E87.1 Hypo-osmolality and hyponatremia; I69.354 Hemiplegia and hemiparesis following cerebral infarction affecting left non-dominant side; E78.00 Pure hypercholesterolemia, unspecified; G40.909 Epilepsy, unspecified, not intractable, without status epilepticus; I42.9 Cardiomyopathy, unspecified; I11.0 Hypertensive heart disease with heart failure; I50.22 Chronic systolic (congestive) heart failure; I25.10 Atherosclerotic heart disease of native coronary artery without angina pectoris; E11.9 Type 2 diabetes mellitus without complications; R26.2 Difficulty in walking, not elsewhere classified; R51.9 Headache, unspecified; F41.9 Anxiety disorder, unspecified; F32.A Depression, unspecified; E87.5 Hyperkalemia; R47.81 Slurred speech; F17.210 Nicotine dependence, cigarettes, uncomplicated; Z95.810 Presence of automatic (implantable) cardiac defibrillator; Z79.02 Long term (current) use of antithrombotics/antiplatelets; Z79.82 Long term (current) use of aspirin; Z79.84 Long term (current) use of oral hypoglycemic drugs; Z60.2 Problems related to living alone
CPT/HCPCS: 70450; 80048; 80053; 80061; 82962; 83735; 85025; 85027; 87070; 93005; 93926; 95816; 97116; 97162; 97167; 97530; 97535; 99285; G0378

== ENCOUNTER 2024-04-22 06:12 | Outpatient (RCR) | payer OTHER, SELFPAY | END 2024-04-22 11:04 | disposition home or self-care (01) | LOC: RPT 06:12 | PROVIDERS: ATTENDING PHYSICIAN Nurse Practitioner; FAMILY PHYSICIAN General Practice | DX: I69.354 Hemiplegia and hemiparesis following cerebral infarction affecting left non-dominant side (principal); Z73.6 Limitation of activities due to disability | CPT/HCPCS: 97110; 97162 ==